=== PATIENT | female | born 1935 | race African-American/Black ===

== ENCOUNTER 2018-01-06 01:41 | Inpatient (IN) | payer OTHER ==
[2018-01-06] MEDS ORDERED: FAMOTIDINE 20 MG/2 ML VIAL IV ONE (03:18)
[2018-01-06] MEDS ORDERED: NA CHLORIDE 0.9% 1,000 ML ONE (03:18)
[2018-01-06 03:19] LABS: Hematocrit 28.4 % (36.0-45.0); MCH 21.8 pg (27.0-35.0); MCV 72.5 fL (80-100); MPV 9.8 fL (7.6-11.3); RBC Red Blood Cell Count 3.92 M/uL (3.86-4.86)
[2018-01-06 03:22] LABS: Protime INR 0.92
[2018-01-06 03:27] LABS: Potassium 4.5 mEq/L (3.6-5.0)
[2018-01-06 03:33] LABS: Albumin 3.2 g/dL (3.2-5.5); Bilirubin Direct 0.1 mg/dL (0-0.2); Magnesium 1.8 mg/dL (1.8-2.5); Protein, Total 6.5 g/dL (6.0-8.3)
[2018-01-06 03:35] LABS: CKMB Creatine Kinase MB 2.4 ng/ml (0.3-4.0)
[2018-01-06] MEDS ORDERED: ACETAMINOPHEN 500 MG TAB PO PRN (04:01)
[2018-01-06] MEDS ORDERED: ONDANSETRON 4 MG/2 ML VIAL IV PRN (04:01)
[2018-01-06] MEDS ORDERED: MORPHINE 4 MG/ML SYR IV PRN (04:01)
[2018-01-06] MEDS ORDERED: ALBUTEROL 2.5 MG/3 ML NEB SOL NEB PRN (04:01)
[2018-01-06] MEDS ORDERED: IPRATROPIUM BROM 0.5MG/2.5ML NEB PRN (04:01)
[2018-01-06] MEDS ORDERED: FUROSEMIDE 40 MG/4 ML VIAL ONE (04:03)
--- NOTE | 2018-01-06 04:07 | EDPHYS ---
Physician Documentation [facility] Name: Camelia Root Age: 82 yrs Sex: Female : 1935 Arrival Date: 01/06/2018 Time: 01:45 Bed 16 Private MD: ED Physician Danny Adler HPI: 01/06 03:47 This 82 yrs old Black Female presents to ER via Wheelchair with complaints of Abdominal ching Pain. 03:47 The patient presents with abdominal pain in the upper abdomen, in the lower abdomen. ching Onset: The symptoms/episode began/occurred just prior to arrival, this morning. The symptoms do not radiate. Associated signs and symptoms: none. Modifying factors: The symptoms are alleviated by nothing, the symptoms are aggravated by nothing. Severity of pain: At its worst the pain was mild in the emergency department the pain is unchanged. The patient has not experienced similar symptoms in the past. Historical: - Allergies: 02:19 No Known Allergies; aa1 - Home Meds: 02:19 clonidine HCl 0.1 mg Oral tab [Active]; furosemide 40 mg Oral tab [Active]; captopril aa1 50 mg Oral tab [Active]; Metoprolol Tartrate Oral [Active]; Ranitidine Oral [Active]; doxazosin 1 mg oral tab 1 tab once daily [Active]; - PMHx: 02:19 Arthritis; High Cholesterol; Hypertension; CHF; aa1 - PSHx: 02:19 Knee surgery; Hysterectomy; back surg; aa1 - Immunization history:: Flu vaccine is not up to date. - Social history:: Smoking status: Patient/guardian denies using tobacco. - Family history:: not pertinent. ROS: 03:47 Constitutional: Negative for fever, chills, and weight loss, Eyes: Negative for injury, ching pain, redness, and discharge, ENT: Negative for injury, pain, and discharge, Neck: Negative for injury, pain, and swelling, Cardiovascular: Negative for chest pain, palpitations, and edema, Respiratory: Negative for shortness of breath, cough, wheezing, and pleuritic chest pain, Back: Negative for injury and pain, : Negative for injury, bleeding, discharge, and swelling, MS/Extremity: Negative for injury and deformity, Skin: Negative for injury, rash, and discoloration, Neuro: Negative for headache, weakness, numbness, tingling, and seizure, Psych: Negative for depression, anxiety, suicide ideation, homicidal ideation, and hallucinations, Allergy/Immunology: Negative for hives, rash, and allergies, Endocrine: Negative for neck swelling, polydipsia, polyuria, polyphagia, and marked weight changes, Hematologic/Lymphatic: Negative for swollen nodes, abnormal bleeding, and unusual bruising. 03:47 Abdomen/GI: Positive for abdominal pain, diarrhea, abdominal cramps. Exam: 03:47 Constitutional: This is a well developed, well nourished patient who is awake, alert, ching and in no acute distress. Head/Face: Normocephalic, atraumatic. Eyes: Pupils equal round and reactive to light, extra-ocular motions intact. Lids and lashes normal. Conjunctiva and sclera are non-icteric and not injected. Cornea within normal limits. Periorbital areas with no swelling, redness, or edema. ENT: Nares patent. No nasal discharge, no septal abnormalities noted. Tympanic membranes are normal and external auditory canals are clear. Oropharynx with no redness, swelling, or masses, exudates, or evidence of obstruction, uvula midline. Mucous membranes moist. Neck: Trachea midline, no thyromegaly or masses palpated, and no cervical lymphadenopathy. Supple, full range of motion without nuchal rigidity, or vertebral point tenderness. No Meningismus. Chest/axilla: Normal chest wall appearance and motion. Nontender with no deformity. No lesions are appreciated. Cardiovascular: Regular rate and rhythm with a normal S1 and S2. No gallops, murmurs, or rubs. Normal PMI, no JVD. No pulse deficits. Respiratory: Lungs have equal breath sounds bilaterally, clear to auscultation and percussion. No rales, rhonchi or wheezes noted. No increased work of breathing, no retractions or nasal flaring. Abdomen/GI: Soft, non-tender, with normal bowel sounds. No distension or tympany. No guarding or rebound. No evidence of tenderness throughout. Back: No spinal tenderness. No costovertebral tenderness. Full range of motion. Female : Normal external genitalia. Skin: Warm, dry with normal turgor. Normal color with no rashes, no lesions, and no evidence of cellulitis. MS/ Extremity: Pulses equal, no cyanosis. Neurovascular intact. Full, normal range of motion. Neuro: Awake and alert, GCS 15, oriented to person, place, time, and situation. Cranial nerves II-XII grossly intact. Motor strength 5/5 in all extremities. Sensory grossly intact. Cerebellar exam normal. Normal gait. Psych: Awake, alert, with orientation to person, place and time. Behavior, mood, and affect are within normal limits. Vital Signs: 02:19 BP 178 / 86; Pulse 83; Resp 18; Temp 98.2; Pulse Ox 99% on R/A; Weight 89.81 kg; Height aa1 5 ft. 9 in. (175.26 cm); Pain 8/10; 03:14 BP 170 / 89; Pulse 73; Resp 18; Pulse Ox 100% on R/A; aa1 04:00 BP 175 / 79; Pulse 71; Resp 18; Pulse Ox 100% on R/A; aa1 05:05 BP 176 / 85; Pulse 73; Resp 18; Pulse Ox 100% on R/A; Pain 5/10; aa1 02:19 Body Mass Index 29.24 (89.81 kg, 175.26 cm) aa1 MDM: 02:14 Patient medically screened. snw 03:50 Data reviewed: vital signs, nurses notes, lab test result(s), EKG, radiologic studies. [facility] 01/06 02:11 Order name: Basic Metabolic Panel; Complete Time: 03:50 snw 01/06 02:11 Order name: BNP; Complete Time: 03:50 snw 01/06 02:11 Order name: CBC with Diff; Complete Time: 06:42 snw 01/06 02:11 Order name: Ckmb; Complete Time: 03:50 snw 01/06 02:11 Order name: CPK; Complete Time: 03:50 snw 01/06 02:11 Order name: LFT's; Complete Time: 03:50 snw 01/06 02:11 Order name: Magnesium; Complete Time: 03:50 snw 01/06 02:11 Order name: PT-INR; Complete Time: 03:50 snw 01/06 02:11 Order name: Ptt, Activated; Complete Time: 03:50 snw 01/06 02:11 Order name: Troponin (emerg Dept Use Only); Complete Time: 03:50 snw 01/06 02:11 Order name: Urine Culture sn 01/06 02:11 Order name: Urine Microscopic Only sn 01/06 02:11 Order name: XRAY Chest (1 view) sn 01/06 02:52 Order name: Stool Culture [facility] 01/06 02:52 Order name: Fecal Leukocyte Stain [facility] 01/06 02:52 Order name: CDIFF [facility] 01/06 03:02 Order name: Lipase; Complete Time: 03:50 EDMS 01/06 03:36 Order name: Manual Differential; Complete Time: 06:42 EDMS 01/06 03:53 Order name: Type And Screen; Complete Time: 06:42 [facility] 01/06 04:05 Order name: Basic Metabolic Panel EDMS 01/06 04:05 Order name: Basic Metabolic Panel EDMS 01/06 04:05 Order name: BNP B-Type Natriuretic Peptide EDMS 01/06 04:05 Order name: BNP B-Type Natriuretic Peptide EDMS 01/06 04:05 Order name: CBC with Automated Diff EDNJ 01/06 04:05 Order name: CBC with Automated Diff EDNJ 01/06 04:05 Order name: Troponin I EDNJ 01/06 04:05 Order name: Troponin I EDNJ 01/06 04:05 Order name: Troponin I EDNJ 01/06 02:11 Order name: EKG; Complete Time: 02:12 sn 01/06 02:11 Order name: Cardiac monitoring; Complete Time: 03:13 snw 01/06 02:11 Order name: EKG - Nurse/Tech; Complete Time: 03:13 snw 01/06 02:11 Order name: IV Saline Lock; Complete Time: 03:13 sn 01/06 02:11 Order name: Labs collected and sent; Complete Time: 03:13 snw 01/06 02:11 Order name: O2 Per Protocol; Complete Time: 03:13 snw 01/06 02:11 Order name: O2 Sat Monitoring; Complete Time: 03:13 snw 01/06 02:51 Order name: CT Abd/Pelvis - W/Contrast [facility] 01/06 04:05 Order name: CONS Physician Consult EDNJ 01/06 04:05 Order name: Echo with Doppler EDNJ 01/06 04:05 Order name: Chest Single View EDNJ 01/06 04:05 Order name: Chest Single View EDNJ 01/06 04:05 Order name: EKG Electrocardiogram EDNJ 01/06 04:05 Order name: EKG Electrocardiogram EDMS 01/06 07:55 Order name: CT EDMS Administered Medications: Discontinued: NS 0.9% 1000 ml IV at 125 ml/hr continuous 03:24 Drug: Pepcid 20 mg Route: IVP; Site: right antecubital; aa1 05:00 Follow up: Response: No adverse reaction; Marked relief of symptoms aa1 03:24 Drug: NS 0.9% 1000 ml Route: IV; Rate: 125 ml/hr; Site: right antecubital; aa1 04:01 Drug: NS 0.9% 1000 ml Route: IV; Rate: 75 ml/hr; Site: right antecubital; aa1 05:00 Follow up: IV Status: Infusion continued upon admission aa1 04:15 Drug: Lasix 40 mg Route: IVP; Site: right antecubital; aa1 05:00 Follow up: Response: No adverse reaction aa1 Disposition: 01/06/18 04:06 Hospitalization ordered by John Vega for Inpatient Admission. Preliminary diagnosis are Diarrhea, unspecified, Unspecified combined systolic (congestive) and diastolic (congestive) heart failure, Unspecified kidney failure, Anemia, unspecified, Pleural effusion in conditions classified elsewhere. - Bed requested for Telemetry/MedSurg (Inpatient). - Status is Inpatient Admission. ss - Condition is Fair. - Problem is new. - Symptoms have improved. UTI on Admission? No Signatures: Dispatcher [employer] EDNJ Yanique Haas RN RN Diamond Graham RN RN aa1 Danny Adler MD MD cha Therrien, Shelly, INTERNAL CONTROLS SPECIALIST-C INTERNAL CONTROLS SPECIALIST-Martha Avila RN RN ss Corrections: (The following items were deleted from the chart) 03:02 02:51 LIPASE+C.LAB.BRZ ordered. EDMS EDMS 03:14 02:11 Accucheck ordered. snw aa 03:19 02:12 BLOOD CULTURE*+BA.LAB.BRZ ordered. EDMS EDMS 04:16 02:11 Rojo ordered. snw aa1
--- NOTE | 2018-01-06 04:07 | ER ---
Nurse's Notes [facility] Name: Camelia Root Age: 82 yrs Sex: Female : 1935 Arrival Date: 01/06/2018 Time: 01:45 Bed 16 Private MD: Diagnosis: Diarrhea, unspecified;Unspecified combined systolic (congestive) and diastolic (congestive) heart failure;Unspecified kidney failure;Anemia, unspecified;Pleural effusion in conditions classified elsewhere Presentation: 01/06 02:16 Presenting complaint: Patient states: abd cramping and watery stools x 2 days. aa1 Transition of care: patient was not received from another setting of care. Onset of symptoms was January 04, 2018. Care prior to arrival: None. 02:16 Method Of Arrival: Wheelchair aa1 02:16 Acuity: SILVINO 3 aa1 Historical: - Allergies: 02:19 No Known Allergies; aa1 - Home Meds: 02:19 clonidine HCl 0.1 mg Oral tab [Active]; furosemide 40 mg Oral tab [Active]; captopril aa1 50 mg Oral tab [Active]; Metoprolol Tartrate Oral [Active]; Ranitidine Oral [Active]; doxazosin 1 mg oral tab 1 tab once daily [Active]; - PMHx: 02:19 Arthritis; High Cholesterol; Hypertension; CHF; aa1 - PSHx: 02:19 Knee surgery; Hysterectomy; back surg; aa1 - Immunization history:: Flu vaccine is not up to date. - Social history:: Smoking status: Patient/guardian denies using tobacco. - Family history:: not pertinent. Screenin:21 Abuse screen: Denies threats or abuse. Denies injuries from another. Nutritional aa1 screening: No deficits noted. Tuberculosis screening: No symptoms or risk factors identified. Fall Risk Gait- Weak (10 pts.). Assessment: 02:21 General: Appears in no apparent distress. comfortable, Behavior is calm, cooperative, aa1 appropriate for age. Pain: Complains of pain in abdomen Pain currently is 8 out of 10 on a pain scale. Quality of pain is described as crampy, Pain began 2-3 days ago. Neuro: Level of Consciousness is awake, alert, obeys commands, Oriented to person, place, time, situation, Moves all extremities. Respiratory: Airway is patent Respiratory effort is even, unlabored, Respiratory pattern is regular, symmetrical. GI: Abdomen is non-distended, Bowel sounds present X 4 quads. Abd is soft X 4 quads Reports cramping, diarrhea. : No signs and/or symptoms were reported regarding the genitourinary system. EENT: No signs and/or symptoms were reported regarding the EENT system. Derm: Skin is intact, is healthy with good turgor, Skin is pink, warm \T\ dry. Musculoskeletal: Circulation, motion, and sensation intact. Capillary refill < 3 seconds. 03:25 Reassessment: Patient appears in no apparent distress at this time. Patient and/or aa1 family updated on plan of care and expected duration. Pain level reassessed. Patient is alert, oriented x 3, equal unlabored respirations, skin warm/dry/pink. Awaiting labs and CT. 04:30 Reassessment: Patient appears in no apparent distress at this time. Patient and/or aa1 family updated on plan of care and expected duration. Pain level reassessed. Patient is alert, oriented x 3, equal unlabored respirations, skin warm/dry/pink. Awaiting CT scan. Vital Signs: 02:19 BP 178 / 86; Pulse 83; Resp 18; Temp 98.2; Pulse Ox 99% on R/A; Weight 89.81 kg; Height aa1 5 ft. 9 in. (175.26 cm); Pain 8/10; 03:14 BP 170 / 89; Pulse 73; Resp 18; Pulse Ox 100% on R/A; aa1 04:00 BP 175 / 79; Pulse 71; Resp 18; Pulse Ox 100% on R/A; aa1 05:05 BP 176 / 85; Pulse 73; Resp 18; Pulse Ox 100% on R/A; Pain 5/10; aa1 02:19 Body Mass Index 29.24 (89.81 kg, 175.26 cm) aa1 ED Course: 01:45 Patient arrived in ED. al2 02:16 Triage completed. aa1 02:19 Arm band placed on right wrist. aa1 02:21 Patient has correct armband on for positive identification. Bed in low position. Call aa1 light in reach. Side rails up X2. Pulse ox on. NIBP on. Warm blanket given. 02:21 EKG done, by ED staff, reviewed by Danny Adler MD. aa1 02:49 X-ray completed. Portable x-ray completed in exam room. Patient tolerated procedure kw well. 02:50 XRAY Chest (1 view) In Process Unspecified. EDMS 02:50 Danny Adler MD is Attending Physician. [facility] 03:00 Initial lab(s) drawn, by me, sent to lab. Inserted saline lock: 20 gauge in right aa1 antecubital area, using aseptic technique. Blood collected. 03:12 Diamond Graham RN is Primary Nurse. aa1 03:55 John Vega MD is Hospitalizing Provider. ching 05:06 No provider procedures requiring assistance completed. Patient admitted, IV remains in aa1 place. Administered Medications: Discontinued: NS 0.9% 1000 ml IV at 125 ml/hr continuous 03:24 Drug: Pepcid 20 mg Route: IVP; Site: right antecubital; aa1 05:00 Follow up: Response: No adverse reaction; Marked relief of symptoms aa1 03:24 Drug: NS 0.9% 1000 ml Route: IV; Rate: 125 ml/hr; Site: right antecubital; aa1 04:01 Drug: NS 0.9% 1000 ml Route: IV; Rate: 75 ml/hr; Site: right antecubital; aa1 05:00 Follow up: IV Status: Infusion continued upon admission aa1 04:15 Drug: Lasix 40 mg Route: IVP; Site: right antecubital; aa1 05:00 Follow up: Response: No adverse reaction aa1 Outcome: 04:06 Decision to Hospitalize by Provider. ching 05:00 Admitted to ER Hold. Please see [facility] for further documentation. aa1 05:00 Condition: stable 05:00 Instructed on the need for admit, Demonstrated understanding of instructions. 08:14 Patient left the ED. Signatures: Dispatcher [employer] EDMT Diamond Graham, KARAN RN aa1 Danny Adler MD MD cha Smirch, Shelby, RN RN Velma Noyola Angelica al2
[2018-01-06 04:37] LABS: Blood Morphology Comment NOTED (NOT SEEN); Platelet Estimate ADEQ
[2018-01-06 04:38] LABS: Burr Cells 3+; Hypochromasia 1+; Target Cells 1+
--- NOTE | 2018-01-06 07:00 | EKG ---
Test Date: 2018-01-06 Test Time: 02:21:09 Senior Designer/Art Director: ALLEGRA MEASUREMENT RESULTS: Intervals: Rate: 78 CO: 242 QRSD: 158 QT: 432 QTc: 492 [place]: P: 69 CO: 242 QRS: -13 T: 157 INTERPRETIVE STATEMENTS: Sinus rhythm with 1st degree AV block Left bundle branch block Abnormal ECG Compared to ECG 10/11/2014 09:10:11 No significant changes Electronically Signed On 01-06-18 07:00:05 CDT by Kel Stephens
--- NOTE | 2018-01-06 07:55 | RAD REPORT ---
EXAM DESCRIPTION: CT - Abdomen Pelvis Wo Contrast - 01/06/2018 6:50 am CLINICAL HISTORY: Abdominal pain generalized pain. Abdominal cramping x2 days COMPARISON: None TECHNIQUE: Computed axial tomography of the abdomen and pelvis was obtained. IV contrast were not re quested. Oral contrast was given. A preliminary report was generated by virtual radiologic and review ed prior to dictation All CT scans are performed using dose optimization technique as appropriate and may include automated exposure control or mA/KV adjustment according to patient size. FINDINGS: The evaluation of solid organs, and vessels is limited secondary to the lack of contrast administration. Small bilateral pleural effusions are present. There probably is a small pericardial effusion. The liver, spleen, pancreas, and adrenals appear grossly normal. A 26 millimeter mass extends off of the anterior aspect of the left kidney. Hounsfield unit 23. A 26 millimeter low-density mass is prese nt within the right kidney probably representing a cyst. A subcentimeter hemorrhagic/proteinaceous ri ght renal cyst is seen. The bladder is mildly distended The appendix is not visualized. . There is no evidence of diverticulitis. A hysterectomy has been performed. Surgical clips are present within the abdomen pelvis. Several mildly enlarged right inguinal lymph nodes are present. A small right posterolateral disc osteophyte complex is present at L5-S1 IMPRESSION: 26 millimeter left renal mass does not represent a simple cyst. Ultrasound is recommende d. Small bilateral pleural effusions Mild bladder distention
--- NOTE | 2018-01-06 08:12 | RAD REPORT ---
EXAM DESCRIPTION: Vianca Single View01/06/2018 2:50 am CLINICAL HISTORY: Shortness breath COMPARISON: 2014 FINDINGS: Small bilateral pleural effusions are present with bibasilar atelectasis. Mild interstiti al pulmonary edema is suspected. The lungs appear clear of acute infiltrate. The heart is borderline enlarged IMPRESSION: Small bilateral pleural effusions Mild interstitial pulmonary edema is suspected
[2018-01-06] MEDS: ASPIRIN 81 MG CHEWABLE TABLET PO SCH (08:48)
[2018-01-06] MEDS: FUROSEMIDE 20 MG/ 2ML VIAL IV SCH ×2 (08:48→16:54)
[2018-01-06 11:35] LABS: Urine RBC <5 /HPF (NONE SEEN)
[2018-01-06 11:36] LABS: Urine Amorphous Sediment 1+ /HPF (NONE SEEN); Urine Bacteria <20 /HPF (<20); Urine Culture Reflex Order NOT NEEDED
[2018-01-06] MEDS ORDERED: MAGNESIUM SULFATE 1 gm IVPB 1 GM/100 ML BAG IV ONE (11:47)
[2018-01-06] MEDS: METOPROLOL TAR 50 MG TAB PO SCH ×2 (13:14→21:08)
[2018-01-06] MEDS: cloNIDine HCl 0.1 MG TAB PO SCH ×2 (13:15→21:08)
--- NOTE | 2018-01-06 14:44 | RAD REPORT ---
EXAM DESCRIPTION: US - Renal Ultrasound-Complete - 01/06/2018 2:18 pm CLINICAL HISTORY: Renal mass, abnormal CT COMPARISON: CT study January 06 FINDINGS: The right kidney measures 7.8 x 5.4 x 4.3 cm. The left kidney measures 9.1 x 3.2 x 3.6 cm . Renal cortical thickness is normal. There is an increase in cortical echogenicity typical for medic al renal disease. No hydronephrosis is present. In the upper pole right kidney there is a 3.2 centimeter thin-walled anechoic mass identified. This h as simple cyst characteristics and is the correlate to the low-density mass upper pole right kidney. In the anterior upper left kidney a 3.2 x 2.6 centimeter oval anechoic mass is present. This has post erior acoustic enhancement and thin rosenthal. This is the correlate to the isodense mass seen on the CT study. Additional small cysts are identified in the kidneys. IMPRESSION: The isodense mass in the anterior upper left kidney on the recent CT study a shown at so nography to be a simple cyst. Low-density mass upper pole right kidney also demonstrates cyst characteristics at sonography. No hydronephrosis present. No worrisome or solid mass.
[2018-01-06] MEDS: CAPTOPRIL 25 MG TABLET PO SCH (21:07)
[2018-01-07 05:17] LABS: Absolute Lymphocytes (CBC) 1.4 K/uL (0.7-4.9); Absolute Monocytes 0.4 K/uL (0.1-1.3); Absolute Neutrophil 1.3 K/uL (1.8-8.0); Basophils % 0.6 % (0-1.3); Eosinophils % 3.4 % (0-4.4); Hematocrit 26.3 % (36.0-45.0); Lymphocytes % 43.1 % (15.3-44.8); MCH 22.6 pg (27.0-35.0); MCV 71.9 fL (80-100); MPV 10.2 fL (7.6-11.3); Monocytes % 12.8 % (3.3-12.3); RBC Red Blood Cell Count 3.67 M/uL (3.86-4.86)
[2018-01-07 05:49] LABS: Magnesium 1.9 mg/dL (1.8-2.5); Phosphorus 3.5 mg/dL (2.5-4.3); Potassium 5.1 mEq/L (3.6-5.0)
[2018-01-07 06:55] VITALS: BMI 28.7
--- NOTE | 2018-01-07 07:30 | RAD REPORT ---
EXAM DESCRIPTION: RAD - Chest Single View - 01/07/2018 6:04 am CLINICAL HISTORY: Chest pain COMPARISON: January 06 TECHNIQUE: AP portable chest image was obtained 0551 hours . FINDINGS: No new failure, infiltrate or mass finding. Heart size is upper normal but diminished slig htly from the comparison. Costophrenic angle blunting seen previously has resolved or significantly i mproved. Central vasculature and lung markings have diminished in prominence. No pneumothorax. IMPRESSION: Resolution or significant improvement in the small bilateral pleural effusions. Mild failure/ volume overload pattern seen previously has improved.
--- NOTE | 2018-01-07 08:41 | HP ---
Date of Admission: 01/06/2018 History Of Present Illness: An 82-year-old female with history of hypertension. She started feeling some abdominal discomfort about 2 days before presenting to the emergency room here. However, yeste rday, she started having watery diarrhea about 4 to 5 times, but no real abdominal pain, just what bree guardado describes as queasy abdomen. She had no vomiting. No nausea. Had no fever and no chills. Presen harriett to the emergency room. She also was found to have possible congestive heart failure, systolic ex acerbation and was admitted for that. Review of Systems: Gastrointestinal: As above. Cardiovascular: The patient denies chest pain. No increased shortness of breath and voiced no other complaints. Respiratory: No complaint. Genitourinary: No complaint. Skeletomuscular: No complaint. Pulmonary: No complaint. Neurological: No complaint. Past Medical History: 1.Hypertension. 2.Hyperlipidemia. 3.Prediabetes. 4.History of chronic renal insufficiency with hypertension. 5.Anemia of chronic disease. Social History: No smoking, alcohol, or IV drug abuse history. Family History: Noncontributory. Medications: Include Lasix 20 mg p.o. b.i.d., Capoten 50 mg p.o. b.i.d., Catapres 0.1 mg p.o. q.h.s. , Cardura 1 mg p.o. daily, metoprolol 50 mg p.o. b.i.d., and ranitidine 150 mg p.o. daily. Allergies: NO KNOWN DRUG ALLERGIES. Physical Examination: Vital Signs: Blood pressure 195/88, pulse rate 77, temperature 96.3. Heart: Regular rate and rhythm. Chest: Clear to auscultation. Abdomen: Soft, nontender. No rigidity. No rebound. Bowel sounds are active. Extremities: Chronic bilateral lymphedema, mild. No change. Peripheral pulses are felt. Neurological: Alert, oriented, nonfocal. Grossly intact. Diagnostic Data: Chest x-ray, possible CHF with small bilateral pleural effusions. Abdominopelvic C T showed a 26 mm left renal mass. Ultrasound is recommended. Mild bladder distention. EKG showed s inus rhythm with first-degree AV block and left bundle-branch block. No significant change from prev ious one. Laboratory Data: White cell count 4, hemoglobin 8.5, hematocrit 28.4, platelets 174. PT/INR and PTT within normal. Chemistry; sodium 133, BUN 64, creatinine 3.18. Troponin 0.04 and 0.05. BNP 1332. Lipase 59. Urinalysis pending. Assessment And Plan: 1.Diarrhea, likely viral gastroenteritis. The patient is being monitored and observed on that and w e will follow up her electrolytes. Stool culture, swab assay, and C difficile have been ordered. 2.Hypertension, uncontrolled. We will resume the patient's home medications and we will monitor danya t. 3.Congestive heart failure. Her last cardiac echo back in 2013, showed normal ejection fraction. W e will go ahead and order another one and Cardiology has been consulted. 4.Chronic renal insufficiency with hypertension, clinically stable. We will monitor. 5.Anemia of chronic illness of renal disease. Looking at her previous labs, basically stable. We w ill monitor that too. The patient has been put on IV Lasix for suspicion of congestive heart failure , systolic exacerbation. Look orders for details. MFS/MODL Voice ID: [id number]
[2018-01-07] MEDS ORDERED: DOXAZOSIN 1 MG TAB PO SCH (09:00)
[2018-01-07] MEDS ORDERED: DOXAZOSIN 2 MG TAB PO SCH (09:00)
[2018-01-07] MEDS ORDERED: RANITIDINE 150 MG TABLET PO SCH (09:00)
[2018-01-07] MEDS: METOPROLOL TAR 50 MG TAB PO SCH (09:08)
[2018-01-07] MEDS: ASPIRIN 81 MG CHEWABLE TABLET PO SCH (09:08)
[2018-01-07] MEDS: FUROSEMIDE 20 MG/ 2ML VIAL IV SCH (09:10)
[2018-01-07] MEDS: CAPTOPRIL 25 MG TABLET PO SCH (09:11)
--- NOTE | 2018-01-07 13:06 | ECHO ---
HEIGHT: 5 ft 9 in WEIGHT: 194 lb 5 oz DATE OF STUDY: 01/07/[address]: Danny Adler MD 2-DIMENSIONAL: YES M.MODE: YES DOPPLER: YES COLOR FLOW: YES TDS: NO PORTABLE: NO DEFINITY: NO BUBBLE STUDY: NO DIAGNOSIS: CONGESTIVE HEART FAILURE CARDIAC HISTORY: CATHERIZATION: NO SURGERY: NO PROSTHETIC VALVE: NO PACEMAKER: NO MEASUREMENTS (cm) DIASTOLIC (NORMALS) SYSTOLIC (NORMALS) IVSd 1.0 (0.6-1.2) LA Diam 3.8 (1.9-4.0) LVEF 40-45% LVIDd 5.1 (3.5-5.7) LVIDs 3.8 (2.0-3.5) %FS % LVPWd 1.2 (0.6-1.2) Ao Diam 2.9 (2.0-3.7) 2 DIMENSIONAL ASSESSMENT: RIGHT ATRIUM: NORMAL LEFT ATRIUM: NORMAL RIGHT VENTRICLE: NORMAL LEFT VENTRICLE: NORMAL TRICUSPID VALVE: NORMAL MITRAL VALVE: NORMAL PULMONIC VALVE: NORMAL AORTIC VALVE: NORMAL PERICARDIAL EFFUSION: NONE AORTIC ROOT: NORMAL LEFT VENTRICULAR WALL MOTION: MILD GLOBAL HYPOKINESIS. PARADOXICAL SEPTAL MOTION. DOPPLER/COLOR FLOW: MILD MITRAL AND TRICUSPID REGURGITATION. COMMENTS: MILD GLOBAL HYPOKINESIS. PARADOXICAL SEPTAL MOTION. MILD MITRAL AND TRICUSPID REGURGITATION. NORMAL LEFT VENTRICULAR SIZE. TECHNOLOGIST: Cyndee RODNEY
[2018-01-07 15:04] VITALS: O2SAT 98
[2018-01-07 16:48] VITALS: BP 153/73; TEMP 97.9
--- NOTE | 2018-01-08 12:36 | CON ---
Date of Consultation: 01/06/2018 Reason For Admission: Congestive heart failure. History Of Present Illness: Ms. oRot is an 82-year-old woman. She has a history of congestive he art failure and renal insufficiency. Her creatinine was 2.04 in 2013. She has a history of diabetes , hypertension, dyslipidemia, gastroesophageal reflux disease, and degenerative joint disease. She c johny in with nonspecific symptoms, including abdominal pain, nausea, diarrhea, renal failure with a cr eatinine of 3.18, anemia with hemoglobin 8.5, congestive heart failure type of symptoms. Her BNP was 1332 with a troponin of 0.04. By the time I saw her, she has improved on diuresis. Workup in 2013 included an echo, showing an ejection fraction of 57% with a negative Lexiscan for ischemia. Today, her EKG was nonspecific with LVH. Abdominal CT was pending, and chest x-ray revealed CHF. Allergies: NONE. Review of Systems: Negative. Social History: Negative. Family History: Negative. Medications: At home include Zantac, Capoten, Cardura, clonidine, Lasix, and metoprolol. Physical Examination: Vital Signs: Stable. She was afebrile. HEENT: Negative. Neck: Supple, with no bruit. Chest: Reveals rales bilaterally. Cardiac: Revealed a regular rhythm and rate with an S4 gallops. No murmurs or rubs. Abdomen: Benign. Extremities: Revealed no clubbing or cyanosis. She had 1+ edema. Diagnostic Data: As stated above. Impression And Plan: 1.Acute exacerbation of chronic diastolic congestive heart failure. 2.Worsening renal failure with a creatinine of 3.18, stage IV. 3.Anemia. 4.Abnormal troponin and BNP secondary to congestive heart failure. 5.Hypertension, well controlled. 6.Diabetes, well controlled. 7.Gastroesophageal reflux disease. 8.Dyslipidemia. 9.Degenerative joint disease. Ms. Root has an echocardiogram pending. We will see if that has changed since 2013. Ms. Root is on diuresis with Lasix. She remains on Cardura, clonidine, metoprolol and Zantac. I would sugges t stopping her Capoten considering her renal insufficiency. I will discuss the case further with Dr. Vega. She can certainly go home whenever it is okay with Dr. Vega after she has diuresed well . We will be happy to see the patient as an outpatient in the near future. JESSICA Voice ID: [id number] Report ID: [id number]
--- NOTE | 2018-01-09 22:45 | EKG ---
Test Date: 2018-01-07 Test Time: 08:24:50 Teachers' Aide: ROBIN MEASUREMENT RESULTS: Intervals: Rate: 72 LA: 224 QRSD: 164 QT: 456 QTc: 499 [place]: P: 48 LA: 224 QRS: -12 T: 191 INTERPRETIVE STATEMENTS: Sinus rhythm with 1st degree AV block Left bundle branch block Abnormal ECG Compared to ECG 01/06/2018 02:21:09 No significant changes Electronically Signed On 01-09-18 22:44:14 CDT by Kel Stephens
== END 2018-01-07 17:03 | disposition home or self-care (01) | DRG 291 ==
LOC: ER 01:41 → ERHOLD 03:59 → 2ND 07:37
PROVIDERS: ADMIT Internal Medicine; ATTEND Internal Medicine
DX: I13.0 Hypertensive heart and chronic kidney disease with heart failure and stage 1 through stage 4 chronic kidney disease, or unspecified chronic kidney disease (principal); I50.23 Acute on chronic systolic (congestive) heart failure; A08.4 Viral intestinal infection, unspecified; I11.0 Hypertensive heart disease with heart failure; N18.9 Chronic kidney disease, unspecified; E78.5 Hyperlipidemia, unspecified; D63.1 Anemia in chronic kidney disease; K21.9 Gastro-esophageal reflux disease without esophagitis; R73.03 Prediabetes
CPT/HCPCS: 36415; 71045; 74176; 76770; 80048; 80076; 81015; 82550; 82553; 83690; 83735; 83880; 84100; 84484; 85025; 85610; 85730; 86850; 86900; 86901; 87077; 87086; 87088; 87186; 93005; 93306; 96361; 96374; 96375; 99285; J1940; J3475; J7030

== ENCOUNTER 2018-03-19 20:42 | Inpatient (IN) | payer OTHER ==
[2018-03-19 22:24] LABS: Albumin 3.2 g/dL (3.4-5.0); Bilirubin Direct 0.2 mg/dL (0-0.2); Bilirubin Total 0.9 mg/dL (0.2-1.0); Magnesium 2.6 mg/dL (1.8-2.4); Potassium 4.8 mmol/L (3.5-5.1); Protein, Total 7.4 g/dL (6.4-8.2)
[2018-03-19 22:42] LABS: Hematocrit 29.7 % (36.0-45.0); MCH 22.5 pg (27.0-35.0); MPV 9.7 fL (7.6-11.3); RBC Red Blood Cell Count 4.13 M/uL (3.86-4.86)
[2018-03-19] MEDS ORDERED: ACETAMINOPHEN 500 MG TAB PO PRN (23:09)
--- NOTE | 2018-03-19 23:21 | ER ---
Nurse's Notes [facility] Name: Camelia Root Age: 82 yrs Sex: Female : 1935 Arrival Date: 03/19/2018 Time: 20:44 Bed 6 Private MD: John Vega F Diagnosis: Hypertension;Elevated Troponin;Headache;Confusion Presentation: 03/19 20:43 Presenting complaint: EMS states: that they were toned for shortness of breath, fc weakness and pt not doing well. Family stated that pt just recently changed from Clonidine to Doxazosin. Upon their arrival pt was A, A, \T\ Ox4. EMS bp 190/107 and heart rate of 104. Transition of care: patient was not received from another setting of care. Onset of symptoms was March 19, 2018. Risk Assessment: Do you want to hurt yourself or someone else? Patient reports no desire to harm self or others. Initial Sepsis Screen: Does the patient meet any 2 criteria? HR > 90 bpm. Yes Does the patient have a suspected source of infection? No. Patient's initial sepsis screen is negative. Care prior to arrival: Glucose check: 189. 20:43 Method Of Arrival: EMS: [facility] 20:43 Acuity: SILVINO 3 fc Historical: - Allergies: 20:54 No Known Allergies; fc - Home Meds: 20:54 metoprolol tartrate 50 mg oral tab 2 tabs every evening [Active]; captopril 50 mg Oral fc tab 1 tab 2 times per day [Active]; doxazosin 2 mg oral tab 1 tab nightly [Active]; ranitidine HCl 150 mg oral tab 1 tab once daily [Active]; furosemide 40 mg Oral tab 1 tab 2 times per day [Active]; - PMHx: 20:54 Arthritis; CHF; High Cholesterol; Hypertension; GERD; lyphedema; fc - PSHx: 20:54 Knee surgery; Hysterectomy; fc - Immunization history:: Last tetanus immunization: unknown. - Social history:: Smoking status: Patient/guardian denies using tobacco. - Ebola Screening: : Patient negative for fever greater than or equal to 101.5 degrees Fahrenheit, and additional compatible Ebola Virus Disease symptoms Patient denies exposure to infectious person Patient denies travel to an Ebola-affected area in the 21 days before illness onset. Screenin:51 Abuse screen: Denies threats or abuse. Nutritional screening: No deficits noted. fc Tuberculosis screening: No symptoms or risk factors identified. Assessment: 21:01 General: Appears in no apparent distress. comfortable, Behavior is calm, cooperative, aj1 appropriate for age. Pain: Denies pain. Neuro: Level of Consciousness is awake, alert, obeys commands, Oriented to person, place, time, situation, Speech is normal, Facial symmetry appears normal. Cardiovascular: Denies chest pain, Heart tones S1 S2 present Patient's skin is warm and dry. Rhythm is regular. Respiratory: Airway is patent Respiratory effort is even, unlabored, Respiratory pattern is regular, symmetrical, Breath sounds are clear bilaterally. GI: No signs and/or symptoms were reported involving the gastrointestinal system. : No signs and/or symptoms were reported regarding the genitourinary system. EENT: No signs and/or symptoms were reported regarding the EENT system. Derm: No signs and/or symptoms reported regarding the dermatologic system. Skin is pink, warm \T\ dry. normal. Musculoskeletal: No signs and/or symptoms reported regarding the musculoskeletal system. Circulation, motion, and sensation intact. 21:25 Reassessment: Dr. Hewitt at bedside to evaluate patient. aj1 22:05 Reassessment: Patient appears in no apparent distress at this time. Patient and/or aa1 family updated on plan of care and expected duration. Pain level reassessed. Patient is alert, oriented x 3, equal unlabored respirations, skin warm/dry/pink. Awaiting provider reassessment. 23:15 Reassessment: Patient appears in no apparent distress at this time. Patient and/or aa1 family updated on plan of care and expected duration. Pain level reassessed. Patient is alert, oriented x 3, equal unlabored respirations, skin warm/dry/pink. Awaiting bed assignment. 03/20 00:10 Reassessment: Patient appears in no apparent distress at this time. Patient and/or aa1 family updated on plan of care and expected duration. Pain level reassessed. Patient is alert, oriented x 3, equal unlabored respirations, skin warm/dry/pink. Awaiting bed assignment. 01:12 Reassessment: Patient appears in no apparent distress at this time. Patient and/or aa1 family updated on plan of care and expected duration. Pain level reassessed. Patient is alert, oriented x 3, equal unlabored respirations, skin warm/dry/pink. Attempted to call report to floor, was told nurse will call back. Vital Signs: 03/19 20:43 BP 228 / 114; Pulse 100; Resp 20; Temp 99.2(O); Pulse Ox 99% on R/A; Weight 87.09 kg fc (R); Height 5 ft. 9 in. (175.26 cm) (R); Pain 0/10; 21:45 BP 176 / 112; Pulse 111; Resp 22; Pulse Ox 98% ; aj1 22:29 BP 188 / 100; Pulse 80; Resp 20; Pulse Ox 100% on R/A; aa1 23:18 BP 171 / 96; Pulse 80; Resp 17; Pulse Ox 99% on R/A; tl2 03/20 01:19 BP 187 / 101; Pulse 85; Resp 18; Pulse Ox 98% on R/A; Pain 0/10; aa1 03/19 20:43 Body Mass Index 28.35 (87.09 kg, 175.26 cm) ED Course: 03/19 20:43 Arm band placed on Patient placed in an exam room, on a stretcher. fc 20:44 Patient arrived in ED. am2 20:48 John Vega MD is Private Physician. ds1 20:51 Triage completed. fc 20:51 Patient has correct armband on for positive identification. Bed in low position. Call fc light in reach. Side rails up X2. 21:01 Maria E Cary RN is Primary Nurse. aj1 21:01 No provider procedures requiring assistance completed. aj1 21:24 Félix Hewitt MD is Attending Physician. ps1 21:55 Report given to KARAN Fields. aj1 22:02 Inserted saline lock: 22 gauge in left antecubital area, using aseptic technique. Blood tl2 collected. 22:19 XRAY Chest (1 view) In Process Unspecified. EDMS 23:20 John Vega MD is Hospitalizing Provider. ps1 03/20 01:03 Urine collected: clean catch specimen, cloudy. aa1 01:15 Patient admitted, IV remains in place. aa1 Administered Medications: No medications were administered Outcome: 03/19 23:20 Decision to Hospitalize by Provider. ps1 06/24 01:22 Admitted to Tele accompanied by tech, via wheelchair, room 430, with chart, Report aa1 called to Yulissa Condition: stable Instructed on the need for admit, Demonstrated understanding of instructions. 01:30 Patient left the ED. aa1 Signatures: Dispatcher [employer] EDMaria E Valle RN RN aj1 Diamond Graham RN RN aa1 Joan Cuevas RN RN fc [place], Demi ds1 Gi Gipson RN RN tl2 Ct [place] am2 Félix Hewitt MD MD ps1 Corrections: (The following items were deleted from the chart) 01:55 01:54 Patient left the ED. aa1 aa1
--- NOTE | 2018-03-19 23:21 | EDPHYS ---
Physician Documentation [facility] Name: Camelia Root Age: 82 yrs Sex: Female : 1935 Arrival Date: 03/19/2018 Time: 20:44 Bed 6 Private MD: John Vega F ED Physician Félix Hewitt HPI: 03/19 21:33 This 82 yrs old Black Female presents to ER via EMS with complaints of Shortness Of ps1 Breath. 21:33 patient did not attest to shortness of breath to me however she has multiple ps1 complaints. She states that she has a mild headache and family states that she has had some confusion stating that she has been to the doctor and to the emergency department, which she has not. She has recently changed her medication from clonidine to doxazosin and her BP is now 210's systolic. She has not taken her other nightly BP medication. . Historical: - Allergies: 20:54 No Known Allergies; fc - Home Meds: 20:54 metoprolol tartrate 50 mg oral tab 2 tabs every evening [Active]; captopril 50 mg Oral fc tab 1 tab 2 times per day [Active]; doxazosin 2 mg oral tab 1 tab nightly [Active]; ranitidine HCl 150 mg oral tab 1 tab once daily [Active]; furosemide 40 mg Oral tab 1 tab 2 times per day [Active]; - PMHx: 20:54 Arthritis; CHF; High Cholesterol; Hypertension; GERD; lyphedema; fc - PSHx: 20:54 Knee surgery; Hysterectomy; fc - Immunization history:: Last tetanus immunization: unknown. - Social history:: Smoking status: Patient/guardian denies using tobacco. - Ebola Screening: : Patient negative for fever greater than or equal to 101.5 degrees Fahrenheit, and additional compatible Ebola Virus Disease symptoms Patient denies exposure to infectious person Patient denies travel to an Ebola-affected area in the 21 days before illness onset. ROS: 21:33 Constitutional: Negative for fever, chills, and weight loss, Eyes: Negative for injury, ps1 pain, redness, and discharge, Cardiovascular: Negative for chest pain, palpitations, and edema, Respiratory: Negative for shortness of breath, cough, wheezing, and pleuritic chest pain, Abdomen/GI: Negative for abdominal pain, nausea, vomiting, diarrhea, and constipation, : Negative for injury, bleeding, discharge, and swelling. 21:33 Neuro: Positive for headache. Exam: 21:33 Constitutional: This is a well developed, well nourished patient who is awake, alert, ps1 and in no acute distress. Head/Face: Normocephalic, atraumatic. Chest/axilla: Normal chest wall appearance and motion. Nontender with no deformity. No lesions are appreciated. Cardiovascular: Regular rate and rhythm. No gallops, murmurs, or rubs. Normal PMI, no JVD. No pulse deficits. Respiratory: Lungs have equal breath sounds bilaterally, clear to auscultation and percussion. No rales, rhonchi or wheezes noted. No increased work of breathing, no retractions or nasal flaring. Abdomen/GI: Soft, non-tender, with normal bowel sounds. No distension or tympany. No guarding or rebound. No evidence of tenderness throughout. Skin: Warm, dry with normal turgor. Normal color with no rashes, no lesions, and no evidence of cellulitis. Neuro: Awake and alert, GCS 15, oriented to person, place, time, and situation. Cranial nerves II-XII grossly intact. Sensory grossly intact. Psych: Awake, alert, with orientation to person, place and time. Behavior, mood, and affect are within normal limits. Vital Signs: 20:43 BP 228 / 114; Pulse 100; Resp 20; Temp 99.2(O); Pulse Ox 99% on R/A; Weight 87.09 kg fc (R); Height 5 ft. 9 in. (175.26 cm) (R); Pain 0/10; 21:45 BP 176 / 112; Pulse 111; Resp 22; Pulse Ox 98% ; aj1 22:29 BP 188 / 100; Pulse 80; Resp 20; Pulse Ox 100% on R/A; aa1 23:18 BP 171 / 96; Pulse 80; Resp 17; Pulse Ox 99% on R/A; tl2 03/20 01:19 BP 187 / 101; Pulse 85; Resp 18; Pulse Ox 98% on R/A; Pain 0/10; aa1 03/19 20:43 Body Mass Index 28.35 (87.09 kg, 175.26 cm) MDM: 06/23 21:38 Patient medically screened. ps1 23:22 Data reviewed: vital signs, nurses notes, lab test result(s), EKG, radiologic studies, ps1 and as a result, I will admit patient. 03/19 21:37 Order name: Basic Metabolic Panel [facility] 03/19 21:37 Order name: CBC with Diff; Complete Time: 23:42 ps1 03/19 21:37 Order name: LFT's; Complete Time: 22:37 ps1 03/19 21:37 Order name: Magnesium; Complete Time: 22:37 ps1 03/19 21:37 Order name: Troponin (emerg Dept Use Only); Complete Time: 22:37 ps1 03/19 21:38 Order name: Basic Metabolic Panel; Complete Time: 22:37 EDMS 03/19 22:48 Order name: Manual Differential; Complete Time: 23:42 EDMS 03/19 23:11 Order name: Basic Metabolic Panel [facility] 03/19 23:11 Order name: Basic Metabolic Panel EDMS 03/19 23:11 Order name: CBC with Automated Diff EDMS 03/19 23:11 Order name: CBC with Automated Diff EDMS 03/19 23:15 Order name: Troponin I [facility] 03/19 23:15 Order name: Troponin I [facility] 03/19 23:16 Order name: Troponin I [facility] 03/19 21:37 Order name: XRAY Chest (1 view) [facility] 03/19 21:37 Order name: EKG; Complete Time: 21:38 ps1 03/19 21:37 Order name: Cardiac monitoring; Complete Time: 21:53 [facility] 03/19 21:37 Order name: EKG - Nurse/Tech; Complete Time: 21:59 [facility] 03/19 21:37 Order name: IV Saline Lock; Complete Time: 21:59 ps1 03/19 21:37 Order name: Labs collected and sent; Complete Time: 21:59 ps1 03/19 21:37 Order name: O2 Per Protocol; Complete Time: 21:53 ps1 03/19 21:37 Order name: O2 Sat Monitoring; Complete Time: 21:53 [facility] 03/19 21:37 Order name: Urine Dipstick-Ancillary (obtain specimen); Complete Time: 01:03 ps1 03/19 23:11 Order name: Regular [facility] 03/20 01:04 Order name: Urine Dipstick--Ancillary (enter results) [facility] 03/20 01:05 Order name: Urine Microscopic Only [facility] 03/20 01:05 Order name: Urine Culture [facility] 03/20 01:18 Order name: Urine Dipstick-Ancillary; Complete Time: 01:31 [facility] 03/20 01:35 Order name: Urine Microscopic Only [facility] EC:02 Rate is 91 beats/min. Rhythm is regular. QRS [place] is Normal. MA interval is normal. QRS ps1 interval is prolonged. QT interval is normal. No Q waves. T waves are Normal. No ST changes noted. Clinical impression: LBBB. . Interpreted by me. Administered Medications: No medications were administered Disposition: 03/19/18 23:20 Hospitalization ordered by John Vega for Inpatient Admission. Preliminary diagnosis are Hypertension, Elevated Troponin, Headache, Confusion. - Bed requested for Telemetry/MedSurg (Inpatient). - Status is Inpatient Admission. aa1 - Condition is Fair. - Problem is new. - Symptoms have improved. UTI on Admission? No Signatures: [facility] Diamond Graham RN RN aa1 Joan Cuevas RN RN Gi Gipson RN RN tl2 Félix Hewitt MD MD ps1 Corrections: (The following items were deleted from the chart) 03/20 00:49 03/19 23:20 Hospitalization Ordered by John Vega MD for Inpatient Admission. tl2 Preliminary diagnosis is Hypertension; Elevated Troponin; Headache; Confusion. Bed requested for Telemetry/MedSurg (Inpatient). Status is Inpatient Admission. Condition is Fair. Problem is new. Symptoms have improved. UTI on Admission? No. ps1 03/20 01:54 00:49 03/19/2018 23:20 Hospitalization Ordered by John Vega MD for Inpatient aa1 Admission. Preliminary diagnosis is Hypertension; Elevated Troponin; Headache; Confusion. Bed requested for Telemetry/MedSurg (Inpatient). Status is Inpatient Admission. Condition is Fair. Problem is new. Symptoms have improved. UTI on Admission? No. tl2
[2018-03-19 23:27] LABS: Anisocytosis 2+; Blood Morphology Comment NOTED (NOT SEEN); Ovalocytes 2+; Platelet Estimate ADEQ
[2018-03-19 23:28] LABS: Hypochromasia 1+
[2018-03-20 01:18] LABS: Urine Blood 2+ (NEG); Urine Glucose NEGATIVE (NEG); Urine Protein 2+ (NEG)
[2018-03-20 01:35] LABS: Urine Bacteria >50 /HPF (<20); Urine Culture Reflex Order NOT NEEDED; Urine RBC <5 /HPF (NONE SEEN)
[2018-03-20] MEDS: NA CHLORIDE 0.9% 1,000 ML IV SCH ×3 (02:20→18:48)
[2018-03-20 03:17] VITALS: BMI 27.2
[2018-03-20 04:10] LABS: Hematocrit 30.2 % (36.0-45.0); MCH 21.8 pg (27.0-35.0); MCV 72.1 fL (80-100); MPV 9.9 fL (7.6-11.3); RBC Red Blood Cell Count 4.18 M/uL (3.86-4.86)
[2018-03-20 04:36] LABS: Potassium 4.6 mmol/L (3.5-5.1)
[2018-03-20 05:39] LABS: Blood Morphology Comment NOTED (NOT SEEN); Ovalocytes 1+; Platelet Estimate ADEQ; Target Cells 2+
--- NOTE | 2018-03-20 09:34 | RAD REPORT ---
EXAM DESCRIPTION: RAD - Chest Single View - 03/19/2018 10:22 pm CLINICAL HISTORY: Cough and congestion, transient alteration of awareness COMPARISON: December 2017 TECHNIQUE: AP portable chest image was obtained 2208 hours . FINDINGS: Patient has chronic interstitial lung disease accentuated by a slightly shallow inspirator y effort. Small nodular focus in the right upper lung field was not seen in December and is probably sum mation artifact. This can be re-evaluated on a subsequent examination, preferably two-view study. Pat daniela bilateral lung base opacification is present. There is left costophrenic angle blunting. Heart si ze is increased slightly and there is slight vascular engorgement compared to the prior study. No pne umothorax or large pleural effusion. No gross bony abnormality seen. No acute aortic findings suspect ed. IMPRESSION: Heart and vasculature are increased fractionally from the prior study. Interval change i s minimal but could indicate early stages of failure or volume overload. This needs correlation with clinical presentation. Patchy lung base opacification is favored to be atelectasis rather than pneumonia. Minimal left pleural effusion. Small sub centimeter nodule right upper lung field is probably summation artifact. This can be re-poncho luated on follow-up chest film in 3 months.
[2018-03-20] MEDS ORDERED: TRAMADOL HCL 50 MG TAB PO PRN (12:14)
[2018-03-20] MEDS: DOXAZOSIN 2 MG TAB PO SCH (12:56)
[2018-03-20] MEDS: FUROSEMIDE 40 MG TABLET PO SCH ×2 (12:56→20:49)
[2018-03-20] MEDS: CEFTRIAXONE/SWI 1gm 1 GM/10 ML SYR IV SCH (12:56)
[2018-03-20] MEDS: RANITIDINE 150 MG TABLET PO SCH (12:57)
[2018-03-20] MEDS: METOPROLOL TAR 50 MG TAB PO SCH ×2 (12:57→20:50)
--- NOTE | 2018-03-20 13:37 | HP ---
Date of Admission: 03/19/2018 History Of Present Illness: An 82-year-old female with history of hypertension and chronic renal ins ufficiency, was following with Nephrology. She was on clonidine 0.2 mg p.o. b.i.d. along with other her blood pressure medicines; however, Nephrology advised the patient to stop that medication because her blood pressure was going too low. The patient stopped clonidine and yesterday and the next day started having very bad headache all over her head. She was not feeling well. She checked her blood pressure. She called [facility]. Her blood pressure at home, when [facility] arrived blood pressure systolic a bout 190. She was brought to the emergency room and her blood pressure in the emergency room on pres entation was systolic 228 and diastolic 114. The patient was admitted for uncontrolled severe hypert ension and her lab workup had elevated troponin. The patient herself denies any shortness of breath. No chest pain. No nausea. No vomiting. She voiced no other complaints. Review of Systems: Cardiovascular: No complaints. Genitourinary: No complaints. Skeletomuscular: No complaints, except for chronic low back pain for which she takes tramadol, and o steoarthritic pain in different joints. Neurological: Headache as above. There is no sign of other complaint. Past Medical History: Includes: 1.Hypertension with chronic renal insufficiency. 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 3.The patient has systolic congestive heart failure. Her last echo back in 01/07/2018 showed left v entricular ejection fraction of 40% to 45%. 4.Hyperlipidemia. 5.Prediabetes. 6.Anemia of chronic disease. Social History: No smoking, alcohol, or drug abuse history. Family History: Noncontributory. Medications: Include Lumigan eye drops, Capoten 50 mg p.o. b.i.d., doxazosin 2 mg p.o. daily, furose mide 40 mg p.o. b.i.d., metoprolol 100 mg p.o. b.i.d., tramadol 50 mg p.o. t.i.d. The patient takes Zantac also 150 mg p.o. daily. Allergies: NO KNOWN DRUG ALLERGIES. Physical Examination: Vital Signs: At the time of interviewing the patient, her blood pressure has went down after she was treated in the emergency room. Her systolic now is 165. Her blood pressure now is 165/80, pulse 10 4, temperature 98.4. Heart: Regular rate and rhythm. Chest: Clear to auscultation. Abdomen: Soft, nontender. No pitting. Bowel sounds normoactive. Extremities: No edema. No cyanosis. Peripheral pulses are felt. Neurological: Alert, oriented, nonfocal. Grossly intact. Diagnostic Data: Chest x-ray; increased vascular marking mildly, could be an early failure, atelecta sis in lung bases, minimal pleural effusion. Laboratory Data: Hemoglobin 9.1, hematocrit 30.2, platelets 183. Chemistry; BUN 66, creatinine 4.0. Rapid troponin was 0.2 and then troponin 0.21 and 0.22 subsequently. Urinalysis; white cell count too numerous to count. Assessment And Plan: 1.Uncontrolled hypertension, likely secondary to rebound hypertension from stopping clonidine sudden ly. We will continue the patient's home medications that she is on, expect gradual controlling of he r high blood pressure. 2.Increased troponin could be secondary to chronic renal insufficiency; however, we will ask Cardiol juliany opinion about that with the consult. 3.Headache has improved with improvement in blood pressure. 4.Urinalysis showed urinary tract infection. We will put the patient on Rocephin IV pending culture s. We will continue the patient's rest of home medications for chronic medical illnesses. Look admit orders for details. CHRIS/JD Voice ID: [id number]
[2018-03-20] MEDS: CAPTOPRIL 25 MG TABLET PO SCH (20:49)
[2018-03-20] MEDS ORDERED: LUMIGAN 0.01% EYE DROPS OPTH SCH (21:00)
[2018-03-21] MEDS: NA CHLORIDE 0.9% 1,000 ML IV SCH ×3 (02:25→15:25)
--- NOTE | 2018-03-21 06:55 | EKG ---
Test Date: 2018-03-19 Test Time: 22:02:00 Sustainment Logistics Analyst: VERÓNICA MEASUREMENT RESULTS: Intervals: Rate: 91 MO: 232 QRSD: 156 QT: 410 QTc: 504 [place]: P: 52 MO: 232 QRS: 7 T: 184 INTERPRETIVE STATEMENTS: Sinus rhythm with 1st degree AV block Left bundle branch block Abnormal ECG Compared to ECG 01/07/2018 08:24:50 No significant changes Electronically Signed On 03-21-18 06:54:04 CDT by Kel Stephens
[2018-03-21] MEDS: METOPROLOL TAR 50 MG TAB PO SCH (08:36)
[2018-03-21] MEDS: RANITIDINE 150 MG TABLET PO SCH (08:37)
[2018-03-21] MEDS: DOXAZOSIN 2 MG TAB PO SCH (08:37)
[2018-03-21] MEDS: FUROSEMIDE 40 MG TABLET PO SCH (08:37)
[2018-03-21] MEDS: CEFTRIAXONE/SWI 1gm 1 GM/10 ML SYR IV SCH (08:38)
[2018-03-21] MEDS: CAPTOPRIL 25 MG TABLET PO SCH (08:38)
[2018-03-21 11:18] VITALS: O2SAT 94
--- NOTE | 2018-03-21 11:55 | CON ---
History Of Present Illness: Ms. Root came to the hospital with shortness of breath. It is better now. Overnight, she has had a lot of diuresis. Dr. Vega saw her yesterday. She does not have c oronary heart disease. She has mild left ventricular dysfunction. She has a lot of pedal edema, tea ecially on the left, where she has lymphatic and venous insufficiency. She has renal insufficiency. Her most recent creatinine is now 4.0. We saw it in the mid 3S about 2 months ago. She has troponi ns then mildly elevated. They are staying the same, not rising and falling. They are staying right at 0.2, which is fairly typical for Ms. Root to have an appearance like this. She has had nuclear stress test and echos in the past and no evidence of CAD is known. She does not have diabetes. She has hypertension, renal insufficiency, gout, gastroesophageal reflux disease, and lymphedema. Outpatient Medications: Zantac, metoprolol, furosemide, captopril, doxazosin, Lumigan, and tramadol. Physical Examination: Vital Signs: % feet 9 inches, 184 pounds. Lungs: Clear. Neck: No carotid bruit. Jugular vein pressure is low normal. Heart: Within normal limits. Extremities: mild right-sided edema, severe left-sided edema, which is about baseline. Her electrocardiogram shows sinus rhythm, left bundle-branch block, which is old. Impression: My impression is that Ms. Root got volume overloaded, the combination of cardiac and renal disease that looks her get volume overload with diuresis. She is back to baseline and I believe stable enough to be discharged home. LESLEY/JD Voice ID: [id number] Report ID: [id number]
[2018-03-21 16:16] VITALS: BP 135/55; TEMP 97.5
[2018-03-21] MEDS ORDERED: cloNIDine HCl 0.1 MG TAB PO SCH (21:00)
== END 2018-03-21 17:09 | disposition home or self-care (01) | DRG 305 ==
LOC: ER 20:42 → ERHOLD 23:52 → 4TH 03-20 01:05
PROVIDERS: ADMIT Internal Medicine; ATTEND Internal Medicine
DX: I10 Essential (primary) hypertension (principal); N39.0 Urinary tract infection, site not specified; R51 Headache; M19.90 Unspecified osteoarthritis, unspecified site; E78.00 Pure hypercholesterolemia, unspecified; M10.9 Gout, unspecified; K21.9 Gastro-esophageal reflux disease without esophagitis
CPT/HCPCS: 36415; 71045; 80048; 80076; 81003; 81015; 83735; 84484; 85025; 87077; 87086; 87088; 87186; 93005; 99285; J0696; J7030

== ENCOUNTER 2018-07-03 06:18 | Emergency (ER) | payer OTHER ==
--- OUTSIDE RECORDS SUMMARY | 2018-07-03 06:20 | XMS REPORT | Clinical Summary ---
:1935 Author Organization [facility] Address [address] [place] [address] Care Team Providers Name Role Phone John Vega MD Primary Care Provider Allergies No Known Allergies Current Medications No known medications Active Problems No known active problems Encounters Date Type Specialty Care Team Description 03/24/2018 Office Visit Orthopedic Surgery Joseph Singh Primary osteoarthritis of left knee (Primary Dx); MD Francis Lymphedema of left lower extremity 03/16/2018 Abstract Orthopedic Surgery Joseph Singh MD 03/08/2018 Abstract Orthopedic Surgery Joseph Singh MD 10/07/2017 Abstract Orthopedic Surgery Joseph Singh MD 10/07/2017 Abstract Orthopedic Surgery Joseph Singh MD after 07/02/2017 Social History Tobacco Use Types Packs/Day Years Used Date Never Assessed Sex Assigned at Date Recorded Not on file Last Filed Vital Signs Not on file Plan of Treatment Health Maintenance Due Date Last Done Comments SHINGRIX VACCINE (#1) 1985 ZOSTER VACCINE 1995 PNEUMOCOCCAL POLYSACCHARIDE VACCINE AGE 65 AND OVER 2000 PNEUMOCOCCAL-13 2000 INFLUENZA VACCINE 04/27/2018 Results Not on fileafter 07/02/2017 Insurance Payer Benefit Plan / Group Subscriber ID Type Phone Address [facility] xxxxxxxxx HMO Home: [phone] [place], [place] [id number]
[2018-07-03] MEDS ORDERED: TRAMADOL HCL 50 MG TAB ONE (07:08)
--- NOTE | 2018-07-03 08:31 | ER ---
Nurse's Notes [facility] Name: Camelia Root Age: 82 yrs Sex: Female : 1935 Arrival Date: 07/03/2018 Time: 06:22 Bed 15 Private MD: John Vega F Diagnosis: Pain in left shoulder;Other slipping, tripping and stumbling and falls;Pain in left knee Presentation: 07/03 06:44 Presenting complaint: Patient states: fall from standing last night, pain in left la1 shoulder and left knee. Transition of care: patient was not received from another setting of care. Onset of symptoms was July 03, 2018. Risk Assessment: Do you want to hurt yourself or someone else? Patient reports no desire to harm self or others. Initial Sepsis Screen: Does the patient meet any 2 criteria? No. Patient's initial sepsis screen is negative. Does the patient have a suspected source of infection? No. Patient's initial sepsis screen is negative. Care prior to arrival: None. 06:44 Method Of Arrival: Ambulatory la1 06:44 Acuity: SILVINO 4 la1 Historical: - Allergies: 06:45 No Known Allergies; la1 - PMHx: 06:45 Arthritis; CHF; GERD; High Cholesterol; Hypertension; lyphedema; Renal Disease; la1 - Immunization history:: Adult Immunizations up to date. - Social history:: Smoking status: Patient/guardian denies using tobacco. - Ebola Screening: : No symptoms or risks identified at this time. Screenin:01 Abuse screen: Denies threats or abuse. Nutritional screening: No deficits noted. em Tuberculosis screening: No symptoms or risk factors identified. Fall Risk None identified. Assessment: 07:10 General: Appears in no apparent distress. comfortable, Behavior is calm, cooperative. em Pain: Complains of pain in posterior aspect of left shoulder and left knee Pain currently is 7 out of 10 on a pain scale. Neuro: Level of Consciousness is awake, alert, obeys commands, Oriented to person, place, time, situation. Cardiovascular: Capillary refill < 3 seconds Patient's skin is warm and dry. Respiratory: Airway is patent Respiratory effort is even, unlabored, Respiratory pattern is regular, symmetrical. GI: Abdomen is flat. : No signs and/or symptoms were reported regarding the genitourinary system. EENT: No signs and/or symptoms were reported regarding the EENT system. Derm: Skin is intact, Skin is pink, warm \T\ dry. Musculoskeletal: Range of motion: intact in posterior aspect of left shoulder and left knee. 07:20 Reassessment: I agree with previous assessment. hb 08:00 Reassessment: Patient appears in no apparent distress at this time. Patient and/or em family updated on plan of care and expected duration. Pain level reassessed. Patient is alert, oriented x 3, equal unlabored respirations, skin warm/dry/pink. Patient states feeling better. Vital Signs: 06:45 BP 164 / 58; Pulse 58; Resp 18; Temp 97.7(O); Pulse Ox 100% on R/A; Weight 88.45 kg; la1 Height 5 ft. 10 in. (177.80 cm); 07:32 BP 166 / 69; Pulse 54; Resp 16; Pulse Ox 99% on R/A; Pain 7/10; em 08:30 BP 170 / 70; Pulse 51; Resp 16; Pulse Ox 97% on R/A; Pain 5/10; em 06:45 Body Mass Index 27.98 (88.45 kg, 177.80 cm) la1 ED Course: 06:22 Patient arrived in ED. do 06:22 John Vega MD is Private Physician. do 06:44 Triage completed. la1 06:44 Elgin Edmondson NP is PHCP. pm1 06:44 Ricardo Mistry MD is Attending Physician. pm1 06:46 Arm band placed on right wrist. la1 07:30 Jairon Solorzano LVN is Primary Nurse. em 07:30 Patient has correct armband on for positive identification. Placed in gown. Bed in low em position. Call light in reach. Adult w/ patient. 07:30 No provider procedures requiring assistance completed. em 08:01 Shoulder Left (2 View) XRAY In Process Unspecified. EDMS 08:31 Magdaleno Henriquez MD is Referral Physician. pm1 08:49 Patient did not have IV access during this emergency room visit. em Administered Medications: 07:04 Drug: traMADol 50 mg Route: PO; tl2 08:13 Follow up: Response: No adverse reaction; Pain is decreased em Outcome: 08:30 Discharge ordered by . pm1 08:49 Discharged to home via wheelchair. em 08:49 Condition: good 08:49 Discharge instructions given to patient, family, Instructed on discharge instructions, follow up and referral plans. Demonstrated understanding of instructions, follow-up care. 08:50 Patient left the ED. em Signatures: Dispatcher [employer] EDJairon Connolly, ACCOUNT SERVICE REPRESENTATIVE ACCOUNT SERVICE REPRESENTATIVE em Richie Johnson RN RN la1 Lisa Benitez Patrick, BON SORTER/ASSAY TECH pm1 Abbie Jensen RN RN Gi Gipson RN RN tl2
--- NOTE | 2018-07-03 08:31 | EDPHYS ---
Physician Documentation [facility] Name: Camelia Root Age: 82 yrs Sex: Female : 1935 Arrival Date: 07/03/2018 Time: 06:22 Bed 15 Private MD: John Vega F ED Physician Ricardo Mistry HPI: 07/03 06:53 This 82 yrs old Black Female presents to ER via Ambulatory with complaints of Fall pm1 Injury, Left shoulder pain. 06:53 Details of fall: The patient fell from an upright position, while walking. Onset: The pm1 symptoms/episode began/occurred just prior to arrival, this morning. Associated injuries: The patient sustained Left shoulder, Pain, left knee, Pain. Patient with left chronic knee pain. Patient was walking to the restroom with her walker and tripped on the heater on the floor. Patient landed on her left side. Patient reports left knee pain and left shoulder pain. No head injury, headache, or neck pain. No LOC. Patient was able to walk after falling. 06:53 Patient wears brace on left knee for chronic left knee pain and has chronic left lower pm1 extremity lymphedema. Historical: - Allergies: 06:45 No Known Allergies; la1 - PMHx: 06:45 Arthritis; CHF; GERD; High Cholesterol; Hypertension; lyphedema; Renal Disease; la1 - Immunization history:: Adult Immunizations up to date. - Social history:: Smoking status: Patient/guardian denies using tobacco. - Ebola Screening: : No symptoms or risks identified at this time. ROS: 06:53 Constitutional: Negative for fever, chills, and weight loss, Eyes: Negative for injury, pm1 pain, redness, and discharge. 06:53 ENT: Negative for injury, pain, and discharge, Neck: Negative for injury, pain, and pm1 swelling, Cardiovascular: Negative for chest pain, palpitations, and edema, Respiratory: Negative for shortness of breath, cough, wheezing, and pleuritic chest pain, Abdomen/GI: Negative for abdominal pain, nausea, vomiting, diarrhea, and constipation, Back: Negative for injury and pain. 06:53 Skin: Negative for injury, rash, and discoloration, Neuro: Negative for headache, weakness, numbness, tingling, and seizure. 06:53 MS/extremity: Positive for pain, of the left shoulder and left knee. Exam: 06:53 Constitutional: This is a well developed, well nourished patient who is awake, alert, pm1 and in no acute distress. Head/Face: Normocephalic, atraumatic. Eyes: Pupils equal round and reactive to light, extra-ocular motions intact. Lids and lashes normal. Conjunctiva and sclera are non-icteric and not injected. Cornea within normal limits. Periorbital areas with no swelling, redness, or edema. ENT: Nares patent. No nasal discharge, no septal abnormalities noted. Tympanic membranes are normal and external auditory canals are clear. Oropharynx with no redness, swelling, or masses, exudates, or evidence of obstruction, uvula midline. Mucous membranes moist. Neck: Trachea midline, no thyromegaly or masses palpated, and no cervical lymphadenopathy. Supple, full range of motion without nuchal rigidity, or vertebral point tenderness. No Meningismus. Chest/axilla: Normal chest wall appearance and motion. Nontender with no deformity. No lesions are appreciated. Cardiovascular: Regular rate and rhythm with a normal S1 and S2. No gallops, murmurs, or rubs. Normal PMI, no JVD. No pulse deficits. Respiratory: Lungs have equal breath sounds bilaterally, clear to auscultation and percussion. No rales, rhonchi or wheezes noted. No increased work of breathing, no retractions or nasal flaring. Abdomen/GI: Soft, non-tender, with normal bowel sounds. No distension or tympany. No guarding or rebound. No evidence of tenderness throughout. Back: No spinal tenderness. No costovertebral tenderness. Full range of motion. Skin: Warm, dry with normal turgor. Normal color with no rashes, no lesions, and no evidence of cellulitis. 06:53 Musculoskeletal/extremity: Extremities: grossly normal except: noted in the anterior aspect of left shoulder and posterior aspect of left shoulder: tenderness, There is no evidence of deformity, swelling, noted in the left knee: tenderness, Left leg lymphedema. Vital Signs: 06:45 BP 164 / 58; Pulse 58; Resp 18; Temp 97.7(O); Pulse Ox 100% on R/A; Weight 88.45 kg; la1 Height 5 ft. 10 in. (177.80 cm); 07:32 BP 166 / 69; Pulse 54; Resp 16; Pulse Ox 99% on R/A; Pain 7/10; em 08:30 BP 170 / 70; Pulse 51; Resp 16; Pulse Ox 97% on R/A; Pain 5/10; em 06:45 Body Mass Index 27.98 (88.45 kg, 177.80 cm) la1 MDM: 06:45 Patient medically screened. pm1 06:53 Data reviewed: vital signs. Data interpreted: Pulse oximetry: on room air is 100 %. pm1 Interpretation: normal. ED course: Offered left knee x-ray. Patient and family refused because patient was able to ambulate with walker after the fall and it is known that she already has bad arthritis in her left knee. Patient has been told that she has a bad knee and needs a knee replacement. Patient has deferred the surgery due to requiring bed rest up to 1 month post procedure. Son feels that a "knee x-ray would be a waste of time." He just wants a left shoulder x-ray. 08:25 Counseling: I had a detailed discussion with the patient and/or guardian regarding: the pm1 historical points, exam findings, and any diagnostic results supporting the discharge/admit diagnosis, radiology results, the need for outpatient follow up, to return to the emergency department if symptoms worsen or persist or if there are any questions or concerns that arise at home. 07/03 06:53 Order name: Shoulder Left (2 View) XRAY pm1 Administered Medications: 07:04 Drug: traMADol 50 mg Route: PO; tl2 08:13 Follow up: Response: No adverse reaction; Pain is decreased em Disposition: 07/03/18 08:30 Discharged to Home. Impression: Pain in left shoulder, Other slipping, tripping and stumbling and falls, Pain in left knee. - Condition is Stable. - Discharge Instructions: Contusion, Fall Prevention in the Home, Shoulder Pain, Knee Pain. - Medication Reconciliation Form, Thank You Letter form. - Follow up: Emergency Department; When: As needed; Reason: Worsening of condition. Follow up: Private Physician; When: 2 - 3 days; Reason: Recheck today's complaints, Continuance of care, Re-evaluation by your physician. Follow up: Magdaleno Henriquez MD; When: 2 - 3 days; Reason: Recheck today's complaints, Continuance of care, Re-evaluation by your physician. - Problem is new. - Symptoms have improved. Addendum: 07/05/2018 01:07 Co-signature as Attending Physician, Ricardo dee Signatures: Dispatcher [employer] EDMS Ricardo Mistry MD MD pkl Rashad, Jairon, COMMUNITY DEVELOPMENT MANAGER COMMUNITY DEVELOPMENT MANAGER em Richie Johnosn RN RN la1 Elgin Edmondson, ANESTHESIA TECHNICIAN ANESTHESIA TECHNICIAN pm1 Gi Gipson RN RN tl2 Corrections: (The following items were deleted from the chart) 07/03 08:31 08:30 07/03/2018 08:30 Discharged to Home. Impression: Pain in left shoulder; Other pm1 slipping, tripping and stumbling and falls. Condition is Stable. Forms are Medication Reconciliation Form, Thank You Letter, Antibiotic Education, Prescription Opioid Use. Follow up: Emergency Department; When: As needed; Reason: Worsening of condition. Follow up: Private Physician; When: 2 - 3 days; Reason: Recheck today's complaints, Continuance of care, Re-evaluation by your physician. Problem is new. Symptoms have improved. pm1 08:33 08:31 07/03/2018 08:30 Discharged to Home. Impression: Pain in left shoulder; Other pm1 slipping, tripping and stumbling and falls. Condition is Stable. Discharge Instructions: Fall Prevention in the Home, Shoulder Pain. Forms are Medication Reconciliation Form, Thank You Letter. Follow up: Emergency Department; When: As needed; Reason: Worsening of condition. Follow up: Private Physician; When: 2 - 3 days; Reason: Recheck today's complaints, Continuance of care, Re-evaluation by your physician. Follow up: Dr. Magdaleno Henriquez; When: 2 - 3 days; Reason: Recheck today's complaints, Continuance of care, Re-evaluation by your physician. Problem is new. Symptoms have improved. pm1 08:50 08:33 07/03/2018 08:30 Discharged to Home. Impression: Pain in left shoulder; Other em slipping, tripping and stumbling and falls; Pain in left knee. Condition is Stable. Discharge Instructions: Fall Prevention in the Home, Shoulder Pain, Contusion, Knee Pain. Forms are Medication Reconciliation Form, Thank You Letter. Follow up: Emergency Department; When: As needed; Reason: Worsening of condition. Follow up: Private Physician; When: 2 - 3 days; Reason: Recheck today's complaints, Continuance of care, Re-evaluation by your physician. Follow up: Dr. Magdaleno Henriquez; When: 2 - 3 days; Reason: Recheck today's complaints, Continuance of care, Re-evaluation by your physician. Problem is new. Symptoms have improved. pm1
[2018-07-03 08:59] VITALS: TEMP 97.7
[2018-07-03 09:02] VITALS: BP 170/70; O2SAT 97
--- NOTE | 2018-07-03 10:57 | RAD REPORT ---
EXAM DESCRIPTION: RAD - Shoulder Left 2 View - 07/03/2018 8:01 am CLINICAL HISTORY: Fall injury;Pain COMPARISON: Shoulder Left 2 View dated 03/24/2017 FINDINGS: AC joint degenerative changes are present. Glenohumeral joint is intact. A very subtle arnold ency is seen near the greater tuberosity, only seen on the AP internal rotation projection. If the pa tient has persistent pain or progressive symptoms, MR imaging would be advised to exclude the possibi lity of a subtle fracture in this region.
== END 2018-07-03 08:50 | disposition home or self-care (01) ==
LOC: ER 06:18
DX: M25.512 Pain in left shoulder (principal); M25.562 Pain in left knee; W01.0XXA Fall on same level from slipping, tripping and stumbling without subsequent striking against object, initial encounter; Y93.89 Activity, other specified; Y92.018 Other place in single-family (private) house as the place of occurrence of the external cause
CPT/HCPCS: 99283

== ENCOUNTER 2018-09-22 10:10 | Day surgery (SDC) | payer OTHER ==
--- OUTSIDE RECORDS SUMMARY | 2018-09-22 10:15 | XMS REPORT | Clinical Summary ---
:1935 Author Organization [facility] Address [address] [place] [address] Care Team Providers Name Role Phone John Vega MD Primary Care Provider Allergies No Known Allergies Medications No known medications Active Problems No [...] Abstract Orthopedic Surgery Joseph Singh MD after 09/21/2017 Social History Tobacco Use Types Packs/Day Years Used Date Never Assessed Sex Assigned at Date Recorded Not on file Job Start Date Occupation Industry Not on file Not on file Not on file Travel History Travel Start Travel End No recent travel history available. Last Filed Vital Signs Not on file Plan of Treatment Health Maintenance Due Date Last Done Comments SHINGLES VACCINES (1 of 2) 1985 PNEUMOCOCCAL POLYSACCHARIDE VACCINE AGE 65 AND OVER 2000 PNEUMOCOCCAL-13 2000 INFLUENZA VACCINE 04/27/2018 Results Not on fileafter 09/21/2017 Insurance Payer Benefit Plan / Group Subscriber ID Type Phone Address [facility] [facility] xxxxxxxxx HMO Advance Directives Patient has advance care planning documents on file. For more information, please contact:Yovanny Meadows[address] [place] [address]
[2018-09-22 10:33] VITALS: BP 151/53; TEMP 97.4; O2SAT 100
[2018-09-22 10:34] VITALS: BMI 27.7
[2018-09-22 10:47] LABS: Hematocrit 27.9 % (36.0-45.0)
[2018-09-22 11:05] LABS: Potassium 4.8 mmol/L (3.5-5.1)
[2018-09-22] MEDS ORDERED: EPOETIN ALFA 4,000 UNIT/ML VIAL ONE (11:14)
== END 2018-09-22 11:21 | disposition home or self-care (01) ==
LOC: DS 10:10
PROVIDERS: ATTEND Internal Medicine Nephrology
DX: I13.2 Hypertensive heart and chronic kidney disease with heart failure and with stage 5 chronic kidney disease, or end stage renal disease (principal); N18.5 Chronic kidney disease, stage 5; I50.9 Heart failure, unspecified; R80.8 Other proteinuria; E87.8 Other disorders of electrolyte and fluid balance, not elsewhere classified; E87.5 Hyperkalemia; E11.22 Type 2 diabetes mellitus with diabetic chronic kidney disease; E78.2 Mixed hyperlipidemia; K21.9 Gastro-esophageal reflux disease without esophagitis; D63.1 Anemia in chronic kidney disease; M17.0 Bilateral primary osteoarthritis of knee; N25.0 Renal osteodystrophy; E21.1 Secondary hyperparathyroidism, not elsewhere classified; E55.9 Vitamin D deficiency, unspecified; I89.0 Lymphedema, not elsewhere classified; R79.89 Other specified abnormal findings of blood chemistry
CPT/HCPCS: 36415; 80048; 85014; 85018; 96372; J0885

== ENCOUNTER 2018-11-08 10:00 | Day surgery (SDC) | payer OTHER ==
--- OUTSIDE RECORDS SUMMARY | 2018-11-08 10:15 | XMS REPORT | Clinical Summary ---
:1935 Author Organization [facility] Address [address] [place] [address] Care Team Providers Name Role Phone John [...] 03/08/2018 Abstract Orthopedic Surgery Joseph Singh MD after 11/07/2017 Social History Tobacco Use Types Packs/Day Years [...] INFLUENZA VACCINE 04/27/2018 Results Not on fileafter 11/07/2017 Insurance Payer Benefit Plan / Group Subscriber ID Type Phone Address [place] [facility] xxxxxxxxx HMO Advance Directives Patient has advance care planning documents on file. For more information, please contact:[address] [place] [address]
[2018-11-08 10:31] LABS: Hematocrit 28.1 % (36.0-45.0)
[2018-11-08] MEDS ORDERED: EPOETIN ALFA 4,000 UNIT/ML VIAL ONE (10:58)
[2018-11-08 14:18] VITALS: BP 173/75; TEMP 97.4; O2SAT 100
[2018-11-08 14:19] VITALS: BMI 27.7
== END 2018-11-08 10:55 | disposition home or self-care (01) ==
LOC: DS 10:00
PROVIDERS: ATTEND Internal Medicine Nephrology
DX: I13.2 Hypertensive heart and chronic kidney disease with heart failure and with stage 5 chronic kidney disease, or end stage renal disease (principal); N18.5 Chronic kidney disease, stage 5; I50.9 Heart failure, unspecified; E11.22 Type 2 diabetes mellitus with diabetic chronic kidney disease; D63.1 Anemia in chronic kidney disease; E87.8 Other disorders of electrolyte and fluid balance, not elsewhere classified; E87.5 Hyperkalemia; R60.0 Localized edema; E78.2 Mixed hyperlipidemia; K21.0 Gastro-esophageal reflux disease with esophagitis; M17.0 Bilateral primary osteoarthritis of knee; N25.0 Renal osteodystrophy; E21.1 Secondary hyperparathyroidism, not elsewhere classified; E55.9 Vitamin D deficiency, unspecified; I89.0 Lymphedema, not elsewhere classified
CPT/HCPCS: 36415; 85014; 85018; 96372; J0885

== ENCOUNTER 2018-12-06 10:00 | Day surgery (SDC) | payer OTHER ==
--- OUTSIDE RECORDS SUMMARY | 2018-12-06 10:03 | XMS REPORT | Clinical Summary ---
:1935 Author Organization [facility] Address [address] [place] [address] Care Team Providers Name Role Phone John [...] Abstract Orthopedic Surgery Joseph Singh MD after 12/05/2017 Social History Tobacco Use Types Packs/Day Years Used Date Never Assessed Sex Assigned at Date Recorded Not on file Job Start Date Occupation Industry Not on file Not on file Not on file Travel History Travel Start Travel End No recent travel history available. Last Filed Vital Signs Not on file Plan of Treatment Health Maintenance Due Date Last Done Comments SHINGLES VACCINES (#1) 1985 65+ PNEUMOCOCCAL VACCINE (1 of 2 - PCV13) 2000 PNEUMOCOCCAL POLYSACCHARIDE VACCINE AGE 65 AND OVER 2000 INFLUENZA VACCINE 04/27/2018 Results Not on fileafter 12/05/2017 Insurance Payer Benefit Plan / Group Subscriber ID Type Phone Address [place] [facility] xxxxxxxxx HMO Advance Directives Patient has advance care planning documents on file. For more information, please contact:Yovanny Meadows[address] [place] [place] [address]
[2018-12-06 10:12] VITALS: BP 144/52; TEMP 99.5; O2SAT 100; BMI 27.7
[2018-12-06] MEDS ORDERED: EPOETIN ALFA 10,000 UNIT/ML ONE (10:55)
[2018-12-06 11:27] LABS: Ferritin 120.1 ng/mL (8-388); Folic Acid, (Folate) > 20.0 ng/mL (3.1-17.5); Transferrin 212 mg/dL (200-360)
== END 2018-12-06 10:52 | disposition home or self-care (01) ==
LOC: DS 10:00
PROVIDERS: ATTEND Internal Medicine Nephrology
DX: I13.2 Hypertensive heart and chronic kidney disease with heart failure and with stage 5 chronic kidney disease, or end stage renal disease (principal); E11.22 Type 2 diabetes mellitus with diabetic chronic kidney disease; N18.5 Chronic kidney disease, stage 5; D63.1 Anemia in chronic kidney disease; D53.1 Other megaloblastic anemias, not elsewhere classified; R80.8 Other proteinuria; E87.8 Other disorders of electrolyte and fluid balance, not elsewhere classified; E87.5 Hyperkalemia; R60.0 Localized edema; E78.2 Mixed hyperlipidemia; K21.9 Gastro-esophageal reflux disease without esophagitis; M17.0 Bilateral primary osteoarthritis of knee; M25.561 Pain in right knee; M25.562 Pain in left knee; N25.0 Renal osteodystrophy; E21.1 Secondary hyperparathyroidism, not elsewhere classified; I88.0 Nonspecific mesenteric lymphadenitis; E55.9 Vitamin D deficiency, unspecified
CPT/HCPCS: 36415; 85018; 85014; 82728; 82746; 82607; 83540; 84466; 96372; J0885

== ENCOUNTER 2019-01-06 09:56 | Day surgery (SDC) | payer OTHER ==
--- OUTSIDE RECORDS SUMMARY | 2019-01-06 09:58 | XMS REPORT | Clinical Summary ---
:1935 Author Organization [facility] Address [address] [place] [address] Care Team Providers Name Role Phone John [...] Abstract Orthopedic Surgery Joseph Singh MD after 01/05/2018 Social History Tobacco Use Types Packs/Day Years [...] AGE 65 AND OVER 2000 INFLUENZA VACCINE 04/27/2019 Results Not on fileafter 01/05/2018 Insurance Payer Benefit Plan / Group Subscriber ID Type Phone Address [place] [facility] xxxxxxxxx HMO Advance Directives Patient has advance care planning documents on file. For more information, please contact:Yovanny Meadows[address] [place] [place] [address]
[2019-01-06 10:18] LABS: Hematocrit 27.4 % (36.0-45.0)
[2019-01-06] MEDS ORDERED: EPOETIN ALFA 10,000 UNIT/ML ONE (10:50)
[2019-01-06 11:06] VITALS: BP 176/67; TEMP 97.8; O2SAT 100
[2019-01-06 11:07] VITALS: BMI 27.7
== END 2019-01-06 10:47 | disposition home or self-care (01) ==
LOC: DS 09:56
PROVIDERS: ATTEND Internal Medicine Nephrology
DX: I13.2 Hypertensive heart and chronic kidney disease with heart failure and with stage 5 chronic kidney disease, or end stage renal disease (principal); N18.5 Chronic kidney disease, stage 5; D63.1 Anemia in chronic kidney disease; E11.22 Type 2 diabetes mellitus with diabetic chronic kidney disease; E87.8 Other disorders of electrolyte and fluid balance, not elsewhere classified; I50.9 Heart failure, unspecified; E87.5 Hyperkalemia; E78.2 Mixed hyperlipidemia; K21.9 Gastro-esophageal reflux disease without esophagitis; M17.0 Bilateral primary osteoarthritis of knee; N25.0 Renal osteodystrophy; E21.1 Secondary hyperparathyroidism, not elsewhere classified; E55.9 Vitamin D deficiency, unspecified; I89.0 Lymphedema, not elsewhere classified
CPT/HCPCS: 36415; 85018; 85014; 96372; J0885

== ENCOUNTER → 2019-02-09 | Day surgery (SDC) | payer OTHER ==
[~2019-02-09] MED LIST: EPOETIN ALFA 10,000 UNIT/ML ONE
--- OUTSIDE RECORDS SUMMARY | 2019-02-09 10:23 | XMS REPORT | Clinical Summary ---
:1935 Author Organization [facility] Address [address] [place] [address] Care Team Providers Name Role Phone John [...] Abstract Orthopedic Surgery Joseph Singh MD after 02/08/2018 Social History Tobacco Use Types Packs/Day Years [...] INFLUENZA VACCINE 04/27/2019 Results Not on fileafter 02/08/2018 Insurance Payer Benefit Plan / Group Subscriber ID Type Phone Address [place] [facility] xxxxxxxxx HMO Advance Directives Patient has advance care planning documents on file. For more information, please contact:Yovanny Meadows[address] [place] [address]
[2019-02-09 10:52] VITALS: TEMP 97.7; O2SAT 99
[2019-02-09 10:57] LABS: Hematocrit 28.1 % (36.0-45.0)
[2019-02-09 11:00] VITALS: BMI 27.7
[2019-02-09 11:34] VITALS: BP 177/83
== END ==
LOC: DS 10:20
PROVIDERS: ATTEND Internal Medicine Nephrology
DX: I13.2 Hypertensive heart and chronic kidney disease with heart failure and with stage 5 chronic kidney disease, or end stage renal disease (principal); E11.22 Type 2 diabetes mellitus with diabetic chronic kidney disease; N18.5 Chronic kidney disease, stage 5; D63.1 Anemia in chronic kidney disease; R80.8 Other proteinuria; E87.8 Other disorders of electrolyte and fluid balance, not elsewhere classified; E87.5 Hyperkalemia; R80.0 Isolated proteinuria; E78.2 Mixed hyperlipidemia; K21.9 Gastro-esophageal reflux disease without esophagitis; M17.0 Bilateral primary osteoarthritis of knee; M25.561 Pain in right knee; M25.562 Pain in left knee; N25.0 Renal osteodystrophy; E21.1 Secondary hyperparathyroidism, not elsewhere classified; E55.9 Vitamin D deficiency, unspecified; I88.0 Nonspecific mesenteric lymphadenitis
CPT/HCPCS: 36415; 85018; 85014; 96372; J0885

== ENCOUNTER 2019-03-15 10:26 | Day surgery (SDC) | payer OTHER ==
--- OUTSIDE RECORDS SUMMARY | 2019-03-15 10:37 | XMS REPORT | Clinical Summary ---
:1935 Author Organization [facility] Address [address] [place] [address] Care Team Providers Name Role Phone John Vega MD Primary Care Provider Allergies No Known Allergies Medications No known medications Active Problems No known active problems Encounters Date Type Specialty Care Team Description 03/24/2018 Office Visit Orthopedic Surgery Joseph Singh Primary osteoarthritis of left knee (Primary Dx); MD Francis Lymphedema of left lower extremity 03/16/2018 Abstract Orthopedic Surgery Joseph Singh MD after 03/14/2018 Social History Tobacco Use Types Packs/Day Years [...] VACCINE (1 of 2 - PCV13) 2000 INFLUENZA VACCINE 04/27/2019 Results Not on fileafter 03/14/2018 Advance Directives Patient has advance care planning documents on file. For more information, please contact:[place] [id number] [place] [address]
[2019-03-15 10:58] VITALS: BP 169/63; TEMP 98.3; O2SAT 100
[2019-03-15 10:58] LABS: Hematocrit 27.7 % (36.0-45.0)
[2019-03-15 11:00] VITALS: BMI 27.7
[2019-03-15] MEDS ORDERED: EPOETIN ALFA 10,000 UNIT/ML ONE (11:25)
== END 2019-03-15 11:15 | disposition home or self-care (01) ==
LOC: DS 10:26
PROVIDERS: ATTEND Internal Medicine Nephrology
DX: I13.2 Hypertensive heart and chronic kidney disease with heart failure and with stage 5 chronic kidney disease, or end stage renal disease (principal); N18.5 Chronic kidney disease, stage 5; I50.9 Heart failure, unspecified; R80.8 Other proteinuria; E87.8 Other disorders of electrolyte and fluid balance, not elsewhere classified; E87.5 Hyperkalemia; R60.0 Localized edema; E11.22 Type 2 diabetes mellitus with diabetic chronic kidney disease; E78.2 Mixed hyperlipidemia; K21.9 Gastro-esophageal reflux disease without esophagitis; D63.1 Anemia in chronic kidney disease; M17.0 Bilateral primary osteoarthritis of knee; N25.0 Renal osteodystrophy; E21.1 Secondary hyperparathyroidism, not elsewhere classified; E55.9 Vitamin D deficiency, unspecified; I89.0 Lymphedema, not elsewhere classified
CPT/HCPCS: 36415; 85018; 85014; 96372; J0885

== ENCOUNTER 2019-04-14 10:00 | Day surgery (SDC) | payer OTHER ==
--- OUTSIDE RECORDS SUMMARY | 2019-04-14 10:03 | XMS REPORT | Clinical Summary ---
:1935 Author Organization [facility] Address [address] [place] [address] Care Team Providers Name Role Phone John Vega MD Primary Care Provider Allergies No Known Allergies Medications No known medications Active Problems No known active problems Social History Tobacco Use Types Packs/Day Years [...] INFLUENZA VACCINE 04/27/2019 Results Not on fileafter 04/13/2018 Advance Directives Patient has advance care planning documents on file. For more information, please contact:[facility] [place] [address]
[2019-04-14 10:28] VITALS: BP 179/66; TEMP 98.7; O2SAT 100
[2019-04-14 10:30] VITALS: BMI 27.7
[2019-04-14 10:34] LABS: Hematocrit 26.6 % (36.0-45.0)
[2019-04-14] MEDS ORDERED: EPOETIN ALFA 10,000 UNIT/ML ONE (11:00)
== END 2019-04-14 10:55 | disposition home or self-care (01) ==
LOC: DS 10:00
PROVIDERS: ATTEND Internal Medicine Nephrology
DX: I13.2 Hypertensive heart and chronic kidney disease with heart failure and with stage 5 chronic kidney disease, or end stage renal disease (principal); E11.22 Type 2 diabetes mellitus with diabetic chronic kidney disease; N18.5 Chronic kidney disease, stage 5; D63.1 Anemia in chronic kidney disease; R80.8 Other proteinuria; E87.8 Other disorders of electrolyte and fluid balance, not elsewhere classified; R60.0 Localized edema; N25.0 Renal osteodystrophy; E78.2 Mixed hyperlipidemia; K21.9 Gastro-esophageal reflux disease without esophagitis; M17.0 Bilateral primary osteoarthritis of knee; M25.561 Pain in right knee; M25.562 Pain in left knee; E21.1 Secondary hyperparathyroidism, not elsewhere classified; E55.9 Vitamin D deficiency, unspecified; I89.0 Lymphedema, not elsewhere classified
CPT/HCPCS: 36415; 85018; 85014; 96372; J0885

== ENCOUNTER → 2019-05-12 | Day surgery (SDC) | payer OTHER ==
[~2019-05-12] MED LIST changes: -EPOETIN ALFA 10,000 UNIT/ML ONE; +EPOETIN ALFA-EPBX 10,000 UNIT/ML VIAL ONE
--- OUTSIDE RECORDS SUMMARY | 2019-05-12 10:12 | XMS REPORT | Clinical Summary ---
:1935 Author Organization [facility] Address [address] [place] [address] Care Team Providers Name Role Phone John [...] INFLUENZA VACCINE 04/27/2019 Results Not on fileafter 05/11/2018 Advance Directives Patient has advance care planning documents on file. For more information, please contact:[facility] [place] [address]
[2019-05-12 10:47] VITALS: BP 139/52; TEMP 97.8; O2SAT 99
[2019-05-12 10:48] VITALS: BMI 27.7
[2019-05-12 11:00] LABS: Hematocrit 27.5 % (36.0-45.0)
== END ==
LOC: DS 10:10
PROVIDERS: ATTEND Internal Medicine Nephrology
DX: I13.2 Hypertensive heart and chronic kidney disease with heart failure and with stage 5 chronic kidney disease, or end stage renal disease (principal); N18.5 Chronic kidney disease, stage 5; D63.1 Anemia in chronic kidney disease; R80.8 Other proteinuria; E87.8 Other disorders of electrolyte and fluid balance, not elsewhere classified; E87.5 Hyperkalemia; R60.0 Localized edema; E11.22 Type 2 diabetes mellitus with diabetic chronic kidney disease; E78.2 Mixed hyperlipidemia; K21.9 Gastro-esophageal reflux disease without esophagitis; M17.0 Bilateral primary osteoarthritis of knee; M25.561 Pain in right knee; M25.562 Pain in left knee; N25.0 Renal osteodystrophy; E21.1 Secondary hyperparathyroidism, not elsewhere classified; E55.9 Vitamin D deficiency, unspecified; I89.0 Lymphedema, not elsewhere classified
CPT/HCPCS: 36415; 85018; 85014; 96372; J0583

== ENCOUNTER 2019-06-16 10:08 | Day surgery (SDC) | payer OTHER ==
--- OUTSIDE RECORDS SUMMARY | 2019-06-16 10:22 | XMS REPORT | Clinical Summary ---
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
[2019-06-16 10:35] VITALS: BP 146/53; TEMP 98.7; O2SAT 100
[2019-06-16 10:40] VITALS: BMI 26.6
[2019-06-16 10:57] LABS: Hematocrit 25.7 % (36.0-45.0)
[2019-06-16] MEDS ORDERED: EPOETIN ALFA-EPBX 10,000 UNIT/ML VIAL ONE (11:16)
[2019-06-16 11:37] LABS: Folic Acid, (Folate) > 20.0 ng/mL (3.1-17.5); Transferrin 185 mg/dL (200-360)
== END 2019-06-16 11:25 | disposition home or self-care (01) ==
LOC: DS 10:08
PROVIDERS: ATTEND Internal Medicine Nephrology
DX: I13.2 Hypertensive heart and chronic kidney disease with heart failure and with stage 5 chronic kidney disease, or end stage renal disease (principal); E11.22 Type 2 diabetes mellitus with diabetic chronic kidney disease; N18.5 Chronic kidney disease, stage 5; D63.1 Anemia in chronic kidney disease; R80.8 Other proteinuria; E87.8 Other disorders of electrolyte and fluid balance, not elsewhere classified; E87.5 Hyperkalemia; R60.0 Localized edema; E78.2 Mixed hyperlipidemia; K21.9 Gastro-esophageal reflux disease without esophagitis; M17.0 Bilateral primary osteoarthritis of knee; M25.561 Pain in right knee; M25.562 Pain in left knee; N25.0 Renal osteodystrophy; E21.1 Secondary hyperparathyroidism, not elsewhere classified; E55.9 Vitamin D deficiency, unspecified; I88.0 Nonspecific mesenteric lymphadenitis
CPT/HCPCS: 36415; 85018; 85014; 82728; 82746; 82607; 83540; 84466; 96372; J0583

== ENCOUNTER 2019-07-14 10:07 | Day surgery (SDC) | payer OTHER ==
[2019-07-14 10:37] VITALS: BP 124/57
[2019-07-14 10:44] LABS: Hematocrit 26.8 % (36.0-45.0)
[2019-07-14] MEDS ORDERED: EPOETIN ALFA-EPBX 10,000 UNIT/ML VIAL ONE (10:50)
[2019-07-14 11:12] VITALS: TEMP 97; O2SAT 98
== END 2019-07-14 11:05 | disposition home or self-care (01) ==
LOC: DS 10:07
PROVIDERS: ATTEND Internal Medicine Nephrology
DX: I13.2 Hypertensive heart and chronic kidney disease with heart failure and with stage 5 chronic kidney disease, or end stage renal disease (principal); E11.22 Type 2 diabetes mellitus with diabetic chronic kidney disease; N18.5 Chronic kidney disease, stage 5; D63.1 Anemia in chronic kidney disease; R80.8 Other proteinuria; E87.8 Other disorders of electrolyte and fluid balance, not elsewhere classified; E87.5 Hyperkalemia; R60.0 Localized edema; E78.2 Mixed hyperlipidemia; K21.9 Gastro-esophageal reflux disease without esophagitis; M17.0 Bilateral primary osteoarthritis of knee; M25.561 Pain in right knee; M25.562 Pain in left knee; N25.0 Renal osteodystrophy; E21.1 Secondary hyperparathyroidism, not elsewhere classified; E55.9 Vitamin D deficiency, unspecified; I89.0 Lymphedema, not elsewhere classified
CPT/HCPCS: 36415; 85018; 85014; 96372; J0583

== ENCOUNTER → 2019-09-08 | Day surgery (SDC) | payer OTHER ==
[2019-09-08 14:02] VITALS: BP 162/46; TEMP 98.6; O2SAT 100
[2019-09-08 14:15] VITALS: BMI 26.5
== END ==
LOC: DS 01:02
PROVIDERS: ATTEND Internal Medicine Nephrology
DX: D63.1 Anemia in chronic kidney disease (principal)
CPT/HCPCS: 36415; 85018; 85014; 96372; J0583

== ENCOUNTER 2019-09-14 18:42 | Inpatient (IN) | payer OTHER ==
--- NOTE | 2019-09-14 19:01 | RAD REPORT ---
EXAM DESCRIPTION: CT - Ct Stroke Brain Wo Cont - 09/14/2019 6:54 pm CLINICAL HISTORY: CONFUSED Headache, drowsiness, CVA symptomology COMPARISON: Head Brain Wo Cont dated 03/24/2017 TECHNIQUE: All CT scans are performed using dose optimization technique as appropriate and may inclu de automated exposure control or mA/KV adjustment according to patient size. FINDINGS: No intracranial hemorrhage, hydrocephalus or extra-axial fluid collection.Mild generalized brain atrophy is present with advanced periventricular and deep white matter chronic microvascular i schemic changes.No areas of brain edema or evidence of midline shift. The paranasal sinuses and mastoids are clear. The calvarium is intact. IMPRESSION: No acute intracranial abnormality. If there is continued clinical concern for CVA, MR i maging of the brain would be recommended. The findings were discussed with Cynthia in the ER on 09/14/2019 at 6:56 p.m. by telephone.
[2019-09-14 19:20] LABS: Absolute Lymphocytes (CBC) 2.6 K/uL (0.7-4.9); Basophils % 0.9 % (0-1.3); Hematocrit 31.2 % (36.0-45.0); Lymphocytes % 49.1 % (15.3-44.8); RBC Red Blood Cell Count 4.26 M/uL (3.86-4.86)
[2019-09-14 19:23] LABS: Protime INR 0.89
--- NOTE | 2019-09-14 19:23 | RAD REPORT ---
EXAM DESCRIPTION: RAD - Chest Single View - 09/14/2019 7:10 pm CLINICAL HISTORY: confused Chest pain. COMPARISON: Chest Single View dated 03/19/2018; Chest Single View dated 01/07/2018; Chest Single View dated 01/06/2018; Chest Pa And Lat (2 Views) dated 03/18/2016 FINDINGS: Portable technique limits examination quality. Small opacity is present in the right lung base which has the appearance of mild atelectasis. The marcelino gs are otherwise clear. The heart is upper limit of normal in size. No displaced fractures.
[2019-09-14 19:33] LABS: Potassium 4.8 mmol/L (3.5-5.1); Troponin (Emerg Dept Use Only) 0.16 ng/mL (0.0-0.045)
[2019-09-14 19:59] LABS: Platelet Estimate ADEQ; Urine White Blood Cell Casts OK
[2019-09-14 20:00] LABS: Blood Morphology Comment NOTED (NOT SEEN); Poikilocytosis 1+
[2019-09-14 20:21] LABS: Urine Blood 1+ (NEG); Urine Glucose NEGATIVE (NEG); Urine Protein 1+ (NEG); Urine Specific Gravity 1.015 (1.005-1.030)
[2019-09-14] MEDS ORDERED: NA CHLORIDE 0.9% 1,000 ML ONE (20:21)
[2019-09-14] MEDS ORDERED: CEFTRIAXONE/SWI 1gm 1 GM/10 ML SYR ONE (20:21)
[2019-09-14] MEDS ORDERED: cloNIDine HCL 0.1 MG TAB ONE (20:22)
[2019-09-14 20:41] LABS: Urine Bacteria >50 /HPF (<20); Urine Culture Reflex Order NOT NEEDED; Urine Mucus 1+ /HPF (NONE SEEN)
--- NOTE | 2019-09-14 20:56 | EDPHYS ---
Physician Documentation [facility] Name: Camelia Root Age: 83 yrs Sex: Female : 1935 Arrival Date: 09/14/2019 Time: 18:46 Bed 4 Private MD: ED Physician Demetrio Sanchez HPI: 09/15 02:35 This 83 yrs old Black Female presents to ER via EMS with complaints of Altered Mental tw4 Status. 02:35 The patient presents with decreased responsiveness. Onset: The symptoms/episode tw4 began/occurred today. Associated signs and symptoms: The patient has no apparent associated signs or symptoms. The patient has not experienced similar symptoms in the past. Historical: - Allergies: 09/14 18:49 No Known Allergies; sg - Home Meds: 21:05 captopril 50 mg Oral tab 1 tab 2 times per day [Active]; metoprolol tartrate 50 mg Oral rr5 tab 2 tabs every evening [Active]; doxazosin 2 mg Oral tab 1 tab nightly [Active]; furosemide 40 mg Oral tab 1 tab 2 times per day [Active]; ranitidine HCl 150 mg Oral tab 1 tab once daily [Active]; Clonidine Oral [Active]; Tramadol Oral [Active]; - PMHx: 18:49 Arthritis; CHF; GERD; High Cholesterol; Hypertension; lyphedema; Renal Disease; sg - Immunization history:: Adult Immunizations unknown. - Social history:: Smoking status: Patient/guardian denies using tobacco. - Ebola Screening: : Patient negative for fever greater than or equal to 101.5 degrees Fahrenheit, and additional compatible Ebola Virus Disease symptoms Patient denies exposure to infectious person Patient denies travel to an Ebola-affected area in the 21 days before illness onset No symptoms or risks identified at this time. ROS: 09/15 02:35 Neuro: Positive for altered mental status, Negative for dizziness, gait disturbance, tw4 numbness, seizure activity, speech changes, syncope, near syncope, tinnitus, tremor, visual changes, weakness. 02:59 Constitutional: Negative for fever, chills, and weight loss, Eyes: Negative for injury, tw4 pain, redness, and discharge, Cardiovascular: Negative for chest pain, palpitations, and edema, Respiratory: Negative for shortness of breath, cough, wheezing, and pleuritic chest pain, Abdomen/GI: Negative for abdominal pain, nausea, vomiting, diarrhea, and constipation, Back: Negative for injury and pain, MS/Extremity: Negative for injury and deformity, Skin: Negative for injury, rash, and discoloration. Exam: 02:35 Constitutional: This is a well developed, well nourished patient who is awake, alert, tw4 and in no acute distress. Head/Face: Normocephalic, atraumatic. Chest/axilla: Normal chest wall appearance and motion. Nontender with no deformity. No lesions are appreciated. Cardiovascular: Regular rate and rhythm with a normal S1 and S2. No gallops, murmurs, or rubs. Normal PMI, no JVD. No pulse deficits. Respiratory: Lungs have equal breath sounds bilaterally, clear to auscultation and percussion. No rales, rhonchi or wheezes noted. No increased work of breathing, no retractions or nasal flaring. Abdomen/GI: Soft, non-tender, with normal bowel sounds. No distension or tympany. No guarding or rebound. No evidence of tenderness throughout. Back: No spinal tenderness. No costovertebral tenderness. Full range of motion. 02:35 Musculoskeletal/extremity: Extremities: noted in the left leg: swelling. Vital Signs: 09/14 19:10 BP 190 / 111; Pulse 81; Resp 15; Temp 98.3; Pulse Ox 98% on R/A; rr5 20:11 BP 195 / 99; Pulse 79; Resp 19; Temp 98.5; Pulse Ox 98% ; rr5 20:44 BP 187 / 79; Pulse 73; Resp 18; Pulse Ox 98% ; rr5 20:51 Weight 85.73 kg; Height 5 ft. 9 in. (175.26 cm); rr5 21:06 BP 173 / 76; Pulse 71; Resp 20; Pulse Ox 97% ; rr5 22:05 BP 170 / 87; Pulse 76; Resp 20; Temp 98.7; Pulse Ox 98% ; Pain 0/10; rr5 20:51 Body Mass Index 27.91 (85.73 kg, 175.26 cm) rr5 NIH Stroke Scale Scores: 18:57 NIHSS Score: 8 rn 19:45 NIHSS Score: 0 rr5 [place] Coma Score: 19:10 Eye Response: spontaneous(4). Verbal Response: oriented(5). Motor Response: obeys rr5 commands(6). Total: 15. MDM: 18:57 ED course: Stroke activation by EMS, straight to CT. Brief eval shows non-focal exam, rn seems slow to respond but follows commands and looks globally weak. CT stroke without acute findings. Pt reports "weak all over" and doesn't recall not being able to speak with family. Family not present. . 18:57 ED course: NIH 8, but not unilaterally weak, weak in all extremities. Similar rn presentation in past and diagnosed with UTI. . 19:11 Patient medically screened. tw09/15 02:35 Differential Diagnosis: CVA, electrolyte abnormality, hypoglycemia, seizure, UTI, tw4 volume depletion. Data reviewed: vital signs, nurses notes. Data interpreted: Pulse oximetry: Interpretation:. Test interpretation: by ED physician or midlevel provider: ECG. Counseling: I had a detailed discussion with the patient and/or guardian regarding: the historical points, exam findings, and any diagnostic results supporting the discharge/admit diagnosis. Physician consultation: John Vega MD regarding admission, to the telemetry unit. patient's condition, and will see patient in inpatient room. Admission orders: after a detailed discussion of the patient's condition and case, the admit orders are written by me. 09/14 18:48 Order name: Troponin (emerg Dept Use Only); Complete Time: 20:13 09/14 20:17 Interpretation: Normal except: TROPED 0.16. tw4 09/14 18:48 Order name: Basic Metabolic Panel; Complete Time: 20:13 09/14 20:17 Interpretation: Normal except: BUN 80; GFR 12; CRE 4.40. tw4 09/14 18:48 Order name: CBC with Diff; Complete Time: 20:13 09/14 20:18 Interpretation: Normal except: HGB 9.7; HCT 31.2; MCV 73.3; MCHC 31.2; MCH 22.9. tw4 09/14 18:48 Order name: Protime (+inr); Complete Time: 20:13 rn 09/14 18:48 Order name: Ptt, Activated; Complete Time: 20:13 rn 09/14 18:48 Order name: Urine Culture rn 09/14 18:48 Order name: Urine Microscopic Only rn 09/14 18:48 Order name: Lactate; Complete Time: 20:13 rn 09/14 20:20 Interpretation: Abnormal. tw4 09/14 18:48 Order name: Procalcitonin; Complete Time: 20:13 rn 09/14 18:48 Order name: Blood Culture Adult (2) rn 09/14 19:12 Order name: Glucose, Ancillary Testing; Complete Time: 20:13 EDGA 09/14 20:00 Order name: CBC Smear Scan; Complete Time: 20:13 EDGA 09/14 20:11 Order name: Urine Dipstick--Ancillary (enter results); Complete Time: 20:34 cm6 09/14 20:53 Order name: Blood Culture* rr5 09/14 18:48 Order name: CT Stroke Brain w/o Contrast; Complete Time: 20:13 rn 09/14 18:48 Order name: Stroke CXR 1 View; Complete Time: 20:13 rn 09/14 18:48 Order name: EKG; Complete Time: 18:50 rn 09/14 18:48 Order name: Accucheck; Complete Time: 19:12 rn 09/14 21:44 Order name: Basic Metabolic Panel EDGA 09/14 21:44 Order name: Basic Metabolic Panel EDGA 09/14 21:44 Order name: CBC with Automated Diff EDGA 09/14 21:44 Order name: CBC with Automated Diff EDGA 09/14 21:44 Order name: NT PRO-BNP EDGA 09/14 21:44 Order name: NT PRO-BNP EDGA 09/14 21:45 Order name: Troponin I EDGA 09/14 21:45 Order name: Troponin I EDGA 09/14 21:45 Order name: Troponin I EDGA 09/14 18:48 Order name: Cardiac monitoring; Complete Time: 19:12 rn 09/14 18:48 Order name: EKG - Nurse/Tech; Complete Time: 19:12 rn 09/14 18:48 Order name: IV Saline Lock; Complete Time: 19:12 rn 09/14 18:48 Order name: Labs collected and sent; Complete Time: 19:12 rn 09/14 18:48 Order name: NPO; Complete Time: 19:12 rn 09/14 18:48 Order name: O2 Per Protocol; Complete Time: 19:12 rn 09/14 18:48 Order name: O2 Sat Monitoring; Complete Time: 19:12 rn 09/14 18:48 Order name: Stroke Swallow Screen; Complete Time: 20:29 rn 09/14 18:48 Order name: Urine Dipstick-Ancillary (obtain specimen); Complete Time: 20:10 rn EC:35 Rhythm is regular, 1st Degree Block with Left bundle branch block. QRS [place] is Normal. tw4 FL interval is prolonged at 246 msec. QRS interval is normal. No Q waves. T waves are Inverted in leads I, II, aVL, V4, V5. No ST changes noted. Clinical impression: NSR w/ Non-specific ST/T Changes. Interpreted by me. Reviewed by me. Administered Medications: 09/14 20:20 Drug: NS 0.9% 1000 ml Route: IV; Rate: 125 ml/hr; Site: right antecubital; rr5 22:17 Follow up: Response: No adverse reaction; IV Status: Infusion continued upon admission; rr5 IV Intake: 250ml 20:25 Drug: Rocephin - (cefTRIAXone) 1 grams Route: IVPB; Infused Over: 30 mins; Site: right rr5 antecubital; 20:55 Follow up: Response: No adverse reaction; IV Status: Completed infusion rr5 20:28 Drug: cloNIDine 0.1 mg {Note: bp 195/99 mmHg.} Route: PO; rr5 21:30 Follow up: Response: Blood pressure is lowered rr5 Disposition: 09/14/19 20:54 Hospitalization ordered by John Vega for Inpatient Admission. Preliminary diagnosis are Altered mental status, unspecified, Other specified sepsis. - Bed requested for Telemetry/MedSurg (Inpatient). - Status is Inpatient Admission. rr5 - Condition is Stable. - Problem is new. - Symptoms are unchanged. UTI on Admission? No NIH Stroke Scale - NIH Stroke Score Date: 09/14/2019 Time: 18:57 Total Score = 8 1a. Level of Consciousness (LOC) - 0(Alert) 1b. Level of Consciousness (LOC) (Year \\T\\ Age) - 0(Both) 1c. LOC Commands (Open \\T\\ Closes Eyes/Recapper) - 0(Both) 2. Best Gaze (Lateral Gaze Paresis) - 0(Normal) 3. Visual Field Loss - 0(No visual loss) 4. Facial Palsy - 0(Normal) 5a. Left Arm: Motor (10-second hold) - 2(Drift, some effort against gravity) 5b. Right Arm: Motor (10-second hold) - 2(Drift, some effort against gravity) 6a. Left Leg: Motor (5-second hold - always test supine) - 2(Drift, some effort against gravity) 6b. Right Leg: Motor (5-second hold - always test supine) - 2(Drift, some effort against gravity) 7. Limb Ataxia (finger/nose \\T\\ heel/thompson - test with eyes open) - 0(Absent) 8. Sensory Loss (pinprick arms/legs/face) - 0(Normal) 9. Best Language: Aphasia (description/naming/reading) - 0(No aphasia) 10. Dysarthria (speech clarity - read or repeat words) - 0(Normal) 11. Extinction and Inattention (visual/tactile/auditory/spatial/personal) - 0(No abnormality) Initials: familia NIH Stroke Scale - NIH Stroke Score Date: 09/14/2019 Time: 19:45 Total Score = 0 1a. Level of Consciousness (LOC) - 0(Alert) 1b. Level of Consciousness (LOC) (Year \\T\\ Age) - 0(Both) 1c. LOC Commands (Open \\T\\ Closes Eyes/Recapper) - 0(Both) 2. Best Gaze (Lateral Gaze Paresis) - 0(Normal) 3. Visual Field Loss - 0(No visual loss) 4. Facial Palsy - 0(Normal) 5a. Left Arm: Motor (10-second hold) - 9(Amputation, joint fusion) - Notes: rotator cuff injury 5b. Right Arm: Motor (10-second hold) - 9(Amputation, joint fusion) - Notes: complaining of pain when moving 6a. Left Leg: Motor (5-second hold - always test supine) - 9(Amputation, joint fusion) - Notes: swollen/ lymphedema left leg having hard time to lift 6b. Right Leg: Motor (5-second hold - always test supine) - 9(Amputation, joint fusion) - Notes: having hard time to lift the right leg. its an old symptoms as stated by family member 7. Limb Ataxia (finger/nose \\T\\ heel/thompson - test with eyes open) - 9(Amputation, joint fusion) - Notes: limited ROM 8. Sensory Loss (pinprick arms/legs/face) - 0(Normal) 9. Best Language: Aphasia (description/naming/reading) - 0(No aphasia) 10. Dysarthria (speech clarity - read or repeat words) - 0(Normal) 11. Extinction and Inattention (visual/tactile/auditory/spatial/personal) - 0(No abnormality) Initials: rr5 Signatures: Dispatcher [employer] EDMS Yanique Haas RN RN Eric Talley RN RN Bobby Quach MD MD rn Wadley, Terrence, MD MD 4 Derick Campbell RN RN rr5 Corrections: (The following items were deleted from the chart) 21:50 20:54 Hospitalization Ordered by John Vega MD for Inpatient Admission. Preliminary diagnosis is Altered mental status, unspecified; Other specified sepsis. Bed requested for Telemetry/MedSurg (Inpatient). Status is Inpatient Admission. Condition is Stable. Problem is new. Symptoms are unchanged. UTI on Admission? No. tw4 22:17 21:50 09/14/2019 20:54 Hospitalization Ordered by John Vega MD for rr5 Inpatient Admission. Preliminary diagnosis is Altered mental status, unspecified; Other specified sepsis. Bed requested for Telemetry/MedSurg (Inpatient). Status is Inpatient Admission. Condition is Stable. Problem is new. Symptoms are unchanged. UTI on Admission? No. mw
--- NOTE | 2019-09-14 20:56 | ER ---
Nurse's Notes [facility] Name: Camelia Root Age: 83 yrs Sex: Female : 1935 Arrival Date: 09/14/2019 Time: 18:46 Bed 4 Private MD: Diagnosis: Altered mental status, unspecified;Other specified sepsis Presentation: 09/14 18:[address], a code stroke has been called. sg 18:46 Presenting complaint: EMS states: Last known well 1729, pt family left to go get sg patient dinner, reports having returned to the patient not acting normal, and having difficulty speaking, with confusion. pt family reports to EMS that the patient is normally alert and orient to self and place, is ambulatory at home. Transition of care: patient was not received from another setting of care. Onset of symptoms was September 14, 2019. Risk Assessment: Do you want to hurt yourself or someone else? Patient reports no desire to harm self or others. Initial Sepsis Screen: Does the patient meet any 2 criteria? Altered Mental Status. Does the patient have a suspected source of infection? No. Patient's initial sepsis screen is negative. Care prior to arrival: IV initiated. 22 GA, in the right forearm, Glucose check: 100. 18:46 Method Of Arrival: EMS: [facility] sg 18:46 Acuity: SILVINO 2 sg Historical: - Allergies: 18:49 No Known Allergies; sg - Home Meds: 21:05 captopril 50 mg Oral tab 1 tab 2 times per day [Active]; metoprolol tartrate 50 mg Oral rr5 tab 2 tabs every evening [Active]; doxazosin 2 mg Oral tab 1 tab nightly [Active]; furosemide 40 mg Oral tab 1 tab 2 times per day [Active]; ranitidine HCl 150 mg Oral tab 1 tab once daily [Active]; Clonidine Oral [Active]; Tramadol Oral [Active]; - PMHx: 18:49 Arthritis; CHF; GERD; High Cholesterol; Hypertension; lyphedema; Renal Disease; sg - Immunization history:: Adult Immunizations unknown. - Social history:: Smoking status: Patient/guardian denies using tobacco. - Ebola Screening: : Patient negative for fever greater than or equal to 101.5 degrees Fahrenheit, and additional compatible Ebola Virus Disease symptoms Patient denies exposure to infectious person Patient denies travel to an Ebola-affected area in the 21 days before illness onset No symptoms or risks identified at this time. Screenin:14 Abuse screen: Denies threats or abuse. Denies injuries from another. Nutritional rr5 screening: No deficits noted. Tuberculosis screening: No symptoms or risk factors identified. Fall Risk Secondary diagnosis (15 points) TIA, IV access (20 points). Gait- Weak (10 pts.). Mental Status- Oriented to own ability (0 pts). Total [place] Scale indicates High Risk Score (45 or more points). Fall prevention measures have been instituted. Side Rails Up X 2 Placed Close to Nursing Station Frequent Obs/Assessments Occuring Family Present and informed to notify staff if the need to leave the bedside As available patient and family educated on Fall Prevention Program and Strategies. 20:00 VAN Screening:. Patient has been NPO before screening. The patient is alert, able to rr5 follow commands. The patient does not exhibit slurred or garbled speech The patient is not exhibiting difficulty speaking. The patient does not exhibit difficulty understanding words. The patient is able to swallow own secretions with no drooling or need for suction. Patient tolerated one teaspoon of water. No drooling, immediate coughing, gurgling, or clearing of the throat was noted. The patient tolerated 90mL of water. No drooling, immediate coughing, gurgling, or clearing of the throat was noted. The patient passed the bedside swallow screening. Oral medications may be given as ordered. Contact Physician for further diet orders. Provider notified of bedside swallow screening results: Demetrio Sanchez MD. Assessment: 19:10 General: Appears in no apparent distress. uncomfortable, Behavior is calm, cooperative. rr5 Pain: Denies pain. Neuro: Level of Consciousness is awake, alert, Oriented to person, place, having hard time raising her extremities even before this things to happen as per family member. left shoulder rotator cuff injury. left leg swelling chronic problem. unable to perform VAN scoring.. Speech is normal, Facial symmetry appears normal, Reports as stated by family member had episode of altered mental status. Cardiovascular: Capillary refill < 3 seconds Patient's skin is warm and dry. 19:10 Respiratory: Airway is patent Respiratory effort is even, unlabored, Respiratory rr5 pattern is regular, symmetrical. GI: No signs and/or symptoms were reported involving the gastrointestinal system. : No signs and/or symptoms were reported regarding the genitourinary system. EENT: No signs and/or symptoms were reported regarding the EENT system. Derm: Skin is fragile, is thin, Skin temperature is warm. Musculoskeletal: Range of motion: limited in left shoulder, left hip, left knee, right shoulder, right hip and right knee Swelling present in left leg. 19:25 Reassessment: laboratory staff got blood specimen in pediatric blood culture (1). rr5 patient refused for straight catheter ED provider aware. 20:20 Reassessment: Patient appears in no apparent distress at this time. Patient is alert, rr5 oriented x 3, equal unlabored respirations, skin warm/dry/pink. family member at bedside, no complaints made by the patient. 20:54 Reassessment: mj from laboratory informed laboratory staff pulled pediatric blood rr5 culture x1. unable to do the second set patient is a hard stick. 20:58 Reassessment: confirm to ED provider if he wants to start IVF per sepsis protocol, he rr5 said no, he ordered NS 125 ml/hr and antibiotic IV. 22:15 Reassessment: Patient appears in no apparent distress at this time. Patient and/or rr5 family updated on plan of care and expected duration. Pain level reassessed. Patient is alert, oriented x 3, equal unlabored respirations, skin warm/dry/pink. chatting with her shallot cleaner. not in distress Patient states feeling better. Patient states symptoms have improved. Vital Signs: 19:10 BP 190 / 111; Pulse 81; Resp 15; Temp 98.3; Pulse Ox 98% on R/A; rr5 20:11 BP 195 / 99; Pulse 79; Resp 19; Temp 98.5; Pulse Ox 98% ; rr5 20:44 BP 187 / 79; Pulse 73; Resp 18; Pulse Ox 98% ; rr5 20:51 Weight 85.73 kg; Height 5 ft. 9 in. (175.26 cm); rr5 21:06 BP 173 / 76; Pulse 71; Resp 20; Pulse Ox 97% ; rr5 22:05 BP 170 / 87; Pulse 76; Resp 20; Temp 98.7; Pulse Ox 98% ; Pain 0/10; rr5 20:51 Body Mass Index 27.91 (85.73 kg, 175.26 cm) rr5 [place] Coma Score: 19:10 Eye Response: spontaneous(4). Verbal Response: oriented(5). Motor Response: obeys rr5 commands(6). Total: 15. NIH Stroke Scale Scores: 18:57 NIHSS Score: 8 rn 19:45 NIHSS Score: 0 rr5 ED Course: 18:46 Patient arrived in ED. sg 18:48 Triage completed. sg 18:48 Arm band placed on. sg 18:49 Maintain EMS IV. Dressing intact. Site clean \T\ dry. Gauge \T\ site: 22G right hand. sv 18:55 CT Stroke Brain w/o Contrast In Process Unspecified. EDMS 18:55 Inserted saline lock: 22 gauge in right antecubital area, using aseptic technique. sv Blood collected. Flushed right antecubital with 5 ml normal saline. 19:10 Stroke CXR 1 View In Process Unspecified. EDMS 19:10 EKG done, by ED staff, reviewed by Demetrio Sanchez MD. rr5 19:11 Demetrio Sanchez MD is Attending Physician. tw4 19:12 Derick Campbell RN is Primary Nurse. rr5 19:28 Patient has correct armband on for positive identification. Placed in gown. Bed in low rr5 position. Call light in reach. Side rails up X2. library monitor on. Pulse ox on. NIBP on. 20:53 John Vega MD is Hospitalizing Provider. tw4 22:05 No provider procedures requiring assistance completed. Patient admitted, IV remains in rr5 place. intact, No redness/swelling at site. 22:16 Repeat lab(s) drawn. by wa, sent to lab. rr5 Administered Medications: 20:20 Drug: NS 0.9% 1000 ml Route: IV; Rate: 125 ml/hr; Site: right antecubital; rr5 22:17 Follow up: Response: No adverse reaction; IV Status: Infusion continued upon admission; rr5 IV Intake: 250ml 20:25 Drug: Rocephin - (cefTRIAXone) 1 grams Route: IVPB; Infused Over: 30 mins; Site: right rr5 antecubital; 20:55 Follow up: Response: No adverse reaction; IV Status: Completed infusion rr5 20:28 Drug: cloNIDine 0.1 mg {Note: bp 195/99 mmHg.} Route: PO; rr5 21:30 Follow up: Response: Blood pressure is lowered rr5 Intake: 22:17 IV: 250ml; Total: 250ml. rr5 19:50 voided freely rr5 21:40 voided freely rr5 Output: 19:50 Other: 1; Total: 0ml. rr5 21:40 Other: 1; Total: 0ml. rr5 19:50 voided freely rr5 21:40 voided freely rr5 Outcome: 20:54 Decision to Hospitalize by Provider. tw4 22:05 Admitted to Med/surg accompanied by tech, via stretcher, room 402, with chart, Report rr5 called to diaz 22:05 Condition: stable 22:05 Instructed on the need for admit. 22:17 Patient left the ED. rr5 NIH Stroke Scale - NIH Stroke Score Date: 09/14/2019 Time: 18:57 Total Score = 8 1a. Level of Consciousness (LOC) - 0(Alert) 1b. Level of Consciousness (LOC) (Year \T\ Age) - 0(Both) 1c. LOC Commands (Open \T\ Closes Eyes/Instructional Resource Teacher) - 0(Both) 2. Best Gaze (Lateral Gaze Paresis) - 0(Normal) 3. Visual Field Loss - 0(No visual loss) 4. Facial Palsy - 0(Normal) 5a. Left Arm: Motor (10-second hold) - 2(Drift, some effort against gravity) 5b. Right Arm: Motor (10-second hold) - 2(Drift, some effort against gravity) 6a. Left Leg: Motor (5-second hold - always test supine) - 2(Drift, some effort against gravity) 6b. Right Leg: Motor (5-second hold - always test supine) - 2(Drift, some effort against gravity) 7. Limb Ataxia (finger/nose \T\ heel/thompson - test with eyes open) - 0(Absent) 8. Sensory Loss (pinprick arms/legs/face) - 0(Normal) 9. Best Language: Aphasia (description/naming/reading) - 0(No aphasia) 10. Dysarthria (speech clarity - read or repeat words) - 0(Normal) 11. Extinction and Inattention (visual/tactile/auditory/spatial/personal) - 0(No abnormality) Initials: familia NIH Stroke Scale - NIH Stroke Score Date: 09/14/2019 Time: 19:45 Total Score = 0 1a. Level of Consciousness (LOC) - 0(Alert) 1b. Level of Consciousness (LOC) (Year \T\ Age) - 0(Both) 1c. LOC Commands (Open \T\ Closes Eyes/Instructional Resource Teacher) - 0(Both) 2. Best Gaze (Lateral Gaze Paresis) - 0(Normal) 3. Visual Field Loss - 0(No visual loss) 4. Facial Palsy - 0(Normal) 5a. Left Arm: Motor (10-second hold) - 9(Amputation, joint fusion) - Notes: rotator cuff injury 5b. Right Arm: Motor (10-second hold) - 9(Amputation, joint fusion) - Notes: complaining of pain when moving 6a. Left Leg: Motor (5-second hold - always test supine) - 9(Amputation, joint fusion) - Notes: swollen/ lymphedema left leg having hard time to lift 6b. Right Leg: Motor (5-second hold - always test supine) - 9(Amputation, joint fusion) - Notes: having hard time to lift the right leg. its an old symptoms as stated by family member 7. Limb Ataxia (finger/nose \T\ heel/thompson - test with eyes open) - 9(Amputation, joint fusion) - Notes: limited ROM 8. Sensory Loss (pinprick arms/legs/face) - 0(Normal) 9. Best Language: Aphasia (description/naming/reading) - 0(No aphasia) 10. Dysarthria (speech clarity - read or repeat words) - 0(Normal) 11. Extinction and Inattention (visual/tactile/auditory/spatial/personal) - 0(No abnormality) Initials: rr5 Signatures: Dispatcher [employer] Em Ohara RN RN sv Gay, Steven, RN RN sg Wadley, Terrence, MD MD tw4 Derick Campbell RN RN rr5 Corrections: (The following items were deleted from the chart) 20:12 19:10 BP 190 / 111; Pulse 81bpm; Resp 15bpm; Pulse Ox 98% RA; Temp 97.3F; rr5 rr5 21:29 19:10 Neuro: Level of Consciousness is awake, alert, Oriented to person, place, rr5 having hard time raising her extremities even before this things to happen as per family member. left shoulder rotator cap injury. left leg swelling chronic problem. unable to perform VAN scoring.. Speech is normal, Facial symmetry appears normal, Reports as stated by family member had episode of altered mental status. rr5
[2019-09-14] MEDS ORDERED: ALBUTEROL 2.5 MG/3 ML NEB SOL NEB PRN (21:43)
[2019-09-14] MEDS ORDERED: ACETAMINOPHEN 500 MG TAB PO PRN (21:43)
[2019-09-14] MEDS ORDERED: IPRATROPIUM BROM 0.5MG/2.5ML NEB PRN (21:43)
[2019-09-14 23:20] VITALS: BMI 27.8
[2019-09-14] MEDS ORDERED: METOPROLOL TARTRATE 5 MG/5 ML INJ IV STA (23:54)
[2019-09-15 07:05] LABS: MPV 10.1 fL (7.6-11.3)
[2019-09-15 07:16] LABS: Potassium 4.8 mmol/L (3.5-5.1)
[2019-09-15 07:17] LABS: Absolute Lymphocytes (CBC) 2.4 K/uL (0.7-4.9); Basophils % 1.4 % (0-1.3); Lymphocytes % 41.4 % (15.3-44.8); RBC Red Blood Cell Count 3.72 M/uL (3.86-4.86)
[2019-09-15 08:16] LABS: Blood Morphology Comment NOTED (NOT SEEN); Platelet Estimate ADEQ
[2019-09-15] MEDS: METOPROLOL TAR 50 MG TAB PO SCH ×2 (10:55→21:29)
[2019-09-15] MEDS: DOXAZOSIN 2 MG TAB PO SCH ×2 (10:55→21:29)
[2019-09-15] MEDS: cloNIDine HCL 0.1 MG TAB PO SCH ×3 (10:56→21:29)
[2019-09-15] MEDS: CEFTRIAXONE/SWI 1gm 1 GM/10 ML SYR IV SCH (14:12)
--- NOTE | 2019-09-15 16:36 | EKG ---
Test Date: 2019-09-14 Test Time: 18:54:58 [employer] Polls Survey Worker: SWG MEASUREMENT RESULTS: Intervals: Rate: 80 IN: 246 QRSD: 162 QT: 432 QTc: 498 [place]: P: 75 IN: 246 QRS: -13 T: 171 INTERPRETIVE STATEMENTS: Sinus rhythm with 1st degree AV block Left bundle branch block Abnormal ECG Compared to ECG 03/19/2018 22:02:00 No significant changes Electronically Signed On 09-15-19 16:34:04 FREIGHT UNLOADER by Mathew Bertrand
[2019-09-15] MEDS: FUROSEMIDE 40 MG TABLET PO SCH (16:45)
[2019-09-15] MEDS: CAPTOPRIL 25 MG TABLET PO SCH (21:28)
--- NOTE | 2019-09-15 23:54 | HP ---
Date of Admission: 09/14/2019 History: An 83-year-old female who was noted by her family that she was confused, not coherent, had difficulty speaking, but just because she was not coherent enough they brought her to the emergency r oom. The patient was found to have acute altered mental status secondary to sepsis from urinary trac t infection and the patient was admitted for that. No other complaints were voiced by the family or the patient. Review of Systems: Cardiovascular: No complaints. Genitourinary: The patient did not complain of dysuria or increased frequency of urination. Skeletomuscular: No new complaints except for arthritic pains in different joints. Neurological: As above, confusion; otherwise no complaints. Respiratory: No complaint. Past Medical History: 1.Hypertension with chronic renal insufficiency. 2.Osteoarthritis. 3.Systolic congestive heart failure with an ejection fraction of 40% to 45%. 4.Hyperlipidemia. 5.Prediabetes. 6.Anemia of chronic illness. Social History: No smoking, alcohol, or IV drug abuse history. Family History: Noncontributing. Medications: Include Zantac 150 mg p.o. daily, tramadol 50 mg p.o. t.i.d. p.r.n., Capoten 50 mg p.o. b.i.d., clonidine 0.1 mg p.o. t.i.d., doxazosin 2 mg p.o. b.i.d., furosemide 20 mg p.o. daily, and L opressor 50 mg p.o. b.i.d. Allergies: NO KNOWN DRUG ALLERGIES. Physical Examination: Vital Signs: Blood pressure 140/64, pulse 66, temperature 98.1. General: By the time I interviewed the patient, she was alert and oriented and answering questions w ell. Heart: Regular rate and rhythm. Chest: Clear to auscultation. Abdomen: Soft, nontender. No hepatosplenomegaly. Bowel sounds are normoactive. Extremities: No edema. No cyanosis. Peripheral pulses are felt. Neurological: As mentioned, by the time I interviewed her she was alert and oriented x4. Sensory an d motor intact. Deep tendon reflexes are normal. Negative Babinski. Extremities: No edema. No cyanosis. Peripheral pulses are felt. Laboratory Data: Head CT; no acute pathology. Chest x-ray, no acute pathology. Patient has mild at electasis. Urine showing 1+ blood, positive esterase 3+, and white blood count 20-50 per high-power field, total protein 1+, bacteria more than 50. Chemistry; BUN 80, creatinine 4.13, GFR 12. BNP 10,504. Tropon in 0.17, 0.28. Lactic acid was 2.3. Assessment And Plan: 1.Acute mental status change, resolved. We are starting the patient on antibiotics. She had also g entle hydration of fluids. We will continue her on Rocephin IV antibiotic, pending microbiology resu lts. I think that the patient also had sepsis from her uterine tract infection, cystitis evident by elevated lactic acid, so we will continue her on IV antibiotic Rocephin. 2.Elevated troponin is her usual because of her severe renal insufficiency, which is chronic for her . The patient demonstrated no coronary symptoms. 3.Rest of her chronic medical illnesses, we will continue her on her home medications. 4.Expect discharge tomorrow, as the patient continue to improve. Look orders for details. MFS/MODL Voice ID: [id number]
[2019-09-16 06:25] LABS: Absolute Lymphocytes (CBC) 2.3 K/uL (0.7-4.9); Basophils % 0.8 % (0-1.3); Hematocrit 26.4 % (36.0-45.0); Lymphocytes % 45.7 % (15.3-44.8); MPV 9.8 fL (7.6-11.3); RBC Red Blood Cell Count 3.64 M/uL (3.86-4.86)
[2019-09-16 06:46] LABS: Potassium 5.3 mmol/L (3.5-5.1)
[2019-09-16] MEDS: METOPROLOL TAR 50 MG TAB PO SCH (08:39)
[2019-09-16] MEDS: FUROSEMIDE 40 MG TABLET PO SCH (08:39)
[2019-09-16] MEDS: DOXAZOSIN 2 MG TAB PO SCH (08:39)
[2019-09-16] MEDS: cloNIDine HCL 0.1 MG TAB PO SCH ×2 (08:39→13:40)
[2019-09-16] MEDS: CEFTRIAXONE/SWI 1gm 1 GM/10 ML SYR IV SCH (08:40)
[2019-09-16] MEDS: CAPTOPRIL 25 MG TABLET PO SCH (08:45)
[2019-09-16 09:02] VITALS: O2SAT 100
[2019-09-16 12:07] VITALS: BP 137/54; TEMP 97.8
== END 2019-09-16 14:56 | disposition home or self-care (01) | DRG 872 ==
LOC: ER 18:42 → ERHOLD 21:40 → 4TH 22:05
PROVIDERS: ADMIT Internal Medicine; ATTEND Internal Medicine
DX: A41.9 Sepsis, unspecified organism (principal); N39.0 Urinary tract infection, site not specified; I13.0 Hypertensive heart and chronic kidney disease with heart failure and stage 1 through stage 4 chronic kidney disease, or unspecified chronic kidney disease; I50.20 Unspecified systolic (congestive) heart failure; N18.9 Chronic kidney disease, unspecified; M19.90 Unspecified osteoarthritis, unspecified site; R73.03 Prediabetes; D63.1 Anemia in chronic kidney disease
CPT/HCPCS: 36415; 70450; 71045; 80048; 81003; 81015; 82947; 83605; 83880; 84145; 84484; 85025; 85610; 85730; 87040; 87077; 87086; 87088; 87186; 93005; 94760; 96361; 96365; 97110; 97112; 97161; 97530; 99285; J0696; J7030

== ENCOUNTER 2019-09-22 13:09 | Day surgery (SDC) | payer OTHER ==
[2019-09-22] MEDS ORDERED: EPOETIN ALFA-EPBX 10,000 UNIT/ML VIAL ONE (13:36)
[2019-09-22 13:51] VITALS: BP 141/47; TEMP 97; O2SAT 99; BMI 27.7
== END 2019-09-22 13:45 | disposition home or self-care (01) ==
LOC: DS 13:09
PROVIDERS: ATTEND Internal Medicine Nephrology
DX: N18.9 Chronic kidney disease, unspecified (principal); D63.1 Anemia in chronic kidney disease
CPT/HCPCS: 96372; J0583

== ENCOUNTER 2019-10-13 18:59 | Observation (INO) | payer OTHER ==
[2019-10-13 20:30] LABS: Hematocrit 28.4 % (36.0-45.0)
[2019-10-13 20:34] LABS: Protime INR 0.93
[2019-10-13 21:00] LABS: Anisocytosis 1+; Blood Morphology Comment NOTED (NOT SEEN); Hypochromasia 1+; Platelet Estimate ADEQ
--- NOTE | 2019-10-13 21:03 | RAD REPORT ---
EXAM DESCRIPTION: RAD - Chest Single View - 10/13/2019 8:26 pm CLINICAL HISTORY: Weakness, shortness of breath COMPARISON: August 2019 TECHNIQUE: AP portable chest image was obtained 2022 a . FINDINGS: Or is lung volumes are low. No focal lung parenchymal process. Lung markings match compari son. Heart and vasculature are normal. No measurable pleural effusion and no pneumothorax. No acute b alexa abnormality seen. No acute aortic findings suspected. IMPRESSION: No acute cardiopulmonary process.
[2019-10-13] MEDS ORDERED: NA CHLORIDE 0.9% 500 ML ONE (21:09)
--- NOTE | 2019-10-13 21:11 | RAD REPORT ---
EXAM DESCRIPTION: CT - Head Brain Wo Cont - 10/13/2019 8:51 pm CLINICAL HISTORY: Transient alteration of awareness COMPARISON: CT imaging August 2019 TECHNIQUE: Axial 5 mm thick images of the head were obtained without IV contrast. All CT scans are performed using dose optimization technique as appropriate and may include automated exposure control or mA/KV adjustment according to patient size. FINDINGS: No intracranial hemorrhage, mass, edema or shift of mid-line structures. No acute cortical based infarction. No cortical edema or sulcal effacement. Prominent atrophy and chronic ischemic ching nges are present. Ventricles are in proportion to volume loss. Mastoid air cells and visualized portions of the paranasal sinuses are clear. No acute bony findings. IMPRESSION: Prominent atrophy and chronic ischemic change similar to comparison. No acute intracrani al finding.
[2019-10-13 23:05] LABS: Albumin 2.7 g/dL (3.4-5.0); Bilirubin Direct 0.2 mg/dL (0-0.2); Bilirubin Total 0.5 mg/dL (0.2-1.0); Magnesium 2.3 mg/dL (1.8-2.4); Potassium 4.3 mmol/L (3.5-5.1); Protein, Total 6.7 g/dL (6.4-8.2); Troponin (Emerg Dept Use Only) 0.17 ng/mL (0.0-0.045)
[2019-10-13 23:16] LABS: Urine Bacteria <20 /HPF (<20); Urine RBC <5 /HPF (NONE SEEN)
[2019-10-13 23:17] LABS: Urine Culture Reflex Order NOT NEEDED
--- NOTE | 2019-10-13 23:47 | ER ---
Nurse's Notes [facility] Name: Camelia Root Age: 83 yrs Sex: Female : 1935 Arrival Date: 10/13/2019 Time: 19:09 Bed 24 Private MD: Diagnosis: Non-ST elevation (NSTEMI) myocardial infarction Presentation: 10/13 19:10 Presenting complaint: EMS states: EMS STATES THAT FAMILY CALLED BECAUSE PT IS VERY WEAK ls4 TODAY AND FATIGUED. PT DID NOT EAT HER DINNER WHICH IS ABNORMAL. PT STATES THAT SHE HAS NOT BEEN SLEEPING WELL AND SHE IS VERY TIRED. FAMILY AT BEDSIDE STATES THAT AT THIS TIME SHE IS HER USUAL SELF WHICH IS VERY QUIET. Transition of care: patient was not received from another setting of care. Onset of symptoms was October 13, 2019 at 18:30. Risk Assessment: Do you want to hurt yourself or someone else? Patient reports no desire to harm self or others. Initial Sepsis Screen: Does the patient meet any 2 criteria? No. Patient's initial sepsis screen is negative. Does the patient have a suspected source of infection? No. Patient's initial sepsis screen is negative. Care prior to arrival: IV initiated. 20 GA, in the left wrist. 19:10 Method Of Arrival: EMS: [facility] 4 19:10 Acuity: SILVINO 3 ls4 Triage Assessment: 19:44 General: Appears in no apparent distress. comfortable, slender, Behavior is ls4 cooperative, flat, quiet. Pain: Denies pain. Neuro: Level of Consciousness is awake, alert, obeys commands. Historical: - Allergies: 19:44 No Known Allergies; ls4 - Home Meds: 19:44 captopril 50 mg Oral tab 1 tab 2 times per day [Active]; Clonidine Oral [Active]; ls4 doxazosin 2 mg Oral tab 1 tab nightly [Active]; furosemide 40 mg Oral tab 1 tab 2 times per day [Active]; metoprolol tartrate 50 mg Oral tab 2 tabs every evening [Active]; ranitidine HCl 150 mg Oral tab 1 tab once daily [Active]; tramadol 50 mg oral tab [Active]; - PMHx: 19:44 Arthritis; GERD; Hypertension; High Cholesterol; CHF; lyphedema; Renal Disease; ls4 - Immunization history:: Adult Immunizations up to date. - Social history:: Smoking status: Patient denies any tobacco usage or history of. - Ebola Screening: : No symptoms or risks identified at this time. Screenin:17 Abuse screen: Denies threats or abuse. Denies injuries from another. Nutritional ls4 screening: No deficits noted. Tuberculosis screening: No symptoms or risk factors identified. Fall Risk No fall in past 12 months (0 pts). Secondary diagnosis (15 points) impaired mobility, IV access (20 points). Ambulatory Aid- None/Bed Rest/Nurse Assist (0 pts). Gait- Normal/Bed Rest/Wheelchair (0 pts) Mental Status- Oriented to own ability (0 pts). Total [place] Fall Scale indicates Low Risk Score (25-44 pts). Fall prevention measures have been instituted. Side Rails Up X 2 Placed close to Nursing Station Frequent Obs/Assesments occuring Family Present and informed to notify staff if they need to leave bedside As available Patient and Family Educated on Fall Prevention Program and strategies. Assessment: 20:18 General: Appears in no apparent distress. Behavior is cooperative, flat. Neuro: No ls4 deficits noted. Cardiovascular: Reports fatigue, Capillary refill < 3 seconds Patient's skin is warm and dry. Pulses are 2+ in right radial artery, right dorsalis pedis artery, left radial artery and left dorsalis pedis artery Chest pain is denied. Respiratory: Airway is patent Respiratory effort is even, unlabored, Breath sounds are clear bilaterally. 21:30 Reassessment: Patient appears in no apparent distress at this time. Patient and/or ls4 family updated on plan of care and expected duration. Pain level reassessed. Patient is alert, oriented x 3, equal unlabored respirations, skin warm/dry/pink. pt turned and repositoned. 23:30 Reassessment: Patient appears in no apparent distress at this time. Patient and/or ls4 family updated on plan of care and expected duration. Pain level reassessed. Patient is alert, oriented x 3, equal unlabored respirations, skin warm/dry/pink. pt turned and repositioned. 10/14 02:18 Reassessment: Patient appears in no apparent distress at this time. Patient and/or ls4 family updated on plan of care and expected duration. Pain level reassessed. Patient is alert, oriented x 3, equal unlabored respirations, skin warm/dry/pink. anny care performed. skin intact. pt turned and repositioned. 02:50 Reassessment: Patient appears in no apparent distress at this time. Patient and/or jv1 family updated on plan of care and expected duration. Pain level reassessed. Patient is alert, oriented x 3, equal unlabored respirations, skin warm/dry/pink. booking police officer with pt. Vital Signs: 10/13 19:10 BP 189 / 86; Pulse 65; Resp 14; Temp 98.9(O); Pulse Ox 100% on R/A; Pain 3/10; ls4 22:30 BP 194 / 87; Pulse 66; Resp 14; Pulse Ox 99% on R/A; ls4 23:24 BP 190 / 94; Pulse 66; Resp 14; Temp 98.0; Pulse Ox 99% on R/A; Pain 3/10; ls4 10/14 01:02 BP 186 / 74; Pulse 68; Resp 16; Temp 98.0; Pulse Ox 99% on R/A; Pain 0/10; ls4 01:50 BP 178 / 74; Pulse 66; Resp 14; Temp 98.1; Pulse Ox 98% on R/A; Pain 0/10; ls4 NIH Stroke Scale Scores: 10/13 20:17 NIHSS Score: 0 ls4 ED Course: 19:09 Patient arrived in ED. cf2 19:10 Arm band placed on right wrist. ls4 19:10 Patient has correct armband on for positive identification. Side rails up X 1. Side ls4 rails up X2. 19:32 Chery Jefferson, RN is Primary Nurse. ls4 19:42 Triage completed. ls4 20:19 No provider procedures requiring assistance completed. Maintain EMS IV. Dressing ls4 intact. Good blood return noted. Site clean \T\ dry. Gauge \T\ site: 20 G LEFT WRIST. . 20:23 Elgin Edmondson NP is PHCP. pm1 20:23 Danny Adler MD is Attending Physician. pm1 20:25 XRAY Chest (1 view) In Process Unspecified. EDMS 20:53 CT Head Brain wo Cont In Process Unspecified. EDMS 20:56 Manual Differential Sent. ls4 22:42 PHCP role handed off by Elgin Edmondson NP [facility] 22:42 Michael Dorsey PA is PHCP. [facility] 23:45 John Vega MD is Hospitalizing Provider. [facility] Administered Medications: 21:15 Drug: NS 0.9% 500 ml Route: IV; Rate: bolus; Site: left wrist; 4 21:45 Follow up: IV Intake: 500ml 4 10/14 21:35 Follow up: IV Intake: 500ml ls4 22:13 Follow up: IV Status: Completed infusion; IV Intake: 500ml 4 01:02 Drug: Aspirin Chewable Tablet 324 mg Route: PO; ls4 01:30 Follow up: Response: No adverse reaction ls4 Intake: 21:35 IV: 500ml; Total: 500ml. ls4 22:13 IV: 500ml; Total: 1000ml. [facility] Outcome: 10/13 23:46 Decision to Hospitalize by Provider. [facility] 10/14 02:00 Condition: stable ls4 02:20 Admitted to Med/surg Report called to Kierra RUSSO ls4 02:59 Patient left the ED. NIH Stroke Scale - NIH Stroke Score Date: 10/13/2019 Time: Total Score = 0 1a. Level of Consciousness (LOC) - 0(Alert) 1b. Level of Consciousness (LOC) (Year \T\ Age) - 0(Both) 1c. LOC Commands (Open \T\ Closes Eyes/Well Reactivator Operator) - 0(Both) 2. Best Gaze (Lateral Gaze Paresis) - 0(Normal) 3. Visual Field Loss - 0(No visual loss) 4. Facial Palsy - 0(Normal) 5a. Left Arm: Motor (10-second hold) - 0(No drift) 5b. Right Arm: Motor (10-second hold) - 0(No drift) 6a. Left Leg: Motor (5-second hold - always test supine) - 0(No drift) 6b. Right Leg: Motor (5-second hold - always test supine) - 0(No drift) 7. Limb Ataxia (finger/nose \T\ heel/thompson - test with eyes open) - 0(Absent) 8. Sensory Loss (pinprick arms/legs/face) - 0(Normal) 9. Best Language: Aphasia (description/naming/reading) - 0(No aphasia) 10. Dysarthria (speech clarity - read or repeat words) - 0(Normal) 11. Extinction and Inattention (visual/tactile/auditory/spatial/personal) - 0(No abnormality) Initials: ls4 Signatures: Dispatcher [employer] EDMichael Bardales PA PA jmm Chretien, Felicia RN RN fc Elgin Edmondson, [employer] pm1 Jeanne Garcia RN RN jv1 Chery Jefferson RN RN ls4 Whit Ruiz cf2 Corrections: (The following items were deleted from the chart) :10/13 23:24 BP 190 / 94; Pulse 66bpm; Resp 14bpm; Pulse Ox 99% RA; Pain 3/10; ls4 ls4 10/14 02:20 10/13 21:30 Reassessment: Patient appears in no apparent distress at this time. ls4 Patient and/or family updated on plan of care and expected duration. Pain level reassessed. Patient is alert, oriented x 3, equal unlabored respirations, skin warm/dry/pink. ls4 10/14 02:10/13 23:30 Reassessment: Patient appears in no apparent distress at this time. ls4 Patient and/or family updated on plan of care and expected duration. Pain level reassessed. Patient is alert, oriented x 3, equal unlabored respirations, skin warm/dry/pink. ls4 10/14 22:13 10/13 21:45 IV Intake: 500ml ls4 ls4
--- NOTE | 2019-10-13 23:49 | EDPHYS ---
Physician Documentation [facility] Name: Camelia Root Age: 83 yrs Sex: Female : 1935 Arrival Date: 10/13/2019 Time: 19:09 Bed 24 Private MD: ED Physician Danny Adler HPI: 10/13 20:10 This 83 yrs old Black Female presents to ER via EMS with complaints of General Weakness.pm1 20:10 The patient presents with decreased mental status. Onset: The symptoms/episode pm1 began/occurred today. Possible causes: unknown, Similar behavior with urosepsis in the past. Associated signs and symptoms: Pertinent negatives: abdominal pain, diarrhea, vomiting. Current symptoms: In the emergency department the patient's symptoms have resolved. Patient arrived to the ER with complaints of weakness and fatigue. Has not been sleeping well recently. Did not eat her dinner today. Patient is at her current baseline. Historical: - Allergies: 19:44 No Known Allergies; ls4 - Home Meds: 19:44 captopril 50 mg Oral tab 1 tab 2 times per day [Active]; Clonidine Oral [Active]; ls4 doxazosin 2 mg Oral tab 1 tab nightly [Active]; furosemide 40 mg Oral tab 1 tab 2 times per day [Active]; metoprolol tartrate 50 mg Oral tab 2 tabs every evening [Active]; ranitidine HCl 150 mg Oral tab 1 tab once daily [Active]; tramadol 50 mg oral tab [Active]; - PMHx: 19:44 Arthritis; GERD; Hypertension; High Cholesterol; CHF; lyphedema; Renal Disease; ls4 - Immunization history:: Adult Immunizations up to date. - Social history:: Smoking status: Patient denies any tobacco usage or history of. - Ebola Screening: : No symptoms or risks identified at this time. ROS: 20:10 Constitutional: Negative for fever, chills, and weight loss, Eyes: Negative for injury, pm1 pain, redness, and discharge, ENT: Negative for injury, pain, and discharge, Neck: Negative for injury, pain, and swelling, Cardiovascular: Negative for chest pain, palpitations, and edema, Respiratory: Negative for shortness of breath, cough, wheezing, and pleuritic chest pain, Abdomen/GI: Negative for abdominal pain, nausea, vomiting, diarrhea, and constipation, Back: Negative for injury and pain, : Negative for injury, bleeding, discharge, and swelling, MS/Extremity: Negative for injury and deformity, Skin: Negative for injury, rash, and discoloration. 20:10 Neuro: Positive for generalized weakness, Negative for headache. Exam: 20:10 Constitutional: This is a well developed, well nourished patient who is awake, alert, pm1 and in no acute distress. Head/Face: Normocephalic, atraumatic. Neck: Trachea midline, no thyromegaly or masses palpated, and no cervical lymphadenopathy. Supple, full range of motion without nuchal rigidity, or vertebral point tenderness. No Meningismus. Chest/axilla: Normal chest wall appearance and motion. Nontender with no deformity. No lesions are appreciated. Cardiovascular: Regular rate and rhythm with a normal S1 and S2. No gallops, murmurs, or rubs. Normal PMI, no JVD. No pulse deficits. Respiratory: Lungs have equal breath sounds bilaterally, clear to auscultation and percussion. No rales, rhonchi or wheezes noted. No increased work of breathing, no retractions or nasal flaring. Abdomen/GI: Soft, non-tender, with normal bowel sounds. No distension or tympany. No guarding or rebound. No evidence of tenderness throughout. Back: No spinal tenderness. No costovertebral tenderness. Full range of motion. Skin: Warm, dry with normal turgor. Normal color with no rashes, no lesions, and no evidence of cellulitis. MS/ Extremity: Pulses equal, no cyanosis. Neurovascular intact. Full, normal range of motion. 20:10 Neuro: Orientation: is normal, Motor: is normal, moves all fours. Vital Signs: 19:10 BP 189 / 86; Pulse 65; Resp 14; Temp 98.9(O); Pulse Ox 100% on R/A; Pain 3/10; ls4 22:30 BP 194 / 87; Pulse 66; Resp 14; Pulse Ox 99% on R/A; ls4 23:24 BP 190 / 94; Pulse 66; Resp 14; Temp 98.0; Pulse Ox 99% on R/A; Pain 3/10; ls4 10/14 01:02 BP 186 / 74; Pulse 68; Resp 16; Temp 98.0; Pulse Ox 99% on R/A; Pain 0/10; ls4 01:50 BP 178 / 74; Pulse 66; Resp 14; Temp 98.1; Pulse Ox 98% on R/A; Pain 0/10; ls4 NIH Stroke Scale Scores: 10/13 20:17 NIHSS Score: 0 ls4 MDM: 20:23 Patient medically screened. pm1 22:37 Data reviewed: vital signs. Data interpreted: Pulse oximetry: on room air is 100 %. pm1 Interpretation: normal. 23:38 Counseling: I had a detailed discussion with the patient and/or guardian regarding: the [facility] historical points, exam findings, and any diagnostic results supporting the discharge/admit diagnosis, lab results, radiology results, the need for further work-up and treatment in the hospital. ED course: I discussed the patient with Dr. Hein whom advised to admit to Dr. Sanchez. 10/13 20:07 Order name: Basic Metabolic Panel; Complete Time: 23:07 [facility] 10/13 20:07 Order name: CBC with Diff; Complete Time: 21:04 [facility] 10/13 20:07 Order name: LFT's; Complete Time: 23:07 [facility] 10/13 20:07 Order name: Magnesium; Complete Time: 23:07 [facility] 10/13 20:07 Order name: NT PRO-BNP; Complete Time: 23:07 [facility] 10/13 20:07 Order name: PT-INR; Complete Time: 20:39 [facility] 10/13 20:07 Order name: Troponin (emerg Dept Use Only); Complete Time: 23:07 [facility] 10/13 20:29 Order name: Procalcitonin; Complete Time: 23:17 [facility] 10/13 20:29 Order name: Lactate; Complete Time: 22:05 [facility] 10/13 20:37 Order name: Manual Differential; Complete Time: 21:04 EDCT 10/13 20:39 Order name: Blood Culture Adult (2) pm1 10/13 20:39 Order name: Urine Microscopic Only; Complete Time: 23:17 pm 10/13 20:39 Order name: Urine Culture pm1 10/14 01:12 Order name: Basic Metabolic Panel EDCT 10/13 20:07 Order name: XRAY Chest (1 view); Complete Time: 21:11 [facility] 10/13 20:07 Order name: EKG; Complete Time: 20:08 4 10/13 20:29 Order name: CT Head Brain wo Cont; Complete Time: 21:13 pm1 10/14 01:12 Order name: Consistent Carb (ADA) [address] EDMS 10/14 01:12 Order name: EKG Electrocardiogram EDMS 10/14 01:12 Order name: EKG Electrocardiogram EDMS 10/14 01:12 Order name: EKG Electrocardiogram EDMS 10/14 01:12 Order name: EKG Electrocardiogram EDMS 10/14 01:12 Order name: Basic Metabolic Panel EDMS 10/14 01:12 Order name: CBC with Automated Diff EDMS 10/14 01:12 Order name: CBC with Automated Diff EDMS 10/14 01:12 Order name: Troponin I EDCT 10/14 01:12 Order name: Troponin I; Complete Time: 10:10 EDMS 10/14 01:12 Order name: Troponin I; Complete Time: 10:10 EDMS 10/13 20:07 Order name: Cardiac monitoring; Complete Time: 20:10 [facility] 10/13 20:07 Order name: EKG - Nurse/Tech; Complete Time: 20:10 [facility] 10/13 20:07 Order name: IV Saline Lock; Complete Time: 20:11 [facility] 10/13 20:07 Order name: Labs collected and sent; Complete Time: 20:11 [facility] 10/13 20:07 Order name: O2 Per Protocol; Complete Time: 20:11 [facility] 10/13 20:07 Order name: O2 Sat Monitoring; Complete Time: 20:11 [facility] 10/13 20:07 Order name: Urine Dipstick-Ancillary (obtain specimen); Complete Time: 20:56 4 Administered Medications: 21:15 Drug: NS 0.9% 500 ml Route: IV; Rate: bolus; Site: left wrist; ls4 21:45 Follow up: IV Intake: 500ml 4 10/14 21:35 Follow up: IV Intake: 500ml 4 22:13 Follow up: IV Status: Completed infusion; IV Intake: 500ml 4 01:02 Drug: Aspirin Chewable Tablet 324 mg Route: PO; ls4 01:30 Follow up: Response: No adverse reaction ls4 Disposition: 10/13/19 23:46 Hospitalization ordered by John Vega for Inpatient Admission. Preliminary diagnosis is Non-ST elevation (NSTEMI) myocardial infarction. - Bed requested for Telemetry/MedSurg (Inpatient). - Status is Inpatient Admission. fc - Condition is Stable. - Problem is new. - Symptoms are unchanged. UTI on Admission? No NIH Stroke Scale - NIH Stroke Score Date: 10/13/2019 Time: 20:17 Total Score = 0 1a. Level of Consciousness (LOC) - 0(Alert) 1b. Level of Consciousness (LOC) (Year \T\ Age) - 0(Both) 1c. LOC Commands (Open \T\ Closes Eyes/[employer]) - 0(Both) 2. Best Gaze (Lateral Gaze Paresis) - 0(Normal) 3. Visual Field Loss - 0(No visual loss) 4. Facial Palsy - 0(Normal) 5a. Left Arm: Motor (10-second hold) - 0(No drift) 5b. Right Arm: Motor (10-second hold) - 0(No drift) 6a. Left Leg: Motor (5-second hold - always test supine) - 0(No drift) 6b. Right Leg: Motor (5-second hold - always test supine) - 0(No drift) 7. Limb Ataxia (finger/nose \T\ heel/thompson - test with eyes open) - 0(Absent) 8. Sensory Loss (pinprick arms/legs/face) - 0(Normal) 9. Best Language: Aphasia (description/naming/reading) - 0(No aphasia) 10. Dysarthria (speech clarity - read or repeat words) - 0(Normal) 11. Extinction and Inattention (visual/tactile/auditory/spatial/personal) - 0(No abnormality) Initials: ls4 Addendum: 10/15/2019 10:02 Co-signature as Attending Physician, Danny Adler MD I agree with the [facility] assessment and plan of care. Signatures: Dispatcher [employer] EDMS Danny Adler MD MD cha Mickail, Joel, PA PA jmm Chretien, Felicia, RN RN Mildred Powers RN RN tl1 Elgin Edmondson NP SHUT OFF WORKER pm1 Chery Jefferson RN RN ls4 Corrections: (The following items were deleted from the chart) 10/14 00:24 10/13 23:46 Hospitalization Ordered by John Vega MD for Inpatient tl1 Admission. Preliminary diagnosis is Non-ST elevation (NSTEMI) myocardial infarction. Bed requested for Telemetry/MedSurg (Inpatient). Status is Inpatient Admission. Condition is Stable. Problem is new. Symptoms are unchanged. UTI on Admission? No. jmm 10/14 01:29 00:24 10/13/2019 23:46 Hospitalization Ordered by John Vega MD for tl1 Inpatient Admission. Preliminary diagnosis is Non-ST elevation (NSTEMI) myocardial infarction. Bed requested for Telemetry/MedSurg (Inpatient). Status is Inpatient Admission. Condition is Stable. Problem is new. Symptoms are unchanged. UTI on Admission? No. tl1 02:59 01:29 10/13/2019 23:46 Hospitalization Ordered by John Vega MD for Inpatient Admission. Preliminary diagnosis is Non-ST elevation (NSTEMI) myocardial infarction. Bed requested for Telemetry/MedSurg (Inpatient). Status is Inpatient Admission. Condition is Stable. Problem is new. Symptoms are unchanged. UTI on Admission? No. tl1
[2019-10-14] MEDS ORDERED: ASPIRIN 81 MG CHEWABLE TABLET ONE (00:59)
[2019-10-14] MEDS ORDERED: ACETAMINOPHEN 500 MG TAB PO PRN (01:10)
[2019-10-14] MEDS ORDERED: ONDANSETRON 4 MG/2 ML VIAL IV PRN (01:10)
[2019-10-14 03:27] VITALS: BMI 27.3
[2019-10-14] MEDS: ASPIRIN EC 81 MG TAB PO SCH (08:13)
[2019-10-14] MEDS ORDERED: RANITIDINE 150 MG TABLET PO PRN (17:11)
[2019-10-14] MEDS ORDERED: TRAMADOL HCL 50 MG TAB PO PRN (17:11)
[2019-10-14] MEDS: CAPTOPRIL 25 MG TABLET PO SCH (19:57)
[2019-10-14] MEDS: DOXAZOSIN 2 MG TAB PO SCH (19:58)
[2019-10-14] MEDS: cloNIDine HCL 0.1 MG TAB PO SCH (19:58)
[2019-10-14] MEDS: FUROSEMIDE 40 MG TABLET PO SCH (19:59)
[2019-10-14] MEDS: METOPROLOL TAR 50 MG TAB PO SCH (19:59)
[2019-10-14] MEDS ORDERED: CAPTOPRIL 50 MG PO SCH (21:00)
[2019-10-15] MEDS: METOPROLOL TAR 50 MG TAB PO SCH ×2 (05:55→20:57)
[2019-10-15 06:11] LABS: Potassium 4.4 mmol/L (3.5-5.1)
[2019-10-15 06:21] LABS: MPV 9.9 fL (7.6-11.3); RBC Red Blood Cell Count 3.51 M/uL (3.86-4.86)
[2019-10-15 08:18] LABS: Anisocytosis 2+; Blood Morphology Comment NOTED (NOT SEEN); Elliptocytes 1+; Platelet Estimate ADEQ; Poikilocytosis 2+
[2019-10-15] MEDS: FUROSEMIDE 40 MG TABLET PO SCH ×2 (08:20→20:58)
[2019-10-15] MEDS: CAPTOPRIL 25 MG TABLET PO SCH ×2 (08:20→20:57)
[2019-10-15] MEDS: DOXAZOSIN 2 MG TAB PO SCH ×2 (08:21→20:58)
[2019-10-15] MEDS: cloNIDine HCL 0.1 MG TAB PO SCH ×3 (08:21→20:57)
[2019-10-15] MEDS: ASPIRIN EC 81 MG TAB PO SCH (08:21)
--- NOTE | 2019-10-15 09:39 | P.PN ---
Subjective Date of Service: 10/15/19 Chief Complaint: elevated bp/ckd/some confusion (? baseline) patient see/examined. patient states she follows up with Dr. Herrera for " kidney disease". poor historian/some confusion; ? baseline. denies pain. looks comfortable. no delgado, no sob, no cp. talks comfortably and in full sentences. pleasant. smiles and answers questions appropriately. no slurring of speech. denies fevers/chills. denies any urinary complaints. says she has no allergies to meds. says she has had htn for some time. does not recall incidents from yesterday well. says her son was concerned as she was not answering questions and does not recall what happened. does not recall "passing out" or falling or any trauma. says LE swelling is a chronic problem. she says she can walk slowly with precautions. vs sbp 180-190, afebrile pmhx: ckd/htn allergies: nkda meds: reviewed seems to have good family support. looks comfortable. says she monitors bp at home and top number has been running in 140s and sometimes higher. labs: reviewed. creatinine in 3.5-4 range, improved from admission. lungs: cta cvs rrr abd soft ext edema (stable as per patient) skin is dry alert/looks comfortable/smiling and answers questions but memory is poor. a/p: ? ramona on ckd/htn/anemia: clinically seems stable. afebrile/wbc ok. bp on higher side. one blood cx with g + cocci, ? contaminant; repeat cxs. monitor hb, repeat cbc in am. may benefit from BRYANT (but once bp is improved). monitor bp q6 hours. start amlodipine 5mg now and once daily. if bp still high later in day, can consider low dose hydralazine. patient on je/arb and betablocker and doxazosin. does not seem volume overloaded. beginning to eat, and drink well. requested Rn to monitor/assist with feeding. guiac check stools. appreciate consult. call with any questions. Physical Examination - Vital Signs Temperature: 98.9 F Blood Pressure: 197/88 Pulse: 64 Respirations: 16 Pulse Ox (%): 100 - Studies Microbiology Data (last 24 hrs): 10/13/19 21:00 Blood - Blood Gram Stain - Final 10/13/19 20:45 Blood - Blood Anaerobic Blood Culture - Final
[2019-10-15] MEDS ORDERED: AMLODIPINE 5 MG TAB PO ONE (10:00)
--- NOTE | 2019-10-15 14:03 | EKG ---
Test Date: 2019-10-13 Test Time: 19:09:15 Power Line Lineman: TASHI MEASUREMENT RESULTS: Intervals: Rate: 64 DC: 268 QRSD: 168 QT: 482 QTc: 497 Graham: P: 74 DC: 268 QRS: -29 T: 148 INTERPRETIVE STATEMENTS: Sinus rhythm with 1st degree AV block Left bundle branch block Abnormal ECG Compared to ECG 09/14/2019 18:54:58 No significant changes Electronically Signed On 10-15-19 13:59:35 TEMPERER by Mathew Bertrand
--- NOTE | 2019-10-15 17:09 | HP ---
Date of Admission: 10/14/2019 History Of Present Illness: Patient is an 83-year-old female with multiple medical problems includin g hypertension. She was brought to the emergency room, because her son called on her and she told hi m she is very tired and fatigued. She did not look herself, so he brought her to the emergency room. The patient herself denied any chest pain and no increased shortness of breath, but she complains o f being extremely fatigued. Review of Systems: Cardiovascular: No complaint. Respiratory: No complaint. Neurological: No complaint. Genitourinary: No complaint. Skeletomuscular: No complaint. Past Medical History: 1.Hypertension. 2.Chronic kidney disease from hypertension. 3.Multiple joint osteoarthritis. 4.Systolic congestive heart failure. 5.Hyperlipidemia. 6.Anemia of chronic illness. Social History: No smoking, alcohol, or drug abuse history. Family History: Noncontributing. Medications: Include captopril 50 mg p.o. b.i.d., clonidine 0.1 mg p.o. t.i.d., doxazosin 2 mg p.o. b.i.d., furosemide 20 mg p.o. b.i.d., metoprolol 50 mg p.o. b.i.d., Zantac 150 mg p.o. daily, and tra madol 50 mg p.o. b.i.d. p.r.n. Physical Examination: Vital Signs: Blood pressure 185/85, pulse 64, temperature 98.9. Heart: Regular rate and rhythm. Chest: Clear to auscultation. Abdomen: Soft, nontender, nondistended. Bowel sounds normoactive. Extremities: Chronic left extremity lymphedema. No change. Neurologic: At the time of me interviewing the patient, she was alert and oriented x4. She is compl aining of low pain. She said she is not as fatigued anymore. She is back to her baseline. Laboratory Data: Head CT; no acute pathology. Diagnostic Data: Chest x-ray, no acute pathology. CBC noted hemoglobin 8.9 this morning at 8, hemat ocrit 25, platelet count 170. Chemistry; BUN 74, creatinine 3.67. Troponin and 0.17. BNP 69729. P rolactin less than 0.05. Assessment And Plan: 1.Extreme fatigue with elevated troponin, although that is more likely secondary to chronic renal fa ilure. However, we will consult Cardiology from that standpoint. 2.Hypertension, needs better control. Nephrology have already started the patient on amlodipine als o. They will consider hydralazine, showed that stays elevated. 3.Chronic renal insufficiency. At this time, the patient has been seen by Nephrology and we will fo llow recommendation. Clinically stable from that standpoint now. 4.Anemia of chronic illness. We will follow up CBC looking at patient's hemoglobin, hematocrit and her records that seems to be her baseline, but we will follow this up. Patient now is clinically sta ble. Look orders for details. MFS/MODL Voice ID: [id number]
--- NOTE | 2019-10-15 21:00 | CON ---
Date of Consultation: 10/15/2019 Reason For Consultation: Elevated troponin, altered mental status, elevated creatinine, and weakness . History Of Present Illness: Ms. Root is 83, has a history of hypertension, dyslipidemia, chronic renal disease, gastroesophageal reflux disease, mild systolic congestive heart failure, as well as ly mphedema. She was admitted mostly with altered mental status and weakness. She was found to have a troponin of 0.15. Her BNP was 11,047. She was anemic with a hemoglobin of 8. Her creatinine was 3. 67. Past Medical History: As stated above. Allergies: NONE. Review of Systems: Negative. Social History: Negative. Family History: Noncontributory. Medications: Include captopril, clonidine, doxazosin, Lasix, metoprolol, and Zantac. Physical Examination: General: She was slightly confused, somnolent. She was in sinus rhythm. She was afebrile. HEENT: Negative. Neck: Supple without bruit, lymphadenopathy, JVD, or thyromegaly. Chest: Actually was clear to auscultation and percussion. Cardiac: Revealed a regular rhythm and rate. No murmurs, gallops, or rubs. Abdomen: Benign. Extremities: Revealed no clubbing or cyanosis. She has 1+ edema, chronic venous insufficiency conn es. Diagnostic Data: As listed earlier, her chest x-ray was actually negative. CT of her head showed is chemic chronic changes. Ejection fraction was 45% in December 2017. Impression And Plan: Elevated troponin most likely secondary to elevated creatinine and anemia. BNP may be elevated for the same reasons as well as chronic congestive heart failure. I think with her renal failure as it is I will definitely hold the captopril, continue her other medication, obtain an echocardiogram, renal consultation. We will continue to follow her. Her other problems including h ypertension, dyslipidemia, gastroesophageal reflux disease, and lymphedema are stable. NB/MODL Voice ID: [id number] Report ID: [id number]
[2019-10-16 06:25] LABS: Potassium 4.6 mmol/L (3.5-5.1)
[2019-10-16 06:43] LABS: Hematocrit 26.6 % (36.0-45.0); MPV 9.7 fL (7.6-11.3)
[2019-10-16 08:22] LABS: Platelet Estimate ADEQ
[2019-10-16 08:23] LABS: Anisocytosis 2+; Blood Morphology Comment NOTED (NOT SEEN); Ovalocytes 1+
[2019-10-16] MEDS: cloNIDine HCL 0.1 MG TAB PO SCH ×3 (08:37→20:58)
[2019-10-16] MEDS: FUROSEMIDE 40 MG TABLET PO SCH ×2 (08:38→20:56)
[2019-10-16] MEDS: ASPIRIN EC 81 MG TAB PO SCH (08:38)
[2019-10-16] MEDS: DOXAZOSIN 2 MG TAB PO SCH ×2 (08:39→20:58)
[2019-10-16] MEDS: CAPTOPRIL 25 MG TABLET PO SCH ×2 (08:39→20:59)
[2019-10-16] MEDS: AMLODIPINE 5 MG TAB PO SCH (08:39)
[2019-10-16] MEDS: METOPROLOL TAR 50 MG TAB PO SCH ×2 (08:40→20:59)
--- NOTE | 2019-10-16 13:11 | PN ---
Subjective: Patient has no new complaint. Objective: Vital Signs: Blood pressure 195/90, pulse 67, temperature 97.7. Heart: Regular rate and rhythm. Chest: Clear to auscultation. Abdomen: Soft, benign. Bowel sounds are active. Extremities: No pitting edema. Neurological: Alert, oriented, grossly intact. Room air pulse oximetry more than 90%. Laboratory Data: Hemoglobin 8.3, hematocrit 26.6, platelets 176. BUN 71, creatinine 3.4, GFR 16. Assessment And Plan: 1.Hypertension, uncontrolled. We will go ahead and add hydralazine 25 mg p.o. b.i.d. 2.Appreciate Cardiology input. We will order cardiac echo and follow the recommendation. 3.Chronic renal insufficiency followed by Nephrology, pending any new recommendation. 4.Patient's urine grew Proteus mirabilis sensitive to Bactrim. We will put her on that p.o. Look o leah for details. MFS/MODL Voice ID: [id number] Report ID: [id number]
[2019-10-16] MEDS ORDERED: EPOETIN ALFA 20,000 UNIT/1 ML VIAL SQ SCH (15:15)
--- NOTE | 2019-10-16 15:20 | P.PN ---
Date of Service: 10/16/19 Vital Signs Temp Pulse Resp BP Pulse Ox 97.7 F 61 20 180/76 H 100 10/16/19 12:00 10/16/19 13:14 10/16/19 12:00 10/16/19 13:14 10/16/19 12:00 Medications Acetaminophen (Tylenol -Extra Strength) 500 mg PO Q6H PRN PRN Reason: Pain scale 2-4 (Mild) Stop: 11/13/19 01:11 Amlodipine Besylate (Norvasc) 5 mg PO DAILY TIFFANY Stop: 11/15/19 09:01 Last Admin: 10/16/19 08:39 Dose: 5 mg Aspirin (Aspirin Ec) 81 mg PO DAILY TIFFANY Stop: 11/13/19 09:01 Last Admin: 10/16/19 08:38 Dose: 81 mg Calcitriol (Rocaltrol) 0.5 mcg PO DAILY TIFFANY Stop: 11/15/19 16:01 Captopril (Capoten) 50 mg PO BID TIFFANY Stop: 11/13/19 21:01 Last Admin: 10/16/19 08:39 Dose: 50 mg Cholecalciferol (Vitamin D 5,000 Iu Cap) 5,000 unit PO DAILY TIFFANY Stop: 11/16/19 09:01 Clonidine HCl (Catapres) 0.1 mg PO TID TIFFANY Stop: 11/13/19 21:01 Last Admin: 10/16/19 13:14 Dose: 0.1 mg Doxazosin Mesylate (Cardura) 4 mg PO BID [facility] Stop: 11/15/19 21:01 Epoetin Andrea (Procrit) 20,000 unit SQ 1X TIFFANY Stop: 11/15/19 15:16 Furosemide (Lasix) 40 mg PO BID TIFFANY Stop: 11/13/19 21:01 Last Admin: 10/16/19 08:38 Dose: 40 mg Hydralazine HCl (Apresoline) 25 mg PO BID [facility] Stop: 11/15/19 21:01 Metoprolol Tartrate (Lopressor) 50 mg PO BID [facility] Stop: 11/13/19 21:01 Last Admin: 10/16/19 08:40 Dose: 50 mg Ondansetron HCl (Zofran) 4 mg IV Q4H PRN PRN Reason: NAUSEA / VOMITING Ranitidine HCl (Zantac) 150 mg PO DAILY PRN PRN Reason: Pain scale 5-7 (Moderate) Stop: 11/13/19 17:12 Sodium Chloride (Normal Saline Flush) 10 ml IV BID TIFFANY Stop: 11/13/19 09:01 Last Admin: 10/16/19 08:40 Dose: 10 ml Tramadol HCl (Ultram) 50 mg PO TID PRN PRN Reason: PAIN MILD TO MODERATE Stop: 11/13/19 17:12 Trimethoprim/Sulfamethoxazole (Bactrim Ds 800 Mg/160 Mg) 1 tab PO DAILY [facility]; Protocol Stop: 10/20/19 09:01 Microbiology Results 10/13/19 22:02 Catheterized Urine [place] Count - Final <10,000 CFU/ML. 10/13/19 22:02 Catheterized Urine - Final Proteus Mirabilis 10/13/19 21:00 Blood - Blood Aerobic Blood Culture - Preliminary 10/13/19 21:00 Blood - Blood Gram Stain - Final 10/13/19 21:00 Blood - Blood Anaerobic Blood Culture - Preliminary No growth in 24 hours. 10/13/19 20:45 Blood - Blood Aerobic Blood Culture - Preliminary No growth in 24 hours. 10/13/19 20:45 Blood - Blood Anaerobic Blood Culture - Final Assessment/ Plan: Nephrology 20:10 This 83 yrs old Black Female presents to ER via EMS with complaints of General Weakness.pm1 20:10 The patient presents with decreased mental status. Onset: The symptoms/ episode pm1 began/occurred today. Possible causes: unknown, Similar behavior with urosepsis in the past. Associated signs and symptoms: Pertinent negatives: abdominal pain, diarrhea, vomiting. Current symptoms: In the emergency department the patient's symptoms have resolved. Patient arrived to the ER with complaints of weakness and fatigue. Has not been sleeping well recently. Did not eat her dinner today. Patient is at her current baseline. CPS stable without SOB or CP. No acute events overnight. +Fatigue Vitals, medications, blood work and imaging reviewed in the chart. NAD. NCAT. MMM. Neck supple. CTA. RRR. Soft Abd. No C/C. LLE Lymphedema. AAO. Normal speech. EXAM DESCRIPTION: RAD - Chest Single View - 10/13/2019 8:26 pm CLINICAL HISTORY: Weakness, shortness of breath COMPARISON: August 2019 TECHNIQUE: AP portable chest image was obtained 2023 a . FINDINGS: Or is lung volumes are low. No focal lung parenchymal process. Lung markings match comparison. Heart and vasculature are normal. No measurable pleural effusion and no pneumothorax. No acute bony abnormality seen. No acute aortic findings suspected. IMPRESSION: No acute cardiopulmonary process. A/ CKD V, stable. HTN with CKD/ CHF, uncontrolled. Systolic CHF, chronic. Anemia in CKD. Microcytic. DEWEY/ Secondary HyperPTH. Recurrent Cystitis. P/ Continue current POC and Medications. Increase Doxazosin. Give Procrit. Start Vitamin D. Restart home medications as indicated. No NSAIDs. AM labs. Daily weight.
[2019-10-16] MEDS ORDERED: EPOETIN ALFA 20,000 UNIT/ML SQ ONE (16:00)
[2019-10-16] MEDS: CALCITROL 0.25 MCG CAP PO SCH (16:05)
[2019-10-16] MEDS: HYDRALAZINE HCL 25 MG TABLET PO SCH (20:58)
[2019-10-16 21:23] VITALS: O2SAT 94
[2019-10-17] MEDS: cloNIDine HCL 0.1 MG TAB PO SCH (08:36)
[2019-10-17] MEDS: CALCITROL 0.25 MCG CAP PO SCH (08:36)
[2019-10-17] MEDS: CAPTOPRIL 25 MG TABLET PO SCH (08:36)
[2019-10-17] MEDS: AMLODIPINE 5 MG TAB PO SCH (08:36)
[2019-10-17] MEDS: ASPIRIN EC 81 MG TAB PO SCH (08:36)
[2019-10-17] MEDS: METOPROLOL TAR 50 MG TAB PO SCH (08:36)
[2019-10-17] MEDS: HYDRALAZINE HCL 25 MG TABLET PO SCH (08:37)
[2019-10-17] MEDS: DOXAZOSIN 2 MG TAB PO SCH (08:37)
[2019-10-17] MEDS: FUROSEMIDE 40 MG TABLET PO SCH (08:37)
[2019-10-17] MEDS ORDERED: VITAMIN D 5,000 UNIT CAP PO SCH (09:00)
[2019-10-17] MEDS ORDERED: SMZ./TMP. 800/160 MG TABLET PO SCH (09:00)
--- NOTE | 2019-10-17 09:57 | ECHO ---
HEIGHT: 5 ft 9 in WEIGHT: 187 lb 9.6 oz DATE OF STUDY: 10/16/[address]: Mathew Bertrand MD 2-DIMENSIONAL: YES M.MODE: YES DOPPLER: YES COLOR FLOW: YES TDS: NO PORTABLE: NO DEFINITY: NO BUBBLE STUDY: NO DIAGNOSIS: CONGESTIVE HEART FAILURE CARDIAC HISTORY: CATHERIZATION: NO SURGERY: NO PROSTHETIC VALVE: NO PACEMAKER: NO MEASUREMENTS (cm) DIASTOLIC (NORMALS) SYSTOLIC (NORMALS) IVSd 1.1 (0.6-1.2) LA Diam 3.7 (1.9-4.0) LVEF 53% LVIDd 4.1 (3.5-5.7) LVIDs 3.0 (2.0-3.5) %FS 27% LVPWd 1.1 (0.6-1.2) Ao Diam 2.7 (2.0-3.7) 2 DIMENSIONAL ASSESSMENT: RIGHT ATRIUM: NORMAL LEFT ATRIUM: NOMRAL RIGHT VENTRICLE: NORMAL LEFT VENTRICLE: NORMAL TRICUSPID VALVE: NORMAL MITRAL VALVE: NORMAL PULMONIC VALVE: NORMAL AORTIC VALVE: MILD SCLEROSIS PERICARDIAL EFFUSION: NONE AORTIC ROOT: NORMAL LEFT VENTRICULAR WALL MOTION: NORMAL. DOPPLER/COLOR FLOW: MILD MITRAL REGURGITATION. NO AORTIC STENOSIS OR AORTIC REGURGITATION. IMPAIRED LEFT VENTRICULR RELAXATION. COMMENTS: NORMAL LEFT VENTRICULAR EJECTION FRACTION. AORTIC SCLEROSIS WITH NO AORTIC STENOSIS OR AORTIC REGURGITATION. MILD MITRAL REGURGITATION. TECHNOLOGIST: LETICIA HENRY
[2019-10-17 12:58] VITALS: BP 157/70; TEMP 97.5
--- NOTE | 2019-10-17 15:24 | PN ---
Date of Progress Note: 10/16/2019 Patient had came in with renal failure, chronic systolic congestive heart failure, hypertension. Sin ce I saw her, she had an echo showing ejection fraction of 53%, aortic sclerosis, mild mitral regurgi tation with decreased left ventricular compliance. Hydralazine has been added for hypertension contr ol. She remains on metoprolol and Xarelto for atrial fibrillation. She has a pacemaker that is func tioning properly. From our standpoint, no further cardiac workup. No change in her medical therapy. She can go home whenever it is okay with Dr. Vega. SALLIE/JD Voice ID: [id number] Report ID: [id number]
--- NOTE | 2019-10-17 20:46 | P.PN ---
Date of Service: 10/17/19 Vital Signs Temp Pulse Resp BP Pulse Ox 97.5 F 56 18 157/70 H 99 10/17/19 12:00 10/17/19 12:00 10/17/19 12:00 10/17/19 12:00 10/17/19 12:00 Microbiology Results 10/13/19 22:02 Catheterized Urine [place] Count - Final <10,000 CFU/ML. 10/13/19 22:02 Catheterized Urine - Final Proteus Mirabilis 10/13/19 21:00 Blood - Blood Aerobic Blood Culture - Preliminary 10/13/19 21:00 Blood - Blood Gram Stain - Final 10/13/19 21:00 Blood - Blood Anaerobic Blood Culture - Preliminary No growth in 24 hours. 10/13/19 20:45 Blood - Blood Aerobic Blood Culture - Preliminary No growth in 24 hours. 10/13/19 20:45 Blood - Blood Anaerobic Blood Culture - Final Assessment/ Plan: Nephrology 20:10 This 83 yrs old Black Female presents to ER via EMS with complaints of General Weakness.pm1 20:10 The patient presents with decreased mental status. Onset: The symptoms/ episode pm1 began/occurred today. Possible causes: unknown, Similar behavior with urosepsis in the past. Associated signs and symptoms: Pertinent negatives: abdominal pain, diarrhea, vomiting. Current symptoms: In the emergency department the patient's symptoms have resolved. Patient arrived to the ER with complaints of weakness and fatigue. Has not been sleeping well recently. Did not eat her dinner today. Patient is at her current baseline. CPS stable without SOB or CP. No acute events overnight. +Fatigue Vitals, medications, blood work and imaging reviewed in the chart. NAD. NCAT. MMM. Neck supple. CTA. RRR. Soft Abd. No C/C. LLE Lymphedema. AAO. Normal speech. EXAM DESCRIPTION: RAD - Chest Single View - 10/13/2019 8:26 pm CLINICAL HISTORY: Weakness, shortness of breath COMPARISON: August 2019 TECHNIQUE: AP portable chest image was obtained 2022 a . FINDINGS: Or is lung volumes are low. No focal lung parenchymal process. Lung markings match comparison. Heart and vasculature are normal. No measurable pleural effusion and no pneumothorax. No acute bony abnormality seen. No acute aortic findings suspected. IMPRESSION: No acute cardiopulmonary process. A/ CKD V, stable. HTN with CKD/ CHF, uncontrolled. Systolic CHF, chronic. Anemia in CKD. Microcytic. DEWEY/ Secondary HyperPTH. Recurrent Cystitis. P/ Continue current POC and Medications. Continue Doxazosin. Next Epo next week. No NSAIDs. AM labs. Daily weight.
--- NOTE | 2019-10-17 22:50 | DS ---
Date of Discharge: 10/17/2019 History: An 83-year-old female, who was admitted to the hospital because of an episode of significan t weakness and fatigue. Past Medical History: As per admit note. Social History: As per admit note. Family History: As per admit note. Medications: As per admit note. Allergies: PER ADMIT NOTE. Physical Examination: As per admit note. Diagnostic Data: As per admit note. Hospital Course: The patient was admitted to the hospital and because of her significant chronic dedrick al insufficiency. Nephrology has seen the patient and we consulted Cardiology because of elevated tr oponin and BNP. Cardiology, Dr. Bertrand, has seen the patient and thought that her symptoms are main ly from her renal failure. An echocardiogram was ordered and it showed that the patient's left ventr icle ejection fraction is at 53%. Nephrology has seen the patient and put the patient on Epogen for her anemia of chronic illness and also for the kidney functions, which remained stable with a GFR of about 16. The patient's urinalysis showed that she had the Proteus mirabilis infection, started on B actrim 1 pill a day because of her renal function. Her blood pressure also was noted to be uncontrol led and we added the patient hydralazine 25 mg p.o. b.i.d. We expect that also to help in controllin g her blood pressure. Meanwhile, the patient is clinically stable today and has no symptoms and feel ing well. It was thought that she is stable enough to be discharge to resume her home medicines and to follow up with me, with Cardiology, and with her Nephrology doctor. The patient also was sent on Bactrim DS 1 p.o. daily for the next 3 days for her cystitis with Proteus mirabilis and also was sent home on hydralazine 25 mg p.o. b.i.d. on top of her other blood pressure medicines. Look discharge orders for details. MFS/MODL Voice ID: [id number] Report ID: [id number]
== END 2019-10-17 13:43 | disposition home or self-care (01) ==
LOC: ER 18:59 → 2ND 10-14 02:43 → INTOOBSV 10-14 02:43 → 2ND 10-14 02:46
PROVIDERS: ADMIT Internal Medicine; ATTEND Internal Medicine
DX: N30.90 Cystitis, unspecified without hematuria (principal); B96.4 Proteus (mirabilis) (morganii) as the cause of diseases classified elsewhere; I13.2 Hypertensive heart and chronic kidney disease with heart failure and with stage 5 chronic kidney disease, or end stage renal disease; N18.5 Chronic kidney disease, stage 5; I50.22 Chronic systolic (congestive) heart failure; D63.1 Anemia in chronic kidney disease; Z79.82 Long term (current) use of aspirin; Z95.0 Presence of cardiac pacemaker
CPT/HCPCS: 96361; 93005; 93306; 87040 ×4; 87088; 85025 ×3; 87086; 80048 ×3; 36415 ×3; 83735; 87205; 85610; 80076; 83605; 87077; 87186; 81015; 84484 ×3; 84145; 83880; 70450; 71045; 96360; 99285; J0885; G0378 ×6; J7040

== ENCOUNTER 2020-12-10 12:52 | Inpatient (IN) | payer OTHER ==
--- NOTE | 2020-12-10 14:07 | RAD REPORT ---
EXAM DESCRIPTION: CT - Head Brain Wo Cont - 12/10/2020 2:00 pm CLINICAL HISTORY: MENTAL STATUS CHANGE Headache, drowsiness COMPARISON: Head Brain Wo Cont dated 10/13/2019; Ct Stroke Brain Wo Cont dated 09/14/2019 TECHNIQUE: All CT scans are performed using dose optimization technique as appropriate and may inclu de automated exposure control or mA/KV adjustment according to patient size. FINDINGS: No intracranial hemorrhage, hydrocephalus or extra-axial fluid collection.Extensive chroni c microvascular ischemic changes appear stable.No areas of brain edema or evidence of midline shift. The paranasal sinuses and mastoids are clear. The calvarium is intact. IMPRESSION: No acute intracranial abnormality.
[2020-12-10 14:18] LABS: Protime INR 0.94
[2020-12-10 14:22] LABS: Basophils % 0.4 % (0-1.3); MPV 9.8 fL (7.6-11.3); RBC Red Blood Cell Count 4.24 M/uL (3.86-4.86)
[2020-12-10] MEDS ORDERED: HYDRALAZINE HCL 20 MG/ML VIAL ONE ×2 (14:26→17:23)
[2020-12-10] MEDS ORDERED: NA CHLORIDE 0.9% 250 ML ONE (14:27)
--- NOTE | 2020-12-10 14:40 | RAD REPORT ---
EXAM DESCRIPTION: RAD - Chest Single View - 12/10/2020 2:34 pm CLINICAL HISTORY: AMS Chest pain. COMPARISON: Chest Single View dated 10/13/2019; Chest Single View dated 09/14/2019; Chest Single View dated 03/19/2018; Chest Single View dated 01/07/2018 FINDINGS: Portable technique limits examination quality. The lungs are grossly clear. The heart is normal in size. No displaced fractures. IMPRESSION: No acute intrathoracic process suspected.
[2020-12-10 14:52] LABS: Albumin 2.8 g/dL (3.4-5.0); Bilirubin Direct 0.2 mg/dL (0-0.2); Bilirubin Total 0.6 mg/dL (0.2-1.0); Magnesium 2.4 mg/dL (1.8-2.4); Potassium 4.5 mmol/L (3.5-5.1); Protein, Total 7.6 g/dL (6.4-8.2); Troponin (Emerg Dept Use Only) 0.08 ng/mL (0.0-0.045)
[2020-12-10] MEDS ORDERED: cloNIDine HCL 0.1 MG TAB ONE (14:55)
[2020-12-10 15:21] LABS: Urine Blood TRACE (NEG); Urine Glucose NEGATIVE (NEG); Urine Protein 1+ (NEG); Urine pH 5.5 (5.0-7.0)
[2020-12-10] MEDS ORDERED: NA CHLORIDE 0.9% 1,000 ML ONE (15:54)
[2020-12-10] MEDS ORDERED: CEFEPIME/SWI 1gm 10 ML ONE (15:54)
[2020-12-10] MEDS ORDERED: ONDANSETRON 4 MG/2 ML VIAL ONE (15:54)
[2020-12-10] MEDS ORDERED: PROMETHAZINE INJ 25 MG/ML AMP ONE (15:56)
[2020-12-10] MEDS ORDERED: VANCOMYCIN/NS 1 gm 1 GM/250 ML BAG IV ONE (16:00)
[2020-12-10 16:22] LABS: Urine Bacteria <20 /HPF (<20)
[2020-12-10 16:23] LABS: Urine Amorphous Sediment TRACE /HPF (NONE SEEN)
[2020-12-10] MEDS ORDERED: METOPROLOL TARTRATE 5 MG/5 ML INJ IV ONE (16:23)
--- NOTE | 2020-12-10 16:30 | ER ---
Nurse's Notes [facility] Name: Camelia Root Age: 85 yrs Sex: Female : 1935 Arrival Date: 12/10/2020 Time: 12:56 Bed 6 Private MD: Diagnosis: Other specified sepsis;Hypertensive heart and chronic kidney disease Presentation: 12/10 12:59 Risk Assessment: Do you want to hurt yourself or someone else? Patient reports no sv desire to harm self or others. 12:59 Method Of Arrival: EMS: [facility] sv 13:00 Chief complaint: EMS states: Toned out by family, reporting pt refusing to take meds. jl7 Coronavirus screen: Client denies travel out of the [place] in the last 14 days. At this time, the client does not indicate any symptoms associated with coronavirus-19. Ebola Screen: No symptoms or risks identified at this time. Initial Sepsis Screen: Does the patient meet any 2 criteria? No. Patient's initial sepsis screen is negative. Does the patient have a suspected source of infection? No. Patient's initial sepsis screen is negative. Onset of symptoms is unknown. Care prior to arrival: None. Transition of care: patient was not received from another setting of care. 13:00 Acuity: SILVINO 3 jl7 Triage Assessment: 13:00 General: Appears in no apparent distress. comfortable, Behavior is calm, uncooperative. jl7 Pain: Denies pain. Neuro: Level of Consciousness is awake, alert, obeys commands, Oriented to person, place, Speech is normal, Facial symmetry appears normal. Cardiovascular: Denies chest pain, Patient's skin is warm and dry. Respiratory: Airway is patent Respiratory effort is even, unlabored, Respiratory pattern is regular, symmetrical, Denies shortness of breath. Derm: Skin is dry, Skin is normal, Skin temperature is warm. Historical: - Allergies: 12:58 No Known Allergies; sv - Home Meds: 12:58 metoprolol tartrate 50 mg Oral tab 2 tabs every evening [Active]; doxazosin 2 mg Oral sv tab 1 tab twice a day [Active]; tramadol 50 mg Oral tab TID prn [Active]; clonidine HCl 0.1 mg oral tab 3 times per day [Active]; furosemide 40 mg Oral tab 1 tab 2 times per day [Active]; - PMHx: 12:58 Arthritis; CHF; GERD; High Cholesterol; Hypertension; lyphedema; Renal Disease; sv - Immunization history:: Adult Immunizations unknown. - Social history:: Smoking status: unknown. Screenin:52 Abuse screen: Denies threats or abuse. Nutritional screening: No deficits noted. tw2 Tuberculosis screening: No symptoms or risk factors identified. Fall Risk Secondary diagnosis (15 points) impaired mobility. Assessment: 13:00 General: See triage assessment. jl7 14:00 Reassessment: Patient appears in no apparent distress at this time. No changes from [facility] previously documented assessment. Patient and/or family updated on plan of care and expected duration. Pain level reassessed. Pt noted to be repeating the same questions over and over. 14:30 Reassessment: Pt's son Jed Root at bedside, reports increased confusion and jl7 combative x 2 days, refusing medications this morning. 14:52 Reassessment: pt is being cleaned at this time with nursing staff KARAN Aponte and 2 [facility] student nurses at this time. 15:13 Reassessment: Pericare provided with bath wipes, solid stool stuck in pubic hair, stool sr5 clump had to be cut out of pubic hair. No skin breakdown noted in anny-area. Straight cath x 1 attempt, 450mL clear yellow output, udip collected. Clean brief provided. Lactate obtained from existing IV. Flushed with 5mL NS. ER nurse and family at bedside. 17:30 Reassessment: Reassessment: Pt refusing PO medications at this time. [facility] 18:05 Reassessment: Attempted to call report, nurse unavailable. jl7 18:30 Reassessment: Patient appears in no apparent distress at this time. No changes from [facility] previously documented assessment. Patient and/or family updated on plan of care and expected duration. Pain level reassessed. Pt continues to refuse PO medications. Vital Signs: 13:00 BP 204 / 91; Pulse 99; Resp 19; Temp 98.6; Pulse Ox 100% ; jl7 14:00 BP 202 / 107; sr5 14:24 BP 209 / 100; Pulse 108; Pulse Ox 100% on R/A; sr5 14:50 BP 227 / 102; Pulse 101; Resp 17; Pulse Ox 95% on R/A; tw2 15:04 BP 158 / 78; Pulse 125; Resp 22; Pulse Ox 95% on R/A; tw2 15:46 BP 168 / 97; Pulse 112; Resp 17; Pulse Ox 99% ; jl7 16:46 BP 179 / 88; Pulse 103; Resp 20; Pulse Ox 99% on R/A; tw2 17:00 BP 190 / 79; Pulse 98; Resp 19; Pulse Ox 97% ; jl7 17:36 Weight 86.18 kg (R); Height 5 ft. 9 in. (175.26 cm) (R); tw2 17:36 BP 178 / 96; Pulse 113; Resp 19; Pulse Ox 100% on R/A; tw2 20:05 BP 176 / 79; Pulse 108; Resp 18; Temp 98.6; Pulse Ox 100% on R/A; em 17:36 Body Mass Index 28.06 (86.18 kg, 175.26 cm) tw2 14:00 TARA Madrid notified, no new orders received at this time. sr5 14:50 pt on side getting cleaned and catheter placed at this time tw2 ED Course: 12:56 Patient arrived in ED. sv 12:57 Bed in low position. Side rails up X2. patient monitor on. Pulse ox on. NIBP on. tw2 12:59 Arm band placed on. sv 13:00 Maryan Mijares RN is Primary Nurse. jl7 13:02 Danny Madrid PA is PHCP. cp 13:02 Andre Howard MD is Attending Physician. cp 13:02 Triage completed. jl7 13:55 Initial lab(s) drawn, by nd, sent to lab. First set of blood cultures drawn EKG done, sr5 by ED staff, reviewed by Andre Howard MD. Inserted saline lock: 22 gauge in right antecubital area, using aseptic technique. Blood collected. 14:00 CT Head Brain wo Cont In Process Unspecified. EDMS 14:29 NT PRO-BNP Sent. sv 14:29 Magnesium Sent. sv 14:29 LFT's Sent. sv 14:30 CBC with Diff Sent. sv 14:30 Basic Metabolic Panel Sent. sv 14:34 XRAY Chest (1 view) In Process Unspecified. EDMS 15:29 Notified Nurse Practitioner and/or Physician Informatics Spec of a critical lab result(s), sv lactate-3.7. 15:55 Urine Dipstick--Ancillary (enter results) Sent. sv 16:29 John Vega MD is Hospitalizing Provider. cp Administered Medications: 14:08 Drug: Cefepime 1 grams Route: IVPB; Rate: 200 ml/hr; Infused Over: 30 mins; Site: right jl7 antecubital; 16:11 Follow up: Response: No adverse reaction; IV Status: Completed infusion; administered jl7 per protocol 14:23 Drug: hydrALAZINE 10 mg Route: IV; Rate: calculated rate; Site: right antecubital; sr5 15:00 Follow up: Response: Blood pressure is lowered; IV Status: Completed infusion jl7 14:24 Drug: NS 0.9% 250 ml Route: IV; Rate: bolus; Site: right antecubital; sr5 15:00 Follow up: Response: No adverse reaction; IV Status: Completed infusion; IV Intake: jl7 250ml 15:04 Not Given (Physician Discretion): cloNIDine 0.2 mg PO once cp 15:46 Drug: NS 0.9% 750 ml Route: IV; Rate: 750 ml/hr; Site: right antecubital; jl7 16:45 Follow up: Response: No adverse reaction; IV Status: Completed infusion; IV Intake: jl7 750ml 15:46 Drug: Phenergan 12.5 mg Route: IVP; Site: right antecubital; jl7 16:13 Follow up: Response: No adverse reaction; Nausea is decreased jl7 16:13 Drug: Lopressor 2.5 mg Route: IVP; Site: right antecubital; jl7 16:30 Follow up: Response: No adverse reaction; No change in condition jl7 17:01 Drug: vancoMYCIN 1 grams Route: IVPB; Infused Over: 2 hrs; Site: right antecubital; jl7 18:20 Follow up: Response: No adverse reaction; IV Status: Completed infusion jl7 17:15 Drug: hydrALAZINE 10 mg Route: IV; Rate: calculated rate; Site: left antecubital; jl7 17:16 Follow up: Response: No adverse reaction; IV Status: Completed infusion jl7 18:10 Follow up: Response: Blood pressure is lowered jl7 Intake: 15:00 IV: 250ml; Total: 250ml. jl7 16:45 IV: 750ml; Total: 1000ml. jl7 Outcome: 16:30 Decision to Hospitalize by Provider. cp 20:45 Patient left the ED. ea Signatures: Dispatcher [employer] Em Ohara, RN RN Jarion Cruz, RN RN Danny Estrada PA PA cp Elina Hurd RN RN tw2 Jed Arana RN RN sr5 Maryan Mijares RN RN jl7 Jen Willingham RN RN ea Corrections: (The following items were deleted from the chart) 14:52 14:50 BP 227 / 102; Pulse 101bpm; Resp 17bpm; Pulse Ox 95% RA; tw2 tw2 15:17 15:13 Reassessment: Pericare provided with bath wipes, solid stool stuck in pubic hair, sr5 stool clump had to be cut out of pubic hair. No skin breakdown noted in anny-area. Straight cath x 1 attempt, 450mL clear yellow output, udip collected. Clean brief provided. sr5
--- NOTE | 2020-12-10 16:30 | EDPHYS ---
Physician Documentation [facility] Name: Camelia Root Age: 85 yrs Sex: Female : 1935 Arrival Date: 12/10/2020 Time: 12:56 Bed 6 Private MD: ED Physician Andre Howard HPI: 12/10 13:35 This 85 yrs old Black Female presents to ER via EMS with complaints of Altered Mental cp Status. 13:35 The patient presents with decreased mental status. cp 13:35 Onset: The symptoms/episode began/occurred gradually. cp 13:35 Possible causes: urinary tract infection. Associated signs and symptoms: Pertinent cp negatives: abdominal pain, chest pain, headache, vomiting. Current symptoms: In the emergency department the patient's symptoms are unchanged from the initial presentation, despite home interventions. Patient's baseline: Neuro: alert and fully oriented, Motor: no deficits, Ambulation: walks with assist only, Speech: normal. Historical: - Allergies: 12:58 No Known Allergies; sv - Home Meds: 12:58 metoprolol tartrate 50 mg Oral tab 2 tabs every evening [Active]; doxazosin 2 mg Oral sv tab 1 tab twice a day [Active]; tramadol 50 mg Oral tab TID prn [Active]; clonidine HCl 0.1 mg oral tab 3 times per day [Active]; furosemide 40 mg Oral tab 1 tab 2 times per day [Active]; - PMHx: 12:58 Arthritis; CHF; GERD; High Cholesterol; Hypertension; lyphedema; Renal Disease; sv - Immunization history:: Adult Immunizations unknown. - Social history:: Smoking status: unknown. ROS: 13:40 Constitutional: Negative for fever, poor PO intake. cp 13:40 Eyes: Negative for injury, pain, redness, and discharge. cp 13:40 Cardiovascular: Negative for chest pain. 13:40 Respiratory: Negative for cough, shortness of breath, wheezing. 13:40 Abdomen/GI: Negative for abdominal pain, vomiting, diarrhea, constipation. 13:40 Neuro: Positive for altered mental status. 13:40 All other systems are negative. Exam: 13:45 Constitutional: The patient appears in no acute distress, alert, awake, cp non-diaphoretic, non-toxic, well developed, well nourished. 13:45 Head/Face: Normocephalic, atraumatic. cp 13:45 Eyes: Periorbital structures: appear normal, Conjunctiva: normal, no exudate, no injection, Sclera: no appreciated abnormality, Lids and lashes: appear normal, bilaterally. 13:45 ENT: External ear(s): are unremarkable, Nose: is normal, Mouth: Lips: dry, Oral mucosa: dry, Posterior pharynx: Airway: no evidence of obstruction, patent. 13:45 Neck: ROM/movement: is normal, is supple, without pain, no range of motions limitations, no meningismus. 13:45 Chest/axilla: Inspection: normal. 13:45 Cardiovascular: Rate: normal, Rhythm: regular. 13:45 Respiratory: the patient does not display signs of respiratory distress, Respirations: normal, no use of accessory muscles, no retractions, labored breathing, is not present, Breath sounds: are clear throughout, no decreased breath sounds. 13:45 Abdomen/GI: Inspection: abdomen appears normal, Palpation: abdomen is soft and non-tender, in all quadrants. 13:45 Back: pain, is absent. 13:45 Musculoskeletal/extremity: marked lymphedema noted right leg. 13:45 Skin: cellulitis, is not appreciated, no rash present. 13:45 Neuro: Orientation: to person, situation, Mentation: able to follow commands. 14:20 ECG was reviewed by the Attending Physician. cp 15:15 ECG was reviewed by the Attending Physician. cp Vital Signs: 13:00 BP 204 / 91; Pulse 99; Resp 19; Temp 98.6; Pulse Ox 100% ; jl7 14:00 BP 202 / 107; sr5 14:24 BP 209 / 100; Pulse 108; Pulse Ox 100% on R/A; sr5 14:50 BP 227 / 102; Pulse 101; Resp 17; Pulse Ox 95% on R/A; tw2 15:04 BP 158 / 78; Pulse 125; Resp 22; Pulse Ox 95% on R/A; tw2 15:46 BP 168 / 97; Pulse 112; Resp 17; Pulse Ox 99% ; jl7 16:46 BP 179 / 88; Pulse 103; Resp 20; Pulse Ox 99% on R/A; tw2 17:00 BP 190 / 79; Pulse 98; Resp 19; Pulse Ox 97% ; jl7 17:36 Weight 86.18 kg (R); Height 5 ft. 9 in. (175.26 cm) (R); tw2 17:36 BP 178 / 96; Pulse 113; Resp 19; Pulse Ox 100% on R/A; tw2 20:05 BP 176 / 79; Pulse 108; Resp 18; Temp 98.6; Pulse Ox 100% on R/A; em 17:36 Body Mass Index 28.06 (86.18 kg, 175.26 cm) tw2 14:00 PA Page notified, no new orders received at this time. sr5 14:50 pt on side getting cleaned and catheter placed at this time tw2 MDM: 13:14 Patient medically screened. cp 14:00 Differential Diagnosis: CVA, electrolyte abnormality, pneumonia, sepsis, UTI, volume cp depletion. 16:28 Data reviewed: vital signs, nurses notes, lab test result(s), EKG, radiologic studies, cp CT scan, plain films. Physician consultation: John Vega MD was called at 16:28, was contacted at 16:28, regarding admission, to the telemetry unit. patient's condition. 12/10 13:31 Order name: Basic Metabolic Panel cp 12/10 13:31 Order name: CBC with Diff cp 12/10 13:31 Order name: LFT's cp 12/10 13:31 Order name: Magnesium cp 12/10 13:31 Order name: NT PRO-BNP cp 12/10 13:31 Order name: PT-INR; Complete Time: 14:42 cp 12/10 13:31 Order name: Troponin (emerg Dept Use Only); Complete Time: 14:59 cp 12/10 15:00 Interpretation: Abnormal: TROPED 0.08. cp 12/10 13:31 Order name: Procalcitonin; Complete Time: 14:59 cp 16 15:00 Interpretation: Abnormal: Procalcitonin 0.29. cp 12/10 13:31 Order name: Lactate; Complete Time: 16:08 cp 12/10 13:31 Order name: Urine Microscopic Only cp 12/10 13:31 Order name: Blood Culture Adult (2) cp 12/10 13:32 Order name: Basic Metabolic Panel; Complete Time: 14:59 EDMS 12/10 15:00 Interpretation: Normal except: BUN 62; CRE 3.73; GFR 14. cp 12/10 13:32 Order name: CBC with Automated Diff; Complete Time: 14:42 EDMS 12/10 14:42 Interpretation: Normal except: HGB 9.6; HCT 31.0; MCV 73.0; MCH 22.5; MCHC 30.9. cp 12/10 13:32 Order name: Liver (Hepatic) Function; Complete Time: 14:59 EDMS 12/10 15:15 Interpretation: Normal except: ALB 2.8; GLOB 4.8; A/G 0.6. cp 12/10 13:31 Order name: XRAY Chest (1 view); Complete Time: 14:42 cp 12/10 14:43 Interpretation: Report review. cp 12/10 13:32 Order name: CT Head Brain wo Cont; Complete Time: 14:10 cp 12/10 14:10 Interpretation: Report reviewed. 12/10 13:32 Order name: Magnesium; Complete Time: 14:59 EDMS 12/10 13:32 Order name: NT PRO-BNP; Complete Time: 14:59 EDMS 12/10 16:08 Interpretation: Abnormal: NT PRO-BNP 8574. 12/10 15:12 Order name: Urine Dipstick--Ancillary (enter results) 12/10 15:13 Order name: Urine Dipstick-Ancillary; Complete Time: 15:22 EDMS 12/10 15:23 Interpretation: Normal except: UBLD TRACE; UPROT 1+. 12/10 15:23 Order name: Urine Microscopic Only; Complete Time: 16:24 jl7 12/10 15:39 Order name: COVID-19 : Document "Date of Symptom Onset" if Symptomatic. 12/10 16:38 Order name: Vancomycin Level Trough EDMS 12/10 16:38 Order name: Vancomycin Peak EDMS 12/10 17:07 Order name: SARS-COV-2 RT PCR EDMS 12/10 18:50 Order name: Lactate Sepsis 2 HR Follow-up EDMO 12/10 13:31 Order name: EKG; Complete Time: 13:32 cp 12/10 13:31 Order name: Cardiac monitoring; Complete Time: 14:31 cp 12/10 13:31 Order name: EKG - Nurse/Tech; Complete Time: 14:31 cp 12/10 13:31 Order name: IV Saline Lock; Complete Time: 14:31 cp 12/10 13:31 Order name: Labs collected and sent; Complete Time: 14:31 cp 12/10 13:31 Order name: O2 Per Protocol; Complete Time: 14:31 cp 12/10 13:31 Order name: O2 Sat Monitoring; Complete Time: 14:31 cp 12/10 13:31 Order name: Urine Dipstick-Ancillary (obtain specimen); Complete Time: 15:17 cp 12/10 13:32 Order name: Cath; Complete Time: 15:17 cp 12/10 16:38 Order name: CONS Physician Consult EDMS 12/10 16:38 Order name: Regular EDMS EC:20 Rate is 100 beats/min. Rhythm is regular. FL interval is prolonged at 240 msec. QRS cp interval is prolonged at 156 msec. QT interval is normal. T waves are Inverted in leads I, aVL, V5, V6. Interpreted by me. Reviewed by me. 15:15 Rate is 117 beats/min. Rhythm is regular. QRS interval is prolonged at 150 msec. QT cp interval is normal. T waves are Inverted in leads I, aVL. Interpreted by me. Reviewed by me. Administered Medications: 14:08 Drug: Cefepime 1 grams Route: IVPB; Rate: 200 ml/hr; Infused Over: 30 mins; Site: right jl7 antecubital; 16:11 Follow up: Response: No adverse reaction; IV Status: Completed infusion; administered jl7 per protocol 14:23 Drug: hydrALAZINE 10 mg Route: IV; Rate: calculated rate; Site: right antecubital; sr5 15:00 Follow up: Response: Blood pressure is lowered; IV Status: Completed infusion jl7 14:24 Drug: NS 0.9% 250 ml Route: IV; Rate: bolus; Site: right antecubital; sr5 15:00 Follow up: Response: No adverse reaction; IV Status: Completed infusion; IV Intake: jl7 250ml 15:04 Not Given (Physician Discretion): cloNIDine 0.2 mg PO once cp 15:46 Drug: NS 0.9% 750 ml Route: IV; Rate: 750 ml/hr; Site: right antecubital; jl7 16:45 Follow up: Response: No adverse reaction; IV Status: Completed infusion; IV Intake: jl7 750ml 15:46 Drug: Phenergan 12.5 mg Route: IVP; Site: right antecubital; jl7 16:13 Follow up: Response: No adverse reaction; Nausea is decreased jl7 16:13 Drug: Lopressor 2.5 mg Route: IVP; Site: right antecubital; jl7 16:30 Follow up: Response: No adverse reaction; No change in condition jl7 17:01 Drug: vancoMYCIN 1 grams Route: IVPB; Infused Over: 2 hrs; Site: right antecubital; jl7 18:20 Follow up: Response: No adverse reaction; IV Status: Completed infusion jl7 17:15 Drug: hydrALAZINE 10 mg Route: IV; Rate: calculated rate; Site: left antecubital; jl7 17:16 Follow up: Response: No adverse reaction; IV Status: Completed infusion jl7 18:10 Follow up: Response: Blood pressure is lowered jl7 Disposition: 12/11 07:58 Co-signature as Attending Physician, Andre Howard MD I agree with the assessment and kdr plan of care. Disposition: 12/10/20 16:30 Hospitalization ordered by John Vega for Inpatient Admission. Preliminary diagnosis are Other specified sepsis, Hypertensive heart and chronic kidney disease. - Bed requested for Telemetry/MedSurg (Inpatient). - Status is Inpatient Admission. ea - Condition is Stable. - Problem is new. - Symptoms have improved. Signatures: Dispatcher [facility] EDMO Deepa Reyes Stephanie, RN Andre Fuentes MD MD kdr Page, Corey, PA PA cp Jed Arana RN RN sr5 Maryan Mijares RN RN jl7 Jen Willingham RN RN ea Corrections: (The following items were deleted from the chart) 12/10 16:27 15:39 CORONAVIRUS ordered. EDMO EDMO 17:37 16:30 Hospitalization Ordered by John Vega MD for Inpatient Admission. Preliminary bd diagnosis is Other specified sepsis; Hypertensive heart and chronic kidney disease. Bed requested for Telemetry/MedSurg (Inpatient). Status is Inpatient Admission. Condition is Stable. Problem is new. Symptoms have improved. cp 20:45 17:37 12/10/2020 16:30 Hospitalization Ordered by John Vega MD for Inpatient ea Admission. Preliminary diagnosis is Other specified sepsis; Hypertensive heart and chronic kidney disease. Bed requested for Telemetry/MedSurg (Inpatient). Status is Inpatient Admission. Condition is Stable. Problem is new. Symptoms have improved. bd
[2020-12-10] MEDS ORDERED: Pharmacy Consult 1 EA XX PRN (16:35)
[2020-12-10] MEDS ORDERED: ASPIRIN EC 81 MG TAB PO ONE (17:24)
[2020-12-10] MEDS ORDERED: VANCOMYCIN 500 MG in NA CHLORIDE 0.9% 100 ML IVPB ONE (17:45)
[2020-12-10] MEDS ORDERED: METOPROLOL TAR 50 MG TAB ONE (18:01)
[2020-12-10] MEDS ORDERED: CAPTOPRIL 50 MG PO SCH (21:00)
[2020-12-10 21:37] VITALS: BMI 28.0
[2020-12-10] MEDS: cloNIDine HCL 0.1 MG TAB PO SCH (22:09)
[2020-12-10] MEDS: HYDRALAZINE HCL 25 MG TABLET PO SCH (22:09)
[2020-12-10] MEDS: METOPROLOL TAR 50 MG TAB PO SCH (22:09)
--- NOTE | 2020-12-10 22:31 | P.CNS ---
Date of Consult: 12/10/20 Reason for Consult: CKD Requesting Physician: John Vega Chief Complaint: AMS History of Present Illness: 85 yo BF CKD, HTN presented to the ER with 1-2 days of moderate, progressive AMS with associated nausea. The daughter reports she was feeling excessively cold earlier today with rigors. She has had similar symptoms in the past due to cystitis. She is unable to provide an HPI/ ROS due to AMS. Allergies No Known Allergies Allergy (Verified 08/21/20 11:17) Home medications list reviewed: Yes Home Medications: Metoprolol Tartrate [Lopressor*] 50 mg PO BID 10/11/14 Furosemide [Lasix] 40 mg PO BID #120 tablet 10/12/14 traMADol HCL [Ultram*] 50 mg PO TID PRN 03/20/18 Doxazosin Mesylate 2 mg PO BID 09/14/19 cloNIDine HCL [Catapres] 0.1 mg PO TID 09/14/19 - Past Medical/Surgical History Diabetic: No -: arthritis -: CHF -: Lymphedema -: COPD -: CHF -: GERD -: lymphedema -: (R) knee surgery -: Back Surgery -: hysterectomy - Family History Father History Unknown: Yes Mother History Unknown: Yes - Social History Smoking Status: Unknown if ever smoked Alcohol use: No CD- Drugs: No Caffeine use: Yes Place of Residence: Home Review of Systems 10-point ROS is otherwise unremarkable General: Weakness, Malaise Gastrointestinal: Nausea Neurological: Weakness, Confusion Physical Examination Temp Pulse Resp BP Pulse Ox 98.3 F 103 H 16 194/94 H 99 12/10/20 21:00 12/10/20 22:09 12/10/20 21:00 12/10/20 22:09 12/10/20 21:00 General: In no apparent distress, Cooperative, Confused HEENT: Atraumatic Neck: Supple Respiratory: Normal air movement Cardiovascular: No edema, Edema (LLE Lymphedema) Gastrointestinal: Soft and benign, Non-distended Musculoskeletal: No clubbing, No contractures Integumentary: No rashes, No cyanosis Neurological: Normal speech Laboratory Data (last 24 hrs) 12/10/20 13:55: PT 10.8, INR 0.94 12/10/20 13:55: WBC 5.70, Hgb 9.6 L, Hct 31.0 L, Plt Count 202 12/10/20 13:55: Sodium 139, Potassium 4.5, BUN 62 H, Creatinine 3.73 H, Glucose 91, Magnesium 2.4, Total Bilirubin 0.6, AST 20, ALT 12, Alkaline Phosphatase 87 Imagings Data: EXAM DESCRIPTION: RAD - Chest Single View - 12/10/2020 2:34 pm CLINICAL HISTORY: AMS Chest pain. COMPARISON: Chest Single View dated 10/13/2019; Chest Single View dated 09/14/2019; Chest Single View dated 03/19/2018; Chest Single View dated 01/07/2018 FINDINGS: Portable technique limits examination quality. The lungs are grossly clear. The heart is normal in size. No displaced fractures. IMPRESSION: No acute intrathoracic process suspected. Conclusions/Impression: A/P: Continue the current POC and Medications other than the changes listed. AM Labs PRN. Recommend daily weight. Please see the orders for complete details. CKD V with proteinuria -No NSAIDs HTN with CKD/ CHF -Restart home medications -Labetolol IV PRN Diastolic CHF, chronic -Low sodium diet Moderate malnutrition -Encourage nutrition as tolerated Anemia in chronic illness -Retacrit X1 in the morning DEWEY/ Secondary HyperPTH -Start Vitamin D3 Toxic Metabolic Encephalopathy Diff Dx: Infection, Uremia -Repeat UA in the AM. -Continue Vanco and Cefepime
[2020-12-10] MEDS ORDERED: VANCOMYCIN 500 MG/VIAL ONE (22:41)
[2020-12-10] MEDS ORDERED: NA CHLORIDE 0.9% 100 ML ONE (22:41)
[2020-12-11] MEDS: LABETALOL 20 MG/4ML SYRINGE IV PRN (05:06)
[2020-12-11 07:33] LABS: Absolute Lymphocytes (CBC) 1.5 K/uL (0.7-4.9); Hematocrit 26.8 % (36.0-45.0); MPV 9.8 fL (7.6-11.3); RBC Red Blood Cell Count 3.71 M/uL (3.86-4.86)
[2020-12-11] MEDS: VITAMIN D 5,000 UNIT CAP PO SCH (08:49)
[2020-12-11] MEDS: METOPROLOL TAR 50 MG TAB PO SCH ×2 (08:49→20:22)
[2020-12-11] MEDS: HYDRALAZINE HCL 25 MG TABLET PO SCH ×2 (08:49→20:22)
[2020-12-11] MEDS: CAPTOPRIL 25 MG TABLET PO SCH ×2 (08:49→20:22)
[2020-12-11] MEDS: DOCUSATE NA 100 MG CAP PO SCH ×2 (08:50→20:26)
[2020-12-11] MEDS: ENOXAPARIN 30 MG/0.3 ML SQ SCH (08:50)
[2020-12-11] MEDS ORDERED: CEFEPIME 1 GM/VIAL IV SCH (09:00)
[2020-12-11] MEDS ORDERED: EPOETIN ALFA-EPBX 10,000 UNIT/ML VIAL SQ SCH (09:00)
[2020-12-11] MEDS: cloNIDine HCL 0.1 MG TAB PO SCH ×3 (09:19→20:21)
[2020-12-11] MEDS: CEFEPIME/SWI 1gm 10 ML IV SCH (09:19)
[2020-12-11 10:02] LABS: Phosphorus 3.6 mg/dL (2.5-4.9); Potassium 4.3 mmol/L (3.5-5.1); Uric Acid 11.1 mg/dL (2.6-6.0)
--- NOTE | 2020-12-11 16:49 | EKG ---
Test Date: 2020-12-10 Test Time: 14:09:49 Department Supervisor: MARIE MEASUREMENT RESULTS: Intervals: Rate: 117 [place]: QRSD: 150 QT: 382 QTc: 532 [place]: P: [place]: QRS: -10 T: 133 INTERPRETIVE STATEMENTS: Wide QRS rhythm Left bundle branch block Abnormal ECG Compared to ECG 12/10/2020 13:11:14 Uncertain supraventricular rhythm now present Sinus rhythm no longer present First degree AV block no longer present Electronically Signed On 12-11-20 16:47:51 CDT by Mathwe Bertrand
--- NOTE | 2020-12-11 16:49 | EKG ---
Test Date: 2020-12-10 Test Time: 13:11:14 Receiving Clerk: BREE MEASUREMENT RESULTS: Intervals: Rate: 100 ME: 240 QRSD: 156 QT: 352 QTc: 454 [place]: P: -29 ME: 240 QRS: -10 T: 138 INTERPRETIVE STATEMENTS: Sinus rhythm with 1st degree AV block Left bundle branch block Abnormal ECG Compared to ECG 12/10/2020 13:10:38 First degree AV block now present Uncertain supraventricular rhythm no longer present Electronically Signed On 12-11-20 16:47:54 CDT by Mathew Bertrand
--- NOTE | 2020-12-11 16:49 | EKG ---
Test Date: 2020-12-10 Test Time: 13:10:38 Pulp Machine Operator: BREE MEASUREMENT RESULTS: Intervals: Rate: 99 [place]: QRSD: 158 QT: 402 QTc: 515 [place]: P: [place]: QRS: -12 T: 127 INTERPRETIVE STATEMENTS: Wide QRS rhythm Left bundle branch block Abnormal ECG Compared to ECG 10/13/2019 19:09:15 Uncertain supraventricular rhythm now present Sinus rhythm no longer present First degree AV block no longer present Electronically Signed On 12-11-20 16:47:55 CDT by Mathew Bertrand
[2020-12-11] MEDS: ACETAMINOPHEN 500 MG TAB PO PRN (18:44)
--- NOTE | 2020-12-12 00:58 | HP ---
Date of Admission: 12/10/2020 History Of Present Illness: The patient is an 85-year-old female, who presented to the emergency [facility] with altered mental status. The patient did not know her surroundings and the names of her family when she was brought to the emergency room and that happened rather over a short period of time. The patient herself at the time of interviewing her, she was alert, oriented, and she had no complaints. She said she was feeling well. Review of Systems: Cardiovascular: No complaints. Respiratory: No complaints. Gastrointestinal: No complaints. Genitourinary: No complaints. Skeletomuscular: Multiple osteoarthritic pains. Neurological: No complaints. Past Medical History: 1.Hypertension. 2.Hyperlipidemia. 3.Chronic kidney disease from hypertension. 4.Osteoarthritis, multiple joints. 5.Chronic congestive systolic heart failure. 6.Anemia of chronic illness. Social History: No smoking, alcohol, or drug abuse history. Family History: Noncontributing. Medications: Lasix 40 mg p.o. b.i.d., metoprolol 50 mg p.o. b.i.d., clonidine 0.1 mg p.o. t.i.d., do xazosin 2 mg p.o. b.i.d. Allergies: NO KNOWN DRUG ALLERGIES. Physical Examination: As mentioned at the time of I am interviewing the patient; General: She was alert, oriented x4. She knew my name and where she is. Vital Signs: Her blood pressure was , pulse 74, temperature 97.5. Heart: Regular rate and rhythm. Chest: Clear to auscultation. Abdomen: Soft, nontender. Bowel sounds are active. Neurological: Alert and oriented x4. Grossly intact. Diagnostic Data: Chest x-ray, no acute pathology. Head CT, no acute pathology. CBC; white cell cou nt 5.9, hemoglobin 8.3, hematocrit 26.8, platelets 1082. Chemistry; BUN 61, creatinine 3.63, GFR 14. The patient's prolactin was 0.29 and went up to 0.35. BNP 8574. Troponin 0.08. Urine showed a bl ood trace, rbc 5-10, wbc less than 5. Assessment And Plan: 1.Altered mental status rather acute in a patient with increased prolactin and occult infection cons idered as cause of her sepsis and acute mental status change. Cultures have been done. Blood cultur e result is still pending. The patient has been put on IV antibiotic empiric cefepime and vancomycin. 2.Worsening of kidney function. GFR of 14. We will ask Nephrology to see the patient. 3.Elevated troponin, secondary to her chronic renal insufficiency. No cardiovascular syndrome sympt oms at this time. The patient is comfortable also. We will continue her home medicines for chronic medical illnesses. We will monitor her blood count and electrolytes pending culture results. Contin ue current antibiotics. MFS/MODL Voice ID: [id number]
[2020-12-12] MEDS: ACETAMINOPHEN 500 MG TAB PO PRN (08:36)
[2020-12-12] MEDS: VITAMIN D 5,000 UNIT CAP PO SCH (08:36)
[2020-12-12] MEDS: METOPROLOL TAR 50 MG TAB PO SCH ×2 (08:36→21:20)
[2020-12-12] MEDS: CAPTOPRIL 25 MG TABLET PO SCH ×2 (08:36→21:20)
[2020-12-12] MEDS: cloNIDine HCL 0.1 MG TAB PO SCH ×3 (08:36→21:20)
[2020-12-12] MEDS: ENOXAPARIN 30 MG/0.3 ML SQ SCH (08:37)
[2020-12-12] MEDS: DOCUSATE NA 100 MG CAP PO SCH ×2 (08:37→21:18)
[2020-12-12] MEDS: HYDRALAZINE HCL 25 MG TABLET PO SCH ×3 (08:37→21:20)
[2020-12-12] MEDS: CEFEPIME/SWI 1gm 10 ML IV SCH (08:39)
[2020-12-12 11:20] LABS: Absolute Lymphocytes (CBC) 1.5 K/uL (0.7-4.9); Hematocrit 27.8 % (36.0-45.0); MPV 9.3 fL (7.6-11.3); RBC Red Blood Cell Count 3.81 M/uL (3.86-4.86)
--- NOTE | 2020-12-12 12:51 | PN ---
Subjective: The patient is doing well. She is alert and oriented x4. Objective: Vital Signs: Blood pressure is 200/87, pulse 96, temperature 97, room air pulse oximetry 96%. Heart: Regular rate and rhythm. Chest: Clear to auscultation. Abdomen: Soft, benign. Neurological: Alert, oriented. Grossly intact. Extremities: Chronic lymphedema in her lower extremities, no change. Laboratory Data: CBC; hemoglobin 8.6, hematocrit 27.8, platelets 198. Chemistry; BUN 61, creatinine 3.63, GFR 14. Prolactin last 1 checked was 0.35, high. Assessment And Plan: 1.Altered mental status, resolved, plus-minus, likely secondary to encephalopathy from sepsis and ur emia. Nephrology is seeing the patient for renal failure. At the same time, we will continue her cu rrent antibiotics as the patient has improved on that. 2.Hypertension. We are going to increase her hydralazine to 3 times a day 25 mg p.o. instead of b.i .d. 3.Anemia of chronic illness, clinically stable. 4.We will have the patient start working with Physical Therapy for ambulation and also we will arran for the patient to have home health when she gets discharged, expect that in 1-2 days. Look order s for details. MFS/MODL Voice ID: [id number] Report ID: [id number]
[2020-12-12 13:13] LABS: Potassium 4.5 mmol/L (3.5-5.1)
[2020-12-12] MEDS: LABETALOL 20 MG/4ML SYRINGE IV PRN (14:59)
[2020-12-12] MEDS ORDERED: VANCOMYCIN 1.5 GM in NA CHLORIDE 0.9% 500 ML IVPB SCH (16:00)
[2020-12-12] MEDS: VANCOMYCIN 1.5 GM in NA CHLORIDE 0.9% 500 ML IVPB SCH (16:44)
--- NOTE | 2020-12-12 18:56 | P.PN ---
Date of Service: 12/11/20 Vital Signs Temp Pulse Resp BP Pulse Ox 97.9 F 81 18 151/63 H 95 12/12/20 16:00 12/12/20 16:00 12/12/20 16:00 12/12/20 16:00 12/12/20 16:00 Medications Acetaminophen (Acetaminophen 500 Mg Tab) 500 mg PO Q6H PRN PRN Reason: TEMP > 100' F Last Admin: 12/12/20 08:36 Dose: 500 mg Documented by: Captopril (Captopril 25 Mg Tablet) 50 mg PO BID [facility] Last Admin: 12/12/20 08:36 Dose: 50 mg Documented by: Cholecalciferol (Vitamin D 5,000 Unit Cap) 5,000 unit PO DAILY [facility] Last Admin: 12/12/20 08:36 Dose: 5,000 unit Documented by: Clonidine HCl (Clonidine Hcl 0.1 Mg Tab) 0.1 mg PO TID [facility] Last Admin: 12/12/20 14:41 Dose: Not Given Documented by: Docusate Sodium (Docusate Na 100 Mg Cap) 100 mg PO BID [facility] Last Admin: 12/12/20 08:37 Dose: 100 mg Documented by: Enoxaparin Sodium (Enoxaparin 30 Mg/0.3 Ml) 30 mg SQ DAILY [facility] Last Admin: 12/12/20 08:37 Dose: 30 mg Documented by: Famotidine (Famotidine 20 Mg Tab) 20 mg PO DAILY PRN PRN Reason: INDIGESTION Hydralazine HCl (Hydralazine Hcl 25 Mg Tablet) 25 mg PO TID [facility] Last Admin: 12/12/20 14:42 Dose: Not Given Documented by: Pharmacy Consult (Pharmacy Consult) 1 mls @ 1 mls/hr XX DAILYPRN PRN; Protocol PRN Reason: Vancomycin dose by pharmacy Cefepime HCl (Maxipime 1 Gm/10 Ml Ivp) 10 mls @ 200 mls/hr IV DAILY [facility] Last Admin: 12/12/20 08:39 Dose: 10 mls Documented by: Vancomycin HCl 1.5 gm/ Sodium (Chloride) 500 mls @ 250 mls/hr IVPB Q48H [facility] Last Admin: 12/12/20 16:44 Dose: 500 mls Documented by: Labetalol HCl (Labetalol 20 Mg/4ml Syringe) 20 mg IV Q4H PRN PRN Reason: Titrate to SBP (MUST DEFINE) Last Admin: 12/12/20 14:59 Dose: 20 mg Documented by: Metoprolol Tartrate (Metoprolol Tar 50 Mg Tab) 50 mg PO BID [facility] Last Admin: 12/12/20 08:36 Dose: 50 mg Documented by: Sodium Chloride (Flush Normal Saline 10 Ml) 10 ml IV BID [facility] Last Admin: 12/12/20 08:37 Dose: 10 ml Documented by: Microbiology Results 12/10/20 16:02 Blood - Blood Aerobic Blood Culture - Preliminary No growth in 24 hours. 12/10/20 16:02 Blood - Blood Anaerobic Blood Culture - Preliminary No growth in 24 hours. 12/10/20 13:55 Blood - Blood Aerobic Blood Culture - Preliminary No growth in 24 hours. 12/10/20 13:55 Blood - Blood Anaerobic Blood Culture - Preliminary No growth in 24 hours. Assessment/ Plan: Nephrology No acute cardiac or pulmonary complaints. No CP or SOB. Feeling better today. No acute events overnight. Vitals, medications, blood work and imaging reviewed in the chart. General: In no apparent distress, Cooperative, Confused HEENT: Atraumatic Neck: Supple Respiratory: Normal air movement Cardiovascular: No edema, Edema (LLE Lymphedema) Gastrointestinal: Soft and benign, Non-distended Musculoskeletal: No clubbing, No contractures Integumentary: No rashes, No cyanosis Neurological: Normal speech Laboratory Data (last 24 hrs) 12/10/20 13:55: PT 10.8, INR 0.94 12/10/20 13:55: WBC 5.70, Hgb 9.6 L, Hct 31.0 L, Plt Count 202 12/10/20 13:55: Sodium 139, Potassium 4.5, BUN 62 H, Creatinine 3.73 H, Glucose 91, Magnesium 2.4, Total Bilirubin 0.6, AST 20, ALT 12, Alkaline Phosphatase 87 Imagings Data: EXAM DESCRIPTION: RAD - Chest Single View - 12/10/2020 2:34 pm CLINICAL HISTORY: AMS Chest pain. COMPARISON: Chest Single View dated 10/13/2019; Chest Single View dated 09/14/2019; Chest Single View dated 03/19/2018; Chest Single View dated 01/07/2018 FINDINGS: Portable technique limits examination quality. The lungs are grossly clear. The heart is normal in size. No displaced fractures. IMPRESSION: No acute intrathoracic process suspected. Conclusions/Impression: A/P: Continue the current POC and Medications other than the changes listed. AM Labs PRN. Recommend daily weight. Please see the orders for complete details. CKD V with proteinuria -No NSAIDs -May need to initiate HD if her symptoms do not improve. HTN with CKD/ CHF -Continue Captopril -Labetolol IV PRN Diastolic CHF, chronic -Low sodium diet Moderate malnutrition -Encourage nutrition as tolerated Anemia in chronic illness -Continue Retacrit DEWEY/ Secondary HyperPTH -Continue Vitamin D3 Toxic Metabolic Encephalopathy Diff Dx: Infection, Uremia -Continue Vanco and Cefepime
[2020-12-12] MEDS ORDERED: NACHLORIDE 0.45% 500 ML IV SCH (19:00)
--- NOTE | 2020-12-12 19:04 | P.PN ---
Date of Service: 12/12/20 Vital Signs Temp Pulse Resp BP Pulse Ox 97.9 F 81 18 151/63 H 95 12/12/20 16:00 12/12/20 16:00 12/12/20 16:00 12/12/20 16:00 12/12/20 16:00 Medications Acetaminophen (Acetaminophen 500 Mg Tab) 500 mg PO Q6H PRN PRN Reason: TEMP > 100' F Last Admin: 12/12/20 08:36 Dose: 500 mg Documented by: Captopril (Captopril 25 Mg Tablet) 50 mg PO BID [facility] Last Admin: 12/12/20 08:36 Dose: 50 mg Documented by: Cholecalciferol (Vitamin D 5,000 Unit Cap) 5,000 unit PO DAILY [facility] Last Admin: 12/12/20 08:36 Dose: 5,000 unit Documented by: Clonidine HCl (Clonidine Hcl 0.1 Mg Tab) 0.1 mg PO TID [facility] Last Admin: 12/12/20 14:41 Dose: Not Given Documented by: Docusate Sodium (Docusate Na 100 Mg Cap) 100 mg PO BID [facility] Last Admin: 12/12/20 08:37 Dose: 100 mg Documented by: Enoxaparin Sodium (Enoxaparin 30 Mg/0.3 Ml) 30 mg SQ DAILY [facility] Last Admin: 12/12/20 08:37 Dose: 30 mg Documented by: Famotidine (Famotidine 20 Mg Tab) 20 mg PO DAILY PRN PRN Reason: INDIGESTION Hydralazine HCl (Hydralazine Hcl 25 Mg Tablet) 25 mg PO TID [facility] Last Admin: 12/12/20 14:42 Dose: Not Given Documented by: Pharmacy Consult (Pharmacy Consult) 1 mls @ 1 mls/hr XX DAILYPRN PRN; Protocol PRN Reason: Vancomycin dose by pharmacy Cefepime HCl (Maxipime 1 Gm/10 Ml Ivp) 10 mls @ 200 mls/hr IV DAILY [facility] Last Admin: 12/12/20 08:39 Dose: 10 mls Documented by: Vancomycin HCl 1.5 gm/ Sodium (Chloride) 500 mls @ 250 mls/hr IVPB Q48H [facility] Last Admin: 12/12/20 16:44 Dose: 500 mls Documented by: Sodium Chloride (Sodium Chloride 0.45%) 500 mls @ 75 mls/hr IV .Q6H40M [facility] Stop: 12/13/20 01:39 Labetalol HCl (Labetalol 20 Mg/4ml Syringe) 20 mg IV Q4H PRN PRN Reason: Titrate to SBP (MUST DEFINE) Metoprolol Tartrate (Metoprolol Tar 50 Mg Tab) 50 mg PO BID [facility] Last Admin: 12/12/20 08:36 Dose: 50 mg Documented by: Sodium Chloride (Flush Normal Saline 10 Ml) 10 ml IV BID [facility] Last Admin: 12/12/20 08:37 Dose: 10 ml Documented by: Microbiology Results 12/10/20 16:02 Blood - Blood Aerobic Blood Culture - Preliminary No growth in 24 hours. 12/10/20 16:02 Blood - Blood Anaerobic Blood Culture - Preliminary No growth in 24 hours. 12/10/20 13:55 Blood - Blood Aerobic Blood Culture - Preliminary No growth in 24 hours. 12/10/20 13:55 Blood - Blood Anaerobic Blood Culture - Preliminary No growth in 24 hours. Assessment/ Plan: Nephrology No acute cardiac or pulmonary complaints. No CP or SOB. More confusion today with some combativeness. +Neck pain No acute events overnight. Vitals, medications, blood work and imaging reviewed in the chart. General: In no apparent distress, Cooperative, Confused HEENT: Atraumatic Neck: Supple Respiratory: Normal air movement Cardiovascular: No edema, Edema (LLE Lymphedema) Gastrointestinal: Soft and benign, Non-distended Musculoskeletal: No clubbing, No contractures Integumentary: No rashes, No cyanosis Neurological: Normal speech Laboratory Data (last 24 hrs) 12/10/20 13:55: PT 10.8, INR 0.94 12/10/20 13:55: WBC 5.70, Hgb 9.6 L, Hct 31.0 L, Plt Count 202 12/10/20 13:55: Sodium 139, Potassium 4.5, BUN 62 H, Creatinine 3.73 H, Glucose 91, Magnesium 2.4, Total Bilirubin 0.6, AST 20, ALT 12, Alkaline Phosphatase 87 Imagings Data: EXAM DESCRIPTION: RAD - Chest Single View - 12/10/2020 2:34 pm CLINICAL HISTORY: AMS Chest pain. COMPARISON: Chest Single View dated 10/13/2019; Chest Single View dated 09/14/2019; Chest Single View dated 03/19/2018; Chest Single View dated 01/07/2018 FINDINGS: Portable technique limits examination quality. The lungs are grossly clear. The heart is normal in size. No displaced fractures. IMPRESSION: No acute intrathoracic process suspected. Conclusions/Impression: A/P: Continue the current POC and Medications other than the changes listed. AM Labs PRN. Recommend daily weight. Please see the orders for complete details. CKD V with proteinuria -No NSAIDs -Give 1/2 liter of IVF. -May need to initiate HD if her symptoms do not improve. HTN with CKD/ CHF -Continue Captopril -Continue Metoprolol and restart Doxazosin -Labetolol IV PRN Diastolic CHF, chronic -Low sodium diet Moderate malnutrition -Encourage nutrition as tolerated Anemia in chronic illness -Continue Retacrit DEWEY/ Secondary HyperPTH -Continue Vitamin D3 Toxic Metabolic Encephalopathy Diff Dx: Infection, Uremia -Continue Vanco and Cefepime
[2020-12-12] MEDS: DOXAZOSIN 2 MG TAB PO SCH (21:20)
[2020-12-13 07:07] LABS: Absolute Lymphocytes (CBC) 1.6 K/uL (0.7-4.9); Basophils % 0.9 % (0-1.3); Lymphocytes % 25.4 % (15.3-44.8); MPV 9.8 fL (7.6-11.3); RBC Red Blood Cell Count 4.55 M/uL (3.86-4.86)
[2020-12-13 07:45] LABS: ALT/SGPT 11 U/L (12-78); AST/SGOT 23 U/L (15-37); Albumin 2.2 g/dL (3.4-5.0); BUN Blood Urea Nitrogen 59 mg/dL (7-18); Bicarbonate 24 mmol/L (21-32); Bilirubin Total 0.5 mg/dL (0.2-1.0); Glucose Level 108 mg/dL (74-106); Magnesium 2.2 mg/dL (1.8-2.4); Phosphorus 2.7 mg/dL (2.5-4.9); Potassium 4.6 mmol/L (3.5-5.1); Protein, Total 6.1 g/dL (6.4-8.2); Sodium Level 141 mmol/L (136-145)
[2020-12-13 07:49] LABS: Alkaline Phosphatase ND U/L (45-117)
--- NOTE | 2020-12-13 07:55 | P.PN ---
Date of Service: 12/13/20 Vital Signs Temp Pulse Resp BP Pulse Ox 97.8 F 74 20 139/66 97 12/13/20 04:00 12/13/20 04:00 12/13/20 04:00 12/13/20 04:00 12/13/20 04:00 Medications Acetaminophen (Acetaminophen 500 Mg Tab) 500 mg PO Q6H PRN PRN Reason: TEMP > 100' F Last Admin: 12/12/20 08:36 Dose: 500 mg Documented by: Captopril (Captopril 25 Mg Tablet) 50 mg PO BID [facility] Last Admin: 12/12/20 21:20 Dose: 50 mg Documented by: Cholecalciferol (Vitamin D 5,000 Unit Cap) 5,000 unit PO DAILY [facility] Last Admin: 12/12/20 08:36 Dose: 5,000 unit Documented by: Clonidine HCl (Clonidine Hcl 0.1 Mg Tab) 0.1 mg PO TID [facility] Last Admin: 12/12/20 21:20 Dose: 0.1 mg Documented by: Docusate Sodium (Docusate Na 100 Mg Cap) 100 mg PO BID [facility] Last Admin: 12/12/20 21:18 Dose: 100 mg Documented by: Doxazosin Mesylate (Doxazosin 2 Mg Tab) 2 mg PO BEDTIME [facility] Last Admin: 12/12/20 21:20 Dose: 2 mg Documented by: Enoxaparin Sodium (Enoxaparin 30 Mg/0.3 Ml) 30 mg SQ DAILY [facility] Last Admin: 12/12/20 08:37 Dose: 30 mg Documented by: Famotidine (Famotidine 20 Mg Tab) 20 mg PO DAILY PRN PRN Reason: INDIGESTION Hydralazine HCl (Hydralazine Hcl 25 Mg Tablet) 25 mg PO TID [facility] Last Admin: 12/12/20 21:20 Dose: 25 mg Documented by: Pharmacy Consult (Pharmacy Consult) 1 mls @ 1 mls/hr XX DAILYPRN PRN; Protocol PRN Reason: Vancomycin dose by pharmacy Cefepime HCl (Maxipime 1 Gm/10 Ml Ivp) 10 mls @ 200 mls/hr IV DAILY [facility] Last Admin: 12/12/20 08:39 Dose: 10 mls Documented by: Vancomycin HCl 1.5 gm/ Sodium (Chloride) 500 mls @ 250 mls/hr IVPB Q48H [facility] Last Admin: 12/12/20 16:44 Dose: 500 mls Documented by: Labetalol HCl (Labetalol 20 Mg/4ml Syringe) 20 mg IV Q4H PRN PRN Reason: Give for SBP greater than 170 Metoprolol Tartrate (Metoprolol Tar 50 Mg Tab) 50 mg PO BID [facility] Last Admin: 12/12/20 21:20 Dose: 50 mg Documented by: Sodium Chloride (Flush Normal Saline 10 Ml) 10 ml IV BID [facility] Last Admin: 12/12/20 21:00 Dose: 10 ml Documented by: Microbiology Results 12/10/20 16:02 Blood - Blood Aerobic Blood Culture - Preliminary No growth in 24 hours. 12/10/20 16:02 Blood - Blood Anaerobic Blood Culture - Preliminary No growth in 24 hours. 12/10/20 13:55 Blood - Blood Aerobic Blood Culture - Preliminary No growth in 24 hours. 12/10/20 13:55 Blood - Blood Anaerobic Blood Culture - Preliminary No growth in 24 hours. Assessment/ Plan: Nephrology No acute cardiac or pulmonary complaints. No CP or SOB. Feeling better today. No acute events overnight. Vitals, medications, blood work and imaging reviewed in the chart. General: In no apparent distress, Cooperative, Confused HEENT: Atraumatic Neck: Supple Respiratory: Normal air movement Cardiovascular: No edema, Edema (LLE Lymphedema) Gastrointestinal: Soft and benign, Non-distended Musculoskeletal: No clubbing, No contractures Integumentary: No rashes, No cyanosis Neurological: Normal speech Laboratory Data (last 24 hrs) 12/10/20 13:55: PT 10.8, INR 0.94 12/10/20 13:55: WBC 5.70, Hgb 9.6 L, Hct 31.0 L, Plt Count 202 12/10/20 13:55: Sodium 139, Potassium 4.5, BUN 62 H, Creatinine 3.73 H, Glucose 91, Magnesium 2.4, Total Bilirubin 0.6, AST 20, ALT 12, Alkaline Phosphatase 87 Imagings Data: EXAM DESCRIPTION: RAD - Chest Single View - 12/10/2020 2:34 pm CLINICAL HISTORY: AMS Chest pain. COMPARISON: Chest Single View dated 10/13/2019; Chest Single View dated 09/14/2019; Chest Single View dated 03/19/2018; Chest Single View dated 01/07/2018 FINDINGS: Portable technique limits examination quality. The lungs are grossly clear. The heart is normal in size. No displaced fractures. IMPRESSION: No acute intrathoracic process suspected. Conclusions/Impression: A/P: Continue the current POC and Medications other than the changes listed. AM Labs PRN. Recommend daily weight. Please see the orders for complete details. CKD V with proteinuria -No NSAIDs -Give another liter of IVF today. -May need to initiate HD if her symptoms do not improve. HTN with CKD/ CHF -Continue Captopril -Continue Metoprolol and restart Doxazosin -Labetolol IV PRN Diastolic CHF, chronic -Low sodium diet Moderate malnutrition -Encourage nutrition as tolerated Anemia in chronic illness -Continue Retacrit DEWEY/ Secondary HyperPTH -Continue Vitamin D3 Toxic Metabolic Encephalopathy Diff Dx: Infection, Uremia -Continue Vanco and Cefepime
[2020-12-13] MEDS ORDERED: NACHLORIDE 0.45% 1,000 ML IV SCH (08:00)
[2020-12-13] MEDS ORDERED: EPOETIN ALFA-EPBX 10,000 UNIT/ML VIAL SQ SCH (09:00)
[2020-12-13 09:55] LABS: Anisocytosis SLIGHT; Blood Morphology Comment NOTED (NOT SEEN); Platelet Estimate DECR; White Blood Cell Scan OK (OK)
[2020-12-13 09:56] LABS: Hypochromasia 1+
[2020-12-13] MEDS: METOPROLOL TAR 50 MG TAB PO SCH ×3 (10:41→21:22)
[2020-12-13] MEDS: CAPTOPRIL 25 MG TABLET PO SCH ×2 (10:42→21:21)
[2020-12-13] MEDS: cloNIDine HCL 0.1 MG TAB PO SCH ×3 (10:42→21:21)
[2020-12-13] MEDS: VITAMIN D 5,000 UNIT CAP PO SCH ×2 (10:42→10:43)
[2020-12-13] MEDS: FAMOTIDINE 20 MG TAB PO PRN (10:43)
[2020-12-13] MEDS: DOCUSATE NA 100 MG CAP PO SCH ×2 (10:43→21:23)
[2020-12-13] MEDS: HYDRALAZINE HCL 25 MG TABLET PO SCH ×3 (10:43→22:09)
[2020-12-13] MEDS: ENOXAPARIN 30 MG/0.3 ML SQ SCH (10:44)
[2020-12-13] MEDS: CEFEPIME/SWI 1gm 10 ML IV SCH (11:22)
--- NOTE | 2020-12-13 12:04 | PN ---
Subjective: The patient has no new complaints. She is still alert. To me, she is oriented to mimi escamilla my name. She did not know the days of the week or the time. She noted she was in the hospital. Objective: Vital Signs: Blood pressure 190/90, pulse 90, temperature 98.4. Heart: Regular rate and rhythm. Chest: Clear to auscultation. Abdomen: Soft. Benign. Neurologic: As above. Moves all her extremities. Extremities: Left leg lymphedema, no change. Laboratory Data: CBC noted, hemoglobin 9.5, hematocrit 33, and platelets 139. Chemistry; BUN 59, cr eatinine 3.73, GFR at 14. Assessment/plan: 1.Altered mental status. I think the patient is alert and oriented, considering knowing the time, [facility]i [facility] in the hospital. 2.Sepsis. Microbiology did not disclose any offending growth yet. I think both her kidney failure and sepsis has contributed to the patient's altered mental status initially, which has improved. 3.Acute on chronic renal failure. I talk to Nephrology and they think that the patient's chronic re nal failure and GFR has been in this range for some time now and they had been trying to push startin g hemodialysis on her. However, the plan is if her uremia will reflect her mental status and then sh e will require hemodialysis and they will initiate that, but for now they were watching patient progr ess. 4.Hypertension. I have increased patient's hydralazine to 25 b.i.d. and will continue the rest of h er home medications. 5.Chronic systolic congestive heart failure. At this time, patient is stable. Rest of her medical problems stable. Look orders for details. MFS/MODL Voice ID: [id number] Report ID: [id number]
[2020-12-13] MEDS: DOXAZOSIN 2 MG TAB PO SCH (22:09)
[2020-12-14] MEDS: LABETALOL 20 MG/4ML SYRINGE IV PRN (05:29)
[2020-12-14] MEDS: CEFEPIME/SWI 1gm 10 ML IV SCH (09:00)
[2020-12-14] MEDS: ENOXAPARIN 30 MG/0.3 ML SQ SCH ×2 (09:00→09:42)
[2020-12-14] MEDS: HYDRALAZINE HCL 25 MG TABLET PO SCH ×3 (09:40→20:54)
[2020-12-14] MEDS: CAPTOPRIL 25 MG TABLET PO SCH ×2 (09:40→20:53)
[2020-12-14] MEDS: DOCUSATE NA 100 MG CAP PO SCH ×2 (09:41→20:54)
[2020-12-14] MEDS: cloNIDine HCL 0.1 MG TAB PO SCH ×3 (09:44→20:54)
[2020-12-14] MEDS: METOPROLOL TAR 50 MG TAB PO SCH ×2 (09:45→20:54)
--- NOTE | 2020-12-14 12:44 | PN ---
Subjective: The patient is comfortable. Alert and oriented x4. Objective: VITAL SIGNS: Blood pressure , pulse 80, temperature 98.1. Room air pulse oxim etry at 95. HEART: Regular rate and rhythm. CHEST: Clear to auscultation. ABDOMEN: Soft, benign. NEUROLOGICAL: Alert, oriented, grossly intact. Assessment And Plan: 1.Chronic renal failure with GFR of 14 as per Nephrology. This has been almost the patient's level of GFR. Her encephalopathy could be from uremia, but also from sepsis. At this time. Nephrology is watching the patient and will decide by following up her kidney function should she need dialysis or not also by following up her clinical condition. If she stays stable mentally without worsening, th ey will try to postpone dialysis for now. So, we will go ahead and check labs and follow up on that. 2.Hypertension. I have increased the patient's hydralazine, better control. We will monitor that a nd may also increase her medication should she stay on the same level. The rest of patient's medical problems stable. Look orders for details. MFS/MODL Voice ID: [id number] Report ID: [id number]
[2020-12-14] MEDS: VANCOMYCIN 1.5 GM in NA CHLORIDE 0.9% 500 ML IVPB SCH (17:06)
[2020-12-14] MEDS: DOXAZOSIN 2 MG TAB PO SCH (20:53)
[2020-12-14] MEDS: ACETAMINOPHEN 500 MG TAB PO PRN (20:53)
[2020-12-15] MEDS: LABETALOL 20 MG/4ML SYRINGE IV PRN (06:57)
[2020-12-15] MEDS: VITAMIN D 5,000 UNIT CAP PO SCH (09:19)
[2020-12-15] MEDS: FAMOTIDINE 20 MG TAB PO PRN (09:19)
[2020-12-15] MEDS: METOPROLOL TAR 50 MG TAB PO SCH ×2 (09:19→19:53)
[2020-12-15] MEDS: CAPTOPRIL 25 MG TABLET PO SCH ×2 (09:19→19:54)
[2020-12-15] MEDS: HYDRALAZINE HCL 25 MG TABLET PO SCH ×3 (09:20→19:54)
[2020-12-15] MEDS: DOCUSATE NA 100 MG CAP PO SCH ×2 (09:20→19:54)
[2020-12-15] MEDS: cloNIDine HCL 0.1 MG TAB PO SCH ×3 (09:20→19:53)
[2020-12-15] MEDS: ENOXAPARIN 30 MG/0.3 ML SQ SCH (09:21)
[2020-12-15] MEDS: CEFEPIME/SWI 1gm 10 ML IV SCH (09:21)
[2020-12-15] MEDS: ACETAMINOPHEN 500 MG TAB PO PRN (11:03)
[2020-12-15 11:33] LABS: Potassium 4.1 mmol/L (3.5-5.1)
[2020-12-15 13:44] LABS: Urine Appearance CLOUDY; Urine Color YELLOW
[2020-12-15 13:45] LABS: Urine Bilirubin NEGATIVE (NEG); Urine Blood NEGATIVE (NEG); Urine Glucose NEGATIVE (NEG); Urine Protein 1+ (NEG); Urine Urobilinogen 0.2 mg/dL (0.2-1.0)
[2020-12-15 14:40] LABS: Urine Amorphous Sediment 1+ /HPF (NONE SEEN); Urine Bacteria <20 /HPF (<20); Urine RBC <5 /HPF (NONE SEEN)
--- NOTE | 2020-12-15 19:48 | PN ---
Subjective: The patient has no new complaints. Alert and oriented x4. Objective: Vital Signs: Blood pressure 165/76, pulse 84, temperature 97.8, pulse oximetry on room a ir more than 95%. Heart: Regular rate and rhythm. Chest: Clear to auscultation. Abdomen: Soft, benign. Neurological: Alert, oriented, grossly intact. Laboratory Data: Her GFR on her chemistry is still at 14. Microbiology, no culture to date on blood . Assessment And Plan: 1.The patient is clinically stable and her kidney functions have not improved; however, as per Nephr ology that are around her baseline. She is alert, oriented from the standpoint. I think by controll ing the occult infection, her altered mental status resolved to that. The patient continues to do we ll. We will discharge tomorrow if it is okay with Nephrology on oral antibiotics and home health and follow up with me and with Nephrology. 2.Hypertension, better controlled on increased dose of hydralazine. 3.The rest of her chronic medical problems stable. MFS/MODL Voice ID: [id number] Report ID: [id number]
[2020-12-15] MEDS: DOXAZOSIN 2 MG TAB PO SCH (19:54)
[2020-12-16 03:38] LABS: HBsAG Nonreactive (Nonreactive)
[2020-12-16 06:57] LABS: Absolute Lymphocytes (CBC) 1.6 K/uL (0.7-4.9); Basophils % 0.8 % (0-1.3); Hematocrit 22.8 % (36.0-45.0); Lymphocytes % 29.8 % (15.3-44.8); MPV 9.4 fL (7.6-11.3); RBC Red Blood Cell Count 3.12 M/uL (3.86-4.86)
[2020-12-16 07:08] LABS: Potassium 4.8 mmol/L (3.5-5.1)
[2020-12-16] MEDS: CAPTOPRIL 25 MG TABLET PO SCH ×2 (09:50→21:00)
[2020-12-16] MEDS: ENOXAPARIN 30 MG/0.3 ML SQ SCH (09:50)
[2020-12-16] MEDS: DOCUSATE NA 100 MG CAP PO SCH ×2 (09:50→21:00)
[2020-12-16] MEDS: VITAMIN D 5,000 UNIT CAP PO SCH (09:50)
[2020-12-16] MEDS: cloNIDine HCL 0.1 MG TAB PO SCH ×3 (09:50→21:00)
[2020-12-16] MEDS: METOPROLOL TAR 50 MG TAB PO SCH ×2 (09:50→21:00)
[2020-12-16] MEDS: CEFEPIME/SWI 1gm 10 ML IV SCH (09:51)
[2020-12-16] MEDS: HYDRALAZINE HCL 25 MG TABLET PO SCH ×3 (09:51→21:00)
--- NOTE | 2020-12-16 13:19 | PN ---
Subjective: The patient is doing well. Alert, oriented, nonfocal. No new complaints. Objective: Vital Signs: Blood pressure 174/82, pulse 77, temperature 98.1. Heart: Regular rate and rhythm. Chest: Clear to auscultation. Abdomen: Soft, benign. Neurologic: Alert, oriented, and grossly intact. Diagnostic Studies: CBC showed hemoglobin of 7.1, hematocrit 22.8, platelets 191, white cell count 5 .3. Chemistry is still showing a BUN of 52, creatinine 3.78, and GFR of 14. Assessment And Plan: 1.Anemia of chronic illness, maybe slightly worse this morning. I wanted to give the patient 20 uni ts of blood to improve her condition. However, she is refusing now along with her son to go ahead an d check another blood count in the morning and stay stable. We may hold on transfusion. 2.End-stage renal disease. No dialysis at this time. The patient is stable on that. 3.Encephalopathy with altered mental status, resolved with control of infection. 4.If it is okay with Nephrology and the patient's hemoglobin remains stable, we will discharge in morning. We will get home health. Look orders for details. MFS/MODL Voice ID: [id number] Report ID: [id number]
[2020-12-16] MEDS: VANCOMYCIN 1.5 GM in NA CHLORIDE 0.9% 500 ML IVPB SCH (17:00)
[2020-12-16] MEDS ORDERED: LORazepam 2 MG/ML VIAL IV PRN (18:33)
[2020-12-16] MEDS ORDERED: EPOETIN ALFA-EPBX 10,000 UNIT/ML VIAL SQ ONE (19:18)
--- NOTE | 2020-12-16 19:27 | P.PN ---
Date of Service: 12/16/20 Vital Signs Temp Pulse Resp BP Pulse Ox 98.2 F 69 18 164/74 H 100 12/16/20 12:00 12/16/20 12:00 12/16/20 12:00 12/16/20 12:00 12/16/20 12:00 Medications Acetaminophen (Acetaminophen 500 Mg Tab) 500 mg PO Q6H PRN PRN Reason: TEMP > 100' F Last Admin: 12/15/20 11:03 Dose: 500 mg Documented by: Captopril (Captopril 25 Mg Tablet) 50 mg PO BID [facility] Last Admin: 12/16/20 09:50 Dose: 50 mg Documented by: Cholecalciferol (Vitamin D 5,000 Unit Cap) 5,000 unit PO DAILY [facility] Last Admin: 12/16/20 09:50 Dose: 5,000 unit Documented by: Clonidine HCl (Clonidine Hcl 0.1 Mg Tab) 0.1 mg PO TID [facility] Last Admin: 12/16/20 13:11 Dose: 0.1 mg Documented by: Docusate Sodium (Docusate Na 100 Mg Cap) 100 mg PO BID [facility] Last Admin: 12/16/20 09:50 Dose: 100 mg Documented by: Doxazosin Mesylate (Doxazosin 2 Mg Tab) 2 mg PO BEDTIME [facility] Last Admin: 12/15/20 19:54 Dose: 2 mg Documented by: Enoxaparin Sodium (Enoxaparin 30 Mg/0.3 Ml) 30 mg SQ DAILY [facility] Last Admin: 12/16/20 09:50 Dose: 30 mg Documented by: Famotidine (Famotidine 20 Mg Tab) 20 mg PO DAILY PRN PRN Reason: INDIGESTION Last Admin: 12/15/20 09:19 Dose: 20 mg Documented by: Hydralazine HCl (Hydralazine Hcl 25 Mg Tablet) 25 mg PO TID [facility] Last Admin: 12/16/20 13:11 Dose: 25 mg Documented by: Pharmacy Consult (Pharmacy Consult) 1 mls @ 1 mls/hr XX DAILYPRN PRN; Protocol PRN Reason: Vancomycin dose by pharmacy Cefepime HCl (Maxipime 1 Gm/10 Ml Ivp) 10 mls @ 200 mls/hr IV DAILY [facility] Last Admin: 12/16/20 09:51 Dose: 10 mls Documented by: Vancomycin HCl 1.5 gm/ Sodium (Chloride) 500 mls @ 250 mls/hr IVPB Q48H [facility] Last Admin: 12/14/20 17:06 Dose: 500 mls Documented by: Labetalol HCl (Labetalol 20 Mg/4ml Syringe) 20 mg IV Q4H PRN PRN Reason: Give for SBP greater than 170 Last Admin: 12/15/20 06:57 Dose: 20 mg Documented by: Lorazepam (Lorazepam 2 Mg/Ml Vial) 0.5 mg IV TID PRN PRN Reason: AGITATION Last Admin: 12/16/20 18:53 Dose: 0.5 mg Documented by: Metoprolol Tartrate (Metoprolol Tar 50 Mg Tab) 50 mg PO BID [facility] Last Admin: 12/16/20 09:50 Dose: 50 mg Documented by: Sodium Chloride (Flush Normal Saline 10 Ml) 10 ml IV BID [facility] Last Admin: 12/16/20 09:51 Dose: 10 ml Documented by: Microbiology Results 12/10/20 16:02 Blood - Blood Aerobic Blood Culture - Final No growth in 5 days. 12/10/20 16:02 Blood - Blood Anaerobic Blood Culture - Final No growth in 5 days. 12/10/20 13:55 Blood - Blood Aerobic Blood Culture - Final No growth in 5 days. 12/10/20 13:55 Blood - Blood Anaerobic Blood Culture - Final No growth in 5 days. Assessment/ Plan: Nephrology No acute cardiac or pulmonary complaints. No CP or SOB. Waxing and waning mental status with combativeness. No acute events overnight. Vitals, medications, blood work and imaging reviewed in the chart. General: In no apparent distress, Cooperative, Confused HEENT: Atraumatic Neck: Supple Respiratory: Normal air movement Cardiovascular: No edema, Edema (LLE Lymphedema) Gastrointestinal: Soft and benign, Non-distended Musculoskeletal: No clubbing, No contractures Integumentary: No rashes, No cyanosis Neurological: Normal speech Laboratory Data (last 24 hrs) 12/10/20 13:55: PT 10.8, INR 0.94 12/10/20 13:55: WBC 5.70, Hgb 9.6 L, Hct 31.0 L, Plt Count 202 12/10/20 13:55: Sodium 139, Potassium 4.5, BUN 62 H, Creatinine 3.73 H, Glucose 91, Magnesium 2.4, Total Bilirubin 0.6, AST 20, ALT 12, Alkaline Phosphatase 87 Imagings Data: EXAM DESCRIPTION: RAD - Chest Single View - 12/10/2020 2:34 pm CLINICAL HISTORY: AMS Chest pain. COMPARISON: Chest Single View dated 10/13/2019; Chest Single View dated 09/14/2019; Chest Single View dated 03/19/2018; Chest Single View dated 01/07/2018 FINDINGS: Portable technique limits examination quality. The lungs are grossly clear. The heart is normal in size. No displaced fractures. IMPRESSION: No acute intrathoracic process suspected. Conclusions/Impression: A/P: Continue the current POC and Medications other than the changes listed. AM Labs PRN. Recommend daily weight. Please see the orders for complete details. CKD V with proteinuria -No NSAIDs -May need to initiate HD if her symptoms do not improve. -Change to a Renal Diet HTN with CKD/ CHF -Continue Captopril -Continue Metoprolol and Doxazosin -Increase Hydralazine 50mg BID -Labetolol IV PRN Diastolic CHF, chronic -Low sodium diet Moderate malnutrition -Encourage nutrition as tolerated Anemia in chronic illness -Give Retacrit today -Transfuse PRBC as needed for worsening anemia DEWEY/ Secondary HyperPTH -Continue Vitamin D3 Toxic Metabolic Encephalopathy Suspected underlying dementia Diff Dx: Infection, Uremia -Continue Vanco and Cefepime
[2020-12-16 20:19] LABS: Absolute Lymphocytes (CBC) 1.5 K/uL (0.7-4.9); Basophils % 0.8 % (0-1.3); Hematocrit 23.7 % (36.0-45.0); Lymphocytes % 26.8 % (15.3-44.8); MPV 9.3 fL (7.6-11.3); RBC Red Blood Cell Count 3.29 M/uL (3.86-4.86)
[2020-12-16] MEDS: DOXAZOSIN 2 MG TAB PO SCH (21:00)
[2020-12-16] MEDS ORDERED: LORAZEPAM 0.5 MG TABLET PO SCH (21:00)
[2020-12-16] MEDS: LABETALOL 20 MG/4ML SYRINGE IV PRN (22:47)
[2020-12-17] MEDS: LABETALOL 20 MG/4ML SYRINGE IV PRN (05:56)
[2020-12-17 06:14] LABS: Absolute Lymphocytes (CBC) 1.9 K/uL (0.7-4.9); Basophils % 0.9 % (0-1.3); Hematocrit 25.3 % (36.0-45.0); Lymphocytes % 31.4 % (15.3-44.8); MPV 9.2 fL (7.6-11.3); RBC Red Blood Cell Count 3.47 M/uL (3.86-4.86)
[2020-12-17] MEDS: CAPTOPRIL 25 MG TABLET PO SCH (09:53)
[2020-12-17] MEDS: cloNIDine HCL 0.1 MG TAB PO SCH ×2 (09:53→14:00)
[2020-12-17] MEDS: METOPROLOL TAR 50 MG TAB PO SCH (09:53)
[2020-12-17] MEDS: CEFEPIME/SWI 1gm 10 ML IV SCH (09:54)
[2020-12-17] MEDS: DOCUSATE NA 100 MG CAP PO SCH (09:54)
[2020-12-17] MEDS: HYDRALAZINE HCL 25 MG TABLET PO SCH (09:54)
[2020-12-17] MEDS: VITAMIN D 5,000 UNIT CAP PO SCH (09:54)
[2020-12-17] MEDS: ENOXAPARIN 30 MG/0.3 ML SQ SCH (09:54)
[2020-12-17 11:55] VITALS: O2SAT 98
[2020-12-17 13:04] VITALS: BP 170/65; TEMP 98.8
--- NOTE | 2020-12-17 18:13 | DS ---
Date of Discharge: 12/17/2020 History Of Present Illness: An 85-year-old female, who was admitted to the hospital because of acute altered mental status, thought to be secondary to sepsis and/or uremia of chronic kidney disease. Past Medical History: As per admit note. Social History: As per admit note. Family History: As per admit note. Medications: As per admit note. Allergies: PER ADMIT NOTE. Physical Examination: As per admit note. Diagnostic Data: As per admit note. Hospital Course: The patient was admitted to the hospital. She was put on IV cefepime and IV vancom ycin. Cultures were drawn and blood culture did not grow any organism. The patient's prolactin was high indicating sepsis; however, the offending bacterium and site of infection could not be found; ho salvatore, I have a suspicion that the patient's chronic lymphedema may cause her skin to crack and induc e bacterium to where she could have that. The patient also has hypertension for which we had to leonel tor and increase her hydralazine dosage and continue the rest of her home medicines. Nephrology was consulted. With the blood work and renal function, she states that GFR was 14. Nephrology thought s rhianna her altered mental status has resolved with the same GFR that they still can wait on hemodialysi s. I think that the patient with a control of sepsis and infection, her altered mental status has re solved. The patient's anemia of chronic illness was also followed and she was started by Nephrology on epoetin subcutaneous and today her hemoglobin is 7.8, which is almost where she usually stands bet ween where her hemoglobin is usually. The patient is alert and oriented and feeling well at this nia e. We thought that the patient is stable enough to be discharged. Her blood pressure still needs to be monitored and may have to increase her dosage of blood pressure medicines; however, we will do th at through home health, which the patient is going to need and we will send her out on 5 days of entin also p.o. 500 b.i.d. to resume the rest of her home medicines and the patient to follow up with me and with Nephrology. Look discharge orders for details. MFS/MODL Voice ID: [id number] Report ID: [id number]
--- NOTE | 2020-12-17 20:23 | P.PN ---
Date of Service: 12/17/20 Vital Signs Temp Pulse Resp BP Pulse Ox 98.8 F 73 17 170/65 H 98 12/17/20 12:00 12/17/20 12:00 12/17/20 12:00 12/17/20 12:00 12/17/20 12:00 Microbiology Results 12/10/20 16:02 Blood - Blood Aerobic Blood Culture - Final No growth in 5 days. 12/10/20 16:02 Blood - Blood Anaerobic Blood Culture - Final No growth in 5 days. 12/10/20 13:55 Blood - Blood Aerobic Blood Culture - Final No growth in 5 days. 12/10/20 13:55 Blood - Blood Anaerobic Blood Culture - Final No growth in 5 days. Assessment/ Plan: Nephrology No acute cardiac or pulmonary complaints. No CP or SOB. +Appetite No acute events overnight. Vitals, medications, blood work and imaging reviewed in the chart. General: In no apparent distress, Cooperative, Confused HEENT: Atraumatic Neck: Supple Respiratory: Normal air movement Cardiovascular: No edema, Edema (LLE Lymphedema) Gastrointestinal: Soft and benign, Non-distended Musculoskeletal: No clubbing, No contractures Integumentary: No rashes, No cyanosis Neurological: Normal speech Laboratory Data (last 24 hrs) 12/10/20 13:55: PT 10.8, INR 0.94 12/10/20 13:55: WBC 5.70, Hgb 9.6 L, Hct 31.0 L, Plt Count 202 12/10/20 13:55: Sodium 139, Potassium 4.5, BUN 62 H, Creatinine 3.73 H, Glucose 91, Magnesium 2.4, Total Bilirubin 0.6, AST 20, ALT 12, Alkaline Phosphatase 87 Imagings Data: EXAM DESCRIPTION: RAD - Chest Single View - 12/10/2020 2:34 pm CLINICAL HISTORY: AMS Chest pain. COMPARISON: Chest Single View dated 10/13/2019; Chest Single View dated 09/14/2019; Chest Single View dated 03/19/2018; Chest Single View dated 01/07/2018 FINDINGS: Portable technique limits examination quality. The lungs are grossly clear. The heart is normal in size. No displaced fractures. IMPRESSION: No acute intrathoracic process suspected. Conclusions/Impression: A/P: Continue the current POC and Medications other than the changes listed. AM Labs PRN. Recommend daily weight. Please see the orders for complete details. CKD V with proteinuria -No NSAIDs -Renal diet HTN with CKD/ CHF -Continue Captopril -Continue Metoprolol and Doxazosin -Continue Hydralazine 50mg BID -Labetolol IV PRN Diastolic CHF, chronic -Low sodium diet Moderate malnutrition -Encourage nutrition as tolerated Anemia in chronic illness -Retacrit prn -Transfuse PRBC as needed for worsening anemia DEWEY/ Secondary HyperPTH -Continue Vitamin D3 Toxic Metabolic Encephalopathy Suspected underlying dementia Diff Dx: Infection, Uremia -Continue Vanco and Cefepime
--- NOTE | 2020-12-18 15:05 | PN ---
Date of Progress Note: 12/14/2020 Subjective: The patient is seen and examined at bedside. No issues were noted. Her daughter is at bedside. Physical Examination: Vital signs: Have been reviewed and are stable. General: She appears in no acute distress. HEENT: Atraumatic head. Lungs: Clear to auscultation. Extremities: Chronic left lower extremity edema noted. Right lower extremity without any evidence o f swelling. Laboratory Data: Showing creatinine of 3.7, which is overall stable. Other electrolytes are also st able at this time. CBC is showing stable hemoglobin, hematocrit, and platelet count of 139. Current Medications: Include captopril 50 mg b.i.d., metoprolol, hydralazine, labetalol p.r.n., vanc omycin every 48 hours and cefepime 1 g daily. Blood cultures are so far negative. Impression: 1.Chronic renal insufficiency, stage 5, currently with overall stable renal function. 2.Hypertension. The patient's blood pressure medicines have been adjusted. Continue current regime n. 3.Possible sepsis. The patient is on vancomycin and cefepime. Blood cultures are so far negative. Continue to monitor and deescalate antibiotic therapy as tolerated. 4.Chronic diastolic heart failure. Volume compensated at this time. 5.Anemia secondary to chronic disease. The patient is getting Retacrit. Continue to monitor and do se it for goal hemoglobin of 9 to 11. Plan: The patient is overall doing okay. However, toxic encephalopathy is currently stable. Contin ue to monitor closely. No need for dialysis at this time. Daughter at bedside and all questions were answered. VV/MODL Voice ID: [id number] Report ID: [id number]
== END 2020-12-17 15:47 | disposition home health service (06) | DRG 871 ==
LOC: ER 12:52 → ERHOLD 16:37 → 2ND 20:13
PROVIDERS: ADMIT Internal Medicine; ATTEND Internal Medicine
DX: A41.9 Sepsis, unspecified organism (principal); G92 Toxic encephalopathy; N18.5 Chronic kidney disease, stage 5; I13.2 Hypertensive heart and chronic kidney disease with heart failure and with stage 5 chronic kidney disease, or end stage renal disease; I50.32 Chronic diastolic (congestive) heart failure; E44.0 Moderate protein-calorie malnutrition; N25.81 Secondary hyperparathyroidism of renal origin; N17.9 Acute kidney failure, unspecified; K21.9 Gastro-esophageal reflux disease without esophagitis; D63.8 Anemia in other chronic diseases classified elsewhere; N25.0 Renal osteodystrophy; E78.5 Hyperlipidemia, unspecified; M19.90 Unspecified osteoarthritis, unspecified site; J44.9 Chronic obstructive pulmonary disease, unspecified; R77.8 Other specified abnormalities of plasma proteins; Z68.26 Body mass index [BMI] 26.0-26.9, adult; Z79.899 Other long term (current) drug therapy; Z20.822 Contact with and (suspected) exposure to COVID-19
CPT/HCPCS: 36415; 70450; 71045; 80048; 80053; 80076; 80202; 81001; 81003; 81015; 83605; 83735; 83880; 84100; 84145; 84484; 84550; 85025; 85610; 86140; 86317; 86704; 86850; 86900; 86901; 87040; 87340; 93005; 97110; 97112; 97161; 97530; 99285; J0360; J0692; J1650; J2405; J2550; J3370; J7030; J7040; J7050; Q5106; U0003

== ENCOUNTER 2021-02-11 11:23 | Inpatient (IN) | payer OTHER ==
[2021-02-11 12:09] LABS: Absolute Lymphocytes (CBC) 1.8 K/uL (0.7-4.9); Hematocrit 31.9 % (36.0-45.0); Lymphocytes % 30.2 % (15.3-44.8); MPV 9.4 fL (7.6-11.3); RBC Red Blood Cell Count 4.41 M/uL (3.86-4.86)
[2021-02-11 12:26] LABS: Albumin 2.9 g/dL (3.4-5.0); Bilirubin Direct 0.3 mg/dL (0-0.2); Bilirubin Total 0.8 mg/dL (0.2-1.0); Potassium 4.6 mmol/L (3.5-5.1); Protein, Total 7.6 g/dL (6.4-8.2); Uric Acid 10.4 mg/dL (2.6-6.0)
--- NOTE | 2021-02-11 12:42 | EDPHYS ---
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 12:[address] Herrera for initiation of dialysis, slowly worsening fatigue, weakness. rn No trauma. No fever. No sob. . Onset: The symptoms/episode began/occurred at an unknown time. Severity of symptoms: At their worst the symptoms were mild in the emergency department the symptoms are unchanged. It is unknown whether or not the patient has had similar symptoms in the past. The patient has been recently seen by a physician:. Historical: - Allergies: 11:32 No Known Allergies; tw2 - Home Meds: 11:32 clonidine HCl 0.1 mg Oral tab 3 times per day [Active]; doxazosin 2 mg Oral tab 1 tab tw2 twice a day [Active]; furosemide 40 mg Oral tab 1 tab 2 times per day [Active]; metoprolol tartrate 50 mg Oral tab 2 tabs every evening [Active]; Lumigan 0.01 % ophthalmic drop [Active]; Vitamin D3 oral oral [Active]; - PMHx: 11:32 Arthritis; CHF; GERD; High Cholesterol; Hypertension; lyphedema; Renal Disease; tw2 - Immunization history:: Adult Immunizations. - Social history:: Smoking status: . - Family history:: not pertinent. - Hospitalizations: : No recent hospitalization is reported. ROS: 12:25 Constitutional: Negative for fever, chills, and weight loss, Eyes: Negative for injury, rn pain, redness, and discharge, Neck: Negative for injury, pain, and swelling, Cardiovascular: Negative for chest pain, palpitations, and edema, Respiratory: Negative for cough, wheezing, and pleuritic chest pain, Abdomen/GI: Negative for abdominal pain, nausea, vomiting, diarrhea, and constipation, Back: Negative for injury and pain, MS/Extremity: Negative for injury and deformity, Skin: Negative for injury, rash, and discoloration, Neuro: Negative for numbness, tingling, and seizure. Exam: 12:25 Constitutional: This is a well developed, well nourished patient who is awake, alert, rn and in no acute distress. Head/Face: Normocephalic, atraumatic. Eyes: Periorbital areas with no swelling, redness, or edema. ENT: dry MM Cardiovascular: Bradycardic, irregular Respiratory: No increased work of breathing, no retractions or nasal flaring. Abdomen/GI: soft, non-tender Skin: Warm, dry MS/ Extremity: Pulses equal, no cyanosis Neuro: Awake and alert, GCS 15 Vital Signs: 11:28 BP 159 / 84; Pulse 59; Resp 17; Temp 97.9(TE); Pulse Ox 100% on R/A; Weight 85.28 kg tw2 (R); Height 5 ft. 9 in. (175.26 cm) (R); 12:45 BP 148 / 82; Pulse 58; Resp 15; Pulse Ox 99% ; hb 14:04 BP 183 / 73; Pulse 58; Resp 21; Pulse Ox 98% on R/A; tw2 11:28 Body Mass Index 27.76 (85.28 kg, 175.26 cm) tw2 MDM: 11:27 Patient medically screened. rn 12:30 Differential Diagnosis ESRD, uremia. rn 12:33 Data reviewed: vital signs, nurses notes, lab test result(s), EKG. rn 12:40 Counseling: I had a detailed discussion with the patient and/or guardian regarding: the rn historical points, exam findings, and any diagnostic results supporting the discharge/admit diagnosis, lab results, the need for further work-up and treatment in the hospital. Response to treatment: There is no appreciated change of the patient's symptoms at this time, and as a result, I will admit patient. Admission orders: after a detailed discussion of the patient's condition and case, the admit orders are written by me. ED course: Will admit to Dr. Brown for ESRD and initiation of dialysis per Dr. Herrera. Potassium ok, not acidotic, stable vitals. . 14:05 ED course: Family states PCP is Dr. Vega. Will change admit to Dr. Vega.. rn 02/11 11:29 Order name: CBC with Diff rn 02/11 11:29 Order name: Basic Metabolic Panel rn 02/11 11:29 Order name: Lactate rn 02/11 11:29 Order name: Uric Acid rn 02/11 11:29 Order name: LFT's rn 02/11 11:29 Order name: BNP rn 02/11 11:29 Order name: Urine Microscopic Only rn 02/11 11:39 Order name: COVID-19 : Document "Date of Symptom Onset" if Symptomatic. 02/11 12:10 Order name: CBC with Automated Diff; Complete Time: 12:29 EDPA 02/11 12:21 Order name: Lactate; Complete Time: 12:29 EDPA 02/11 12:26 Order name: Basic Metabolic Panel; Complete Time: 12:29 EDPA 02/11 12:26 Order name: Liver (Hepatic) Function; Complete Time: 12:29 EDPA 02/11 12:26 Order name: Uric Acid; Complete Time: 12:29 EDPA 02/11 12:26 Order name: NT PRO-BNP; Complete Time: 12:29 [facility] 02/11 11:29 Order name: IV Start; Complete Time: 12:54 02/11 11:29 Order name: EKG; Complete Time: 11:30 02/11 11:29 Order name: EKG - Nurse/Tech; Complete Time: 12:54 02/11 12:36 Order name: XRAY Chest (1 view) 02/11 12:46 Order name: CORONAVIRUS [facility] 02/11 13:32 Order name: RAD; Complete Time: 14:05 [facility] 02/11 13:36 Order name: SARS-COV-2 RT PCR; Complete Time: 14:05 [facility] 02/11 17:02 Order name: Urine Dipstick-Ancillary [facility] 02/11 18:06 Order name: Urine Microscopic Only [facility] Administered Medications: No medications were administered Disposition: 02/11/21 12:41 Hospitalization ordered by John Vega for Inpatient Admission. Preliminary diagnosis is End stage renal disease. - Bed requested for Telemetry/MedSurg (Inpatient). - Status is Inpatient Admission. hb - Condition is Stable. - Problem is an ongoing problem. - Symptoms are unchanged. Signatures: Dispatcher [employer] EDPA Deepa Reyes Stephanie, RN RN Bobby Quach MD MD rn Baxter, Heather, RN RN Elina Hurd RN RN tw2 Corrections: (The following items were deleted from the chart) 13:10 12:41 Hospitalization Ordered by Reji Brown MD for Inpatient Admission. Preliminary sv diagnosis is End stage renal disease. Bed requested for Telemetry/MedSurg (Inpatient). Status is Inpatient Admission. Condition is Stable. Problem is an ongoing problem. Symptoms are unchanged. rn 14:08 13:10 02/11/2021 12:41 Hospitalization Ordered by Reji Brown MD for Inpatient tele rn. Preliminary diagnosis is End stage renal disease. Bed requested for [facility] ER HOLD. Status is Inpatient Admission. Condition is Stable. Problem is an ongoing problem. Symptoms are unchanged. sv 17:24 14:08 02/11/2021 12:41 Hospitalization Ordered by John Vega MD for Inpatient bd Admission. Preliminary diagnosis is End stage renal disease. Bed requested for [facility] ER HOLD. Status is Inpatient Admission. Condition is Stable. Problem is an ongoing problem. Symptoms are unchanged. rn 18:32 17:24 02/11/2021 12:41 Hospitalization Ordered by John Vega MD for Inpatient hb Admission. Preliminary diagnosis is End stage renal disease. Bed requested for Telemetry/MedSurg (Inpatient). Status is Inpatient Admission. Condition is Stable. Problem is an ongoing problem. Symptoms are unchanged. bd
--- NOTE | 2021-02-11 12:42 | ER ---
Nurse's Notes [facility] Name: Camelia Root Age: 85 yrs Sex: Female : 1935 Arrival Date: 02/11/2021 Time: 11:24 Bed 6 Private MD: Diagnosis: End stage renal disease Presentation: 02/11 11:28 Chief complaint: Patient states: pt from home, states she was to come here and meet her tw2 dialysis doctor to start the process of dialysis, hx: ESRD, HTN. Coronavirus screen: At this time, the client does not indicate any symptoms associated with coronavirus-19. Ebola Screen: Patient denies travel to an Ebola-affected area in the 21 days before illness onset. Initial Sepsis Screen: Does the patient meet any 2 criteria? No. Patient's initial sepsis screen is negative. Does the patient have a suspected source of infection? No. Patient's initial sepsis screen is negative. Risk Assessment: Do you want to hurt yourself or someone else? Patient reports no desire to harm self or others. Onset of symptoms was February 11, 2021. 11:28 Method Of Arrival: EMS: [facility] tw2 11:28 Acuity: SILVINO 3 tw2 Historical: - Allergies: 11:32 No Known Allergies; tw2 - Home Meds: 11:32 clonidine HCl 0.1 mg Oral tab 3 times per day [Active]; doxazosin 2 mg Oral tab 1 tab tw2 twice a day [Active]; furosemide 40 mg Oral tab 1 tab 2 times per day [Active]; metoprolol tartrate 50 mg Oral tab 2 tabs every evening [Active]; Lumigan 0.01 % ophthalmic drop [Active]; Vitamin D3 oral oral [Active]; - PMHx: 11:32 Arthritis; CHF; GERD; High Cholesterol; Hypertension; lyphedema; Renal Disease; tw2 - Immunization history:: Adult Immunizations. - Social history:: Smoking status: . - Family history:: not pertinent. - Hospitalizations: : No recent hospitalization is reported. Screenin:00 Abuse screen: Denies threats or abuse. Denies injuries from another. Nutritional hb screening: No deficits noted. Tuberculosis screening: No symptoms or risk factors identified. Fall Risk Total P[place] Fall Scale indicates Low Risk Score (25-44 pts). Fall prevention measures have been instituted. Side Rails Up X 2 Frequent Obs/Assesments occuring Family Present and informed to notify staff if they need to leave bedside As available Patient and Family Educated on Fall Prevention Program and strategies. Assessment: 12:00 General: Appears in no apparent distress. Behavior is calm, cooperative. Pain: Denies hb pain. Neuro: Level of Consciousness is awake, alert, obeys commands, Oriented to person, place, situation. Cardiovascular: Patient's skin is warm and dry. Respiratory: Respiratory effort is even, unlabored, Respiratory pattern is regular, symmetrical. GI: No signs and/or symptoms were reported involving the gastrointestinal system. : No signs and/or symptoms were reported regarding the genitourinary system. EENT: No signs and/or symptoms were reported regarding the EENT system. Derm: Skin is pink, warm \\T\\ dry. Musculoskeletal: No signs and/or symptoms reported regarding the musculoskeletal system. 13:00 Reassessment: Patient appears in no apparent distress at this time. No changes from hb previously documented assessment. Patient and/or family updated on plan of care and expected duration. Pain level reassessed. Vital Signs: 11:28 BP 159 / 84; Pulse 59; Resp 17; Temp 97.9(TE); Pulse Ox 100% on R/A; Weight 85.28 kg tw2 (R); Height 5 ft. 9 in. (175.26 cm) (R); 12:45 BP 148 / 82; Pulse 58; Resp 15; Pulse Ox 99% ; hb 14:04 BP 183 / 73; Pulse 58; Resp 21; Pulse Ox 98% on R/A; tw2 11:28 Body Mass Index 27.76 (85.28 kg, 175.26 cm) tw2 ED Course: 11:24 Patient arrived in ED. am2 11:27 Bobby Quach MD is Attending Physician. rn 11:27 Elina Hurd RN is Primary Nurse. tw2 11:28 Bed in low position. Call light in reach. Side rails up X2. Pulse ox on. NIBP on. Warm tw2 blanket given. 11:30 Triage completed. tw2 11:32 Arm band placed on. tw2 11:54 Inserted saline lock: 22 gauge in right forearm, using aseptic technique. Blood hb collected. 12:41 Reji Brown MD is Hospitalizing Provider. rn 13:06 CORONAVIRUS Sent. sv 13:07 COVID-19 : Document "Date of Symptom Onset" if Symptomatic. Sent. sv 13:07 LFT's Sent. sv 13:07 Uric Acid Sent. sv 13:07 CBC with Diff Sent. sv 13:07 Basic Metabolic Panel Sent. sv 13:07 Lactate Sent. sv 13:07 BNP Sent. sv 13:15 No provider procedures requiring assistance completed. Patient admitted, IV remains in hb place. 14:08 John Vega MD is Hospitalizing Provider. rn 15:49 Primary Nurse role handed off by Elina Hurd RN 15:49 Abbie Jensen, RN is Primary Nurse. hb Administered Medications: No medications were administered Outcome: 12:41 Decision to Hospitalize by Provider. rn 13:15 Admitted to ER Hold. Please see [facility] for further documentation. hb 13:15 Condition: stable 13:15 Instructed on the need for admit, Demonstrated understanding of instructions. 18:32 Patient left the ED. hb Signatures: Em Leslie RN RN Bobby Quach MD MD rn Baxter, Heather, RN RN Elina Hurd RN RN tw2 [address] [place] am2
[2021-02-11] MEDS ORDERED: ACETAMINOPHEN 500 MG TAB PO PRN (13:11)
[2021-02-11] MEDS ORDERED: MORPHINE 2 MG/ML SYR IV PRN (13:11)
[2021-02-11] MEDS ORDERED: TRAMADOL HCL 50 MG TAB PO PRN (13:18)
--- NOTE | 2021-02-11 13:18 | P.HP ---
Patient History Date of Service: 02/11/21 Reason for admission: ESRD History of Present Illness: 85 yo AAF with past medical history of hypertension, hyperlipidemia, lymphedema, CKD stage 5, GERD, CHF, arthritis status post right TKRWho has been following by Dr. Herrera was transferred here for starting dialysis Allergies No Known Allergies Allergy (Verified 08/21/20 11:17) Home Medications: Metoprolol Tartrate [Lopressor*] 50 mg PO BID 10/11/14 Furosemide [Lasix] 40 mg PO BID #120 tablet 10/12/14 traMADol HCL [Ultram*] 50 mg PO TID PRN 03/20/18 Doxazosin Mesylate 2 mg PO BID 09/14/19 cloNIDine HCL [Catapres] 0.1 mg PO TID 09/14/19 Amox/Clavulanate [Augmentin 500-125 mg Tab] 500 mg PO BID #10 tab 12/17/20 Cholecalciferol (Vitamin D3) [Vitamin D 5,000 IU Cap*] 5,000 unit PO DAILY cap 12/17/20 Doxazosin [Cardura*] 2 mg PO BEDTIME tab 12/17/20 Hydralazine [Apresoline*] 50 mg PO BID tab 12/17/20 - Past Medical/Surgical History Diabetic: No -: arthritis -: CHF -: Lymphedema -: COPD -: CHF -: GERD -: lymphedema -: (R) knee surgery -: Back Surgery -: hysterectomy - Social History Alcohol use: No CD- Drugs: No Caffeine use: Yes Physical Examination - Studies Laboratory Data (last 24 hrs) 02/11/21 11:54: Sodium 141, Potassium 4.6, BUN 68 H, Creatinine 4.53 H, Glucose 117 H, Uric Acid 10.4 H, Total Bilirubin 0.8, AST 17, ALT 12, Alkaline Ph osphatase 75 02/11/21 11:54: WBC 6.10, Hgb 9.8 L, Hct 31.9 L, Plt Count 230 Assessment and Plan - Advance Directives Does patient have a Living Will: No Does patient have a Durable POA for Healthcare: No Physician Review Additional Text: Canceled the Note
--- NOTE | 2021-02-11 13:30 | RAD REPORT ---
EXAM DESCRIPTION: Vianca Single View02/11/2021 1:07 pm CLINICAL HISTORY: Hypertension end-stage renal disease COMPARISON: November 2020 FINDINGS: The lungs appear clear of acute infiltrate. The heart is normal size IMPRESSION: No acute abnormalities displayed
[2021-02-11] MEDS: cloNIDine HCL 0.1 MG TAB PO SCH ×2 (14:00→21:07)
[2021-02-11 14:46] VITALS: BMI 27.7
[2021-02-11] MEDS ORDERED: cloNIDine HCL 0.1 MG TAB ONE (15:18)
--- NOTE | 2021-02-11 15:41 | PN ---
Subjective: The patient is an 85-year-old female with chronic renal insufficiency, stage 5. It was noted by the branch administrator that her kidney failure have worsened to a point where she is going to need to start dialysis since she has been getting weaker and weaker every day. I went ahead and admitted the patient for acute on chronic renal failure with dialysis requirement now for established dialysi s. The patient was seen in the emergency room. Objective: Vital Signs: Blood pressure 174/70, pulse 62, the patient is afebrile. Heart: Regular rate and rhythm. Chest: Clear to auscultation. Abdomen: Soft, benign. Neurological: Alert, oriented. Grossly intact. Extremities: Left leg chronic lymphedema, more so than the right. Laboratory Data: CBC; hemoglobin 9.8, hematocrit 31.9, platelets 230. Chemistry; BUN 68, creatinine 4.53, and GFR at 11. Blood sugar of 117, random. Assessment And Plan: The patient is being admitted to establish dialysis with worsening kidney funct ion, acute on top of chronic. We will review and continue home medications and monitor her other med ical illnesses as the process of establishing in access and starting dialysis. Appreciate Nephrology input. We will follow their recommendations also. MFS/MODL Voice ID: [id number] Report ID: [id number]
[2021-02-11] MEDS: FUROSEMIDE 40 MG TABLET PO SCH (17:00)
[2021-02-11 17:01] LABS: Urine Blood 1+ (Negative); Urine Glucose Negative (Negative); Urine Protein 2+ (Negative); Urine Specific Gravity 1.015 (1.005-1.030)
[2021-02-11] MEDS ORDERED: FUROSEMIDE 40 MG TABLET ONE (17:43)
[2021-02-11 18:05] LABS: Urine Amorphous Sediment 2+ /HPF (NONE SEEN); Urine Bacteria 20-50 /HPF (<20)
[2021-02-11] MEDS: HYDRALAZINE HCL 25 MG TABLET PO SCH (21:00)
[2021-02-11] MEDS: DOXAZOSIN 2 MG TAB PO SCH (21:10)
[2021-02-11] MEDS: METOPROLOL TAR 50 MG TAB PO SCH (21:10)
[2021-02-12 07:03] LABS: Absolute Lymphocytes (CBC) 1.6 K/uL (0.7-4.9); Hematocrit 29.8 % (36.0-45.0); MPV 9.3 fL (7.6-11.3); RBC Red Blood Cell Count 4.17 M/uL (3.86-4.86)
[2021-02-12 07:36] LABS: Albumin 2.9 g/dL (3.4-5.0); Bilirubin Total 0.7 mg/dL (0.2-1.0); Potassium 4.1 mmol/L (3.5-5.1); Protein, Total 7.5 g/dL (6.4-8.2)
[2021-02-12] MEDS: VITAMIN D 5,000 UNIT CAP PO SCH (08:29)
[2021-02-12] MEDS: cloNIDine HCL 0.1 MG TAB PO SCH ×3 (08:29→21:43)
[2021-02-12] MEDS: METOPROLOL TAR 50 MG TAB PO SCH ×2 (08:29→21:44)
[2021-02-12] MEDS: HYDRALAZINE HCL 25 MG TABLET PO SCH ×2 (08:29→18:17)
[2021-02-12] MEDS: FUROSEMIDE 40 MG TABLET PO SCH ×2 (08:29→18:17)
[2021-02-12] MEDS: DOXAZOSIN 2 MG TAB PO SCH ×2 (08:29→21:43)
--- NOTE | 2021-02-12 08:44 | EKG ---
Test Date: 2021-02-11 Test Time: 11:40:53 Quality Checker: JC MEASUREMENT RESULTS: Intervals: Rate: 59 MD: QRSD: 176 QT: 490 QTc: 485 [place]: P: MD: QRS: -25 T: 135 INTERPRETIVE STATEMENTS: Wide QRS rhythm with occasional premature ventricular complexes Left bundle branch block Abnormal ECG Compared to ECG 12/10/2020 14:09:49 Ventricular premature complex(es) now present Electronically Signed On 02-12-21 08:41:43 CDT by Mathew Bertrand
[2021-02-12] MEDS ORDERED: CEFTRIAXONE 1 GM/NS 50 ML 1 GM/50 ML BAG IV ONE (10:26)
[2021-02-12] MEDS ORDERED: EPOETIN ALFA 10,000 UNIT/ML VIAL SQ ONE (10:28)
[2021-02-12] MEDS ORDERED: MANNITOL 25% 12.5 GM/50 ML VIAL IV PRN (10:31)
[2021-02-12] MEDS ORDERED: NA CHLORIDE 0.9% 1,000 ML IV PRN (10:31)
[2021-02-12] MEDS ORDERED: CEFTRIAXONE/SWI 1gm 1 GM/10 ML SYR IV ONE (11:00)
[2021-02-12] MEDS ORDERED: ALBUMIN HUMAN 25% 50 ML IV SCH (11:00)
--- NOTE | 2021-02-12 12:24 | PN ---
Subjective: The patient has no new complaint. Objective: Vital Signs: Blood pressure 120/65, pulse 69, temperature 97 Fahrenheit. Heart: Regular rate and rhythm. Chest: Clear to auscultation. Abdomen: Soft, benign. Neurological: Alert and oriented. Grossly intact. Laboratory Data: CBC noted. Hemoglobin 9.5, hematocrit 29.8, platelets 222. Chemistry; BUN 71, cre atinine 4.52. Urinalysis; indication of UTI, culture pending. Has a gram-negative jennifer more than 100 ,000 colonies. Assessment And Plan: 1.End-stage renal failure, needing dialysis. Surgery was consulted for access and Nephrology is fol lowing the case from that standpoint. 2.Urinary tract infection. Put the patient on Rocephin. 3.Congestive heart failure, stable. 4.Chronic obstructive pulmonary disease, no exacerbation. 5.Rest of her medical problems stable. MFS/MODL Voice ID: [id number] Report ID: [id number]
[2021-02-12] MEDS ORDERED: Ringers Lactate 0 ML IV ONE (14:37)
[2021-02-12] MEDS ORDERED: NA CHLORIDE 0.9% 500 ML ONE (14:39)
[2021-02-12] MEDS ORDERED: CEFAZOLIN/SWI 1gm 1 GM/10 ML SYR ONE (14:57)
[2021-02-12] MEDS ORDERED: NA CHLORIDE 0.9% 100 ML IV ONE (15:02)
[2021-02-12] MEDS ORDERED: NS 0.9% VIAL 10 ML ONE (15:02)
[2021-02-12] MEDS ORDERED: HEPARIN 5000 UNIT/ML 1 ML VIAL ONE (15:02)
[2021-02-12] MEDS ORDERED: LIDOCAINE 1% 20 ML MDV ONE (15:03)
--- NOTE | 2021-02-12 15:12 | CON ---
Date of Consultation: 02/12/2021 Reason For Service: Placement of hemodialysis catheter. History Of Present Illness: This is the case of an 85-year-old patient, who comes to us with history of hypertension, hyperlipidemia, lymphedema, GERD, congestive heart failure, and also now renal fail ure and need for hemodialysis. Surgical consult was obtained for placement of hemodialysis catheter. The patient's son is at bedside and he was able to give us all the information about her. Allergies: NONE. Medications: Include Lopressor, Lasix, Catapres, Augmentin, vitamin D3, Cardura, apresoline, and Las ix. Medical Problems: Include as above including also lymphedema, COPD, congestive heart failure. Past Surgical History: Surgeries include hysterectomy, right knee surgery, back surgery. Social History: She does smoke. She does not drink alcohol. Family History: Noncontributory. Review of Systems: No shortness of breath. No chest pain today. Most of the review of system was obtained with the hel p of the son. Ten points otherwise unremarkable. Physical Examination: General: The patient is awake, alert. HEENT: Pupils anicteric. Neck: Supple. No JVD. Chest: Bilateral breath sounds. Abdomen: Soft and depressible. Extremities: Good capillary refill. Laboratory Data: Blood work shows WBC count of 6.5, hemoglobin of 9.5. Potassium is 4.1, bicarb is 29, creatinine is 4.52, and BUN is 71. Assessment: It is an 85-year-old patient, needs a hemodialysis catheter. Benefits, alternatives, an d risks of placement fully explained, which include, but not limited to infection, bleeding, damage t o adjacent structures, anesthesia complication, pneumothorax, hemothorax, cardiac tamponade, DVT, pul monary emboli, endocarditis, CO, and even . She also understands this may not relieve any sympt oms. She might need more than one surgical intervention. The son was also explained. They also und erstand this is a temporary catheter in dialysis. We will continue if she has to find a vascular tej geon in [place] where they can do peripheral access on her. HM/MODL Voice ID: [id number] Report ID: [id number]
[2021-02-12] MEDS ORDERED: propofoL 200 MG/20 ML VIAL IV ONE (15:46)
[2021-02-12] MEDS ORDERED: FENTANYL CITR 100 MCG/2 ML ONE (15:46)
[2021-02-12] MEDS ORDERED: LIDOCAINE 1% MPF 5 ML VIAL ONE (15:46)
--- NOTE | 2021-02-12 15:56 | P.BOP ---
Preoperative diagnosis: ESRD Postoperative diagnosis: same Primary procedure: 1. Placement of tunneled hemosplit hemodyalisis catheter Secondary procedure: 2. interpretation of fluoroscopy Other procedure(s): 3. Right neck ultrasound Estimated blood loss: <10cc Specimen: none Findings: as above Anesthesia: General Complications: None Transferred to: Recovery Room Condition: Good
--- NOTE | 2021-02-12 16:41 | RAD REPORT ---
EXAM DESCRIPTION: RAD - Chest Single View - 02/12/2021 4:36 pm CLINICAL HISTORY: s/p HD catheter Chest pain. COMPARISON: Chest Single View dated 02/11/2021; Chest Single View dated 12/10/2020; Chest Single View dated 10/13/2019; Chest Single View dated 09/14/2019 FINDINGS: Portable technique limits examination quality. Right-sided venous catheter is in place with its tip in the SVC. No postprocedure pneumothorax. The h eart is normal in size. IMPRESSION: No postprocedure pneumothorax.
--- NOTE | 2021-02-12 17:46 | RAD REPORT ---
EXAM DESCRIPTION: RAD - Fluoroscopy <1 Hour - 02/12/2021 5:29 pm CLINICAL HISTORY: Venous catheter insertion. HEMODIALYSIS CATH IN OR1 COMPARISON: <Comparisons> FINDINGS: Fluoroscopic imaging is submitted from placement of a venous catheter. Details of the pro cedure not available. Fluoroscopy time: 0.3 minutes
--- NOTE | 2021-02-12 19:32 | OP ---
Date of Procedure: 02/12/2021 Surgeon: Bandar Gannon MD Preoperative Diagnosis: End-stage renal disease. Postoperative Diagnosis: End-stage renal disease. Procedures: 1.Placement of a HemoSplit tunneled hemodialysis catheter. 2.Interpretation of fluoroscopy. 3.Right neck jugular ultrasound. Anesthesia: General plus local. Implant: HemoSplit hemodialysis catheter. Indication: This is the case of an 85-year-old patient with renal failure. Now, HemoSplit hemodialy sis catheter was requested with benefits, alternatives, and risks were explained to the patient and t he son, which include, but not limited to infection, bleeding, damage to adjacent structures, anesthe domitila complication, DVT, PE, pneumothorax, hemothorax, pericardiac tamponade, MT, and even . She also understands this is a temporary catheter. This may not relieve any symptoms. She might need mo re than one surgical intervention. She understood and a consent was signed. Procedure In Detail: The patient was brought to the operating room, placed in supine position. Anes thesia was done without complication. Right neck and chest were prepped and draped in usual sterile fashion. The patient was placed in Trendelenburg position. Right neck ultrasound with used to local ize the right internal jugular vein and looked like it is patent. So, we placed an 18-gauge needle o n that internal jugular vein at the first attempt. Guidewire was placed then and got into superior v winter cava using fluoroscopic guidance. A small incision was made in the right upper chest and we tunn eled through that incision the catheter to meet that new incision in the right neck region. Serial d ilators were placed through the guidewire and catheter was placed there using fluoroscopic guidance. The guidewire was removed, catheter was placed in and the introducer sheath was carefully peeled off . The fluoroscopy once again secured proper placement. Excellent backflow and inflow. The line was flushed with heparinized solution, secured in place with 3-0 nylon and the skin closed with 3-0 director machine trudy. The patient tolerated the procedure well. Sponge count and instrument counts correct. The pat ient was brought back to normal position and sent to recovery room in stable condition, and a chest x -ray was ordered stat. HM/MODL Voice ID: [id number] Report ID: [id number]
--- NOTE | 2021-02-12 21:03 | P.CNS ---
Date of Consult: 02/12/21 Reason for Consult: ESRD Requesting Physician: John Vega Chief Complaint: ESRD History of Present Illness: 85 yo AAF with past medical history of hypertension, hyperlipidemia, lymphedema, CKD stage 5, GERD, CHF, arthritis status post right TKRWho has been following by Dr. Herrera was transferred here for starting dialysis. She was sent to the hospital for worsening uremic symptoms including fatigue, anorexia and intermittent confusion. The patient and family agree to start dialysis. 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 12:[address] Herrera for initiation of dialysis, slowly worsening fatigue, weakness. rn No trauma. No fever. No sob. . Onset: The symptoms/episode began/occurred at an unknown time. Severity of symptoms: At their worst the symptoms were mild in the emergency department the symptoms are unchanged. It is unknown whether or not the patient has had similar symptoms in the past. The patient has been recently seen by a physician:. Allergies No Known Allergies Allergy (Verified 08/21/20 11:17) Home medications list reviewed: Yes Home Medications: Metoprolol Tartrate [Lopressor*] 50 mg PO BID 10/11/14 Doxazosin Mesylate 2 mg PO BID 09/14/19 cloNIDine HCL [Catapres] 0.1 mg PO TID 09/14/19 Bimatoprost [Lumigan Opthalmic Drops*] 1 drop EACH EYE BEDTIME 02/11/21 Cholecalciferol (Vitamin D3) [Vitamin D3] 125 mcg PO 1200 02/11/21 Furosemide [Lasix*] 40 mg PO BIDWM 02/11/21 - Past Medical/Surgical History Diabetic: No -: arthritis -: CHF -: Lymphedema -: COPD -: CHF -: GERD -: lymphedema -: (R) knee surgery -: Back Surgery -: hysterectomy - Social History Smoking Status: Unknown if ever smoked Alcohol use: No CD- Drugs: No Caffeine use: Yes Review of Systems 10-point ROS is otherwise unremarkable General: Weakness, Malaise Cardiovascular: Edema Neurological: Weakness, Confusion Physical Examination Temp Pulse Resp BP Pulse Ox 97.5 F 83 20 198/94 H 98 02/12/21 17:00 02/12/21 17:00 02/12/21 17:00 02/12/21 18:17 02/12/21 17:00 General: In no apparent distress, Cooperative HEENT: Atraumatic, Mucous membr. moist/pink Neck: Supple Respiratory: Clear to auscultation bilaterally Cardiovascular: Regular rate/rhythm, No rubs Gastrointestinal: Soft and benign, Non-distended, No rebound Musculoskeletal: No clubbing, No contractures Integumentary: No rashes, No cyanosis Neurological: Normal speech Blood work reviewed in the chart. Imagings Data: EXAM DESCRIPTION: RAD - Chest Single View - 02/12/2021 4:36 pm CLINICAL HISTORY: s/p HD catheter Chest pain. COMPARISON: Chest Single View dated 02/11/2021; Chest Single View dated 12/10/2020; Chest Single View dated 10/13/2019; Chest Single View dated 09/14/2019 FINDINGS: Portable technique limits examination quality. Right-sided venous catheter is in place with its tip in the SVC. No postprocedure pneumothorax. The heart is normal in size. IMPRESSION: No postprocedure pneumothorax. Conclusions/Impression: ESRD -Arrange for CVC placement -Acute HD ordered -HBV panel pending HTN with CKD/ CHF -Continue Metoprolol and Doxazosin Diastolic CHF, chronic -Low sodium diet -Continue Lasix Moderate malnutrition -Encourage nutrition including protein supplementation -Continue Nepro Anemia in CKD -Restart Retacrit DEWEY/ Secondary HyperPTH -Start Vitamin D3 and Calcitriol Thank you kindly for the consultation. Case reviewed with Dr. Quach
[2021-02-12] MEDS: NEPRO SHAKE 237 ML CAN PO SCH (21:45)
[2021-02-13 05:56] LABS: Absolute Lymphocytes (CBC) 1.5 K/uL (0.7-4.9); Basophils % 0.5 % (0-1.3); Hematocrit 31.2 % (36.0-45.0); Lymphocytes % 20.5 % (15.3-44.8); MPV 9.4 fL (7.6-11.3); RBC Red Blood Cell Count 4.24 M/uL (3.86-4.86)
[2021-02-13 06:04] LABS: Albumin 2.9 g/dL (3.4-5.0); Bilirubin Total 0.6 mg/dL (0.2-1.0); Phosphorus 3.5 mg/dL (2.5-4.9); Potassium 4.9 mmol/L (3.5-5.1); Protein, Total 7.4 g/dL (6.4-8.2)
[2021-02-13] MEDS: NEPRO SHAKE 237 ML CAN PO SCH ×2 (09:00→20:50)
[2021-02-13] MEDS: HYDRALAZINE HCL 25 MG TABLET PO SCH ×3 (09:00→20:50)
[2021-02-13] MEDS: METOPROLOL TAR 50 MG TAB PO SCH ×3 (09:00→20:48)
[2021-02-13] MEDS: DOXAZOSIN 2 MG TAB PO SCH ×3 (09:00→20:53)
[2021-02-13] MEDS: cloNIDine HCL 0.1 MG TAB PO SCH ×4 (09:18→20:48)
[2021-02-13] MEDS: VITAMIN D 5,000 UNIT CAP PO SCH ×2 (09:19→10:52)
[2021-02-13] MEDS: CALCITROL 0.25 MCG CAP PO SCH ×2 (09:19→10:52)
[2021-02-13] MEDS: FUROSEMIDE 40 MG TABLET PO SCH ×3 (09:19→17:06)
[2021-02-13] MEDS ORDERED: LABETALOL 20 MG/4ML SYRINGE IV PRN (10:11)
[2021-02-13] MEDS ORDERED: HYDRALAZINE HCL 20 MG/ML VIAL IV PRN (10:11)
[2021-02-13] MEDS ORDERED: CEFTRIAXONE/SWI 1gm 1 GM/10 ML SYR IV ONE (12:17)
--- NOTE | 2021-02-13 15:49 | PN ---
Subjective: The patient is doing well, having her dialysis. Objective: Vital Signs: Blood pressure 180/90, pulse 90, temperature 97.7. Heart: Regular rate and rhythm. Chest: Clear to auscultation. Abdomen: Soft, benign. Neurological: Alert and oriented. Grossly intact. Laboratory Data: The patient's CBC; hemoglobin of 9.5, hematocrit 31.2, and platelets 207. Chemistr y earlier this morning is BUN 46, creatinine 3.62, and GFR of 14. Microbiology showed E coli growth in her urine, sensitive to ceftriaxone which she was given. Assessment And Plan: We are going to give her another dose today after dialysis and continue her cur rent treatment. Her hypertension needs to be better controlled. She has been put on hydralazine by Nephrology. Expect that to improve her blood pressure and she is on clonidine and labetalol. Look o leah for details. MFS/MODL Voice ID: [id number] Report ID: [id number]
--- NOTE | 2021-02-13 21:24 | P.PN ---
Date of Service: 02/13/21 Vital Signs Temp Pulse Resp BP Pulse Ox 97.6 F 72 17 140/70 99 02/13/21 20:00 02/13/21 20:53 02/13/21 20:00 02/13/21 20:53 02/13/21 20:00 Medications Acetaminophen (Acetaminophen 500 Mg Tab) 500 mg PO Q6H PRN PRN Reason: TEMP > 100' F Calcitriol (Calcitrol 0.25 Mcg Cap) 0.5 mcg PO DAILY [facility] Last Admin: 02/13/21 10:52 Dose: 0.5 mcg Documented by: Cholecalciferol (Vitamin D 5,000 Unit Cap) 5,000 unit PO DAILY [facility] Last Admin: 02/13/21 10:52 Dose: 5,000 unit Documented by: Clonidine HCl (Clonidine Hcl 0.1 Mg Tab) 0.1 mg PO TID [facility] Last Admin: 02/13/21 20:48 Dose: 0.1 mg Documented by: Doxazosin Mesylate (Doxazosin 2 Mg Tab) 2 mg PO BID [facility] Last Admin: 02/13/21 20:53 Dose: 2 mg Documented by: Enteral Nutritional Formula (Nepro Shake 237 Ml Can) 237 ml PO BID [facility] Last Admin: 02/13/21 20:50 Dose: 237 ml Documented by: Furosemide (Furosemide 40 Mg Tablet) 40 mg PO BIDL [facility] Last Admin: 02/13/21 17:06 Dose: 40 mg Documented by: Heparin Sodium (Porcine) (Heparin 1,000 Unit/Ml Vial) 6,000 unit IV EVERY HD PRN PRN Reason: AFTER EACH Heparin Sodium (Porcine) (Heparin 1,000 Unit/Ml Vial) 2,000 unit IV EVERY HD [facility] Stop: 02/18/21 12:01 Hydralazine HCl (Hydralazine Hcl 25 Mg Tablet) 50 mg PO BID [facility] Last Admin: 02/13/21 20:50 Dose: 50 mg Documented by: Hydralazine HCl (Hydralazine Hcl 20 Mg/Ml Vial) 20 mg IV Q4HP PRN PRN Reason: Titrate to SBP (MUST DEFINE) Albumin Human (Albumin 25%) 50 mls @ 100 mls/hr IV EVERY HD [facility] Labetalol HCl (Labetalol 20 Mg/4ml Syringe) 20 mg IV Q4H PRN PRN Reason: Titrate to SBP (MUST DEFINE) Mannitol (Mannitol 25% 12.5 Gm/50 Ml Vial) 12.5 gm IV EVERY HD PRN PRN Reason: Titrate to SBP (MUST DEFINE) Metoprolol Tartrate (Metoprolol Tar 50 Mg Tab) 50 mg PO BID [facility] Last Admin: 02/13/21 20:48 Dose: 50 mg Documented by: Morphine Sulfate (Morphine 2 Mg/Ml Syr) 2 mg IV Q4H PRN PRN Reason: Pain scale 5-7 (Moderate) Ondansetron HCl (Ondansetron 4 Mg/2 Ml Vial) 4 mg IV Q8H PRN PRN Reason: NAUSEA / VOMITING Sodium Chloride (Flush Normal Saline 10 Ml) 10 ml IV BID [facility] Last Admin: 02/13/21 20:50 Dose: 10 ml Documented by: Tramadol HCl (Tramadol Hcl 50 Mg Tab) 50 mg PO TID PRN PRN Reason: MILMODPAIN Assessment/ Plan: Nephrology CPS stable without CP or SOB. Fatigue and weakness. No acute events overnight. Vitals, medications, blood work and imaging reviewed in the chart. General: In no apparent distress, Cooperative HEENT: Atraumatic, Mucous membr. moist/pink Neck: Supple Respiratory: Clear to auscultation bilaterally Cardiovascular: Regular rate/rhythm, No rubs Gastrointestinal: Soft and benign, Non-distended, No rebound Musculoskeletal: No clubbing, No contractures Integumentary: No rashes, No cyanosis Neurological: Normal speech Blood work reviewed in the chart. Imagings Data: EXAM DESCRIPTION: RAD - Chest Single View - 02/12/2021 4:36 pm CLINICAL HISTORY: s/p HD catheter Chest pain. COMPARISON: Chest Single View dated 02/11/2021; Chest Single View dated 12/10/2020; Chest Single View dated 10/13/2019; Chest Single View dated 09/14/2019 FINDINGS: Portable technique limits examination quality. Right-sided venous catheter is in place with its tip in the SVC. No post procedure pneumothorax. The heart is normal in size. IMPRESSION: No postprocedure pneumothorax. Conclusions/Impression: ESRD -Acute HD ordered -HBV panel pending HTN with CKD/ CHF -Continue Metoprolol and Doxazosin Diastolic CHF, chronic -Low sodium diet -Continue Lasix Moderate malnutrition -Encourage nutrition including protein supplementation -Continue Nepro Anemia in CKD -Restart Retacrit DEWEY/ Secondary HyperPTH -Start Vitamin D3 and Calcitriol Acute E.coli Cystitis -Continue Rocephin
[2021-02-13] MEDS ORDERED: LACTULOSE 20 GM/30 ML UCUP PO PRN (21:42)
[2021-02-14 07:15] LABS: Absolute Lymphocytes (CBC) 1.7 K/uL (0.7-4.9); Basophils % 0.5 % (0-1.3); Lymphocytes % 19.1 % (15.3-44.8); MPV 9.6 fL (7.6-11.3); RBC Red Blood Cell Count 4.05 M/uL (3.86-4.86)
[2021-02-14 07:41] LABS: Albumin 2.8 g/dL (3.4-5.0); Bilirubin Total 0.7 mg/dL (0.2-1.0); Potassium 4.1 mmol/L (3.5-5.1); Protein, Total 7.1 g/dL (6.4-8.2)
[2021-02-14] MEDS: NEPRO SHAKE 237 ML CAN PO SCH ×3 (09:00→21:29)
[2021-02-14] MEDS: cloNIDine HCL 0.1 MG TAB PO SCH ×4 (09:00→21:29)
[2021-02-14] MEDS: HYDRALAZINE HCL 25 MG TABLET PO SCH ×3 (09:00→21:29)
[2021-02-14] MEDS: METOPROLOL TAR 50 MG TAB PO SCH ×3 (09:00→21:29)
[2021-02-14] MEDS: DOXAZOSIN 2 MG TAB PO SCH ×3 (09:00→21:26)
[2021-02-14] MEDS: CALCITROL 0.25 MCG CAP PO SCH (10:28)
[2021-02-14] MEDS: FUROSEMIDE 40 MG TABLET PO SCH ×2 (10:28→16:00)
[2021-02-14] MEDS: VITAMIN D 5,000 UNIT CAP PO SCH (10:29)
--- NOTE | 2021-02-14 21:26 | PN ---
Subjective: The patient continues to have dialysis, feeling better every day. No new complaints. Objective: Vital Signs: Blood pressure 155/65, pulse 110, temperature 97.4. Heart: Tachycardic, regular rate. Chest: Clear to auscultation. Abdomen: Soft, benign. Neurological: Alert and oriented grossly intact. Laboratory Data: Today, her CBC showed a hemoglobin 9.2, hematocrit of 30, platelets 193. Chemistry ; BUN 29, creatinine 3.12, GFR 17. Assessment And Plan: Acute on chronic renal failure, no needing dialysis. The patient is improving clinically with every dialysis. Plan for her is to find center for her for outpatient dialysis and I think once that is achieved then she can be discharged with scheduled outpatient dialysis. Meanwhil e, continue current treatment. Her high blood pressure is fairly controlled with dialysis and with c urrent medicines. We will keep monitoring the rest of her medical problems, stable. Look orders for details. MFS/MODL Voice ID: [id number] Report ID: [id number]
--- NOTE | 2021-02-15 07:33 | P.PN ---
Date of Service: 02/14/21 Vital Signs Temp Pulse Resp BP Pulse Ox 97.4 F 70 16 130/65 94 02/15/21 04:00 02/15/21 04:00 02/15/21 04:00 02/15/21 04:00 02/15/21 04:00 Medications Acetaminophen (Acetaminophen 500 Mg Tab) 500 mg PO Q6H PRN PRN Reason: TEMP > 100' F Calcitriol (Calcitrol 0.25 Mcg Cap) 0.5 mcg PO DAILY [facility] Last Admin: 02/14/21 10:28 Dose: 0.5 mcg Documented by: Cholecalciferol (Vitamin D 5,000 Unit Cap) 5,000 unit PO DAILY [facility] Last Admin: 02/14/21 10:29 Dose: 5,000 unit Documented by: Clonidine HCl (Clonidine Hcl 0.1 Mg Tab) 0.1 mg PO TID [facility] Last Admin: 02/14/21 21:00 Dose: Not Given Documented by: Doxazosin Mesylate (Doxazosin 2 Mg Tab) 2 mg PO BID [facility] Last Admin: 02/14/21 21:00 Dose: Not Given Documented by: Enteral Nutritional Formula (Nepro Shake 237 Ml Can) 237 ml PO BID [facility] Last Admin: 02/14/21 21:00 Dose: Not Given Documented by: Furosemide (Furosemide 40 Mg Tablet) 40 mg PO BIDL [facility] Last Admin: 02/14/21 16:00 Dose: 40 mg Documented by: Heparin Sodium (Porcine) (Heparin 1,000 Unit/Ml Vial) 6,000 unit IV EVERY HD PRN PRN Reason: AFTER EACH Last Admin: 02/14/21 14:15 Dose: 6,000 unit Documented by: Heparin Sodium (Porcine) (Heparin 1,000 Unit/Ml Vial) 2,000 unit IV EVERY HD [facility] Stop: 02/18/21 12:01 Hydralazine HCl (Hydralazine Hcl 25 Mg Tablet) 50 mg PO BID [facility] Last Admin: 02/14/21 21:00 Dose: Not Given Documented by: Hydralazine HCl (Hydralazine Hcl 20 Mg/Ml Vial) 20 mg IV Q4HP PRN PRN Reason: Titrate to SBP (MUST DEFINE) Albumin Human (Albumin 25%) 50 mls @ 100 mls/hr IV EVERY HD [facility] Labetalol HCl (Labetalol 20 Mg/4ml Syringe) 20 mg IV Q4H PRN PRN Reason: Titrate to SBP (MUST DEFINE) Lactulose (Lactulose 20 Gm/30 Ml Ucup) 10 gm PO DAILY PRN PRN Reason: CONSTIPATION Mannitol (Mannitol 25% 12.5 Gm/50 Ml Vial) 12.5 gm IV EVERY HD PRN PRN Reason: Titrate to SBP (MUST DEFINE) Metoprolol Tartrate (Metoprolol Tar 50 Mg Tab) 50 mg PO BID [facility] Last Admin: 02/14/21 21:00 Dose: Not Given Documented by: Morphine Sulfate (Morphine 2 Mg/Ml Syr) 2 mg IV Q4H PRN PRN Reason: Pain scale 5-7 (Moderate) Ondansetron HCl (Ondansetron 4 Mg/2 Ml Vial) 4 mg IV Q8H PRN PRN Reason: NAUSEA / VOMITING Sodium Chloride (Flush Normal Saline 10 Ml) 10 ml IV BID [facility] Last Admin: 02/14/21 21:29 Dose: 10 ml Documented by: Tramadol HCl (Tramadol Hcl 50 Mg Tab) 50 mg PO TID PRN PRN Reason: MILMODPAIN Assessment/ Plan: Nephrology CPS stable without CP or SOB. Fatigue and weakness. Tolerating HD well No acute events overnight. Vitals, medications, blood work and imaging reviewed in the chart. General: In no apparent distress, Cooperative HEENT: Atraumatic, Mucous membr. moist/pink Neck: Supple Respiratory: Clear to auscultation bilaterally Cardiovascular: Regular rate/rhythm, No rubs Gastrointestinal: Soft and benign, Non-distended, No rebound Musculoskeletal: No clubbing, No contractures Integumentary: No rashes, No cyanosis Neurological: Normal speech Blood work reviewed in the chart. Imagings Data: EXAM DESCRIPTION: RAD - Chest Single View - 02/12/2021 4:36 pm CLINICAL HISTORY: s/p HD catheter Chest pain. COMPARISON: Chest Single View dated 02/11/2021; Chest Single View dated 12/10/2020; Chest Single View dated 10/13/2019; Chest Single View dated 09/14/2019 FINDINGS: Portable technique limits examination quality. Right-sided venous catheter is in place with its tip in the SVC. No postprocedure pneumothorax. The heart is normal in size. IMPRESSION: No postprocedure pneumothorax. Conclusions/Impression: ESRD -Acute HD as ordered -HBV panel pending HTN with CKD/ CHF -Continue Metoprolol and Doxazosin Diastolic CHF, chronic -Low sodium diet -Continue Lasix Moderate malnutrition -Encourage nutrition including protein supplementation -Continue Nepro Anemia in CKD -Continue Retacrit DEWEY/ Secondary HyperPTH -Continue Vitamin D3 and Calcitriol Acute E.coli Cystitis -Continue Rocephin Placement pending at the [facility]. Recommend PT as tolerated.
[2021-02-15] MEDS: DOXAZOSIN 2 MG TAB PO SCH ×2 (09:34→22:16)
[2021-02-15] MEDS: HYDRALAZINE HCL 25 MG TABLET PO SCH ×2 (09:34→22:16)
[2021-02-15] MEDS: cloNIDine HCL 0.1 MG TAB PO SCH ×3 (09:35→22:16)
[2021-02-15] MEDS: CALCITROL 0.25 MCG CAP PO SCH (09:35)
[2021-02-15] MEDS: FUROSEMIDE 40 MG TABLET PO SCH ×2 (09:35→17:00)
[2021-02-15] MEDS: VITAMIN D 5,000 UNIT CAP PO SCH (09:36)
[2021-02-15] MEDS: METOPROLOL TAR 50 MG TAB PO SCH ×2 (09:36→22:17)
[2021-02-15] MEDS: NEPRO SHAKE 237 ML CAN PO SCH ×2 (09:37→21:00)
--- NOTE | 2021-02-15 18:47 | PN ---
Addendum: The patient is in atrial fibrillation at this time. Her rate is not high and she is hemodynamically stable. I have consulted Cardiology from that standpoint and will follow the recommendation. CHRIS/JD Voice ID: [id number] Report ID: [id number]
--- NOTE | 2021-02-15 19:02 | PN ---
Subjective: The patient is doing well. She has no new complaint. Objective: Vital Signs: Blood pressure 190/90, pulse 129, temperature 97.9. Heart: Atrial fibrillation on telemetry. Irregular rate and rhythm. Chest: Clear to auscultation. Abdomen: Soft, benign. Neurologic: Alert, oriented. Grossly intact. Assessment And Plan: End-stage renal failure with dialysis. Once we have outpatient dialysis schedu led for her, I think she can be discharged from that standpoint. Meanwhile for her urinary tract inf ection, we will continue Rocephin, and we will continue the calcitriol and calcium lactate ordered by Nephrology. Continue the current treatment. The patient is clinically stable. MFS/MODL Voice ID: [id number] Report ID: [id number]
--- NOTE | 2021-02-15 21:03 | CON ---
Date of Consultation: 02/15/2021 Reason For Consultation: Atrial fibrillation. History Of Present Illness: This is an 85-year-old female, who has history of CHF, COPD, dyslipidemi a, hypertension, advanced kidney disease, acid reflux, presented to the emergency room with advanced kidney failure and dialysis was arranged apparently. I was asked to see the patient due to the atria l fibrillation. The patient is a very poor historian. Past Medical History: As outlined above in the HPI. Medications: Refer to reconciliation sheet for detailed list. Allergies: NO KNOWN DRUG ALLERGIES. Social History: She does not smoke or drink. Does not use any drugs. Review of Systems: All systems reviewed and they were negative except for what is mentioned in the HPI. Family History: No premature coronary artery disease or cancer. Physical Examination: Vital Signs: Temperature is 98.3; heart rate is 129, down from 141; breathing at 20; blood pressure is 190/91; saturating 98%. General: Pleasant elderly female, in no apparent distress. Head and Neck: Pupils are equal, reactive to light. Intact eye movements. No JVD. No cervical lym phadenopathy. Neck: Supple. Thyroid is not enlarged. Lungs: Clear to auscultation bilaterally. No rhonchi, rales, or crackles. No accessory muscle use. Heart: Irregularly irregular. No extra sounds. Abdomen: Soft, nontender. Bowel sounds positive. No organomegaly. No masses or hernia. No rigidi ty or rebound. Extremities: No clubbing or cyanosis. Intact pulses. Skin: No rash noted. Neurologic: Alert, awake. No acute focal deficits appreciated. Investigations: EKG is with left bundle branch block and atrial fibrillation. Her creatinine is 3.1 2. Her electrolytes are normal with hemoglobin of 9.2. Assessment And Recommendations: Atrial fibrillation and left bundle branch block. Heart rate is sti ll significantly elevated, however, blood pressure is also very high. Please obtain an echocardiogra m and recommend to increase the Lopressor to 100 mg twice a day by mouth for better rate control. If this does not help, then amiodarone intravenously over 24 hours with a load of 150 mg over 10 minute s and then 1 mg/minute for 6 hours and then 0.5 mg/minute for the remainder of 24 hours will be recom mended for better heart rate control. Also, the patient is at high risk for stroke and recommend a l ow-dose Eliquis 2.5 twice a day and also plan for a possible left atrial appendage closure down the r oad due to the fact that she has end-stage renal disease and anticoagulants are not predictable. Thank you for the consult. BASILIO Voice ID: [id number] Report ID: [id number]
[2021-02-15] MEDS: ONDANSETRON 4 MG/2 ML VIAL IV PRN (22:14)
[2021-02-16] MEDS: METOPROLOL TAR 50 MG TAB PO SCH ×2 (06:24→21:33)
[2021-02-16] MEDS: ONDANSETRON 4 MG/2 ML VIAL IV PRN (09:12)
[2021-02-16] MEDS: DOXAZOSIN 2 MG TAB PO SCH ×2 (09:15→21:00)
[2021-02-16] MEDS: cloNIDine HCL 0.1 MG TAB PO SCH ×3 (09:15→21:00)
[2021-02-16] MEDS: HYDRALAZINE HCL 25 MG TABLET PO SCH ×2 (09:16→21:00)
[2021-02-16] MEDS: VITAMIN D 5,000 UNIT CAP PO SCH (09:16)
[2021-02-16] MEDS: CALCITROL 0.25 MCG CAP PO SCH (09:16)
[2021-02-16] MEDS: FUROSEMIDE 40 MG TABLET PO SCH ×2 (09:17→17:00)
[2021-02-16] MEDS: NEPRO SHAKE 237 ML CAN PO SCH ×2 (09:18→21:00)
--- NOTE | 2021-02-16 11:31 | PN ---
Date of Progress Note: 02/16/2021 Subjective: The patient is seen at the bedside. The patient's son is also there at the bedside. Th e patient has no acute complaints. It is reported that the patient is not eating very well. Cardiol ogy notes reviewed. Physical Examination: Vital Signs: Blood pressure 170/93, pulse 127, temperature 98. General: No acute distress. Heart: Tachycardic, regular. Lungs: Grossly clear. Abdomen: Soft, nontender, nondistended. Extremities: No significant edema. Laboratory Data: Hemoglobin and hematocrit 9.2/30. Serum chemistry; BUN 29, creatinine 3.12, albumi n 2.8. UA from the 18 was reviewed. Microbiology did show UTI with E coli. Current medications were noted. Impression: 1.End-stage renal disease, on hemodialysis. 2.Recent atrial fibrillation, not rate controlled. 3.Poor p.o. intake. 4.Hypertension. Plan: The patient is stable from electrolyte standpoint. The patient will need Cardiology followup in regard to combination of atrial fibrillation and hypertension. Consideration should be given to i ncreasing the patient's hydralazine to 50 mg t.i.d. with room for up-titration. Please consult with Cardiology in terms of improved rate control. The patient does have very poor p.o. intake and given that the patient's BUN was down to 29 on the , uremia is less likely as one of the causes. Consideration should be given to age-related dementi a/depression and medications could be given also in that regard. Dialysis orders have been placed for tomorrow. We will continue to follow. /JD Voice ID: [id number] Report ID: [id number]
--- NOTE | 2021-02-16 14:49 | PN ---
Subjective: The patient has no new complaint. Objective: Vital Signs: Blood pressure 170/93, pulse 127, temperature 98. Heart: Tachycardic. Irregular rate and rhythm. Chest: Clear to auscultation. Abdomen: Soft, benign. Neurologic: Alert, oriented, and grossly intact. Assessment And Plan: 1.End-stage renal disease, on dialysis. Continue as scheduled per Nephrology dialyzing the patient pending an outpatient dialysis when it becomes available. 2.Atrial fibrillation with rapid ventricular response rate and also hypertension. We are going to g o ahead and increase her metoprolol to 100 mg p.o. b.i.d. We will ask Cardiology also from that isiah dpoint. 3.Hypertension. Expected to improve with dialysis and with increased metoprolol dosage. 4.Rest of the patient's medical problems stable. Look orders for details. MFS/MODL Voice ID: [id number] Report ID: [id number]
[2021-02-16 18:08] LABS: HBsAG Nonreactive (Nonreactive)
[2021-02-17] MEDS: METOPROLOL TAR 50 MG TAB PO SCH ×2 (06:00→17:39)
[2021-02-17 06:03] LABS: Absolute Lymphocytes (CBC) 1.5 K/uL (0.7-4.9); Basophils % 0.6 % (0-1.3); Hematocrit 30.6 % (36.0-45.0); Lymphocytes % 10.1 % (15.3-44.8); RBC Red Blood Cell Count 4.19 M/uL (3.86-4.86)
[2021-02-17] MEDS: ONDANSETRON 4 MG/2 ML VIAL IV PRN ×2 (06:08→11:56)
[2021-02-17 06:20] LABS: Albumin 2.8 g/dL (3.4-5.0); Bilirubin Total 0.7 mg/dL (0.2-1.0); Magnesium 2.4 mg/dL (1.8-2.4); Potassium 3.5 mmol/L (3.5-5.1); Protein, Total 7.2 g/dL (6.4-8.2)
[2021-02-17 08:14] LABS: Anisocytosis SLIGHT; Blood Morphology Comment NOTED (NOT SEEN); Platelet Estimate ADEQ
[2021-02-17 08:15] LABS: Poikilocytosis SLIGHT
[2021-02-17] MEDS: HYDRALAZINE HCL 25 MG TABLET PO SCH ×2 (09:00→20:40)
[2021-02-17] MEDS: NEPRO SHAKE 237 ML CAN PO SCH ×2 (09:00→20:41)
[2021-02-17] MEDS: cloNIDine HCL 0.1 MG TAB PO SCH ×3 (09:00→20:41)
[2021-02-17] MEDS: DOXAZOSIN 2 MG TAB PO SCH ×2 (09:00→20:40)
[2021-02-17] MEDS: CALCITROL 0.25 MCG CAP PO SCH (09:00)
[2021-02-17] MEDS: FUROSEMIDE 40 MG TABLET PO SCH ×2 (09:00→17:38)
[2021-02-17] MEDS: VITAMIN D 5,000 UNIT CAP PO SCH (09:00)
--- NOTE | 2021-02-17 11:25 | P.PN ---
Subjective Date of Service: 02/17/21 Chief Complaint: ESRD seen/examined on dialysis. looks comfortable. mild confusion/? baseline. ua shows e. coli. nkda. start rocephin 1gram iv daily (one dose now). tolerating dialysis well. volume status good. hopefully, with dialysis and correction of uremia, her appetite will imrove. spoke with Amy at [facility]. patient should have chair available for pt once ready for discharge. she will let hospital know dialysis day/time. Physical Examination - Vital Signs Temperature: 98.2 F Blood Pressure: 130/62 Pulse: 92 Respirations: 20 Pulse Ox (%): 98 Assessment And Plan Physician Review Additional Text: Canceled the Note
[2021-02-17] MEDS: CEFTRIAXONE/SWI 1gm 1 GM/10 ML SYR IV SCH (11:30)
[2021-02-17] MEDS ORDERED: CEFTRIAXONE/SWI 1gm 1 GM/10 ML SYR IV SCH (12:00)
--- NOTE | 2021-02-17 13:02 | PN ---
Subjective: The patient is doing well. She is doing dialysis. Objective: Vital Signs: Blood pressure 130/62, pulse down to 92, temperature 98.2. Heart: The patient back in sinus rhythm. Regular rate and rhythm. Chest: Clear to auscultation. Abdomen: Soft, benign. Neurological: Alert, oriented. Grossly intact. Assessment And Plan: 1.End-stage renal failure. The patient is being dialyzed. Expect improvement gradual in her condit ion. Arrangements almost done for her to have an outpatient dialysis. Expect that to be carried and expect to be discharged the patient from the standpoint tomorrow from the hospital. 2.Urinary tract infection. The patient is on Rocephin. We will continue that and we will supplemen t with Augmentin on discharge. 3.Atrial fibrillation, now in sinus rhythm. Pending Cardiology input on that; however, she is back in sinus rhythm. I think we may have to put her on Eliquis small dose on discharge. The rest of her medical problems stable. Look orders for details. MFS/MODL Voice ID: [id number] Report ID: [id number]
[2021-02-18] MEDS: METOPROLOL TAR 50 MG TAB PO SCH ×2 (06:00→19:55)
[2021-02-18] MEDS: ONDANSETRON 4 MG/2 ML VIAL IV PRN (07:24)
[2021-02-18] MEDS: NEPRO SHAKE 237 ML CAN PO SCH (09:00)
[2021-02-18] MEDS: VITAMIN D 5,000 UNIT CAP PO SCH (09:00)
[2021-02-18] MEDS: DOXAZOSIN 2 MG TAB PO SCH ×2 (09:00→21:00)
[2021-02-18] MEDS: CEFTRIAXONE/SWI 1gm 1 GM/10 ML SYR IV SCH (09:00)
[2021-02-18] MEDS: cloNIDine HCL 0.1 MG TAB PO SCH ×3 (09:00→21:00)
[2021-02-18] MEDS: HYDRALAZINE HCL 25 MG TABLET PO SCH (09:00)
[2021-02-18] MEDS: CALCITROL 0.25 MCG CAP PO SCH (09:00)
[2021-02-18] MEDS: FUROSEMIDE 40 MG TABLET PO SCH ×2 (09:00→17:00)
[2021-02-18 10:37] LABS: Absolute Lymphocytes (CBC) 1.2 K/uL (0.7-4.9); Basophils % 0.1 % (0-1.3); Hematocrit 31.1 % (36.0-45.0); Lymphocytes % 12.9 % (15.3-44.8); MPV 9.4 fL (7.6-11.3); RBC Red Blood Cell Count 4.19 M/uL (3.86-4.86)
[2021-02-18 10:54] LABS: Potassium 3.5 mmol/L (3.5-5.1)
[2021-02-18] MEDS ORDERED: HYDRALAZINE HCL 20 MG/ML VIAL IV PRN (13:02)
[2021-02-18] MEDS ORDERED: D50W 25 GM/50 ML SYRINGE IV PRN (13:03)
[2021-02-18] MEDS ORDERED: D50W 25 GM/50 ML SYRINGE IV ONE (13:25)
--- NOTE | 2021-02-18 13:42 | RAD REPORT ---
EXAM DESCRIPTION: CT - Head Brain Wo Cont - 02/18/2021 1:29 pm CLINICAL HISTORY: change in mental status, left-sided facial droop and weakness COMPARISON: Head Brain Wo Cont dated 12/10/2020; Chest Single View dated 02/12/2021 TECHNIQUE: Axial 5 mm thick images of the head were obtained without IV contrast. All CT scans are performed using dose optimization technique as appropriate and may include automated exposure control or mA/KV adjustment according to patient size. FINDINGS: No intracranial hemorrhage, mass, edema or shift of mid-line structures. No right cerebral acute cortical based infarction seen that would explain left-sided symptoms. There is diminished att enuation in the posterior left occipital lobe that is potentially nonhemorrhagic CVA. This would not likely explain fully the constellation of symptoms noted in the history. Patient has advanced atrophy with ventricles in proportion. No abnormal extra-axial fluid collections. Advanced chronic ischemic change seen throughout the cerebral white matter less prominent chronic ischemic change in the basal ganglia, thalamus and brainstem tissues. Mastoid air cells and visualized portions of the paranasal sinuses are clear. No acute bony findings. Findings telephoned to the patient's nurse 1335 hours. IMPRESSION: No hemorrhage, mass or emergent intracranial finding identifiable. Diminished attenuation in the posteroinferior left occipital lobe is potentially nonhemorrhagic acute CVA but not likely the source for the patient's constellation of acute symptoms. Advanced atrophy and chronic ischemic changes are present. The chronic ischemic change could mask non hemorrhagic CVA. If it would alter patient management options, MR imaging of the brain could be performed for more sen sitive stroke assessment.
[2021-02-18] MEDS ORDERED: D5 0.45 NS 1,000 ML IV ONE (14:13)
[2021-02-18] MEDS ORDERED: NA CHLORIDE 0.9% 250 ML ONE ×2 (14:13→14:44)
--- NOTE | 2021-02-18 14:27 | PN ---
Date of Progress Note: 02/18/2021 Subjective: The patient is seen in room 222A. She is somnolent and opens her eyes to questioning, b ut is not able to communicate much or answer any questions. I spoke with son, Jed. He states that s he has been like this even before she came to the hospital, perhaps a little bit more lethargic today than she was when I saw her yesterday. The patient was unable to tolerate her dialysis yesterday. Her blood pressures were on the lower side. She was given a little bit of fluid to help her with mamae ntaining the blood pressure. With the fluid, the patient did reasonably well and blood pressures did improve. The patient did have a urine culture done that showed some E coli. The susceptibility rep ort came back okay for Rocephin and also for Augmentin. The plan was to start the patient on Rocephi n and then discharge her perhaps maybe today with Augmentin. However, the patient is looking a littl e bit more tired, more somnolent today. I have ordered a CBC and a basic metabolic panel stat on the patient to make sure she is not developing any sepsis or further increase in her white blood cell co unts with this urinary tract infection. Objective: Vital Signs: Her vitals are do seem stable. On evaluation of her vitals; blood pressure is 129/78, pulse is about 90-100. On my exam, the pulse was 80 and regular. Her respirations are a round 14 and comfortable. She is afebrile with a temperature running between the 97.6-98.8 range. H er O2 sats are 97% on room air. Lungs: Her lungs are clear anteriorly. Abdomen: Soft. Extremities: Reveal no edema. Heart: Sounds are regular. Laboratory Data: Reviewed. The patient's WBC count yesterday was 14.9, hemoglobin was 9.5, hematocr it was 30.6, platelet counts were 219. Chemistries yesterday were 139, potassium was 3.5, chloride w as 104, bicarb was 23, BUN was 47, creatinine was 5.3. Her glucose level yesterday was 139. On the lab work, albumin has been low at 2.8. Medications and chart reviewed. The patient has a dose of Ro cephin 1 g this morning and also got Rocephin 1 g yesterday. Her microbiology report showed E coli a nd the results of the culture and sensitivities showed that the organism is sensitive to Augmentin an d also sensitive to ceftriaxone. Assessment And Plan: Elderly female, age [age] years old with progressive renal failure, presents with uremic symptoms, change in mental status, but overall declining over period of time, not been eating or drinking well with severe protein-calorie malnutrition with an albumin below 3, also with some mil d confusion, change in mental status and found to have urinary tract infection with Escherichia coli. Started on antibiotics. At this point, the patient has quite a bit of general debility, unable to get out of bed on her own, unable to communicate and discuss her needs. Also, she is a fall risk. S he is not able to sit comfortably in a wheelchair either. 1.Urinary tract infection. At this point, the patient is on appropriate antibiotics. Check her CBC level to make sure that this is improving. She is afebrile, clinically looks reasonably stable, per haps a bit more somnolent compared to yesterday. This could just be from a local urinary tract infec tion; however, there was risk of sepsis and we need to monitor this. 2.End-stage renal disease. The patient has had a partial dialysis treatment yesterday, could not co mplete treatment due to low blood pressures that have improved now. She has already had 2 treatments over the last week. Clinically looking stable from that point of view. Volume status looks okay. Breathing is stable. She is afebrile. We will go ahead and check her chem-7 and plan for dialysis t omorrow morning assuming the patient is still in the hospital. She does have a chair time on Wednesday, Wednesday, Wednesday at [facility] at 10 a.m. Number and information have been give n to the family. Once the patient is stable for discharge, can be discharged with plans to follow up at [facility]. The patient will likely need ambulance to transport her given her significant debility, difficulty communication, difficulty sitting up in a chair, fall risk, and cur rently with also ongoing infection that will require p.o. antibiotics for several days. The patient is going to require EMT or a trained personnel to transport her, get her out of the ambulance, and ge t her back in the chair at the dialysis unit. If this worsens further, the patient may even benefit from a short-term rehabilitation and perhaps assessment from fpc. At this point, family is motivated to take the patient home with plans to transport her to dialysis unit through ambulance. I have discussed this with Jed, the son who is going to review with the foster care social worker in the hospital to see if arrangements can be made. 3.Severe protein-calorie malnutrition. Continue to encourage p.o. intake with aspiration precaution s. At this point, the patient has significantly low albumin. We will also try to use protein supple ments once the patient is stable further and able to take better p.o. intake and hopefully this condi tion will also improve as the patient gets more dialysis and her uremia corrects. Discussed the plan in detail and all these items with Jed in detail. Also advised him to update his sister, Courtney, radha d also his brother, Josiah. I have also discussed the patient's current condition with Jed and advi sed him that if this is going to be difficult for them to take care of at home, the patient may benef it from a rehabilitation stay or a fpc, but they are motivated and comfortable taking her ho me. She is not in atrial fibrillation currently, but has had atrial fibrillation at the stay. Tamika portillo has been on board and question if she is going to need any anticoagulation. Given the patient' s age and overall comorbidities and her overall cardiac condition, this is also going to be a tough d ecision. The patient is also a fall risk, overall frail and guarded condition. Hopefully will impro ve with antibiotics for the urinary tract infection and with dialysis. Also advised Jed about fall p recautions and to take ER warning seriously. If any change in condition after discharge, the patient will need to be reassessed quickly and abruptly we will get CBC and BMP today. Plan for dialysis to [facility] if the patient is still in the hospital, which I anticipate and then plan to follow up for marline lysis on Wednesday, Wednesday, Wednesday when the patient is stable to be discharged. /JD Voice ID: [id number] Report ID: [id number]
[2021-02-18 14:46] LABS: Magnesium 2.3 mg/dL (1.8-2.4); Potassium 3.7 mmol/L (3.5-5.1)
[2021-02-18 14:55] LABS: Absolute Lymphocytes (CBC) 1.5 K/uL (0.7-4.9); Basophils % 0.2 % (0-1.3); Hematocrit 28.8 % (36.0-45.0); Lymphocytes % 14.9 % (15.3-44.8); MPV 10.2 fL (7.6-11.3); RBC Red Blood Cell Count 3.93 M/uL (3.86-4.86)
--- NOTE | 2021-02-18 17:51 | RAD REPORT ---
EXAM DESCRIPTION: RAD - Abdomen 1 View (KUB) - 02/18/2021 5:20 pm CLINICAL HISTORY: dobhoff placement COMPARISON: No comparisons FINDINGS: Motion degraded study shows feeding tube placement. Stomach is decompressed. Tip is in the mid to distal stomach. No abnormal bend or kink of the tubing.
[2021-02-18] MEDS ORDERED: METOPROLOL TAR 50 MG TAB ONE (20:12)
--- NOTE | 2021-02-18 20:53 | PN ---
Subjective: The patient had a drop in her blood pressure down to systolic 70. She got confused. We ahead and did a stroke protocol for her and head CAT scan was done, showed no acute insult at this t hira. No hemorrhage or mass. The patient's blood pressure started going up and now her systolic is b ack up into the 180s. The patient herself will have some eye contact, but will not talk as much or c ommunicate, seems to move all her extremities, though. Objective: Vital Signs: As I said, her blood pressure was 184/90 and pulse was about 90. Heart: Regular rate. Chest: Clear to auscultation. Abdomen: Soft, benign. Neurologic: The patient will not communicate; however, she is alert. Moves all extremities. Laboratory Data: CBC had a hemoglobin of 9.1, hematocrit 28.8, white cell count 9.8, platelets 198. Her chemistry; BUN 45, creatinine 5.15. The patient on tele was in sinus rhythm. Assessment And Plan: 1.Hypertension with confusion. The patient has brittle hypertension. We went ahead and stopped her hydralazine and also her dialysis was not done today because of her blood pressure instability. We will monitor her and her vitals from that standpoint. 2.The patient is not eating as much. We will put a Dobhoff for nasogastric feeding to break down th e cycle of negative nitrogen balance and try to open up her appetite to where she could start her bet ter feeding. 3.Dialysis, end-stage renal disease. Plan as per Nephrology, monitoring her with the also her volum e and need for that. 4.Urinary tract infection. Continue ceftriaxone. Look orders for details. MFS/MODL Voice ID: [id number] Report ID: [id number]
[2021-02-19] MEDS ORDERED: NEPRO 1,000 ML BOT FT SCH (01:00)
[2021-02-19 05:21] LABS: Absolute Lymphocytes (CBC) 1.4 K/uL (0.7-4.9); Basophils % 0.2 % (0-1.3); Hematocrit 30.7 % (36.0-45.0); Lymphocytes % 16.9 % (15.3-44.8); MPV 9.7 fL (7.6-11.3); RBC Red Blood Cell Count 4.17 M/uL (3.86-4.86)
[2021-02-19 05:40] LABS: Potassium 3.5 mmol/L (3.5-5.1)
[2021-02-19] MEDS: METOPROLOL TAR 50 MG TAB PO SCH ×2 (06:00→17:04)
[2021-02-19] MEDS: ONDANSETRON 4 MG/2 ML VIAL IV PRN (09:31)
[2021-02-19] MEDS: CEFTRIAXONE/SWI 1gm 1 GM/10 ML SYR IV SCH (09:42)
[2021-02-19] MEDS ORDERED: ONDANSETRON 4 MG/2 ML VIAL ONE (09:49)
[2021-02-19] MEDS ORDERED: EPOETIN ALFA 10,000 UNIT/ML VIAL SQ ONE (09:57)
--- NOTE | 2021-02-19 09:59 | P.PN ---
Date of Service: 02/19/21 Vital Signs Temp Pulse Resp BP Pulse Ox 97.2 F 106 H 15 182/85 H 99 02/19/21 08:00 02/19/21 09:00 02/19/21 09:00 02/19/21 09:00 02/19/21 09:00 Medications Acetaminophen (Acetaminophen 500 Mg Tab) 500 mg PO Q6H PRN PRN Reason: TEMP > 100' F Calcitriol (Calcitrol 0.25 Mcg Cap) 0.5 mcg PO DAILY [facility] Last Admin: 02/18/21 09:00 Dose: Not Given Documented by: Cholecalciferol (Vitamin D 5,000 Unit Cap) 5,000 unit PO DAILY [facility] Last Admin: 02/18/21 09:00 Dose: Not Given Documented by: Clonidine HCl (Clonidine Hcl 0.1 Mg Tab) 0.1 mg PO TID [facility] Last Admin: 02/18/21 21:00 Dose: Not Given Documented by: Dextrose (D50w 25 Gm/50 Ml Syringe) 12.5 gm IV PRN PRN; Protocol PRN Reason: HYPOGLYCEMIA Doxazosin Mesylate (Doxazosin 2 Mg Tab) 2 mg PO BID [facility] Last Admin: 02/18/21 21:00 Dose: Not Given Documented by: Enteral Nutritional Formula (Nepro 1,000 Ml Bot) 30 ml FT CONT [facility] Last Admin: 02/18/21 20:00 Dose: 30 ml Documented by: Heparin Sodium (Porcine) (Heparin 1,000 Unit/Ml Vial) 6,000 unit IV EVERY HD PRN PRN Reason: AFTER EACH Last Admin: 02/14/21 14:15 Dose: 6,000 unit Documented by: Albumin Human (Albumin 25%) 50 mls @ 100 mls/hr IV EVERY HD [facility] Ceftriaxone Sodium/Sodium Chloride (Rocephin 1 Gm/10 Ml Swi Ivp) 1 gm in 10 mls @ 20 mls/hr IV DAILY [facility]; Protocol Last Admin: 02/19/21 09:42 Dose: 10 mls Documented by: Labetalol HCl (Labetalol 20 Mg/4ml Syringe) 20 mg IV Q4H PRN PRN Reason: Titrate to SBP (MUST DEFINE) Last Admin: 02/15/21 11:32 Dose: 20 mg Documented by: Lactulose (Lactulose 20 Gm/30 Ml Ucup) 10 gm PO DAILY PRN PRN Reason: CONSTIPATION Mannitol (Mannitol 25% 12.5 Gm/50 Ml Vial) 12.5 gm IV EVERY HD PRN PRN Reason: Titrate to SBP (MUST DEFINE) Metoprolol Tartrate (Metoprolol Tar 50 Mg Tab) 100 mg PO BID 6AM 6PM [facility] Last Admin: 02/19/21 06:00 Dose: Not Given Documented by: Ondansetron HCl (Ondansetron 4 Mg/2 Ml Vial) 4 mg IV Q8H PRN PRN Reason: NAUSEA / VOMITING Last Admin: 02/19/21 09:31 Dose: 4 mg Documented by: Sodium Chloride (Flush Normal Saline 10 Ml) 10 ml IV BID [facility] Last Admin: 02/19/21 09:00 Dose: 10 ml Documented by: Assessment/ Plan: Nephrology AMS improved this morning. Reports nausea. No acute events overnight. Vitals, medications, blood work and imaging reviewed in the chart. General: In no apparent distress, Cooperative HEENT: Atraumatic, Mucous membr. moist/pink Neck: Supple Respiratory: Clear to auscultation bilaterally Cardiovascular: Regular rate/rhythm, No rubs Gastrointestinal: Soft and benign, Non-distended, No rebound Musculoskeletal: No clubbing, No contractures Integumentary: No rashes, No cyanosis Neurological: Normal speech Blood work reviewed in the chart. Imagings Data: EXAM DESCRIPTION: RAD - Chest Single View - 02/12/2021 4:36 pm CLINICAL HISTORY: s/p HD catheter Chest pain. COMPARISON: Chest Single View dated 02/11/2021; Chest Single View dated 12/10/2020; Chest Single View dated 10/13/2019; Chest Single View dated 09/14/2019 FINDINGS: Portable technique limits examination quality. Right-sided venous catheter is in place with its tip in the SVC. No postprocedure pneumothorax. The heart is normal in size. IMPRESSION: No postprocedure pneumothorax. Conclusions/Impression: ESRD -Acute HD today -HBV panel negative HTN with CKD/ CHF -Continue Metoprolol and Doxazosin Diastolic CHF, chronic -Low sodium diet -Continue Lasix Moderate malnutrition -Encourage nutrition including protein supplementation -Continue Nepro -Start nephrovite Anemia in CKD -Continue Retacrit DEWEY/ Secondary HyperPTH -Continue Vitamin D3 and Calcitriol Acute E.coli Cystitis -Continue Rocephin Placement pending at the [facility] [place]. Recommend PT as tolerated.
[2021-02-19] MEDS ORDERED: CEFTRIAXONE/SWI 1gm 1 GM/10 ML SYR ONE (10:00)
--- NOTE | 2021-02-19 10:09 | RAD REPORT ---
EXAM DESCRIPTION: RAD - Abdomen 1 View (KUB) - 02/19/2021 7:29 am CLINICAL HISTORY: dobhoff placement Pain COMPARISON: Abdomen 1 View (KUB) dated 02/18/2021 FINDINGS: Tip of the enteric tube is in the stomach directed toward the distal stomach.
[2021-02-19] MEDS: cloNIDine HCL 0.1 MG TAB PO SCH ×3 (10:41→20:32)
[2021-02-19] MEDS: CALCITROL 0.25 MCG CAP PO SCH (10:41)
[2021-02-19] MEDS: VITAMIN D 5,000 UNIT CAP PO SCH (10:42)
[2021-02-19] MEDS: DOXAZOSIN 2 MG TAB PO SCH ×2 (10:42→20:33)
[2021-02-19] MEDS ORDERED: cloNIDine HCL 0.1 MG TAB ONE ×2 (10:47→20:19)
[2021-02-19] MEDS ORDERED: CALCITROL 0.25 MCG CAP PO ONE (10:47)
--- NOTE | 2021-02-19 12:01 | EKG ---
Test Date: 2021-02-18 Test Time: 13:53:08 Director Of Operations Home Health: ASHLEY MEASUREMENT RESULTS: Intervals: Rate: 151 AR: QRSD: 144 QT: 358 QTc: 567 [place]: P: AR: QRS: -38 T: 140 INTERPRETIVE STATEMENTS: Wide QRS tachycardia Left axis deviation Left bundle branch block Abnormal ECG Compared to ECG 02/14/2021 22:36:59 No significant changes Electronically Signed On 02-19-21 11:57:14 CDT by Mathew Bertrand
[2021-02-20] MEDS: ONDANSETRON 4 MG/2 ML VIAL IV PRN (01:10)
[2021-02-20] MEDS: METOPROLOL TAR 50 MG TAB PO SCH (05:04)
[2021-02-20 06:28] LABS: Absolute Lymphocytes (CBC) 1.4 K/uL (0.7-4.9); Basophils % 0.4 % (0-1.3); Hematocrit 29.8 % (36.0-45.0); Lymphocytes % 14.2 % (15.3-44.8); MPV 9.2 fL (7.6-11.3); RBC Red Blood Cell Count 4.07 M/uL (3.86-4.86)
[2021-02-20 06:56] LABS: Albumin 2.4 g/dL (3.4-5.0); Bilirubin Total 0.6 mg/dL (0.2-1.0); C-Reactive Protein 28.7 mg/L (<3.00); Magnesium 2.1 mg/dL (1.8-2.4); Phosphorus 2.1 mg/dL (2.5-4.9); Potassium 3.1 mmol/L (3.5-5.1); Protein, Total 6.3 g/dL (6.4-8.2); Uric Acid 3.4 mg/dL (2.6-6.0)
[2021-02-20] MEDS ORDERED: MULTIVITAMINS,THERAPEUT 1 TAB PO SCH (09:00)
[2021-02-20] MEDS: VITAMIN D 5,000 UNIT CAP PO SCH (09:00)
[2021-02-20] MEDS: DOXAZOSIN 2 MG TAB PO SCH (09:00)
[2021-02-20] MEDS: CALCITROL 0.25 MCG CAP PO SCH (09:00)
[2021-02-20] MEDS: cloNIDine HCL 0.1 MG TAB PO SCH (09:00)
[2021-02-20] MEDS ORDERED: POTASSIUM 25 MEQ EFFERV TAB FT ONE (09:10)
[2021-02-20] MEDS: CEFTRIAXONE/SWI 1gm 1 GM/10 ML SYR IV SCH (10:05)
--- NOTE | 2021-02-20 10:44 | RAD REPORT ---
EXAM DESCRIPTION: RAD - Abdomen 1 View (KUB) - 02/20/2021 10:26 am CLINICAL HISTORY: Persistent abdominal pain Pain COMPARISON: Abdomen 1 View (KUB) dated 02/19/2021; Abdomen 1 View (KUB) dated 02/18/2021 FINDINGS: Tip of the enteric tube is in the distal stomach directed towards duodenum.
[2021-02-20 11:45] VITALS: O2SAT 99
[2021-02-20 12:09] VITALS: TEMP 97.2
--- NOTE | 2021-02-20 14:56 | PN ---
Date of Progress Note: 02/17/2021 Ms. Root was admitted to Dr. Vega, has been followed by Dr. Patton since 02/15/2021 for history of CHF, COPD, dyslipidemia, hypertension, renal insufficiency requiring dialysis. He also was noted to have atrial fibrillation with left bundle-branch block, rapid ventricular response. Lopressor wa s increased to 100 mg twice a day. She keeps having recurrent atrial fibrillation. Amiodarone is re commended. Low-dose Eliquis 2.5 mg b.i.d. is recommended. Her heart rate was 116. Blood pressure w as 148/78. Last creatinine is 5.15. Last hemoglobin is 9.1. Her troponin is 0.16 consistent with a trial fibrillation, renal failure and congestive heart failure. No need for any cardiac invasive wor kup. I will continue the metoprolol, start p.o. amiodarone 400 b.i.d. I will discuss the case furth er with admitting physician. SALLIE/JD Voice ID: [id number] Report ID: [id number]
[2021-02-20 15:37] VITALS: BP 145/74
--- NOTE | 2021-02-20 15:44 | P.PN ---
Date of Service: 02/20/21 Vital Signs Temp Pulse Resp BP Pulse Ox 97.2 F 88 18 145/74 H 99 02/20/21 12:00 02/20/21 14:00 02/20/21 12:00 02/20/21 14:00 02/20/21 12:00 Assessment/ Plan: Nephrology Mild, intermittent abdominal pain. Fatigue No acute events overnight. Vitals, medications, blood work and imaging reviewed in the chart. General: In no apparent distress, Cooperative HEENT: Atraumatic, Mucous membr. moist/pink Neck: Supple Respiratory: Clear to auscultation bilaterally Cardiovascular: Regular rate/rhythm, No rubs Gastrointestinal: Soft and benign, Non-distended, No rebound Musculoskeletal: No clubbing, No contractures Integumentary: No rashes, No cyanosis Neurological: Normal speech Blood work reviewed in the chart. Imagings Data: EXAM DESCRIPTION: RAD - Chest Single View - 02/12/2021 4:36 pm CLINICAL HISTORY: s/p HD catheter Chest pain. COMPARISON: Chest Single View dated 02/11/2021; Chest Single View dated 12/10/2020; Chest Single View dated 10/13/2019; Chest Single View dated 09/14/2019 FINDINGS: Portable technique limits examination quality. Right-sided venous catheter is in place with its tip in the SVC. No postprocedure pneumothorax. The heart is normal in size. IMPRESSION: No postprocedure pneumothorax. Conclusions/Impression: ESRD -Next HD Wednesday -HBV panel negative Hypokalemia -Give oral potassium HTN with CKD/ CHF -Continue Metoprolol and Doxazosin Diastolic CHF, chronic -Low sodium diet -Continue Lasix Moderate malnutrition -Encourage nutrition including protein supplementation -Continue Nepro -Continue nephrovite Anemia in CKD -Continue Retacrit DEWEY/ Secondary HyperPTH -Continue Vitamin D3 and Calcitriol Acute E.coli Cystitis -Continue Rocephin Abdominal pain -Stat KUB today -Removed NGT today if negative KUB Placement pending at the [facility]. Recommend PT as tolerated.
== END 2021-02-20 14:45 | disposition home health service (06) | DRG 673 ==
LOC: ER 11:23 → ERHOLD 13:11 → 2ND 18:25 → ERHOLD 02-18 14:53 → 2ND 02-20 00:18 → 4TH 02-20 00:59
PROVIDERS: ADMIT Internal Medicine; ATTEND Internal Medicine
PROC: 02HV33Z Insertion of Infusion Device into Superior Vena Cava, Percutaneous Approach (ICD-10-PCS; 2021-02-12)
PROC: B5181ZA Fluoroscopy of Superior Vena Cava using Low Osmolar Contrast, Guidance (ICD-10-PCS; 2021-02-12)
PROC: 5A1D70Z Performance of Urinary Filtration, Intermittent, Less than 6 Hours Per Day (ICD-10-PCS; 2021-02-12)
PROC: 0JH63XZ Insertion of Tunneled Vascular Access Device into Chest Subcutaneous Tissue and Fascia, Percutaneous Approach (ICD-10-PCS; principal; 2021-02-12 13:00)
DX: N17.9 Acute kidney failure, unspecified (principal); E43 Unspecified severe protein-calorie malnutrition; I13.2 Hypertensive heart and chronic kidney disease with heart failure and with stage 5 chronic kidney disease, or end stage renal disease; I50.32 Chronic diastolic (congestive) heart failure; N30.00 Acute cystitis without hematuria; N18.6 End stage renal disease; J44.9 Chronic obstructive pulmonary disease, unspecified; N25.0 Renal osteodystrophy; E87.6 Hypokalemia; I48.91 Unspecified atrial fibrillation; I44.7 Left bundle-branch block, unspecified; N25.81 Secondary hyperparathyroidism of renal origin; D63.1 Anemia in chronic kidney disease; E78.5 Hyperlipidemia, unspecified; K21.9 Gastro-esophageal reflux disease without esophagitis; B96.20 Unspecified Escherichia coli [E. coli] as the cause of diseases classified elsewhere; Z68.27 Body mass index [BMI] 27.0-27.9, adult; Z79.899 Other long term (current) drug therapy; Z90.710 Acquired absence of both cervix and uterus; Z20.822 Contact with and (suspected) exposure to COVID-19; Z78.1 Physical restraint status
CPT/HCPCS: 36415; 70450; 71045; 74018; 76000; 80048; 80053; 80074; 80076; 81003; 81015; 82947; 83605; 83735; 83880; 84100; 84145; 84484; 84550; 85025; 85610; 85652; 86140; 86317; 87077; 87086; 87088; 87186; 90935; 93005; 99285; C1752; J0360; J0690; J0696; J1644; J2405; J2704; J3010; J7040; J7050; J7120; J7799; Q5105; U0003

== ENCOUNTER 2021-02-21 13:20 | Observation (INO) | payer OTHER ==
[2021-02-21] MEDS ORDERED: WATER FOR INJ,STERILE 10 ML IV SCH ×2 (15:00)
[2021-02-21] MEDS ORDERED: ALTEPLASE 2 MG/VIAL IV SCH ×2 (15:00)
--- NOTE | 2021-02-21 16:36 | RAD REPORT ---
[facility]23 [facility] CLINICAL HISTORY: Assess catheter position FINDINGS: Central venous catheter has its tip in the superior vena cava.
--- NOTE | 2021-02-21 16:43 | ER ---
Nurse's Notes [facility] Name: Camelia Root Age: 85 yrs Sex: Female : 1935 Arrival Date: 02/21/2021 Time: 13:38 Bed 20 Private MD: Diagnosis: Mechanical complication of vascular dialysis catheter Presentation: 02/21 13:38 Chief complaint: EMS states: "clogged dialysis port. no other complaint.". Coronavirus jd3 screen: At this time, the client does not indicate any symptoms associated with coronavirus-19. Ebola Screen: Patient negative for fever greater than or equal to 101.5 degrees Fahrenheit, and additional compatible Ebola Virus Disease symptoms. Initial Sepsis Screen: Does the patient meet any 2 criteria? No. Patient's initial sepsis screen is negative. Does the patient have a suspected source of infection? No. Patient's initial sepsis screen is negative. Risk Assessment: Do you want to hurt yourself or someone else? Patient reports no desire to harm self or others. Onset of symptoms was February 21, 2021. 13:38 Method Of Arrival: EMS: [facility] jd3 13:38 Acuity: SILVINO 4 jd3 Historical: - Allergies: 13:42 No Known Allergies; jd3 - Home Meds: 13:42 clonidine HCl 0.1 mg Oral tab 3 times per day [Active]; doxazosin 2 mg Oral tab 1 tab jd3 twice a day [Active]; furosemide 40 mg Oral tab 1 tab 2 times per day [Active]; Lumigan 0.01 % ophthalmic drop [Active]; metoprolol tartrate 50 mg Oral tab 2 tabs every evening [Active]; Vitamin D3 Oral [Active]; - PMHx: 13:42 Arthritis; CHF; GERD; High Cholesterol; Hypertension; lyphedema; Renal Disease; jd3 - Immunization history:: Adult Immunizations unknown. - Social history:: Smoking status: Patient denies any tobacco usage or history of. Screenin:49 Abuse screen: Denies threats or abuse. Nutritional screening: No deficits noted. jd3 Tuberculosis screening: No symptoms or risk factors identified. Fall Risk Ambulatory Aid- None/Bed Rest/Nurse Assist (0 pts). Gait- Normal/Bed Rest/Wheelchair (0 pts) Mental Status- Oriented to own ability (0 pts). Total P[place]ra Fall Scale indicates No Risk (0-24 pts). Assessment: 14:30 General: Appears in no apparent distress. comfortable, Behavior is calm, cooperative, jd3 appropriate for age. Pain: Denies pain. Neuro: Level of Consciousness is awake, alert, obeys commands, Oriented to person, place, situation. Cardiovascular: Capillary refill < 3 seconds Patient's skin is warm and dry. dialysis site noted to left chest wall. dressing is clean and dry.. Respiratory: Airway is patent Respiratory effort is even, unlabored, Respiratory pattern is regular, symmetrical, Denies cough, shortness of breath. GI: No signs and/or symptoms were reported involving the gastrointestinal system. : No signs and/or symptoms were reported regarding the genitourinary system. EENT: No signs and/or symptoms were reported regarding the EENT system. Derm: Skin is intact, Skin is dry, Skin is normal, Skin temperature is warm. Musculoskeletal: Circulation, motion, and sensation intact. Range of motion: intact in all extremities. 15:30 Reassessment: Patient appears in no apparent distress at this time. Patient and/or jd3 family updated on plan of care and expected duration. Pain level reassessed. Patient is alert, oriented x 3, equal unlabored respirations, skin warm/dry/pink. dialysis sight to the pt's left chest flushes and pulls freely. dressing is clean and dry. 17:08 Reassessment: Patient appears in no apparent distress at this time. No changes from jd3 previously documented assessment. Patient and/or family updated on plan of care and expected duration. Pain level reassessed. Patient is alert, oriented x 3, equal unlabored respirations, skin warm/dry/pink. 18:30 Reassessment: Patient appears in no apparent distress at this time. Patient and/or jd3 family updated on plan of care and expected duration. Pain level reassessed. Patient is alert, oriented x 3, equal unlabored respirations, skin warm/dry/pink. awaiting hospitalization. 19:00 Reassessment: Patient appears in no apparent distress at this time. Patient and/or jd3 family updated on plan of care and expected duration. Pain level reassessed. Patient is alert, oriented x 3, equal unlabored respirations, skin warm/dry/pink. report given to Ramesh RN. 19:15 Reassessment: Patient appears in no apparent distress at this time. Patient and/or ad5 family updated on plan of care and expected duration. Pain level reassessed. Patient is alert, oriented x 3, equal unlabored respirations, skin warm/dry/pink. Pt resting comfortably in stretcher, resp with ease. Family at bedside. Updated to plan of care, questions/concerns addressed. Vital Signs: 13:42 BP 167 / 79; Pulse 86; Resp 18 S; Pulse Ox 100% on R/A; Pain 0/10; jd3 15:48 BP 165 / 80; Pulse 88; Resp 17 S; Pulse Ox 100% on R/A; jd3 17:08 BP 175 / 78; Pulse 91; Resp 16 S; Pulse Ox 100% on R/A; jd3 18:30 BP 172 / 83; Pulse 88; Resp 16 S; Pulse Ox 96% on R/A; jd3 20:13 BP 161 / 84; Pulse 87; Resp 14 S; Pulse Ox 100% ; Pain 0/10; ad5 20:52 BP 176 / 82; Pulse 95; Resp 16; Pulse Ox 99% on R/A; ad5 ED Course: 13:38 Patient arrived in ED. jd3 13:40 Triage completed. jd3 13:40 Wai Palmer PA is PHCP. jr8 13:40 Andre Howard MD is Attending Physician. jr8 13:43 Arm band placed on. jd3 14:22 Nolan Dutton RN is Primary Nurse. jd3 15:49 Patient has correct armband on for positive identification. Bed in low position. Call jd3 light in reach. Side rails up X2. Adult w/ patient. Pulse ox on. NIBP on. 16:23 XRAY Chest (1 view) In Process Unspecified. EDMS 16:42 John Vega MD is Hospitalizing Provider. jr8 17:08 Inserted saline lock: 22 gauge in right antecubital area, using aseptic technique. jd3 Blood collected. 20:13 COVID-19 : Document "Date of Symptom Onset" if Symptomatic. Sent. ad5 21:33 No provider procedures requiring assistance completed. Patient admitted, IV remains in ad5 place. Administered Medications: 15:45 Not Given (Physician Discretion): Cathflo Activase 2 mg IV Thrombolytics once; into jd3 each catheter lumen, may repeat once Outcome: 16:42 Decision to Hospitalize by Provider. sofia 21:33 Admitted to Med/surg accompanied by tech, via stretcher, Report called to Jodi RUSSO ad5 21:33 Condition: stable 21:33 Instructed on the need for admit, Demonstrated understanding of instructions. 21:34 Patient left the ED. ad5 Signatures: Dispatcher [employer] EDMS Wai Palmer PA PA jr8 Nolan Dutton RN RN jd3 Ramesh Avalos ad5 Corrections: (The following items were deleted from the chart) 15:49 14:30 Neuro: Level of Consciousness is awake, alert, obeys commands, Oriented to jd3 person, place, time, situation, jd3 19:31 19:30 BP 172 / 83; Pulse 88bpm; Resp 16bpm; Spontaneous; Pulse Ox 96% RA; jd3 jd3
--- NOTE | 2021-02-21 16:43 | EDPHYS ---
Physician Documentation [facility] Name: Camelia Root Age: 85 yrs Sex: Female : 1935 Arrival Date: 02/21/2021 Time: 13:38 Bed 20 Private MD: ED Physician Andre Howard HPI: 02/21 14:44 This 85 yrs old Black Female presents to ER via EMS with complaints of Dialysis shunt jr8 malfunction. 14:44 The patient has a dialysis catheter in the right subclavian area. Type of problem: jr8 clotted. Onset: The symptoms/episode began/occurred acutely, today. The malfunction was discovered at the dialysis center. Dialysis schedule: . Associated signs and symptoms: Pertinent positives: None. It is unknown whether or not the patient has had similar symptoms in the past. The patient has not recently seen a physician. Historical: - Allergies: 13:42 No Known Allergies; jd3 - Home Meds: 13:42 clonidine HCl 0.1 mg Oral tab 3 times per day [Active]; doxazosin 2 mg Oral tab 1 tab jd3 twice a day [Active]; furosemide 40 mg Oral tab 1 tab 2 times per day [Active]; Lumigan 0.01 % ophthalmic drop [Active]; metoprolol tartrate 50 mg Oral tab 2 tabs every evening [Active]; Vitamin D3 Oral [Active]; - PMHx: 13:42 Arthritis; CHF; GERD; High Cholesterol; Hypertension; lyphedema; Renal Disease; jd3 - Immunization history:: Adult Immunizations unknown. - Social history:: Smoking status: Patient denies any tobacco usage or history of. ROS: 14:44 Constitutional: Negative for fever, chills, and weight loss, Cardiovascular: Negative jr8 for chest pain, palpitations, and edema, Respiratory: Negative for shortness of breath, cough, wheezing, and pleuritic chest pain, Abdomen/GI: Negative for abdominal pain, nausea, vomiting, diarrhea, and constipation, Neuro: Negative for headache, weakness, numbness, tingling, and seizure. 14:44 All other systems are negative. Exam: 14:44 Eyes: Pupils equal round and reactive to light, extra-ocular motions intact. Lids and jr8 lashes normal. Conjunctiva and sclera are non-icteric and not injected. Cornea within normal limits. Periorbital areas with no swelling, redness, or edema. ENT: Nares patent. No nasal discharge, no septal abnormalities noted. Tympanic membranes are normal and external auditory canals are clear. Oropharynx with no redness, swelling, or masses, exudates, or evidence of obstruction, uvula midline. Mucous membranes moist. Cardiovascular: Regular rate and rhythm with a normal S1 and S2. No gallops, murmurs, or rubs. Normal PMI, no JVD. No pulse deficits. Respiratory: Lungs have equal breath sounds bilaterally, clear to auscultation and percussion. No rales, rhonchi or wheezes noted. No increased work of breathing, no retractions or nasal flaring. Abdomen/GI: Soft, non-tender, with normal bowel sounds. No distension or tympany. No guarding or rebound. No evidence of tenderness throughout. Skin: Warm, dry with normal turgor. Normal color with no rashes, no lesions, and no evidence of cellulitis. MS/ Extremity: Pulses equal, no cyanosis. Neurovascular intact. Full, normal range of motion. Neuro: Awake and alert, GCS 15, oriented to person, place, time, and situation. Motor strength 5/5 in all extremities. Sensory grossly intact. Vital Signs: 13:42 BP 167 / 79; Pulse 86; Resp 18 S; Pulse Ox 100% on R/A; Pain 0/10; jd3 15:48 BP 165 / 80; Pulse 88; Resp 17 S; Pulse Ox 100% on R/A; jd3 17:08 BP 175 / 78; Pulse 91; Resp 16 S; Pulse Ox 100% on R/A; jd3 18:30 BP 172 / 83; Pulse 88; Resp 16 S; Pulse Ox 96% on R/A; jd3 20:13 BP 161 / 84; Pulse 87; Resp 14 S; Pulse Ox 100% ; Pain 0/10; ad5 20:52 BP 176 / 82; Pulse 95; Resp 16; Pulse Ox 99% on R/A; ad5 MDM: 13:40 Patient medically screened. jr8 16:40 Data reviewed: vital signs, nurses notes, lab test result(s), radiologic studies, plain jr8 films. Data interpreted: Pulse oximetry: on room air is 100 %. Interpretation: normal. Counseling: I had a detailed discussion with the patient and/or guardian regarding: the historical points, exam findings, and any diagnostic results supporting the discharge/admit diagnosis, lab results, radiology results, the need for further work-up and treatment in the hospital. ED course: Spoke to Dr. Herrera about case after she was transferred here from dialysis center. Sounds like either collapsing of venous system vs catheter malfunction. Dr. Herrera wants her obs for Dr. Gannon to evaluate who said he would. 02/21 16:40 Order name: CBC with Diff rust 02/21 16:40 Order name: Basic Metabolic Panel; Complete Time: 17:50 rust 02/21 16:42 Order name: CBC with Automated Diff; Complete Time: 17:50 [facility] 02/21 17:14 Order name: COVID-19 : Document "Date of Symptom Onset" if Symptomatic. 02/21 17:34 Order name: CBC Smear Scan; Complete Time: 17:50 [facility] 02/21 20:25 Order name: SARS-COV-2 RT PCR; Complete Time: 21:10 [facility] 02/21 15:45 Order name: XRAY Chest (1 view); Complete Time: 16:40 [facility] 02/21 16:40 Order name: IV; Complete Time: 17:07 rust 02/21 17:15 Order name: CONS Physician Consult EDKS Administered Medications: 15:45 Not Given (Physician Discretion): Cathflo Activase 2 mg IV Thrombolytics once; into jd3 each catheter lumen, may repeat once Disposition: 02/22 09:52 Co-signature as Attending Physician, Andre Howard MD I agree with the assessment and kdr plan of care. Disposition: 02/21/21 16:42 Hospitalization ordered by John Vega for Observation. Preliminary diagnosis is Mechanical complication of vascular dialysis catheter. - Bed requested for Telemetry/MedSurg (observation). - Status is Observation. ad5 - Condition is Stable. - Problem is new. - Symptoms are unchanged. Signatures: Dispatcher [employer] EDKS Andre Howard MD MD kdr Roszak, Josh, PA PA jr8 Nolan Dutton RN RN jd3 Priya Boles Andrea ad5 Corrections: (The following items were deleted from the chart) 02/21 18:16 16:42 Hospitalization Ordered by John Vega MD for Observation. Preliminary eb diagnosis is Mechanical complication of vascular dialysis catheter. Bed requested for Telemetry/MedSurg (observation). Status is Observation. Condition is Stable. Problem is new. Symptoms are unchanged. jr8 18:17 18:16 02/21/2021 16:42 Hospitalization Ordered by John Vega MD for Observation. eb Preliminary diagnosis is Mechanical complication of vascular dialysis catheter. Bed requested for Telemetry/MedSurg (observation). Status is Observation. Condition is Stable. Problem is new. Symptoms are unchanged. eb 21:34 18:17 02/21/2021 16:42 Hospitalization Ordered by John Vega MD for Observation. ad5 Preliminary diagnosis is Mechanical complication of vascular dialysis catheter. Bed requested for Telemetry/MedSurg (observation). Status is Observation. Condition is Stable. Problem is new. Symptoms are unchanged. eb
[2021-02-21 17:14] LABS: Absolute Lymphocytes (CBC) 2.7 K/uL (0.7-4.9); Basophils % 0.3 % (0-1.3); Hematocrit 29.6 % (36.0-45.0); Lymphocytes % 23.7 % (15.3-44.8); MPV 9.2 fL (7.6-11.3); RBC Red Blood Cell Count 3.94 M/uL (3.86-4.86)
[2021-02-21 17:33] LABS: Blood Morphology Comment NOT SEEN (NOT SEEN); Platelet Estimate ADEQ; White Blood Cell Scan OK (OK)
[2021-02-21 17:39] LABS: Potassium 4.6 mmol/L (3.5-5.1)
[2021-02-21] MEDS ORDERED: ONDANSETRON 4 MG/2 ML VIAL IV PRN (22:08)
[2021-02-21] MEDS ORDERED: ACETAMINOPHEN 500 MG TAB PO PRN (22:08)
[2021-02-21 23:02] VITALS: BMI 22.7
[2021-02-21] MEDS ORDERED: DOXAZOSIN 2 MG TAB PO ONE (23:52)
[2021-02-21] MEDS ORDERED: METOPROLOL TAR 50 MG TAB PO ONE (23:52)
[2021-02-22 06:16] LABS: Absolute Lymphocytes (CBC) 1.3 K/uL (0.7-4.9); Basophils % 0.3 % (0-1.3); Hematocrit 31.4 % (36.0-45.0); Lymphocytes % 14.6 % (15.3-44.8); MPV 9.6 fL (7.6-11.3); RBC Red Blood Cell Count 4.16 M/uL (3.86-4.86)
[2021-02-22 06:21] LABS: Potassium 4.3 mmol/L (3.5-5.1)
[2021-02-22] MEDS: AMOX/K CLAV 500 MG TAB PO SCH ×2 (09:00→20:59)
[2021-02-22] MEDS: APIXABAN 2.5 MG TABLET PO SCH ×2 (09:00→20:58)
[2021-02-22] MEDS: DOXAZOSIN 2 MG TAB PO SCH ×2 (10:01→20:58)
[2021-02-22] MEDS: cloNIDine HCL 0.1 MG TAB PO SCH ×3 (10:02→20:58)
[2021-02-22] MEDS: METOPROLOL TAR 50 MG TAB PO SCH ×2 (10:02→20:59)
[2021-02-22] MEDS ORDERED: NA CHLORIDE 0.9% 500 ML ONE (11:58)
[2021-02-22] MEDS ORDERED: VITAMIN D 5,000 UNIT CAP PO SCH (12:00)
[2021-02-22] MEDS ORDERED: HEPARIN 5000 UNIT/ML 1 ML VIAL ONE (12:02)
[2021-02-22] MEDS ORDERED: NS 0.9% VIAL 10 ML ONE (12:02)
[2021-02-22] MEDS ORDERED: NA CHLORIDE 0.9% 100 ML IV ONE (12:02)
[2021-02-22] MEDS ORDERED: LIDOCAINE 1% MPF 30 ML VIAL ONE (12:03)
[2021-02-22] MEDS ORDERED: CEFAZOLIN/SWI 1gm 1 GM/10 ML SYR ONE (12:18)
[2021-02-22] MEDS ORDERED: SUCCINYLCHOLINE 20 MG/ML (10 ML) IV ONE (12:20)
[2021-02-22] MEDS ORDERED: GLYCOPYRROLATE 0.2 MG/ML SYR ONE (12:25)
[2021-02-22] MEDS ORDERED: Phenylephrine HCl 10 MG/ML 1 ML VIAL ONE (12:25)
[2021-02-22] MEDS ORDERED: propofoL 200 MG/20 ML VIAL IV ONE (12:25)
--- NOTE | 2021-02-22 13:18 | P.BOP ---
Preoperative diagnosis: ESRD Postoperative diagnosis: same Primary procedure: 1. Placement of new Hemosplit HD tunneled catheter Secondary procedure: 2. Interpretation of fluoroscopy Other procedure(s): 3. Removal of nonfuntional HD catheter Estimated blood loss: <10cc Specimen: none Findings: as above Anesthesia: General Complications: None Transferred to: Recovery Room Condition: Good
--- NOTE | 2021-02-22 14:14 | RAD REPORT ---
EXAM DESCRIPTION: RAD - Fluoroscopy <1 Hour - 02/22/2021 1:15 pm CLINICAL HISTORY: Device placement central venous catheter placement FINDINGS: A central venous catheter was placed into the superior vena cava. Twenty-two fluoroscopic spot images are submitted. The examination was performed by Dr. Gannon. Fluoroscopy time 3.7 minutes
--- NOTE | 2021-02-22 14:15 | RAD REPORT ---
[facility]57 [facility] CLINICAL HISTORY: Device placement/central venous catheter placement IMPRESSION: Central venous catheter has been placed into the superior vena cava. No pneumothorax
--- NOTE | 2021-02-22 16:07 | CON ---
Date of Consultation: 02/21/2021 Reason For Consult: Revision of hemodialysis catheter. History Of Present Illness: This is a case of an 85-year-old patient. Unfortunately, she has histor y of renal failure and received hemodialysis several weeks ago. Catheter was placed then. It was wo rking fine. In the last few days, it is not working properly. They were trying to use Cathflo, tryi ng to improve the circulation twice, but it has been unsuccessful limiting her hemodialysis. Dr. Liban jarvis, the renal doctor asked me to see if I can remove the catheter and put a new 1 in to see if they can improve the dialysis. They are not ready for peripheral access yet. The past medical history, past surgery, allergies, family history, social habits see my previous cons ult. Review of Systems: Most of the information is obtained from the patient's son since the patient cannot give much informa tion, but there is no short of breath, no chest pain, no fever at this moment. A 10 points otherwise unremarkable. Physical Examination: General: The patient is awake, alert. HEENT: Pupils anicteric. Neck: Supple. Chest: Clear. There is a hemodialysis catheter on the right side coming from the chest inserting on the neck region. No evidence of cellulitis. The catheter seems to be intact. No open wounds. No drainage. Abdomen: Soft and depressible. Extremities: Good capillary refill. Laboratory Data: Blood work shows a WBC count of 11 with hemoglobin of 8.9 and potassium 4.6, creati nine is 5, BUN is 52. Assessment: An 85-year-old patient need a new hemodialysis catheter. The benefits, alternatives, an d risks of placement fully explained to the patient and patient's son, which include, but not limited to infection, bleeding, damage to adjacent structures, anesthesia complication, pneumothorax, hemoth orax, DVTs, PE, DE, and even . She also understood this may not relieve symptoms. She might ne ed more than one surgical intervention. She also understand this is a temporary catheter. It is imp ortant as soon as the renal doctor believes it is galaviz to try to get the formal hemodialysis catheter in the periphery. HM/MODL Voice ID: [id number] Report ID: [id number]
--- NOTE | 2021-02-22 16:07 | OP ---
Date of Procedure: 02/22/2021 Surgeon: Bandar Gannon MD Preoperative Diagnosis: End-stage renal disease. Postoperative Diagnosis: End-stage renal disease. Procedures Performed: 1.Placement of a new HemoSplit hemodialysis catheter tunnel. 2.Interpretation of fluoroscopy. 3.Removal of nonfunctional hemodialysis catheter. Anesthesia: General plus local. Estimated Blood Loss: Less than 10 mL. Complications: None. Indication: This is the case of a female, who comes to us in need of a hemodialysis catheter. The p revious catheter is not working anymore and they want it to remove and replace with a new one. The b enefits, alternatives, and risks of removal of previous one and placement of a new catheter were full y explained to the patient and son, which include, but not limited to infection, bleeding, damage to adjacent structures, anesthesia complication, pneumothorax, hemothorax, PE, DVT, TX, and even . She also understands this may not relieve any symptoms. This is a temporary catheter and she may ne ed more than one surgical intervention. They understood, signed a consent. The patient agreed. Description Of Procedure: The patient was brought to the operating room, placed in supine position. Anesthesia was done without complication. The right chest and neck were prepped and draped in a renea rile fashion. The patient was placed in Trendelenburg position. A small incision was made in the [facility] upper neck. The previous catheter was then identified and secured proximal and distal. The cath eter was then . The distal end was removed, holding the proximal end. A guidewire was pas sed through. Catheter was removed. Guidewire was guided into superior vena cava using fluoroscopy g wen. The previous catheter was completely removed both sides. After that, I tunneled a new cath eter from the right upper chest into the right neck region. Serial dilators were placed through the guidewire with fluoroscopy guidance until we have introducer sheath. Guidewire was removed. Cathete r was placed in. Introducer sheath was peeled off. Excellent backflow and inflow. The line was sec ured in place with 3-0 nylon and subcutaneous tissue was closed with 3-0 chromic and the line was flu shed with heparinized solution. The patient tolerated the procedure well. Patient was brought back to normal from Trendelenburg and then after that, covered with sterile dressings and then the previou s opening area was left to close by secondary intention with triple antibiotics and then the area was covered. The patient tolerated the procedure well. Patient was sent to Recovery in stable conditio n and a chest x-ray ordered stat. KITTY/JD Voice ID: [id number] Report ID: [id number]
--- NOTE | 2021-02-22 19:10 | CON ---
History Of Present Illness: The patient is admitted to [facility] in room 431. The joe gayle is currently down finishing a procedure for getting her tunneled dialysis catheter placed. The patient seems to be in reasonable stability with her vitals that I am reviewing on the chart. The donna townsend is currently not in the room and still either in the OR or just in the waiting area and is anti cipated back up on the floor in the next hour or so. I have spoken in detail with Jed, the patient's son who is by the room. We sat down. We had a good discussion regarding plan and the patient's cur rent condition. Also, we got Courtney, who is the patient's daughter on the phone and we discussed the plan. The patient has a blood pressure was documented in the chart. This morning was 130/56, pulse 79, respirations around 18, temperature afebrile at 96.9, pain level of 0, O2 saturation of 100%. S peaking with the nurse, the patient has been able to answer questions and give answers appropriately as she has been comfortable. Laboratory Work: The patient's labs show WBC of 9.2, hemoglobin 9.8, hematocrit 31.4, platelet count of 184. Chemistry shows sodium 138, potassium 4.3, chloride 106, bicarb is 23, BUN 56, creatinine 5 .41, glucose 98, calcium 9.7. Assessment And Plan: 1.The patient was recently initiated on dialysis. She has been very weak and has general debility, has had very poor p.o. intake and has had protein calorie malnutrition, which has been quite severe. Her BUN and creatinine currently is 56 and 5.4, estimated GFR based on this is about 9 and it is act ually lower because she has actually gotten some dialysis treatments and the creatinine is not in renea abdirizak state. The patient was admitted to the dialysis unit, needed ambulance transportation due to her general debility. The patient is living at home and has a very supportive family. However, the joe gayle's dialysis on Wednesday could not be done due to patient's catheter not working. The patient was s ent to the hospital, got admitted, getting her catheter replaced this morning. I have placed the marline lysis orders for 2-1/2 hours, 3K potassium, 2.5 calcium, 35 bicarb, 137 sodium, and with a plan of re moving 1.5 L of ultrafiltration 350 blood flow rate and 700 dialysis flow rate. If the patient's blo od pressure goes below 100, she can get 25 g of albumin and monitor blood pressure as per protocol. I have discussed the plan also with the dialysis nurse. I have made Jed and Courtney aware of the plan and they are in agreement. The patient's condition continues to be guarded with her being very weak and malnourished. Hopefully with dialysis, this patient's condition improves and she started eating better. She can be in better health. Once in better health and more stable, an AV fistula can be p lanned. 2.Urinary tract infection, seems to be in good control. WBC is now normal. The patient is not havi ng any elevation of her WBC count or fever. Continue on Augmentin to complete a course. She has als o got a dose of Ancef while she was getting a catheter placed that also should help with the clearing of the urinary tract infection. In summary, once catheter placed, dialysis will be done today, dawn gaspar, is planned for today. I have advised the dialysis nurse and the order is in the chart. Urinary tract infection, on antibiotics, complete course. I have discussed the plan with the dialysis nurse and with the family and they are in agreement. The patient could not be seen physically and most of the information got from the chart and from the lab data and vitals in the chart as patient was in t he OR on getting a dialysis catheter placed with Dr. Gannon. /JD Voice ID: [id number] Report ID: [id number]
--- NOTE | 2021-02-22 19:16 | CON ---
Date of Consultation: 02/22/2021 Addendum: The patient is alert, awake, seen in the room. She is able to converse with me, able to g et some answers. She is significantly better than last week when I had seen her. She has some swell ing in her left lower extremity which is chronic. She does not have any edema in the lower extremity on the right. Her skin seems to be, there is no breakdown on the right lower extremity. She does h ave some venous congestion changes in the lower extremities. Her lungs are clear to auscultation. A bdomen is soft. The patient is asking to drink some fluids as she is feeling thirsty and has been n. p.o. overnight. Since I have evaluated the patient, I have discontinued her current dialysis orders and did some changes. Given the fact that the patient has been n.p.o. overnight, her volume status s eems to be reasonable. She does not need much fluid to be taken off, so we have discontinued the 150 0 cc of ultrafiltration. We will go ahead and ultrafiltrate only 500 cc just to keep her close to [facility] with the that she is getting and we will monitor blood pressure. If blood pressure is below 100, she will get an albumin dose of 25 g. We will dialyze her with a 3K bath. The patient is currently on antibiotics, clinically improving. /JD Voice ID: [id number] Report ID: [id number]
[2021-02-22 21:10] VITALS: BP 151/71
[2021-02-22] MEDS ORDERED: ALBUMIN HUMAN 25% 50 ML IV SCH (22:00)
[2021-02-22 22:51] VITALS: TEMP 98.5
[2021-02-22 22:57] VITALS: O2SAT 99
--- NOTE | 2021-02-23 18:47 | SS ---
Date of Discharge: 02/22/2021 History Of Present Illness: The patient is an 85-year-old female, just has been discharged from the hospital because of renal failure lower that was chronic and then she needed to start dialysis and sh e was admitted for access, which was established by Surgery and started dialyzing the patient and whe n she was stable enough to be discharged and arrangements for her to start outpatient dialysis, she w as discharged. However, on the day of her readmission to the hospital, the patient went for the dial ysis center to be dialyzed for the first time as an outpatient, was found that her IV access central line is not working and what probably clogged from inside of the labs. She was sent to the emergency room and we went ahead and readmitted the patient for Surgery consultation to reestablish access for dialysis. Physical Examination: Vital Signs: On admission, she had stable vital signs and her physical exam was basically not change d. General: She was alert and oriented x4. Heart: Regular rate and rhythm. She was in sinus rhythm. Chest: Clear to auscultation. Abdomen: Soft, benign. Neurologic: Alert, oriented, grossly intact. Laboratory Data: Her CBC showed hemoglobin 9.8, hematocrit 31.4, platelets 184. On her chemistry; t he patient's BUN was 56 with creatinine 5.41. The rest of her chemistry was noted. Hospital Course: On admission, the patient was readmitted. We put her on her home medications for he r medical illnesses including blood pressure medicines and Eliquis and for her recent atrial fibrilla tion paroxysmal, and consulted Nephrology and Dr. Gannon, General Surgery. Dr. Gannon went ahead and reestablished central line access for dialysis. Shortly after that, the patient was dialyzed wi th that central line and gravity has worked well and the patient tolerated the procedure of the centr al line placement and dialysis, well enough to be discharged back home to continue scheduled outpatient dialysis and to follow up with me and with Neurology. Look discharge orders for details. MFS/MODL Voice ID: [id number] Report ID: [id number]
== END 2021-02-22 21:55 | disposition home health service (06) ==
LOC: ER 13:20 → ERHOLD 17:13 → 4TH 21:06
PROVIDERS: ADMIT Internal Medicine; ATTEND Internal Medicine
PROC: 02HV33Z Insertion of Infusion Device into Superior Vena Cava, Percutaneous Approach (ICD-10-PCS; principal; 2021-02-22 12:00)
DX: T85.49XA Other mechanical complication of breast prosthesis and implant, initial encounter (principal); Z20.822 Contact with and (suspected) exposure to COVID-19; I13.2 Hypertensive heart and chronic kidney disease with heart failure and with stage 5 chronic kidney disease, or end stage renal disease; N18.6 End stage renal disease; I50.9 Heart failure, unspecified; K21.9 Gastro-esophageal reflux disease without esophagitis; F03.90 Unspecified dementia, unspecified severity, without behavioral disturbance, psychotic disturbance, mood disturbance, and anxiety; D63.1 Anemia in chronic kidney disease; N39.0 Urinary tract infection, site not specified
CPT/HCPCS: 85025 ×2; 80048 ×2; 36415; 88300; 71045 ×2; 90935; 99285; 36558; U0003; J2704; J2370; J1644 ×2; J2997 ×2; J0690; J7040; C1752; 76000; J0330

== ENCOUNTER 2021-02-24 10:13 | Inpatient (IN) | payer OTHER ==
--- NOTE | 2021-02-24 10:47 | RAD REPORT ---
EXAM DESCRIPTION: CT - Head Brain Wo Cont - 02/24/2021 10:30 am CLINICAL HISTORY: Alteration of awareness/confusion COMPARISON: February 18, 2021 TECHNIQUE: Computed axial tomography of the head was obtained. IV contrast was not requested. All CT scans are performed using dose optimization technique as appropriate and may include automated exposure control or mA/KV adjustment according to patient size. FINDINGS: An intracranial bleed is not seen . The ventricles are normal in caliber. No extra-axial fluid collection is noted. Moderate low-density areas within periventricular, deep and subcortical white matter likely represent ischemic changes secondary to small vessel disease. Fluid within the sinuses/ mastoids is not seen. IMPRESSION: No acute intracranial abnormality is seen. If patient's symptoms persist MRI of the bra in would be recommended.
--- NOTE | 2021-02-24 11:21 | RAD REPORT ---
EXAM DESCRIPTION: Vianca Single View02/24/2021 10:47 am CLINICAL HISTORY: End-stage renal disease COMPARISON: February 22, 2021 FINDINGS: Mild right basilar opacity may represent atelectasis or small pleural effusion. Right shahana diaphragm is elevated Left lung appears clear. Heart is normal size. Central venous catheter remains in place
[2021-02-24 11:32] LABS: Absolute Lymphocytes (CBC) 1.8 K/uL (0.7-4.9); Basophils % 0.5 % (0-1.3); Lymphocytes % 23.7 % (15.3-44.8); RBC Red Blood Cell Count 3.53 M/uL (3.86-4.86)
[2021-02-24 11:54] LABS: Magnesium 2.2 mg/dL (1.8-2.4); Potassium 4.3 mmol/L (3.5-5.1)
[2021-02-24 12:17] LABS: Anisocytosis 1+; Blood Morphology Comment NOTED (NOT SEEN); Ovalocytes SLIGHT; Platelet Estimate ADEQ; Poikilocytosis SLIGHT
--- NOTE | 2021-02-24 13:02 | EDPHYS ---
Physician Documentation [facility] Name: Camelia Root Age: 85 yrs Sex: Female : 1935 Arrival Date: 02/24/2021 Time: 10:14 Bed 5 Private MD: ED Physician Bobby Quach HPI: 02/24 11:58 This 85 yrs old Black Female presents to ER via EMS with complaints of Lethargic. rn 11:58 The patient presents with decreased responsiveness. Onset: The symptoms/episode rn began/occurred at an unknown time. Possible causes: unknown. Current symptoms: In the emergency department the patient's symptoms are unchanged from the initial presentation. It is unknown whether or not the patient has had similar symptoms in the past. The patient has been recently seen by a physician: The patient has been recently been admitted at [facility]. Pt recently began dialysis, last dialysis Wednesday per EMS, family called 911 for increased lethargy and AMS, no known trauma, no fever, family called because they don't believe dialysis is working. Patient reports nausea, denies pain. No sob.. Historical: - Allergies: 10:23 No Known Allergies; bp - Home Meds: 10:23 metoprolol tartrate 50 mg Oral tab 2 tabs every evening [Active]; clonidine HCl 0.1 mg bp Oral tab 3 times per day [Active]; doxazosin 2 mg Oral tab 1 tab twice a day [Active]; furosemide 40 mg Oral tab 1 tab 2 times per day [Active]; Lumigan 0.01 % ophthalmic drop [Active]; Vitamin D3 Oral [Active]; - PMHx: 10:23 Arthritis; CHF; GERD; High Cholesterol; Hypertension; lyphedema; Renal Disease; ESRD; bp - Immunization history:: Adult Immunizations. - Social history:: Smoking status: unknown. - Family history:: not pertinent. - Hospitalizations: : The patient was recently seen at [facility]. ROS: 11:58 Constitutional: Negative for fever, chills, and weight loss, Eyes: Negative for injury, rn pain, redness, and discharge, ENT: Negative for injury, pain, and discharge, Neck: Negative for injury, pain, and swelling, Cardiovascular: Negative for chest pain, palpitations, and edema, Respiratory: Negative for shortness of breath, cough, wheezing, and pleuritic chest pain, Abdomen/GI: Negative for abdominal pain, vomiting, diarrhea, and constipation, Back: Negative for injury and pain, MS/Extremity: Negative for injury and deformity, Skin: Negative for injury, rash, and discoloration, Neuro: Negative for headache, numbness, tingling, and seizure. Exam: 11:58 Constitutional: Thin female, no acute distress Head/Face: Normocephalic, atraumatic. government auditor: dry MM with orange/yellow liquid substance in mouth Cardiovascular: Regular rate and rhythm. No pulse deficits. Respiratory: No increased work of breathing, no retractions or nasal flaring. Abdomen/GI: soft, non-tender Skin: Warm, dry MS/ Extremity: Pulses equal, no cyanosis. + chronic LLE lymphedema with > circumference compared to RLE. Neuro: Awake and alert, GCS 15 Vital Signs: 10:16 BP 140 / 66; Pulse 87; Resp 16; Temp 98.4; Pulse Ox 98% ; bp 11:14 BP 159 / 76; Pulse 83; Resp 17; Pulse Ox 97% ; bp 12:00 BP 158 / 79; Pulse 86; Resp 17; Pulse Ox 100% ; bp 13:30 BP 152 / 65; Pulse 87; Resp 15; Pulse Ox 100% on R/A; hb 14:30 BP 143 / 63; Pulse 90; Resp 17; Pulse Ox 100% ; hb MDM: 10:14 Patient medically screened. rn 12:57 Differential Diagnosis: electrolyte abnormality, UTI, uremia. Data reviewed: vital rn signs, nurses notes, lab test result(s), radiologic studies, CT scan, plain films, and as a result, I will admit patient. Counseling: I had a detailed discussion with the patient and/or guardian regarding: the historical points, exam findings, and any diagnostic results supporting the discharge/admit diagnosis, lab results, radiology results. Response to treatment: There is no appreciated change of the patient's symptoms at this time, and as a result, I will admit patient. Admission orders: after a detailed discussion of the patient's condition and case, the admit orders are written by me. ED course: No acute findings in w/u, patient continues to have problems with outpt dialysis and acclimating, consulted with Dr. Vega, will admit with renal consult and long-term care consult.. 02/24 10:17 Order name: CBC with Diff rn 02/24 10:17 Order name: Basic Metabolic Panel; Complete Time: 12:46 rn 02/24 10:17 Order name: Procalcitonin; Complete Time: 12:46 rn 02/24 10:17 Order name: Blood Culture Adult (2) rn 02/24 10:17 Order name: Magnesium; Complete Time: 12:46 rn 02/24 10:17 Order name: CBC with Automated Diff; Complete Time: 12:46 EDMS 02/24 10:15 Order name: CT Head Brain wo Cont; Complete Time: 11:00 rn 02/24 10:17 Order name: IV Start; Complete Time: 11:08 rn 02/24 10:17 Order name: XRAY Chest (1 view); Complete Time: 11:27 rn 02/24 10:17 Order name: EKG; Complete Time: 10:17 rn 02/24 10:17 Order name: EKG - Nurse/Tech; Complete Time: 11:08 rn 02/24 12:11 Order name: Manual Differential; Complete Time: 12:46 EDMS Administered Medications: No medications were administered Disposition: 02/24/21 13:01 Hospitalization ordered by John Vega for Inpatient Admission. Preliminary diagnosis are End stage renal disease, Altered mental status, unspecified. - Bed requested for Telemetry/MedSurg (Inpatient). - Status is Inpatient Admission. bp - Condition is Stable. - Problem is an ongoing problem. - Symptoms are unchanged. Signatures: Dispatcher [employer] EDMS Bobby Quach MD MD rn Martinez, Eric em1 Dinesh Montano RN RN bp Corrections: (The following items were deleted from the chart) 13:02 13:01 Hospitalization Ordered by John Vega MD for Inpatient Admission. Preliminary rn diagnosis is End stage renal disease; Altered mental status, unspecified; Urinary tract infection, site not specified. Bed requested for Telemetry/MedSurg (Inpatient). Status is Inpatient Admission. Condition is Stable. Problem is an ongoing problem. Symptoms are unchanged. rn 14:32 13:02 02/24/2021 13:01 Hospitalization Ordered by John Vega MD for Inpatient em1 Admission. Preliminary diagnosis is End stage renal disease; Altered mental status, unspecified. Bed requested for Telemetry/MedSurg (Inpatient). Status is Inpatient Admission. Condition is Stable. Problem is an ongoing problem. Symptoms are unchanged. rn 15:30 14:32 02/24/2021 13:01 Hospitalization Ordered by John Vega MD for Inpatient bp Admission. Preliminary diagnosis is End stage renal disease; Altered mental status, unspecified. Bed requested for Telemetry/MedSurg (Inpatient). Status is Inpatient Admission. Condition is Stable. Problem is an ongoing problem. Symptoms are unchanged. em1
--- NOTE | 2021-02-24 13:02 | ER ---
Nurse's Notes [facility] Name: Camelia Root Age: 85 yrs Sex: Female : 1935 Arrival Date: 02/24/2021 Time: 10:14 Bed 5 Private MD: Diagnosis: End stage renal disease;Altered mental status, unspecified Presentation: 02/24 10:16 Chief complaint: EMS states: PER FAMILY PT IS MORE ALTERED AND LETHARGIC. Coronavirus bp screen: At this time, the client does not indicate any symptoms associated with coronavirus-19. Ebola Screen: No symptoms or risks identified at this time. Initial Sepsis Screen: Does the patient meet any 2 criteria? No. Patient's initial sepsis screen is negative. Does the patient have a suspected source of infection? No. Patient's initial sepsis screen is negative. Risk Assessment: Do you want to hurt yourself or someone else? Patient reports no desire to harm self or others. Onset of symptoms is unknown. 10:16 Method Of Arrival: EMS: [facility] bp 10:16 Acuity: SILVINO 2 bp Triage Assessment: 10:23 General: Appears distressed, uncomfortable, slender, Behavior is calm, cooperative. bp Pain: Denies pain. EENT: No deficits noted. Neuro: Level of Consciousness is awake, alert, lethargic. Cardiovascular: Rhythm is sinus rhythm. Respiratory: No deficits noted. GI: Abdomen is non-distended. :. Derm: No deficits noted. Musculoskeletal: No deficits noted. Historical: - Allergies: 10:23 No Known Allergies; bp - Home Meds: 10:23 metoprolol tartrate 50 mg Oral tab 2 tabs every evening [Active]; clonidine HCl 0.1 mg bp Oral tab 3 times per day [Active]; doxazosin 2 mg Oral tab 1 tab twice a day [Active]; furosemide 40 mg Oral tab 1 tab 2 times per day [Active]; Lumigan 0.01 % ophthalmic drop [Active]; Vitamin D3 Oral [Active]; - PMHx: 10:23 Arthritis; CHF; GERD; High Cholesterol; Hypertension; lyphedema; Renal Disease; ESRD; bp - Immunization history:: Adult Immunizations. - Social history:: Smoking status: unknown. - Family history:: not pertinent. - Hospitalizations: : The patient was recently seen at [facility]. Screenin:15 Abuse screen: Denies threats or abuse. Denies injuries from another. Nutritional bp screening: No deficits noted. Tuberculosis screening: No symptoms or risk factors identified. Fall Risk No fall in past 12 months (0 pts). No secondary diagnosis (0 pts). No IV (0 pts). Ambulatory Aid- None/Bed Rest/Nurse Assist (0 pts). Gait- Normal/Bed Rest/Wheelchair (0 pts) Total [place] Fall Scale indicates No Risk (0-24 pts). Assessment: 10:15 General: SEE TRIAGE NOTE. bp 11:15 Reassessment: No changes from previously documented assessment. CT PENDING. bp 12:07 Reassessment: No changes from previously documented assessment. Patient and/or family bp updated on plan of care and expected duration. Pain level reassessed. Patient states symptoms have not improved. 13:31 Reassessment: Patient appears in no apparent distress at this time. Patient and/or hb family updated on plan of care and expected duration. Pain level reassessed. 14:36 Reassessment: No changes from previously documented assessment. Patient and/or family hb updated on plan of care and expected duration. Pain level reassessed. ADMIT IN PROCESS. 14:55 Reassessment: ADMIT COMPLETE, REPORT TO MERYL RUSSO. hb Vital Signs: 10:16 BP 140 / 66; Pulse 87; Resp 16; Temp 98.4; Pulse Ox 98% ; bp 11:14 BP 159 / 76; Pulse 83; Resp 17; Pulse Ox 97% ; bp 12:00 BP 158 / 79; Pulse 86; Resp 17; Pulse Ox 100% ; bp 13:30 BP 152 / 65; Pulse 87; Resp 15; Pulse Ox 100% on R/A; hb 14:30 BP 143 / 63; Pulse 90; Resp 17; Pulse Ox 100% ; hb ED Course: 10:14 Patient arrived in ED. ds1 10:14 Bobby Quach MD is Attending Physician. rn 10:14 Patient has correct armband on for positive identification. Bed in low position. Call mh5 light in reach. Side rails up X2. Warm blanket given. Pillow given. school lunch monitor on. Pulse ox on. NIBP on. 10:15 Dinesh Montano, RN is Primary Nurse. bp 10:18 Triage completed. bp 10:23 Arm band placed on. bp 10:29 CT Head Brain wo Cont In Process Unspecified. EDMS 10:47 XRAY Chest (1 view) In Process Unspecified. EDMS 11:05 Inserted saline lock: 22 gauge in left forearm, using aseptic technique. Blood bp collected. 12:06 CBC with Diff Sent. sv 13:00 John eVga MD is Hospitalizing Provider. rn Administered Medications: No medications were administered Outcome: 13:01 Decision to Hospitalize by Provider. rn 15:30 Patient left the ED. bp Signatures: Dispatcher [employer] EDMS Em Leslie, RN RN Sugey Cheek ds1 Bobby Quach MD MD rn Baxter, Heather, RN RN hb Martinez, Maria [facility] Dinesh Montano RN RN bp
[2021-02-24 18:35] VITALS: BMI 23.6
--- NOTE | 2021-02-24 20:14 | P.PN ---
Date of Service: 02/24/21 This a brief communication note. Informed about patient coming to 2nd floor for admission. patient was recently admitted with confusion/uti/renal failure. was discharged in improved condition after dialysis catheter (that had not been functioning) was replaced. on Wednesday dialysis was attempted but patient dropped her bp to systolic 80s. despite albumin and some ivf , bp stayed low. had to return blood to stabilize bp. patient was to come to dialysis unit today to get dialysis with close supervision. however, she could not secure transportation. As she had been lethargic, family was advised to bring to ER for evaluation. will check ua again as patient has not been able to take po intake well and may not have taken her augmentin properly. will continue abx. will plan to dialyze with following plan that i have discussed with farmer diversified crops, Samantha: 2 hour treatment. 200 blood flow. 500 dialysis flow. will aim to give albumin and gentle ns at start of treatment and after 30mins on treatment. Further planning depending on how she tolerates treatment tomorrow.
[2021-02-24] MEDS: CEFTRIAXONE/SWI 1gm 1 GM/10 ML SYR IV SCH (20:27)
[2021-02-25] MEDS ORDERED: PNEUMOCOCCAL VACCINE 0.5 ML IMVAC ONE (08:00)
[2021-02-25] MEDS ORDERED: MANNITOL 25% 12.5 GM/50 ML VIAL IV PRN (09:30)
[2021-02-25] MEDS ORDERED: ALBUMIN HUMAN 25% 100 ML IV SCH (10:00)
[2021-02-25] MEDS ORDERED: ALBUMIN HUMAN 25% 50 ML IV SCH (10:00)
[2021-02-25] MEDS ORDERED: MANNITOL 25% 12.5 GM/50 ML VIAL IV SCH (10:00)
[2021-02-25 12:27] LABS: Potassium 3.8 mmol/L (3.5-5.1)
--- NOTE | 2021-02-25 12:39 | HP ---
Date of Admission: 02/24/2021 History Of Present Illness: An 85-year-old female, who just started her dialysis about 12 days ago. She was discharged home after arranging for her outpatient and then she was readmitted to the hospit al to change and do another catheter for dialysis. The patient was dialyzed in the hospital and sent home. Next day, the patient's family noted that she was not coherent enough and slow responsive and she was brought to the emergency room. It's worth mentioning that while she was in the hospital and getting dialyzed, similar symptoms have been noted with the patient after each time she gets dialyzed . Past Medical History: As per recent admit and discharge notes. Social History: As per recent admit and discharge notes. Family History: As per recent admit and discharge notes. Medications: As per recent admit and discharge notes. Allergies: PER RECENT ADMIT AND DISCHARGE NOTES. Physical Examination: Vital Signs: Blood pressure 158/72, pulse 99, temperature 98.1. Heart: Regular rate and rhythm. Chest: Clear to auscultation. Abdomen: Soft. Benign. Neurologic: Alert and oriented grossly to me. At the time of interview, she was alert and oriented x4, however, she is weak in general, but she moved all her extremities. Laboratory Data: Hemoglobin 8.1, hematocrit 27, and platelets 215. Chemistry; creatinine 6.05, BUN 60, procalcitonin 0.29. Assessment And Plan: 1.The patient gets confused with some sort of altered mental status as explained by the family and n oted and looking at previous notes from her hospitalization with similar symptoms that happens after dialysis. Seems that the patient is having difficulty tolerating dialysis the way it has been done n ow and she may need a reconditioning time in more controlled area to where her blood volume and her b lood pressure and vitals could be closely monitored, especially after dialysis and adjust her dialysi s and her volume taken during dialysis according to her, and this may take some time for this process to establish a steady state for her to where she could be dialyzed as an outpatient, so I think a [facility] facility is a good place to do that, so we will ask LTAC consult on this. Vadim burroughs, Nephrology is being consulted to continue dialysis for the patient as she needs it. 2.Looking at the patient's recent admission and discharge, she was on antibiotics for urine tract in fection. I will keep her on ceftriaxone while in the hospital here IV. Look orders for details. CHRIS/JD Voice ID: [id number]
[2021-02-25 13:34] LABS: Absolute Lymphocytes (CBC) 0.8 K/uL (0.7-4.9); Basophils % 0.3 % (0-1.3); Lymphocytes % 10.4 % (15.3-44.8); MPV 8.9 fL (7.6-11.3); RBC Red Blood Cell Count 2.65 M/uL (3.86-4.86)
[2021-02-25 13:54] LABS: Hematocrit 20.2 % (36.0-45.0)
[2021-02-25] MEDS: ONDANSETRON 4 MG/2 ML VIAL IV PRN (16:51)
[2021-02-25] MEDS: cloNIDine HCL 0.1 MG TAB PO SCH ×2 (16:54→20:30)
[2021-02-25] MEDS: VITAMIN D 5,000 UNIT CAP PO SCH (16:54)
[2021-02-25] MEDS: METOPROLOL TAR 50 MG TAB PO SCH (16:54)
[2021-02-25] MEDS: FUROSEMIDE 40 MG TABLET PO SCH (17:00)
[2021-02-25] MEDS: DOXAZOSIN 2 MG TAB PO SCH (20:29)
[2021-02-25] MEDS: CEFTRIAXONE/SWI 1gm 1 GM/10 ML SYR IV SCH (20:29)
[2021-02-25] MEDS ORDERED: NA CHLORIDE 0.9% 250 ML ONE (23:47)
[2021-02-26 05:59] LABS: Hematocrit 26.2 % (36.0-45.0)
[2021-02-26] MEDS: cloNIDine HCL 0.1 MG TAB PO SCH ×3 (08:15→20:58)
[2021-02-26] MEDS: DOXAZOSIN 2 MG TAB PO SCH ×2 (08:15→20:58)
[2021-02-26] MEDS: FUROSEMIDE 40 MG TABLET PO SCH ×2 (08:15→16:04)
[2021-02-26] MEDS ORDERED: EPOETIN ALFA-EPBX 10,000 UNIT/ML VIAL SQ ONE (08:45)
--- NOTE | 2021-02-26 09:03 | P.PN ---
Date of Service: 02/26/21 Vital Signs Temp Pulse Resp BP Pulse Ox 98.6 F 87 17 181/84 H 98 02/26/21 08:00 02/26/21 08:15 02/26/21 08:00 02/26/21 08:15 02/26/21 08:00 Medications Cholecalciferol (Vitamin D 5,000 Unit Cap) 5,000 unit PO 1200 [facility] Last Admin: 02/25/21 16:54 Dose: 5,000 unit Documented by: Clonidine HCl (Clonidine Hcl 0.1 Mg Tab) 0.1 mg PO TID [facility] Last Admin: 02/26/21 08:15 Dose: 0.1 mg Documented by: Docusate Sodium (Docusate Na 100 Mg Cap) 100 mg PO BID [facility] Doxazosin Mesylate (Doxazosin 2 Mg Tab) 2 mg PO BID [facility] Last Admin: 02/26/21 08:15 Dose: 2 mg Documented by: Furosemide (Furosemide 40 Mg Tablet) 40 mg PO BIDL [facility] Last Admin: 02/26/21 08:15 Dose: 40 mg Documented by: Heparin Sodium (Porcine) (Heparin 1,000 Unit/Ml Vial) 6,000 unit IV EVERY HD PRN PRN Reason: AFTER EACH Ceftriaxone Sodium/Sodium Chloride (Rocephin 1 Gm/10 Ml Swi Ivp) 1 gm in 10 mls @ 20 mls/hr IV BEDTIME [facility]; Protocol Last Admin: 02/25/21 20:29 Dose: 10 mls Documented by: Albumin Human (Albumin 25% 25 Gm) 100 mls @ 100 mls/hr IV EVERY HD [facility] Mannitol (Mannitol 25% 12.5 Gm/50 Ml Vial) 25 gm IV EVERY HD PRN PRN Reason: BP support at hemodialysis Metoprolol Tartrate (Metoprolol Tar 50 Mg Tab) 100 mg PO DAILY AT SUPPER [facility] Last Admin: 02/25/21 16:54 Dose: 100 mg Documented by: Ondansetron HCl (Ondansetron 4 Mg/2 Ml Vial) 4 mg IV Q6H PRN PRN Reason: NAUSEA / VOMITING Last Admin: 02/25/21 16:51 Dose: 4 mg Documented by: Sodium Chloride (Flush Normal Saline 10 Ml) 10 ml IV BID [facility] Last Admin: 02/26/21 08:15 Dose: 10 ml Documented by: Microbiology Results 02/24/21 11:05 Blood - Blood Aerobic Blood Culture - Preliminary No growth in 24 hours. 02/24/21 11:05 Blood - Blood Anaerobic Blood Culture - Preliminary No growth in 24 hours. 02/24/21 11:05 Blood - Blood Aerobic Blood Culture - Preliminary No growth in 24 hours. 02/24/21 11:05 Blood - Blood Anaerobic Blood Culture - Preliminary No growth in 24 hours. Assessment/ Plan: Nephrology Limited IH/ ROS this morning due to limited speech. Abdominal pain. Last BM this morning. No acute events overnight. Vitals, medications, blood work and imaging reviewed in the chart. NAD. MMM. Neck supple. CTA. RRR. Abd tender, ND. RLE Edema none. LLE lymphedema. Awake. Abnormal speech. ESRD -Arrange for acute HD today. HTN variable with hypotension on dialysis -Continue clonidine -Continue Metoprol and Doxazosin Diastolic CHF, chronic -Low sodium diet Moderate malnutrition -Start Nepro -Encourage nutrition Anemia in CKD -sp PRBC yesterday -Give Retacrit today DEWEY/ Secondary HyperPTH -Start Calcitriol Abdominal pain of unclear etiology -Start Colace bid -Reglan X1 dose today
[2021-02-26] MEDS: NEPRO SHAKE 237 ML CAN PO SCH ×2 (09:33→13:13)
[2021-02-26] MEDS: DOCUSATE NA 100 MG CAP PO SCH ×2 (09:33→20:58)
[2021-02-26] MEDS ORDERED: METOCLOPRAMIDE 10 MG/2mL INJ IV SCH (10:00)
[2021-02-26] MEDS: VITAMIN D 5,000 UNIT CAP PO SCH (11:21)
--- NOTE | 2021-02-26 12:03 | EKG ---
Test Date: 2021-02-24 Test Time: 10:44:09 Global Chief Creative Officer: BREE MEASUREMENT RESULTS: Intervals: Rate: 87 NV: 226 QRSD: 148 QT: 412 QTc: 495 Williams: P: 79 NV: 226 QRS: -20 T: 129 INTERPRETIVE STATEMENTS: Sinus rhythm with 1st degree AV block Left bundle branch block Abnormal ECG Compared to ECG 02/18/2021 13:53:08 First degree AV block now present Wide-QRS tachycardia no longer present Left-axis deviation no longer present Electronically Signed On 02-26-21 11:54:43 CDT by Mathew Bertrand
[2021-02-26] MEDS: METOPROLOL TAR 50 MG TAB PO SCH (16:04)
--- NOTE | 2021-02-26 18:38 | PN ---
Subjective: The patient has no new complaints. Objective: Vital Signs : Blood pressure 143/64, pulse 91, temperature 98.6. General: She is alert and oriented. Rest of the physical exam unchanged. Laboratory Data: Hemoglobin 8.3, hematocrit 26.2, and this is after the infusion of 1 unit of blood. She had hemoglobin of 6.2 and 20.2 hematocrit yesterday and she was confused. Assessment And Plan: 1.End-stage renal disease, on dialysis. We will follow Nephrology recommendation from that. So far the patient is clinically stable and tolerating the procedure. 2.Anemia of chronic renal disease. Clinically, no evidence of bleeding. We will follow up her hemo globin and hematocrit. 3.Pending long-term acute facility response to transfer the patient. Continue current treatments. MFS/MODL Voice ID: [id number] Report ID: [id number]
[2021-02-26] MEDS: ENSURE HIGH PROTEIN 237 ML CAN PO SCH (20:59)
[2021-02-26] MEDS: CEFTRIAXONE/SWI 1gm 1 GM/10 ML SYR IV SCH (20:59)
[2021-02-26] MEDS: JUVEN PACKET PO SCH (21:00)
[2021-02-27] MEDS: ENSURE HIGH PROTEIN 237 ML CAN PO SCH ×2 (09:00→20:22)
[2021-02-27] MEDS: JUVEN PACKET PO SCH ×2 (09:00→20:22)
[2021-02-27] MEDS: DOXAZOSIN 2 MG TAB PO SCH ×3 (09:00→20:22)
[2021-02-27] MEDS: cloNIDine HCL 0.1 MG TAB PO SCH (09:00)
--- NOTE | 2021-02-27 10:29 | P.PN ---
Date of Service: 02/27/21 Vital Signs Temp Pulse Resp BP Pulse Ox 98.4 F 98 H 16 171/82 H 100 02/27/21 08:00 02/27/21 08:00 02/27/21 08:00 02/27/21 08:00 02/27/21 08:00 Medications Calcitriol (Calcitrol 0.25 Mcg Cap) 0.5 mcg PO DAILY [facility] Cholecalciferol (Vitamin D 5,000 Unit Cap) 5,000 unit PO 1200 [facility] Last Admin: 02/26/21 11:21 Dose: 5,000 unit Documented by: Docusate Sodium (Docusate Na 100 Mg Cap) 100 mg PO BID [facility] Last Admin: 02/26/21 20:58 Dose: 100 mg Documented by: Doxazosin Mesylate (Doxazosin 2 Mg Tab) 2 mg PO BID [facility] Furosemide (Furosemide 40 Mg Tablet) 40 mg PO BIDL [facility] Last Admin: 02/26/21 16:04 Dose: 40 mg Documented by: Heparin Sodium (Porcine) (Heparin 1,000 Unit/Ml Vial) 6,000 unit IV EVERY HD PRN PRN Reason: AFTER EACH Last Admin: 02/26/21 12:30 Dose: 6,000 unit Documented by: Ceftriaxone Sodium/Sodium Chloride (Rocephin 1 Gm/10 Ml Swi Ivp) 1 gm in 10 mls @ 20 mls/hr IV BEDTIME [facility]; Protocol Last Admin: 02/26/21 20:59 Dose: 10 mls Documented by: Albumin Human (Albumin 25% 25 Gm) 100 mls @ 100 mls/hr IV EVERY HD [facility] Last Admin: 02/26/21 10:24 Dose: 100 mls Documented by: L-Arginine/L-Glutamine/HMB (Tray Packet) 1 pkt PO BID [facility] Last Admin: 02/26/21 21:00 Dose: Not Given Documented by: Mannitol (Mannitol 25% 12.5 Gm/50 Ml Vial) 25 gm IV EVERY HD PRN PRN Reason: BP support at hemodialysis Metoprolol Tartrate (Metoprolol Tar 50 Mg Tab) 100 mg PO BID [facility] Nutritional Formula (Ensure High Protein 237 Ml Can) 237 ml PO BID [facility] Last Admin: 02/26/21 20:59 Dose: 237 ml Documented by: Ondansetron HCl (Ondansetron 4 Mg/2 Ml Vial) 4 mg IV Q6H PRN PRN Reason: NAUSEA / VOMITING Last Admin: 02/25/21 16:51 Dose: 4 mg Documented by: Sodium Chloride (Flush Normal Saline 10 Ml) 10 ml IV BID [facility] Last Admin: 02/26/21 19:40 Dose: 10 ml Documented by: Valsartan (Valsartan 80 Mg Tab) 80 mg PO BID [facility] Microbiology Results 02/24/21 11:05 Blood - Blood Aerobic Blood Culture - Preliminary No growth in 24 hours. 02/24/21 11:05 Blood - Blood Anaerobic Blood Culture - Preliminary No growth in 24 hours. 02/24/21 11:05 Blood - Blood Aerobic Blood Culture - Preliminary No growth in 24 hours. 02/24/21 11:05 Blood - Blood Anaerobic Blood Culture - Preliminary No growth in 24 hours. Assessment/ Plan: Nephrology Limited IH/ ROS this morning due to somnolence this morning. Refusing meds and food today. No acute events overnight. Vitals, medications, blood work and imaging reviewed in the chart. NAD. MMM. Neck supple. CTA. RRR. Abd tender, ND. RLE Edema none. LLE lymphedema. Somnolent. Minimal speech. ESRD -Arrange for acute HD today. HTN variable with hypotension on dialysis -Discontinue clonidine. -Increase Metoprolol BID -Continue Doxazosin -Start Valsartan BID now that she is on dialysis Diastolic CHF, chronic -Low sodium diet Moderate malnutrition -Continue Nepro -Encourage nutrition Anemia in CKD -sp PRBC yesterday -Start Retacrit TIW DEWEY/ Secondary HyperPTH -Continue Calcitriol Abdominal pain of unclear etiology -Continue Colace bid -Reglan X1 dose today
[2021-02-27] MEDS: DOCUSATE NA 100 MG CAP PO SCH ×2 (10:34→20:22)
[2021-02-27] MEDS: FUROSEMIDE 40 MG TABLET PO SCH ×2 (10:35→16:09)
[2021-02-27] MEDS: VITAMIN D 5,000 UNIT CAP PO SCH (10:36)
[2021-02-27] MEDS: CALCITROL 0.25 MCG CAP PO SCH (10:36)
[2021-02-27] MEDS ORDERED: METOCLOPRAMIDE 10 MG/2mL INJ IV SCH (11:00)
[2021-02-27 11:16] LABS: Absolute Lymphocytes (CBC) 1.8 K/uL (0.7-4.9); Basophils % 0.5 % (0-1.3); Hematocrit 26.3 % (36.0-45.0); Lymphocytes % 19.9 % (15.3-44.8); MPV 8.9 fL (7.6-11.3); RBC Red Blood Cell Count 3.38 M/uL (3.86-4.86)
[2021-02-27 12:08] LABS: Bilirubin Total 0.8 mg/dL (0.2-1.0); Phosphorus 2.3 mg/dL (2.5-4.9); Potassium 4.1 mmol/L (3.5-5.1); Protein, Total 5.9 g/dL (6.4-8.2); Uric Acid 3.6 mg/dL (2.6-6.0)
--- NOTE | 2021-02-27 13:27 | PN ---
Subjective: The patient is in bed, feeling well. Alert and oriented and trying to have her lunch. Objective: Vital Signs: Blood pressure 170/82, pulse 98, temperature 98.4. Heart: Regular rate and rhythm. Chest: Clear to auscultation. Abdomen: Soft, benign. Neurological: Alert, oriented, nonfocal. Grossly intact. Assessment And Plan: 1.End-stage renal disease with dialysis. The patient is tolerating that well right now, pending [facility] answer about transferring there. 2.The patient to me denied having any abdominal pain or any other pain and she is eating well. Her oral intake for food has improved. 3.Hypertension. We will continue current medications and also dialysis will help controlling that. 4.Anemia of chronic illness. Her hemoglobin is stable at 8.1 and hematocrit 26.3. Her chemistry delgado d been noted also for today, so the patient is clinically stable. We will continue current care and management, pending answer from [facility] about transferring her. Look orders for details. MFS/MODL Voice ID: [id number] Report ID: [id number]
[2021-02-27] MEDS: ONDANSETRON 4 MG/2 ML VIAL IV PRN (16:09)
[2021-02-27] MEDS: METOPROLOL TAR 50 MG TAB PO SCH ×2 (16:12→20:36)
[2021-02-27] MEDS: CEFTRIAXONE/SWI 1gm 1 GM/10 ML SYR IV SCH (20:21)
[2021-02-27] MEDS ORDERED: VALSARTAN 80 MG TAB PO SCH (21:00)
--- NOTE | 2021-02-28 07:58 | P.PN ---
Date of Service: 02/28/21 Vital Signs Temp Pulse Resp BP Pulse Ox 97.0 F 97 H 16 173/80 H 98 02/28/21 04:00 02/28/21 04:00 02/28/21 04:00 02/28/21 04:00 02/28/21 04:00 Medications Calcitriol (Calcitrol 0.25 Mcg Cap) 0.5 mcg PO DAILY [facility] Last Admin: 02/27/21 10:36 Dose: 0.5 mcg Documented by: Cholecalciferol (Vitamin D 5,000 Unit Cap) 5,000 unit PO 1200 [facility] Last Admin: 02/27/21 10:36 Dose: 5,000 unit Documented by: Docusate Sodium (Docusate Na 100 Mg Cap) 100 mg PO BID [facility] Last Admin: 02/27/21 20:22 Dose: 100 mg Documented by: Doxazosin Mesylate (Doxazosin 2 Mg Tab) 2 mg PO BID [facility] Last Admin: 02/27/21 20:22 Dose: 2 mg Documented by: Epoetin Andrea (Epoetin Andrea 10,000 Unit/Ml Vial) 10,000 unit SQ M,W,F [facility] Furosemide (Furosemide 40 Mg Tablet) 40 mg PO BIDL [facility] Last Admin: 02/27/21 16:09 Dose: 40 mg Documented by: Heparin Sodium (Porcine) (Heparin 1,000 Unit/Ml Vial) 6,000 unit IV EVERY HD PRN PRN Reason: AFTER EACH Last Admin: 02/26/21 12:30 Dose: 6,000 unit Documented by: Ceftriaxone Sodium/Sodium Chloride (Rocephin 1 Gm/10 Ml Swi Ivp) 1 gm in 10 mls @ 20 mls/hr IV BEDTIME [facility]; Protocol Last Admin: 02/27/21 20:21 Dose: 10 mls Documented by: Albumin Human (Albumin 25% 25 Gm) 100 mls @ 100 mls/hr IV EVERY HD [facility] Last Admin: 02/26/21 10:24 Dose: 100 mls Documented by: L-Arginine/L-Glutamine/HMB (Tray Packet) 1 pkt PO BID [facility] Last Admin: 02/27/21 20:22 Dose: Not Given Documented by: Mannitol (Mannitol 25% 12.5 Gm/50 Ml Vial) 25 gm IV EVERY HD PRN PRN Reason: BP support at hemodialysis Metoprolol Tartrate (Metoprolol Tar 50 Mg Tab) 100 mg PO BID [facility] Last Admin: 02/27/21 20:36 Dose: Not Given Documented by: Nutritional Formula (Ensure High Protein 237 Ml Can) 237 ml PO BID [facility] Last Admin: 02/27/21 20:22 Dose: Not Given Documented by: Ondansetron HCl (Ondansetron 4 Mg/2 Ml Vial) 4 mg IV Q6H PRN PRN Reason: NAUSEA / VOMITING Last Admin: 02/27/21 16:09 Dose: 4 mg Documented by: Sodium Chloride (Flush Normal Saline 10 Ml) 10 ml IV BID [facility] Last Admin: 02/27/21 20:22 Dose: 10 ml Documented by: Valsartan (Valsartan 80 Mg Tab) 160 mg PO BID [facility] Microbiology Results 02/24/21 11:05 Blood - Blood Aerobic Blood Culture - Preliminary No growth in 24 hours. 02/24/21 11:05 Blood - Blood Anaerobic Blood Culture - Preliminary No growth in 24 hours. 02/24/21 11:05 Blood - Blood Aerobic Blood Culture - Preliminary No growth in 24 hours. 02/24/21 11:05 Blood - Blood Anaerobic Blood Culture - Preliminary No growth in 24 hours. Assessment/ Plan: Nephrology States she has to urinate and feels uncomfortable in her lower abdomen CPS stable without CP or Dyspnea. No acute events overnight. Vitals, medications, blood work and imaging reviewed in the chart. NAD. MMM. Neck supple. CTA. RRR. Abd NT, ND. RLE Edema none. LLE lymphedema. Awake. Minimal speech. ESRD -Arrange for acute HD today. HTN variable with hypotension on dialysis -Discontinue Clonidine due to episodes of hypotension -Continue Metoprolol BID -Continue Doxazosin -Increase Valsartan 160 BID Diastolic CHF, chronic -Low sodium diet Moderate malnutrition -Continue Nepro -Encourage nutrition Anemia in CKD -sp PRBC -Continue Retacrit TIW DEWEY/ Secondary HyperPTH -Continue Calcitriol Abdominal pain of unclear etiology -Continue Colace bid
[2021-02-28] MEDS: CALCITROL 0.25 MCG CAP PO SCH (08:50)
[2021-02-28] MEDS: FUROSEMIDE 40 MG TABLET PO SCH ×2 (08:50→17:42)
[2021-02-28] MEDS: DOXAZOSIN 2 MG TAB PO SCH ×2 (08:50→21:24)
[2021-02-28] MEDS: ENSURE HIGH PROTEIN 237 ML CAN PO SCH ×2 (08:50→21:00)
[2021-02-28] MEDS: DOCUSATE NA 100 MG CAP PO SCH ×2 (08:50→21:24)
[2021-02-28] MEDS: VALSARTAN 80 MG TAB PO SCH ×2 (08:50→21:23)
[2021-02-28] MEDS: METOPROLOL TAR 50 MG TAB PO SCH ×2 (08:50→21:24)
[2021-02-28] MEDS: JUVEN PACKET PO SCH ×2 (08:51→21:00)
[2021-02-28] MEDS: ONDANSETRON 4 MG/2 ML VIAL IV PRN ×2 (09:09→17:42)
[2021-02-28 09:11] LABS: Absolute Lymphocytes (CBC) 1.7 K/uL (0.7-4.9); Hematocrit 27.7 % (36.0-45.0); Lymphocytes % 16.1 % (15.3-44.8); MPV 9.1 fL (7.6-11.3); RBC Red Blood Cell Count 3.53 M/uL (3.86-4.86)
[2021-02-28 09:16] LABS: Potassium 4.4 mmol/L (3.5-5.1)
[2021-02-28] MEDS: VITAMIN D 5,000 UNIT CAP PO SCH (11:38)
[2021-02-28] MEDS: EPOETIN ALFA 10,000 UNIT/ML VIAL SQ SCH ×2 (13:35→17:42)
[2021-02-28] MEDS: CEFTRIAXONE/SWI 1gm 1 GM/10 ML SYR IV SCH (21:25)
--- NOTE | 2021-03-01 01:01 | DS ---
The patient is an 85-year-old female, who recently required to have dialysis for end-stage renal dise ase, was admitted to the hospital because of confusion, thought secondary to drop in blood pressure a t home after her dialysis. Past Medical History: As per admit note. Social History: As per admit note. Family History: As per admit note. Medications: As per admit note. Allergies: PER ADMIT NOTE. Physical Examination: As per admit note. Diagnostic Data: As per admit note. Hospital Course: The patient was admitted to the hospital and my assessment was that the patient is not tolerating dialysis well and she will become symptomatic, confused, and hemodynamically unstable after each dialysis and her fluid volume level had to be adjusted every time. I thought that the [facility] was going to need a prolonged period of time to and so I have asked long-term acute c are facility can consult on that. Also, the patient is weak. She is not ambulatory. She was not al so having any significant food intake with decreased appetite. We tried to encourage the patient to eat and kept on dialyzing the patient. We monitored her labs and her blood count. At some point, bree guardado had to be transfused 1 unit of blood. Her hemoglobin was down to 6, went up to 8.1 after transfusi on. The patient has an anemia of chronic disease. We also monitored her blood pressure and acted ac cordingly. The patient, from previous admission, urinary tract infection/cystitis was considered als o present, so we kept her on ceftriaxone, IV antibiotic. The patient now is stable. She is being di alyzed. She was accepted by [place] to be transferred over there for further conditioning of the [facility] to be able to be dialyzed as an outpatient and the patient was transferred to [place]. She was stable at the time of transfer. MFS/MODL Voice ID: [id number] Report ID: [id number]
[2021-03-01] MEDS: METOPROLOL TAR 50 MG TAB PO SCH ×2 (09:00)
[2021-03-01] MEDS: ENSURE HIGH PROTEIN 237 ML CAN PO SCH (09:00)
[2021-03-01] MEDS: VALSARTAN 80 MG TAB PO SCH ×2 (09:00→09:17)
[2021-03-01] MEDS: FUROSEMIDE 40 MG TABLET PO SCH ×3 (09:00→17:26)
[2021-03-01] MEDS: JUVEN PACKET PO SCH (09:00)
[2021-03-01] MEDS: DOXAZOSIN 2 MG TAB PO SCH ×2 (09:00→09:15)
[2021-03-01] MEDS: DOCUSATE NA 100 MG CAP PO SCH ×2 (09:00→09:16)
[2021-03-01] MEDS: CALCITROL 0.25 MCG CAP PO SCH (09:16)
[2021-03-01] MEDS: ONDANSETRON 4 MG/2 ML VIAL IV PRN ×2 (09:21→17:26)
[2021-03-01] MEDS ORDERED: LACTULOSE 20 GM/30 ML UCUP PO ONE (09:34)
[2021-03-01] MEDS ORDERED: SENOSIDES 8.6 MG TAB PO PRN (09:35)
[2021-03-01] MEDS ORDERED: METOPROLOL TAR 50 MG TAB PO ONE (09:40)
--- NOTE | 2021-03-01 09:41 | P.PN ---
Date of Service: 03/01/21 Vital Signs Temp Pulse Resp BP Pulse Ox 97.4 F 103 H 18 169/84 H 97 03/01/21 04:00 03/01/21 09:17 03/01/21 04:00 03/01/21 09:17 03/01/21 04:00 Medications Calcitriol (Calcitrol 0.25 Mcg Cap) 0.5 mcg PO DAILY [facility] Last Admin: 03/01/21 09:16 Dose: 0.5 mcg Documented by: Cholecalciferol (Vitamin D 5,000 Unit Cap) 5,000 unit PO 1200 [facility] Last Admin: 02/28/21 11:38 Dose: 5,000 unit Documented by: Docusate Sodium (Docusate Na 100 Mg Cap) 100 mg PO BID [facility] Last Admin: 03/01/21 09:16 Dose: 100 mg Documented by: Doxazosin Mesylate (Doxazosin 2 Mg Tab) 2 mg PO BID [facility] Last Admin: 03/01/21 09:15 Dose: 2 mg Documented by: Epoetin Andrea (Epoetin Andrea 10,000 Unit/Ml Vial) 10,000 unit SQ M,W,F [facility] Last Admin: 02/28/21 17:42 Dose: 10,000 unit Documented by: Furosemide (Furosemide 40 Mg Tablet) 40 mg PO BIDL [facility] Last Admin: 03/01/21 09:16 Dose: 40 mg Documented by: Heparin Sodium (Porcine) (Heparin 1,000 Unit/Ml Vial) 6,000 unit IV EVERY HD PRN PRN Reason: AFTER EACH Last Admin: 02/28/21 13:35 Dose: 6,000 unit Documented by: Ceftriaxone Sodium/Sodium Chloride (Rocephin 1 Gm/10 Ml Swi Ivp) 1 gm in 10 mls @ 20 mls/hr IV BEDTIME [facility]; Protocol Last Admin: 02/28/21 21:25 Dose: 10 mls Documented by: Albumin Human (Albumin 25% 25 Gm) 100 mls @ 100 mls/hr IV EVERY HD [facility] Last Admin: 02/26/21 10:24 Dose: 100 mls Documented by: L-Arginine/L-Glutamine/HMB (Tray Packet) 1 pkt PO BID [facility] Last Admin: 03/01/21 09:00 Dose: Not Given Documented by: Lactulose (Lactulose 20 Gm/30 Ml Ucup) 10 gm PO 1X ONE Stop: 03/01/21 09:35 Mannitol (Mannitol 25% 12.5 Gm/50 Ml Vial) 25 gm IV EVERY HD PRN PRN Reason: BP support at hemodialysis Metoclopramide HCl (Metoclopramide 10 Mg/2ml Inj) 10 mg IV 1X [facility] Metoprolol Tartrate (Metoprolol Tar 50 Mg Tab) 100 mg PO BID [facility] Last Admin: 03/01/21 09:00 Dose: 100 mg Documented by: Nutritional Formula (Ensure High Protein 237 Ml Can) 237 ml PO BID [facility] Last Admin: 03/01/21 09:00 Dose: Not Given Documented by: Ondansetron HCl (Ondansetron 4 Mg/2 Ml Vial) 4 mg IV Q6H PRN PRN Reason: NAUSEA / VOMITING Last Admin: 03/01/21 09:21 Dose: 4 mg Documented by: Sodium Chloride (Flush Normal Saline 10 Ml) 10 ml IV BID [facility] Last Admin: 03/01/21 09:00 Dose: 10 ml Documented by: Valsartan (Valsartan 80 Mg Tab) 160 mg PO BID [facility] Last Admin: 03/01/21 09:17 Dose: 160 mg Documented by: Microbiology Results 02/24/21 11:05 Blood - Blood Aerobic Blood Culture - Preliminary No growth in 24 hours. 02/24/21 11:05 Blood - Blood Anaerobic Blood Culture - Preliminary No growth in 24 hours. 02/24/21 11:05 Blood - Blood Aerobic Blood Culture - Preliminary No growth in 24 hours. 02/24/21 11:05 Blood - Blood Anaerobic Blood Culture - Preliminary No growth in 24 hours. Assessment/ Plan: Nephrology CPS stable without CP or Dyspnea. Nausea. Refusing meds and food this morning. No acute events overnight. Vitals, medications, blood work and imaging reviewed in the chart. NAD. MMM. Neck supple. CTA. RRR. Abd NT, ND. RLE Edema none. LLE lymphedema. Awake. Minimal speech. ESRD -Next HD on Wednesday HTN variable with hypotension on dialysis -Discontinue Clonidine due to episodes of hypotension -Increase Metoprolol 150mg BID -Continue Doxazosin -Continue Valsartan 160 BID Diastolic CHF, chronic -Low sodium diet Moderate malnutrition -Continue Nepro -Encourage nutrition Anemia in CKD -sp PRBC -Continue Retacrit TIW DEWEY/ Secondary HyperPTH -Continue Calcitriol Abdominal pain of unclear etiology -Continue Colace bid -Reglan 10mg IV X1 -Lactulose 10g X1
[2021-03-01] MEDS ORDERED: METOCLOPRAMIDE 10 MG/2mL INJ IV SCH (10:00)
[2021-03-01] MEDS: VITAMIN D 5,000 UNIT CAP PO SCH (11:24)
[2021-03-01 11:45] VITALS: O2SAT 98
[2021-03-01 16:51] VITALS: BP 170/82; TEMP 98.2
[2021-03-01] MEDS ORDERED: METOPROLOL TAR 50 MG TAB PO SCH (21:00)
== END 2021-03-01 18:35 | DRG 291 ==
LOC: ER 10:13 → ERHOLD 13:52 → 2ND 14:52
PROVIDERS: ADMIT Internal Medicine; ATTEND Internal Medicine
PROC: 5A1D70Z Performance of Urinary Filtration, Intermittent, Less than 6 Hours Per Day (ICD-10-PCS; principal; 2021-02-25)
PROC: 30233N1 Transfusion of Nonautologous Red Blood Cells into Peripheral Vein, Percutaneous Approach (ICD-10-PCS; 2021-02-25)
DX: I13.2 Hypertensive heart and chronic kidney disease with heart failure and with stage 5 chronic kidney disease, or end stage renal disease (principal); N18.6 End stage renal disease; I50.32 Chronic diastolic (congestive) heart failure; E44.0 Moderate protein-calorie malnutrition; N25.81 Secondary hyperparathyroidism of renal origin; N25.0 Renal osteodystrophy; N30.90 Cystitis, unspecified without hematuria; D63.1 Anemia in chronic kidney disease; I95.3 Hypotension of hemodialysis; K21.9 Gastro-esophageal reflux disease without esophagitis; R10.9 Unspecified abdominal pain; Z79.899 Other long term (current) drug therapy; Z68.23 Body mass index [BMI] 23.0-23.9, adult; Z99.2 Dependence on renal dialysis; Z20.822 Contact with and (suspected) exposure to COVID-19
CPT/HCPCS: 36415; 36430; 70450; 71045; 76000; 80048; 80053; 83735; 83880; 84100; 84145; 84550; 85014; 85018; 85025; 86850; 86900; 86901; 87040; 88300; 90935; 93005; 99284; 99285; C1752; J0330; J0690; J1644; J2150; J2370; J2405; J2704; J2765; J2997; J7040; J7050; P9016; P9047; Q5105; Q5106; U0003

== ENCOUNTER 2021-03-19 13:30 | Emergency (ER) | payer OTHER ==
--- NOTE | 2021-03-19 14:01 | RAD REPORT ---
EXAM DESCRIPTION: Vianca Single View03/19/2021 1:53 pm CLINICAL HISTORY: Device placement endotracheal tube placement IMPRESSION: An endotracheal tube has been inserted with its tip 2.3 centimeters above the top of the aortic arch. 5 centimeters above the valerie. An orogastric tube has been placed into the gastric fundus
[2021-03-19 14:09] LABS: Absolute Lymphocytes (CBC) 1.8 K/uL (0.7-4.9); Basophils % 0.2 % (0-1.3); Hematocrit 12.9 % (36.0-45.0); Lymphocytes % 16.7 % (15.3-44.8); MPV 10.2 fL (7.6-11.3); RBC Red Blood Cell Count 1.54 M/uL (3.86-4.86)
[2021-03-19 14:11] LABS: Protime INR 1.57
[2021-03-19] MEDS ORDERED: Phenylephrine HCl 10 MG/ML 1 ML VIAL ONE (14:14)
[2021-03-19] MEDS ORDERED: D5W 250 ML IV ONE (14:14)
[2021-03-19 14:30] LABS: Blood Gas Oxyhemoglobin 96.7 % (94-97)
[2021-03-19 14:33] LABS: White Blood Cell Scan OK (OK)
[2021-03-19 14:34] LABS: Blood Morphology Comment NOT SEEN (NOT SEEN); Platelet Estimate DECR
[2021-03-19 14:40] LABS: Albumin 1.7 g/dL (3.4-5.0); Bilirubin Direct 0.5 mg/dL (0-0.2); CKMB Creatine Kinase MB 3.2 ng/mL (1.0-3.6); Protein, Total 4.4 g/dL (6.4-8.2); Troponin (Emerg Dept Use Only) 0.13 ng/mL (0.0-0.045)
[2021-03-19 14:46] LABS: Urine Blood 2+ (Negative); Urine Glucose Negative (Negative); Urine Protein 2+ (Negative); Urine Specific Gravity 1.025 (1.005-1.030); Urine pH 5.5 (5.0-7.0)
[2021-03-19] MEDS ORDERED: PANTOPRAZOLE 40 MG INJ ONE (14:53)
[2021-03-19] MEDS ORDERED: PANTOPRAZOLE INJ 80 MG in NA CHLORIDE 0.9% 250 ML IV SCH (15:00)
[2021-03-19] MEDS ORDERED: NOREPINEPHRINE 4 MG in D5W 250 ML IV PRN (15:15)
--- NOTE | 2021-03-19 17:23 | EDPHYS ---
Physician Documentation [facility] Name: Camelia Root Age: 85 yrs Sex: Female : 1935 Arrival Date: 03/19/2021 Time: 13:37 Bed 3 Private MD: ED Physician Bobby Quach HPI: 03/19 15:24 This 85 yrs old Black Female presents to ER via EMS with complaints of CPR. jr8 15:24 Preceding the arrest, the patient collapsed. The arrest occurred at a dialysis center. jr8 Pre-hospital course: The arrest was witnessed Nursing staff Bystanders at the scene performed CPR. EMS care prior to arrival: initiation of ACLS, peripheral IV, Dialysis catheter accessed . intubation was successfully performed, orally, using a 7.5 ET tube. oxygen, by BVM to assist ventilations. 100% by ET tube. ACLS details: Initial rhythm was asystole. The presenting rhythm is tachycardia. Airway: oral intubation, Medications given by EMS prior to arrival - Epinephrine IV x 2 doses, Response to therapy: return of rhythm, return of pulse. The patient has not experienced similar symptoms in the past. It is unknown whether or not the patient has recently seen a physician. Patient had completed dialysis and was getting ready to go home. Collapsed at center and was found to be pulseless and apneic. Dialysis stated that she has been dry lately and only filtered her for the past two visits without taking any water weight off. Family stated that she had not been eating well lately and had been signing that her stomach had been hurting. Patient to have black tarry stool upon arrival. Patient with no purposeful movement or response upon arrival. Patient intubated with a pulse but hypotensive . Historical: - Allergies: 14:43 No Known Allergies; sv - Home Meds: 14:43 metoprolol tartrate 50 mg Oral tab 1 tab 2 times per day [Active]; furosemide 40 mg sv Oral tab 1 tab 2 times per day [Active]; doxazosin 2 mg Oral tab 1 tab twice a day [Active]; clonidine HCl 0.1 mg Oral tab 3 times per day [Active]; Eliquis 2.5 mg oral tab 1 tab 2 times per day [Active]; Vitamin D3 125 mg daily Oral [Active]; - PMHx: 14:43 Arthritis; CHF; ESRD; GERD; High Cholesterol; Hypertension; Renal Disease; sv Hyperlipidemia; COPD; Lymphedema; - PSHx: 14:43 R knee; Back; Hysterectomy; sv - Immunization history:: Adult Immunizations up to date. - Social history:: Smoking status: Patient denies any tobacco usage or history of. ROS: 15:24 Unable to obtain ROS due to patient is on ventilator. jr8 Exam: 15:24 Head/Face: Normocephalic, atraumatic. Neck: Trachea midline, no thyromegaly or masses jr8 palpated, and no cervical lymphadenopathy. Supple, full range of motion Cardiovascular: Tachycardic with a normal S1 and S2. No gallops, murmurs, or rubs. Normal PMI, no JVD. No pulse deficits. Respiratory: Lungs have equal breath sounds bilaterally, clear to auscultation. No rales, rhonchi or wheezes noted. Mechanically ventilated Abdomen/GI: Soft with normal bowel sounds. No distension Skin: Cool, and dry. Normal color with no rashes, no lesions, and no evidence of cellulitis. 15:24 Neuro: Orientation: unable to test, the patient is intubated, Mentation: unable to test, the patient is medicated, Memory: unable to test, the patient is medicated, seizure activity, is not displayed by the patient, Abnormal movements: there are no abnormal movements. Vital Signs: 13:27 BP 59 / 45; Pulse 110; Resp 18; sv 13:42 BP 43 / 32; Pulse 117; Temp 18; Pulse Ox 95% on 100% FiO2 ETT vent; sv 13:45 BP 52 / 41; Pulse 117; Resp 16; Pulse Ox 100% on 100% FiO2 ETT vent; sv 13:50 BP 74 / 51; Pulse 95; Resp 16; Pulse Ox 100% on 100% FiO2 ETT vent; sv 14:00 BP 77 / 45; Pulse 85; Resp 16; Pulse Ox 100% on ETT vent; sv 14:05 BP 80 / 46; Pulse 85; Resp 16; Pulse Ox 100% on ETT vent; sv 14:15 BP 76 / 47; Pulse 87; Resp 16; Temp 90.7(C); Pulse Ox 100% on 40% FiO2 ETT vent; sv 14:30 BP 85 / 50; Pulse 78; Resp 12; Pulse Ox 100% on 40% FiO2 ETT vent; sv 14:43 BP 85 / 50; Pulse 76; Resp 12; Temp 94.7(C); Pulse Ox 100% on 40% FiO2 ETT vent; sv 15:00 BP 100 / 61; Pulse 76; Resp 12; Pulse Ox 100% on 40% FiO2 ETT vent; sv 15:15 BP 103 / 52; Pulse 76; Resp 14; Pulse Ox 100% on 40% FiO2 ETT vent; sv 15:20 BP 103 / 52; Pulse 77; Resp 12; Temp 94.5(C); Pulse Ox 100% on 40% FiO2 ETT vent; sv 15:30 BP 102 / 54; Pulse 76; Resp 12; Pulse Ox 100% on 40% FiO2 ETT vent; sv 15:45 BP 106 / 63; Pulse 76; Resp 12; Temp 94.2(C); Pulse Ox 100% on 40% FiO2 ETT vent; sv 16:00 BP 117 / 57; Pulse 76; Resp 12; Temp 94.1(C); Pulse Ox 100% on 40% FiO2 ETT vent; sv 16:15 BP 125 / 59; Pulse 76; Resp 12; Temp 93.9(C); Pulse Ox 100% on 40% FiO2 ETT vent; sv 16:30 BP 128 / 58; Pulse 76; Resp 12; Pulse Ox 100% on 40% FiO2 ETT vent; sv 16:45 BP 123 / 58; Pulse 77; Resp 12; Temp 93.6(C); Pulse Ox 100% on 40% FiO2 ETT vent; sv 17:00 BP 123 / 81; Pulse 76; Resp 14; Pulse Ox 100% on 40% FiO2 ETT vent; sv 17:15 BP 120 / 92; Pulse 77; Resp 13; Pulse Ox 100% on 40% FiO2 ETT vent; sv 17:30 BP 134 / 60; Pulse 75; Resp 24; Pulse Ox 100% on 40% FiO2 ETT vent; sv 17:35 BP 128 / 75; Pulse 77; Resp 16; Temp 93.4(C); Pulse Ox 100% on 40% FiO2 ETT vent; sv 17:45 BP 135 / 62; Pulse 78; Resp 14; Pulse Ox 100% on 40% FiO2 ETT vent; sv 18:00 BP 105 / 52; Pulse 72; Resp 12; Pulse Ox 100% on 40% FiO2 ETT vent; sv 18:15 BP 110 / 57; Pulse 69; Resp 12; Pulse Ox 100% on 40% FiO2 ETT vent; sv 18:30 BP 110 / 69; Pulse 70; Resp 12; Temp 93.4(C); Pulse Ox 100% on 40% FiO2 ETT vent; sv 19:18 Weight 69.8 kg (R); jb4 Matt Coma Score: 15:24 Eye Response: none(1). Verbal Response: none(1). Motor Response: none(1). Modifying jr8 Factors: Intubated. Modifying Factors: Medicated. Total: 3. Ventilator: 14:15 Fi02: 40%; Rate: 12min; T.V.: 500ml; Peep: 5cm; Mode: CMV; sv Procedures: 14:31 Central Line: the site was prepped with Betadine, in sterile fashion, a triple lumen jr8 catheter was inserted, in the right femoral vein, in 1 attempts. placement was verified, by blood return, the site was dressed with 4X4s, Tegaderm, foam tape, using sterile technique, the patient tolerated the procedure, well. MDM: 13:37 Patient medically screened. jr8 17:10 Data reviewed: vital signs, nurses notes, lab test result(s), EKG, radiologic studies, jr8 plain films. Data interpreted: Pulse oximetry: on room air is 100 %. Interpretation: normal. Counseling: I had a detailed discussion with the patient and/or guardian regarding: the historical points, exam findings, and any diagnostic results supporting the discharge/admit diagnosis, lab results, radiology results, the need to transfer to another facility, [facility] does not immediately have the required specialist. ED course: No GI available. Most likely arrest was secondary to hypovolemic shock from GI bleeding. Attempted transfer to [facility] who graciously accepted . 03/19 13:37 Order name: Basic Metabolic Panel [facility] 03/19 13:37 Order name: CBC with Diff [facility] 03/19 13:37 Order name: LFT's [facility] 03/19 13:37 Order name: Magnesium [facility] 03/19 13:37 Order name: NT PRO-BNP [facility] 03/19 13:37 Order name: PT-INR [facility] 03/19 13:37 Order name: Troponin (emerg Dept Use Only) [facility] 03/19 13:37 Order name: CK [facility] 03/19 13:37 Order name: Ckmb [facility] 03/19 13:37 Order name: Lactate [facility] 03/19 14:03 Order name: TS [facility] 03/19 14:13 Order name: CBC with Automated Diff; Complete Time: 14:35 EDMS 03/19 14:14 Order name: Protime (+INR); Complete Time: 14:15 EDMS 03/19 14:16 Order name: Glucose, Ancillary Testing; Complete Time: 14:20 EDMS 03/19 14:23 Order name: PRBC [facility] 03/19 14:31 Order name: COVID-19 : Document "Date of Symptom Onset" if Symptomatic. [facility] 03/19 14:31 Order name: ABG Arterial Blood Gas; Complete Time: 14:35 EDMS 03/19 14:34 Order name: CBC Smear Scan; Complete Time: 14:35 EDMS 03/19 14:44 Order name: UA MICROSCOPIC 03/19 14:47 Order name: Urine Dipstick-Ancillary; Complete Time: 14:48 EDMS 03/19 14:47 Order name: Basic Metabolic Panel; Complete Time: 14:48 EDMS 03/19 14:48 Order name: Liver (Hepatic) Function; Complete Time: 14:48 EDMS 03/19 14:48 Order name: Creatine Phosphokinase; Complete Time: 14:48 EDMS 03/19 14:48 Order name: CKMB Creatine Kinase MB; Complete Time: 14:48 EDMS 03/19 14:48 Order name: Troponin (Emerg Dept Use Only); Complete Time: 14:48 EDMS 03/19 14:48 Order name: NT PRO-BNP; Complete Time: 14:48 EDMS 03/19 14:48 Order name: Magnesium; Complete Time: 14:48 EDMS 03/19 14:48 Order name: Lactate; Complete Time: 14:48 EDMS 03/19 14:57 Order name: Type and Screen [facility] 03/19 15:20 Order name: CORONAVIRUS [facility] 03/19 13:37 Order name: XRAY Chest (1 view) [facility] 03/19 13:37 Order name: EKG; Complete Time: 13:38 [facility] 03/19 13:37 Order name: Cardiac monitoring; Complete Time: 13:41 [facility] 03/19 13:37 Order name: EKG - Nurse/Tech; Complete Time: 13:41 8 03/19 13:37 Order name: IV Saline Lock; Complete Time: 14:27 03/19 13:37 Order name: Labs collected and sent; Complete Time: 14:27 03/19 13:37 Order name: O2 Per Protocol; Complete Time: 14:27 03/19 13:37 Order name: O2 Sat Monitoring; Complete Time: 14:27 03/19 13:38 Order name: NG Tube; Complete Time: 14:26 03/19 13:38 Order name: Rojo; Complete Time: 14:26 8 03/19 14:01 Order name: RAD; Complete Time: 14:03 EDMS 03/19 16:15 Order name: SARS-COV-2 RT PCR; Complete Time: 16:43 EDMS 03/19 17:41 Order name: Lactate Sepsis 2 HR Follow-up; Complete Time: 17:43 EDMS 03/19 19:24 Order name: Glucose, Ancillary Testing; Complete Time: 19:25 EDMS Administered Medications: 13:37 Drug: Levophed (norepinephrine) (4 mg/250 mL D5W 4 mcg/min {Note: started at 10 sv mcg/min.} Route: IV; Rate: calculated rate; Site: Other; 13:42 Follow up: Rate change 20 calculated rate sv 13:50 Follow up: Rate change 30 calculated rate sv 14:04 Drug: David-Synephrine (phenylephrine) 100 mcg/min {Note: started at 50 mcg/min per Wai sv PA.} Route: IV; Rate: calculated rate; Site: right femoral; 14:53 Follow up: Rate change 100 calculated rate sv 16:32 Follow up: Rate change 50 calculated rate sv 17:16 Follow up: Rate change 25 calculated rate sv 17:40 Follow up: BP has improved. Pt remains on the Levophed drip. Will stop the sv Phenylephrine at this time. 15:11 Drug: ProTONIX (pantoprazole) 8 mg/hr Route: IV; Rate: 25 ml/hr; Site: right femoral; sv 15:12 Drug: ProTONIX (pantoprazole) 40 mg Route: IVP; Site: right femoral; sv 15:43 Follow up: Response: No adverse reaction sv 17:58 Drug: fentaNYL (PF) 75 mcg {Note: rass1.} Route: IVP; Site: right femoral; sv 18:51 Follow up: Response: No adverse reaction; RASS: Light sedation (-2) sv 18:10 Drug: Lasix (furosemide) 40 mg Route: IVP; Site: right femoral; sv 18:50 Follow up: Response: No adverse reaction sv 19:33 Drug: Propofol 5 mcg/kg/min Route: IV; Rate: calculated rate; Site: right femoral; jb4 Disposition: 03/19/21 17:[address] [facility]. Diagnosis are Cardiac arrest, Gastrointestinal hemorrhage, unspecified, Acute Anemia, Hypovolemia. - Reason for transfer: Higher level of care. - Accepting physician is Dr. Parra. - Condition is Critical. - Problem is new. - Symptoms have improved. Signatures: Dispatcher [employer] Em Ohara RN RN Wai Cruz PA PA jr8 Bonilla Altman RN RN jb4 Corrections: (The following items were deleted from the chart) 20:15 17:23 03/19/2021 17:[address] [facility]. jb4 Diagnosis is Cardiac arrest; Gastrointestinal hemorrhage, unspecified; Acute Anemia; Hypovolemia. Reason for transfer: Higher level of care. Accepting physician is Dr. Parra. Condition is Critical. Problem is new. Symptoms have improved. jr8
--- NOTE | 2021-03-19 17:23 | ER ---
Nurse's Notes [facility] Name: Camelia Root Age: 85 yrs Sex: Female : 1935 Arrival Date: 03/19/2021 Time: 13:37 Bed 3 Private MD: Diagnosis: Cardiac arrest;Gastrointestinal hemorrhage, unspecified;Acute Anemia;Hypovolemia Presentation: 03/19 13:27 Chief complaint: EMS states: called out by Dialysis clinic, witnessed arrest by staff, sv CPR started around 1251. Asystole, 3 rounds of CPR, 2 Epinephrine, 70 mg bicarbonate, 1 calcium, 40 mg Rocuronium given. ROSC achieved at 1313. En route pt became hypotensive, GCS-3. Intubated on scene with ETT-7.5, 22-teeth. Care prior to arrival: CPR manually performed by EMS Oxygen administered. via AMBU bag. Compressions began prior to arrival. 13:27 Method Of Arrival: EMS: [facility] sv 13:27 Coronavirus screen: At this time, unable to obtain information related to travel sv outside the [place] Ebola Screen: Unable to complete the Ebola screening because: Patient is intubated. Initial Sepsis Screen: Does the patient meet any 2 criteria? Temp <36.0*C (96.8*F)) or > 38.3*C (100.9*F). HR > 90 bpm. Yes Does the patient have a suspected source of infection? No. Patient's initial sepsis screen is negative. Risk Assessment: Do you want to hurt yourself or someone else? Unable to obtain. Onset of symptoms was March 19, 2021. 13:37 Acuity: SILVINO 1 hb Historical: - Allergies: 14:43 No Known Allergies; sv - Home Meds: 14:43 metoprolol tartrate 50 mg Oral tab 1 tab 2 times per day [Active]; furosemide 40 mg sv Oral tab 1 tab 2 times per day [Active]; doxazosin 2 mg Oral tab 1 tab twice a day [Active]; clonidine HCl 0.1 mg Oral tab 3 times per day [Active]; Eliquis 2.5 mg oral tab 1 tab 2 times per day [Active]; Vitamin D3 125 mg daily Oral [Active]; - PMHx: 14:43 Arthritis; CHF; ESRD; GERD; High Cholesterol; Hypertension; Renal Disease; sv Hyperlipidemia; COPD; Lymphedema; - PSHx: 14:43 R knee; Back; Hysterectomy; sv - Immunization history:: Adult Immunizations up to date. - Social history:: Smoking status: Patient denies any tobacco usage or history of. Screenin:00 Abuse screen: Denies threats or abuse. Denies injuries from another. Nutritional sv screening: No deficits noted. Tuberculosis screening: No symptoms or risk factors identified. Fall Risk No fall in past 12 months (0 pts). No secondary diagnosis (0 pts). IV access (20 points). Ambulatory Aid- None/Bed Rest/Nurse Assist (0 pts). Gait- Normal/Bed Rest/Wheelchair (0 pts) Mental Status- Overestimates/Forgets Limitations (15 pts.). Total Piedra Fall Scale indicates Low Risk Score (25-44 pts). Fall prevention measures have been instituted. Side Rails Up X 2 Placed close to Nursing Station Frequent Obs/Assesments occuring. Assessment: 13:27 CPR assessment: unresponsive, no respiratory effort, intubated, mechanical ventilation. sv General: Appears in no apparent distress. slender, Behavior is unresponsive. Neuro: Level of Consciousness is unresponsive, Oriented to none. Cardiovascular: Pulses are palpable in right radial artery and left radial artery. Cardiovascular: Dialysis shunt: in the R upper chest wall. Respiratory: Airway via oral intubation Respiratory effort is even, unlabored, Respiratory pattern is regular, symmetrical. GI: Abdomen is flat, black stool noted in pt's diaper. Derm: Skin is normal, Decubitus located on sacrum is unstageable. 13:27 Cardiac rhythm is 1st degree AVB. sv 14:04 Reassessment: Patient appears in no apparent distress at this time. No changes from sv previously documented assessment. 15:11 Reassessment: Patient appears in no apparent distress at this time. No changes from sv previously documented assessment. Pt remains intubated. 15:25 Reassessment: 1st unit of PRBCs started, see blood transfusion sheet. sv 16:29 Reassessment: Patient appears in no apparent distress at this time. No changes from sv previously documented assessment. Pt remains intubated. 16:47 Reassessment: Transfer initiated with [facility] due to no GI at our facility. Spoke with KARAN Puentes. Awaiting returned call. 17:16 Reassessment: Patient appears in no apparent distress at this time. No changes from sv previously documented assessment. 18:05 Reassessment: 2nd unit of PRBCs started, see blood transfusion sheet. sv Vital Signs: 13:27 BP 59 / 45; Pulse 110; Resp 18; sv 13:42 BP 43 / 32; Pulse 117; Temp 18; Pulse Ox 95% on 100% FiO2 ETT vent; sv 13:45 BP 52 / 41; Pulse 117; Resp 16; Pulse Ox 100% on 100% FiO2 ETT vent; sv 13:50 BP 74 / 51; Pulse 95; Resp 16; Pulse Ox 100% on 100% FiO2 ETT vent; sv 14:00 BP 77 / 45; Pulse 85; Resp 16; Pulse Ox 100% on ETT vent; sv 14:05 BP 80 / 46; Pulse 85; Resp 16; Pulse Ox 100% on ETT vent; sv 14:15 BP 76 / 47; Pulse 87; Resp 16; Temp 90.7(C); Pulse Ox 100% on 40% FiO2 ETT vent; sv 14:30 BP 85 / 50; Pulse 78; Resp 12; Pulse Ox 100% on 40% FiO2 ETT vent; sv 14:43 BP 85 / 50; Pulse 76; Resp 12; Temp 94.7(C); Pulse Ox 100% on 40% FiO2 ETT vent; sv 15:00 BP 100 / 61; Pulse 76; Resp 12; Pulse Ox 100% on 40% FiO2 ETT vent; sv 15:15 BP 103 / 52; Pulse 76; Resp 14; Pulse Ox 100% on 40% FiO2 ETT vent; sv 15:20 BP 103 / 52; Pulse 77; Resp 12; Temp 94.5(C); Pulse Ox 100% on 40% FiO2 ETT vent; sv 15:30 BP 102 / 54; Pulse 76; Resp 12; Pulse Ox 100% on 40% FiO2 ETT vent; sv 15:45 BP 106 / 63; Pulse 76; Resp 12; Temp 94.2(C); Pulse Ox 100% on 40% FiO2 ETT vent; sv 16:00 BP 117 / 57; Pulse 76; Resp 12; Temp 94.1(C); Pulse Ox 100% on 40% FiO2 ETT vent; sv 16:15 BP 125 / 59; Pulse 76; Resp 12; Temp 93.9(C); Pulse Ox 100% on 40% FiO2 ETT vent; sv 16:30 BP 128 / 58; Pulse 76; Resp 12; Pulse Ox 100% on 40% FiO2 ETT vent; sv 16:45 BP 123 / 58; Pulse 77; Resp 12; Temp 93.6(C); Pulse Ox 100% on 40% FiO2 ETT vent; sv 17:00 BP 123 / 81; Pulse 76; Resp 14; Pulse Ox 100% on 40% FiO2 ETT vent; sv 17:15 BP 120 / 92; Pulse 77; Resp 13; Pulse Ox 100% on 40% FiO2 ETT vent; sv 17:30 BP 134 / 60; Pulse 75; Resp 24; Pulse Ox 100% on 40% FiO2 ETT vent; sv 17:35 BP 128 / 75; Pulse 77; Resp 16; Temp 93.4(C); Pulse Ox 100% on 40% FiO2 ETT vent; sv 17:45 BP 135 / 62; Pulse 78; Resp 14; Pulse Ox 100% on 40% FiO2 ETT vent; sv 18:00 BP 105 / 52; Pulse 72; Resp 12; Pulse Ox 100% on 40% FiO2 ETT vent; sv 18:15 BP 110 / 57; Pulse 69; Resp 12; Pulse Ox 100% on 40% FiO2 ETT vent; sv 18:30 BP 110 / 69; Pulse 70; Resp 12; Temp 93.4(C); Pulse Ox 100% on 40% FiO2 ETT vent; sv 19:18 Weight 69.8 kg (R); jb4 Matt Coma Score: 15:24 Eye Response: none(1). Verbal Response: none(1). Motor Response: none(1). Modifying jr8 Factors: Intubated. Modifying Factors: Medicated. Total: 3. ED Course: 13:35 Arm band placed on. sv 13:37 Patient arrived in ED. ss 13:37 Wai Palmer PA is PHCP. jr8 13:37 Bobby Quach MD is Attending Physician. jr8 13:40 Patient has correct armband on for positive identification. Placed in gown. Bed in low mh5 position. Call light in reach. Side rails up X 1. Warm blanket given. laboratory monitor on. Pulse ox on. NIBP on. 13:40 NGT: inserted 16 Fr. other OGT Placement verified by X-ray, to intermittent suction. sv Patient tolerated well. 13:50 Em Leslie, KARAN is Primary Nurse. sv 13:52 Triage completed. hb 14:00 Assisted provider with central line placement. Set up central line tray. Triple lumen sv line placed in right femoral. Line placed by Wai PACHECO Placement verified by blood return, Dressed with Tegaderm, Blood was collected. Patient tolerated well. Before procedure, did Practitioner(s) obtain informed consent? No. Patient \\T\\ family education about procedure, CLABSI prevention and S/S of infection? No. Time-out/Briefing performed prior to start of procedure? Yes. Was handwashing/sanitizing done immediately prior to procedure? Yes. Was patient positioned to in a way to prevent air embolism? Yes. Was procedure site sterilized? Yes, with chlorhexidine. Was the site allowed to dry? Yes. Was local anesthetic and/or sedation utilized? Yes. During the procedure, did the Practitioner(s) maintain a sterile field? Yes. Were unused ports clamped during insertion? Yes. Was a 2nd qualified MD obtained after 3 unsuccessful insertion attempts? Yes. Was blood aspirated from each lumen? Yes. After the procedure, did the Practitioner(s) clean the site and apply a sterile dressing? Yes. 14:04 EKG done, by ED staff, reviewed by Bobby Quach MD. [facility] 14:05 Side rails up X2. [facility] 14:15 Rojo cath inserted, using sterile technique, 16 Fr., by vt, balloon inflated, to sv gravity drainage, urine specimen collected. other Criticore returned cloudy urine. Patient tolerated well. 14:22 cleaned and changed. [facility] 14:26 TS Sent. sv 14:26 Lactate Sent. sv 14:26 CK Sent. sv 14:27 Ckmb Sent. sv 14:27 XRAY Chest (1 view) Sent. sv 14:27 Troponin (emerg Dept Use Only) Sent. sv 14:27 PT-INR Sent. sv 14:27 Magnesium Sent. sv 14:27 NT PRO-BNP Sent. sv 14:27 LFT's Sent. sv 14:27 CBC with Diff Sent. sv 14:27 Basic Metabolic Panel Sent. sv 14:44 COVID-19 : Document "Date of Symptom Onset" if Symptomatic. Sent. sv 14:53 UA MICROSCOPIC Sent. sv 15:43 CORONAVIRUS Sent. sv 15:43 PRBC Sent. sv 18:52 Patient transferred, IV remains in place. intact. sv 19:03 Primary Nurse role handed off by Em Leslie RN sv Administered Medications: 13:37 Drug: Levophed (norepinephrine) (4 mg/250 mL D5W 4 mcg/min {Note: started at 10 sv mcg/min.} Route: IV; Rate: calculated rate; Site: Other; 13:42 Follow up: Rate change 20 calculated rate sv 13:50 Follow up: Rate change 30 calculated rate sv 14:04 Drug: David-Synephrine (phenylephrine) 100 mcg/min {Note: started at 50 mcg/min per Wai sv PA.} Route: IV; Rate: calculated rate; Site: right femoral; 14:53 Follow up: Rate change 100 calculated rate sv 16:32 Follow up: Rate change 50 calculated rate sv 17:16 Follow up: Rate change 25 calculated rate sv 17:40 Follow up: BP has improved. Pt remains on the Levophed drip. Will stop the sv Phenylephrine at this time. 15:11 Drug: ProTONIX (pantoprazole) 8 mg/hr Route: IV; Rate: 25 ml/hr; Site: right femoral; sv 15:12 Drug: ProTONIX (pantoprazole) 40 mg Route: IVP; Site: right femoral; sv 15:43 Follow up: Response: No adverse reaction sv 17:58 Drug: fentaNYL (PF) 75 mcg {Note: rass1.} Route: IVP; Site: right femoral; sv 18:51 Follow up: Response: No adverse reaction; RASS: Light sedation (-2) sv 18:10 Drug: Lasix (furosemide) 40 mg Route: IVP; Site: right femoral; sv 18:50 Follow up: Response: No adverse reaction sv 19:33 Drug: Propofol 5 mcg/kg/min Route: IV; Rate: calculated rate; Site: right femoral; jb4 Intake: Ventilator: 14:15 Fi02: 40%; Rate: 12min; T.V.: 500ml; Peep: 5cm; Mode: CMV; sv Outcome: 17:23 ER care complete, transfer ordered by MD. black 18:40 Transferred by ground EMS to [facility], Transfer form completed. sv X-rays sent w/ patient. Note: Report called to Fabiana RUSSO 18:40 Condition: stable 18:40 Instructed on the need for transfer. 20:15 Patient left the ED. jb4 Signatures: Em Leslie, RN KARAN Martha Atkins RN RN Wai Palmer PA PA jr8 Abbie Jensen RN RN Bonilla Altman RN RN jb4 Martinez, Maria [facility] Corrections: (The following items were deleted from the chart) 13:52 13:07 Acuity: SILVINO 1 hb hb 14:25 14:04 David-Synephrine (phenylephrine) 100 mcg/min IV at calculated rate in right femoral sv sv 14:53 14:33 Rate change 60 calculated rate sv sv 16:30 16:29 Reassessment: Patient appears in no apparent distress at this time. No changes sv from previously documented assessment. Pt remains intubated sv 16:50 16:33 BP 128 / 58; Pulse 76bpm; Resp 12bpm; Pulse Ox 100% FiO2 40% vent; sv sv 18:25 13:27 Chief complaint: EMS states: called out by Dialysis clinic, witnessed arrest by staff, CPR started around 1251. Asystole, 3 rounds of CPR, 2 Epinephrine, 70 mg bicarbonate, 1 calcium, 40 mg Rocuronium given. ROSC achieved at 1313. En route pt became hypotensive, GCS-3. sv
[2021-03-19] MEDS ORDERED: FENTANYL CITR 100 MCG/2 ML ONE (18:16)
[2021-03-19] MEDS ORDERED: FUROSEMIDE 40 MG/4 ML VIAL ONE (18:31)
[2021-03-19] MEDS ORDERED: propofoL 1,000 MG/100 ML VIAL IV ONE (19:41)
[2021-03-19 20:22] VITALS: O2SAT 100
[2021-03-19 20:53] VITALS: TEMP 93.4
[2021-03-19 20:59] VITALS: BP 110/69
--- NOTE | 2021-03-20 10:34 | EKG ---
Test Date: 2021-03-19 Test Time: 13:54:18 [employer]: BREE MEASUREMENT RESULTS: Intervals: Rate: 91 DC: 256 QRSD: 154 QT: 438 QTc: 538 [place]: P: DC: 256 QRS: 5 T: 178 INTERPRETIVE STATEMENTS: Sinus rhythm with 1st degree AV block with occasional premature ventricular complexes and premature atrial complexes Left bundle branch block Abnormal ECG Compared to ECG 02/24/2021 10:44:09 Atrial premature complex(es) now present Ventricular premature complex(es) now present Electronically Signed On 03-20-21 10:31:53 CDT by Mathew Bertrand
== END 2021-03-19 20:15 | disposition short-term general hospital (02) ==
LOC: ER 13:30
PROC: 06HM33Z Insertion of Infusion Device into Right Femoral Vein, Percutaneous Approach (ICD-10-PCS; principal; 2021-03-19)
PROC: 30233N1 Transfusion of Nonautologous Red Blood Cells into Peripheral Vein, Percutaneous Approach (ICD-10-PCS; 2021-03-19)
DX: I46.9 Cardiac arrest, cause unspecified (principal); E86.1 Hypovolemia; K92.2 Gastrointestinal hemorrhage, unspecified; I13.2 Hypertensive heart and chronic kidney disease with heart failure and with stage 5 chronic kidney disease, or end stage renal disease; I50.9 Heart failure, unspecified; N18.6 End stage renal disease; D63.1 Anemia in chronic kidney disease; Z99.2 Dependence on renal dialysis; Z79.01 Long term (current) use of anticoagulants; Z20.822 Contact with and (suspected) exposure to COVID-19
CPT/HCPCS: 85025; 80048; 36415; 86900; 83735; 86850; 82550; 85610; 86901; 82947 ×2; 80076; 83605 ×2; 81003; 84484; 82553; 83880; 71045; 94002; 82805; 36556; 36430; U0003; J2370; J1940; J2704; C9113 ×2; J3010; P9016 ×2; J7060 ×3; J7050; 93005